=== PATIENT | female | born 1950 | race Caucasian/White ===

== ENCOUNTER → 2017-08-22 | Outpatient (CLI) | payer MEDICARE, OTHER, SELFPAY | PROVIDERS: Family Provider Nurse Practitioner Family; Visit Provider Nurse Practitioner Family | DX: R05 Cough (principal) | CPT/HCPCS: 71020 ==

== ENCOUNTER 2017-09-21 18:00 | Inpatient (IN) | payer MEDICARE, OTHER, SELFPAY ==
[2017-09-21 18:01] VITALS: BP 209/125; PULSE 90; RESP 18; TEMP 36.8; O2SAT 99; BMI 35.4
--- NOTE | 2017-09-21 18:06 | HMH.EDGENADL ---
ED Disposition Clinical Impression: Chest pain, Hypertensive urgency, Vomiting, Dizziness Disposition: Still a Patient Condition on Discharge: Good Instructions: DI for Diarrhea and Traveler's Diarrhea -- Adult, DI for Diarrhea and Traveler's Diarrhea -- Child, DI for Nausea -- Adult, DI for Nausea -- Child - Critical Care Critical Care Time: No Attestation: On , the high probability of a clinically significant, sudden or life threatening deterioration of the following system(s) required my full and direct attention, intervention and personal management. The time I documented below is in addition to time spent performing reported procedures but includes the following listed in this critical care notation. Medical Decision Making - Medical Records Medical records reviewed: Yes: I reviewed the patient's medical records. Vital Signs: 09/21/17 18:01 Temperature 98.2 F Temperature Source Oral Pulse Rate [Right Brachial] 90 Respiratory Rate 18 Blood Pressure [Right Arm] 209/125 Blood Pressure Mean [Right Arm] 153 Blood Pressure Source [Right Arm] Automatic Cuff Blood Pressure Position [Right Arm] Sitting 02 Sat by Pulse Oximetry 99 Oxygen Delivery Method Room Air - Lab Data Lab Results 09/21/17 18:05: WBC 10.7, RBC 4.54, Hgb 13.5, Hct 39.9, MCV 87.9, MCH 29.8, MCHC 33.9, RDW 13.4, Plt Count 424, MPV 7.1 L, Neut % (Auto) 72.9, Lymph % (Auto) 21.1, [place] % (Auto) 4.8, Eos % (Auto) 0.7, Baso % (Auto) 0.6, Neut # (Auto) 7.8, Lymph # (Auto) 2.3, [place] # (Auto) 0.5, Eos # (Auto) 0.1, Baso # (Auto) 0.1 09/21/17 18:05: Sodium 139, Potassium 3.3 L, Chloride 101, Carbon Dioxide 24, Anion Gap 17.3 H, BUN 8, Creatinine 0.77, Estimated Creat Clear 78, Estimated GFR 75, Est GFR ( Amer) 90, Glucose 111 H, Calcium 8.9, Total Bilirubin 0.8, AST 31, ALT 31, Alkaline Phosphatase 170 H, Total Creatine Kinase 85, CK-MB (CK-2) 0.5, CK-MB (CK-2) Rel Index 0.6, Troponin I < 0.02, Total Protein 8.0, Albumin 4.2, Globulin 3.8 H, Albumin/Globulin Ratio 1.1, TSH 6.58 H, Free T4 0.91 09/21/17 18:05: D-Dimer 410 H* 09/21/17 18:05: B-Natriuretic Peptide 57 09/21/17 18:05: Magnesium 1.3 L, Lipase 66 L Result diagrams: 09/21/17 18:05 09/21/17 18:05 Orders (Tests/Meds): ED MEDICATIONS Generic Name Dose Route Start Last Admin Trade Name Freq PRN Reason Stop Dose Admin Carvedilol 6.25 mg 09/21/17 21:00 Coreg 6.25mg Tablet PO 10/21/17 20:59 BID ERIC Magnesium Sulfate 1 gm/ Sodium 102 mls @ 200 mls/hr 09/21/17 19:42 Chloride IV 09/21/17 20:12 ONCE ONE Discontinued Medications Generic Name Dose Route Start Last Admin Trade Name Freq PRN Reason Stop Dose Admin Lactated Ringer's 1,000 mls @ 999 mls/hr 09/21/17 18:15 09/21/17 18:22 Lactated Ringer's 1000 Ml Bag IV 09/21/17 19:15 999 mls/hr .Q1H1M ERIC Administration Nitroglycerin 0.5 gm 09/21/17 19:41 Nitroglycerin 1 Inch Oint Udp TD 09/21/17 19:42 ONCE ONE Ondansetron HCl 4 mg 09/21/17 18:14 09/21/17 18:21 Zofran 4mg/2ml Vial IV 09/21/17 18:15 4 mg ONCE ONE Administration Promethazine HCl 12.5 mg 09/21/17 19:07 09/21/17 19:22 Phenergan 25mg/Ml 1ml Vial IV 09/21/17 19:08 12.5 mg ONCE ONE Administration Sodium Chloride 25 ml 09/21/17 19:07 09/21/17 19:33 Sod Chloride 0.9% 25ml Bag IV 09/21/17 19:08 25 ml ONCE ONE Administration ORDERS Category Date Time Status XR acute abdomen series Stat Exams 09/21/17 18:11 Taken Troponin I Stat Lab 09/21/17 19:08 Ordered - Radiology Data #1 Image(s): Chest, Abdomen Image Reviewed: Yes I reviewed the patient's radiology image Preliminary Findings: Normal/NAD - CT Data CT Scan: Head Time Received: 19:[address] Reviewed: Yes: I have viewed the radiologist's interpretation Findings Narrative: MPRESSION: 1. No acute intracranial findings. 2. Atrophy with chronic microangiopathic gliotic changes. - ECG Data Tracing #1
--- NOTE | 2017-09-21 18:09 | ED_ITS ---
ED Disposition Clinical Impression: Chest pain, Hypertensive urgency, Vomiting, Dizziness Disposition: Still a Patient Condition on Discharge: Good Instructions: DI for Diarrhea and Traveler's Diarrhea -- Adult, DI for Diarrhea and Traveler's Diarrhea -- Child, DI for Nausea -- Adult, DI for Nausea -- Child - Critical Care Critical Care Time: No Attestation: On , the high probability of a clinically significant, sudden or life threatening deterioration of the following system(s) required my full and direct attention, intervention and personal management. The time I documented below is in addition to time spent performing reported procedures but includes the following listed in this critical care notation. Medical Decision Making - Medical Records Medical records reviewed: Yes: I reviewed the patient's medical records. Vital Signs: 09/21/17 18:01 Temperature 98.2 F Temperature Source Oral Pulse Rate [Right Brachial] 90 Respiratory Rate 18 Blood Pressure [Right Arm] 209/125 Blood Pressure Mean [Right Arm] 153 Blood Pressure Source [Right Arm] Automatic Cuff Blood Pressure Position [Right Arm] Sitting 02 Sat by Pulse Oximetry 99 Oxygen Delivery Method Room Air - Lab Data Lab Results 09/21/17 18:05: WBC 10.7, RBC 4.54, Hgb 13.5, Hct 39.9, MCV 87.9, MCH 29.8, MCHC 33.9, RDW 13.4, Plt Count 424, MPV 7.1 L, Neut % (Auto) 72.9, Lymph % (Auto ) 21.1, [place] % (Auto) 4.8, Eos % (Auto) 0.7, Baso % (Auto) 0.6, Neut # (Auto) 7.8, Lymph # (Auto) 2.3, [place] # (Auto) 0.5, Eos # (Auto) 0.1, Baso # (Auto) 0.1 09/21/17 18:05: Sodium 139, Potassium 3.3 L, Chloride 101, Carbon Dioxide 24, Anion Gap 17.3 H, BUN 8, Creatinine 0.77, Estimated Creat Clear 78, Estimated GFR 75, Est GFR ( Amer) 90, Glucose 111 H, Calcium 8.9, Total Bilirubin 0.8, AST 31, ALT 31, Alkaline Phosphatase 170 H, Total Creatine Kinase 85, CK- MB (CK-2) 0.5, CK-MB (CK-2) Rel Index 0.6, Troponin I < 0.02, Total Protein 8.0 , Albumin 4.2, Globulin 3.8 H, Albumin/Globulin Ratio 1.1, TSH 6.58 H, Free T4 0.91 09/21/17 18:05: D-Dimer 410 H* 09/21/17 18:05: B-Natriuretic Peptide 57 09/21/17 18:05: Magnesium 1.3 L, Lipase 66 L Result diagrams: 09/21/17 18:05 09/21/17 18:05 Orders (Tests/Meds): ED MEDICATIONS Generic Name Dose Route Start Last Admin Trade Name Freq PRN Reason Stop Dose Admin Carvedilol 6.25 mg 09/21/17 21:00 Coreg 6.25mg Tablet PO 10/21/17 20:59 BID ERIC Magnesium Sulfate 1 gm/ Sodium 102 mls @ 200 mls/hr 09/21/17 19:42 Chloride IV 09/21/17 20:12 ONCE ONE Discontinued Medications Generic Name Dose Route Start Last Admin Trade Name Freq PRN Reason Stop Dose Admin Lactated Ringer's 1,000 mls @ 999 mls/hr 09/21/17 18:15 09/21/17 18:22 Lactated Ringer's 1000 Ml Bag IV 09/21/17 19:15 999 mls/hr .Q1H1M ERIC Administration Nitroglycerin 0.5 gm 09/21/17 19:41 Nitroglycerin 1 Inch Oint Udp TD 09/21/17 19:42 ONCE ONE Ondansetron HCl 4 mg 09/21/17 18:14 09/21/17 18:21 Zofran 4mg/2ml Vial IV 09/21/17 18:15 4 mg ONCE ONE Administration Promethazine HCl 12.5 mg 09/21/17 19:07 09/21/17 19:22 Phenergan 25mg/Ml 1ml Vial IV 09/21/17 19:08 12.5 mg ONCE ONE Administration Sodium Chloride 25 ml 09/21/17 19:07 09/21/17 19:33 Sod Chl
--- NOTE | 2017-09-21 18:11 | XR_ITS ---
XR acute abdomen series HISTORY: ITS.REASON: NVD ORDERING PHYSICIAN: Arsh Fraga MD PATIENT AGE: 67 years COMPARISON: None FINDINGS: Unremarkable bowel gas pattern. No intestinal obstruction or free air. There are multiple pelvic calcifications which is nonspecific and may be due to phleboliths. Suture line is present in the left pelvic region. Mild change change lumbosacral junction. Frontal view of the chest shows no acute finding IMPRESSION: No acute finding
--- NOTE | 2017-09-21 18:11 | CT_ITS ---
CT head/brain wo con HISTORY: Dizziness with nausea and vomiting and hypertension ITS.REASON: dizziness and vomiting ORDERING PHYSICIAN: Arsh Fraga MD PATIENT AGE: 67 years COMPARISON: 04/12/2009 TECHNIQUE: Axial images obtained without contrast. Brain and bone windows reviewed. FINDINGS: No midline shift, mass effect, intracranial hemorrhage, hydrocephalus, or extra-axial fluid collection is evident. There is atrophy with microangiopathic gliotic changes in the periventricular and subcortical region. Bilateral basal ganglia calcifications are also present. The calvarium has an unremarkable appearance. No mastoid effusion. No sinus air-fluid levels.. IMPRESSION: 1. No acute intracranial findings. 2. Atrophy with chronic microangiopathic gliotic changes.
[2017-09-21 18:18] LABS: Basophils # 0.1 K/mm3 (0-0.2); Basophils % 0.6 % (0.1-2.0); Eosinophils # 0.1 K/mm3 (0.0-0.4); Eosinophils % 0.7 % (0.1-12.0); Hematocrit 39.9 % (37.0-47.0); Hemoglobin 13.5 g/dL (12.2-16.2); Lymphocytes # 2.3 K/mm3 (0.7-4.5); Lymphocytes % 21.1 K/mm3 (10-50); Mean Corpuscular HGB Conc 33.9 g/dL (31.8-35.4); Mean Corpuscular Hemoglobin 29.8 pg (27.0-31.2); Mean Corpuscular Volume 87.9 fl (81-99); Mean Platelet Volume 7.1 fl (7.4-10.4); Monocytes # 0.5 K/mm3 (0.1-1.0); Monocytes % 4.8 % (1.7-9.3); Neutrophils # 7.8 K/mm3 (1.8-7.8); Neutrophils % 72.9 % (37.0-80.0); Platelet Count 424 K/mm3 (142-424); Red Blood Count 4.54 M/mm3 (4.20-5.40); Red Cell Distribution Width 13.4 % (11.5-17.5); White Blood Count 10.7 K/mm3 (4.8-10.8)
[2017-09-21 18:39] LABS: Lipase 66 u/L (73-393); Magnesium 1.3 mg/dL (1.4-2.2)
[2017-09-21 18:42] LABS: Alanine Aminotransferase 31 U/L (12-78); Albumin Level 4.2 gm/dL (3.4-5.0); Albumin/Globulin Ratio 1.1 (1.1-1.8); Alkaline Phosphatase 170 U/L (46-116); Anion Gap 17.3 mEq/L (5-15); Aspartate Amino Transferase 31 U/L (15-37); Bilirubin,Total 0.8 mg/dL (0.2-1.0); Blood Urea Nitrogen 8 mg/dL (7-18); CKMB Relative Index 0.6 U/L (0-4.0); Calcium 8.9 mg/dL (8.5-10.1); Carbon Dioxide 24 mmol/L (21.0-32.0); Chloride 101 mmol/L (98-107); Creatine Kinase 85 U/L (26-192); Creatine Kinase MB 0.5 mg/ml (0.0-3.6); Creatinine Clearance Estimated 78 mL/min (0-300); Creatinine,Serum 0.77 mg/dL (0.55-1.02); Estimated Glomerular Filt Rate 75 ml/min (>60); Free T4 (Free Thyroxine) 0.91 ng/dl (0.76-1.46); GFR (African American) 90 ML/MIN (>60); Globulin 3.8 gm/dl (1.3-3.2); Glucose 111 mg/dL (74-106); Potassium 3.3 mmoL/L (3.5-5.1); Sodium 139 mmol/L (136-145); Thyroid Stimulating Hormone 6.58 uIU/ml (0.358-3.740); Troponin I < 0.02 ng/ml (0.00-0.06)
[2017-09-21 19:06] LABS: D-Dimer 410 (0-400)
[2017-09-21 20:09] LABS: Troponin I < 0.02 ng/ml (0.00-0.06)
[2017-09-21 21:00] VITALS: BP 186/94; PULSE 75; RESP 18; TEMP 36.4; O2SAT 99
[2017-09-21 21:49] VITALS: PULSE 70
[2017-09-21 22:30] VITALS: BP 179/85
[2017-09-21 23:52] VITALS: BP 147/87; PULSE 74; RESP 18; TEMP 36.9; O2SAT 98
[2017-09-22] VITALS: PULSE 70
[2017-09-22 00:54] VITALS: BMI 31.7
[2017-09-22 04:00] VITALS: PULSE 68
--- NOTE | 2017-09-22 04:00 | PC.NURSE ---
PATIENT ADMITTED THIS SHIFT.SHE HAD ONE EPISODE OF STATED ANXIETY AND FELT HER LEGS WERE TRYING TO CRAMP UP . PATIENT GIVEN A ONE TIME DOSE OF ATIVAN AND POTASSIUM, WHICH SEEMED TO BE EFFECTIVE. PATIENT STATES THAT SHE HAS SLEPT WELL FOR THE MOST PART. DENIES ANY PAIN. NO OTHER PROBLEMS NOTED AT THIS TIME. VSS. WILL CONTINUE TO MONITOR. SAFETY MEASURES IN PLACE, CALL LIGHT IN REACH.
[2017-09-22 04:58] VITALS: BP 138/72; PULSE 74; RESP 16; TEMP 36.7; O2SAT 97
--- NOTE | 2017-09-22 07:10 | P.CONPHA_ITS ---
[facility] Pharm[facility] VTE Monitoring - Patient Demographics Admission date: 09/21/17 Report Date: 09/22/17 Time: 07:10 Allergies/Adverse Reactions: Patient Allergies No Known Allergies Allergy (Verified 09/21/17 22:45) Height: 1.6 m Weight: 81.224 kg Patient Problems: Current Active Problems Chest pain (Acute) Hypertensive urgency (Acute) Vomiting (Acute) Dizziness (Acute) - VTE Risk Labs: VTE Related Lab Results Hgb 13.5 g/dL (12.2-16.2) 09/21/17 18:05 Hct 39.9 % (37.0-47.0) 09/21/17 18:05 Plt Count 424 K/mm3 (142-424) 09/21/17 18:05 BUN 8 mg/dL (7-18) 09/21/17 18:05 Creatinine 0.77 mg/dL (0.55-1.02) 09/21/17 18:05 Estimated Creat Clear 78 mL/min (0-300) 09/21/17 18:05 Was VTE Risk Assessment Performed: Yes VTE Score: 4 VTE Risk Level: Low Risk - Prophylaxis VTE Prophylaxis Ordered?: Yes Types of VTE Prophylaxis: TEDS Knee High Location of Applied Device: Bilateral Lower Extremeties - VTE Diagnosis Confirmed Treatment or plan recommended: Continue Current Treatment
[2017-09-22 08:00] VITALS: BP 164/80; PULSE 80; RESP 18; TEMP 36.9; O2SAT 95
--- NOTE | 2017-09-22 09:51 | HMH.CARDCON2 ---
History of Present Illness Consult date: 09/22/17 Requesting physician: Fredi Helton Consult reason: chest pain Chief complaint: chest pain, N/V, diarhhea History of present illness: 67-year-old white female with history of coronary artery disease was admitted through the emergency department yesterday for recurrent episodes of chest discomfort receded by nausea vomiting and diarrhea. Symptoms have resolved overnight. Cardiac troponins have been normal ?2. Patient relates dermal daily activity (walking up steps) without chest or arm discomfort. She states this is nothing like her previous angina symptoms prior to her stents in the past. EKG is sinus rhythm with some motion artifact but unremarkable. Patient relates home blood pressure readings have been elevated, in the 170-180 systolic range recently. Review of Systems - *Cardiovascular Reports chest pain - *Respiratory Reports shortness of breath with activity - *Gastrointestinal Reports loose stools, Reports nausea, Reports vomiting - *Musculoskeletal Reports joint pain [facility] History Medical History: Reports:: Congestive Heart Failure, Hyperlipidemia, Hypertension, Myocardial Infarction Denies:: Cancer, Diabetes Mellitus Type 1, Diabetes Mellitus Type 2, Internal Pacemaker, MRSA Other Medical History: Reports: Arthritis, Hypothyroidism, Sinus Problems, Thyroid Disease Other Surgeries: Yes: Hysterectomy-Total, Other. No: Pacemaker Amputation: No Fractures: Yes (right ankle) - *Social History Educational Level: Completed High School Smoking Status: Former smoker Alcohol Intake: never Occupational Status: retired Housing: house Household Members: spouse - Psychiatric History Expresses thoughts of harming self/others: None Suicide Plan Description: No Plan *Family Hx:: Cancer, Coronary Artery Disease, Diabetes, Heart Attack, Hyperlipidemia, Hypertension, Thyroid Disorder Meds Home Medications Medication Instructions Recorded Confirmed Type Atorvastatin Calcium [Atorvastatin 40 mg PO DAILY 09/22/17 09/22/17 History 40mg Tab] Carvedilol [Carvedilol 6.25mg Tab] 6.25 mg PO BID 09/22/17 09/22/17 History Clopidogrel Bisulfate [Plavix 75mg 75 mg PO DAILY 09/22/17 09/22/17 History Tab] Isosorbide Mononitrate 10 mg PO DAILY 09/22/17 09/22/17 History Potassium Chloride [Klor-con 20 20 meq PO DAILY 09/22/17 09/22/17 History mEq tablet] Venlafaxine HCl [Venlafaxine HCl 150 mg PO DAILY 09/22/17 09/22/17 History ER] Allergies Allergy/AdvReac Type Severity Reaction Status Date / Time No Known Allergies Allergy Verified 09/21/17 22:45 Exam Vital signs and Labs for Last 24 Hours: Temp Pulse Resp BP Pulse Ox 98.5 F 80 18 164/80 95 09/22/17 08:00 09/22/17 08:00 09/22/17 08:00 09/22/17 08:00 09/22/17 08:00 I & O for Last 24 hours: Intake & Output 09/19/17 09/20/17 09/21/17 09/22/17 11:59 11:59 11:59 11:59 Intake Total 360 / 360 Balance 360 / 360 Weight 179 lb 1.094 oz - *Routine Neck Exam Absent: JVD, carotid bruit - *Routine Respiratory Exam Present: CTA bilaterally - *Routine Cardiovascular Exam Present: RRR. Absent: murmur, gallop, rubs - *Routine Extremities Exam Absent: edema - *Routine Neurological Exam Present: alert, oriented X3, moving all extremities Results 09/21/17 18:05 09/21/17 18:05 Intake and Output 09/21/17 09/22/17 09/22/17 19:59 03:59 11:59 Intake Total 360 / 360 Balance 360 / 360 Intake: Intake, Oral Amount 360 / 360 Other: Weight 179 lb 1.094 oz 179 lb 1.094 oz Patient Weight 09/22/17 11:59 Weight 179 lb 1.094 oz EKG interpretations - EKG EKG results cardiology: sinus rhythm Assessment and Plan (1) Chest pain Current visit: Yes Status: Acute Category: Medical Code(s): R07.9 - Chest pain, unspecified Chest pain felt to be noncardiac in nature with normal troponins and no acute change
--- NOTE | 2017-09-22 09:55 | P.CONS_ITS ---
History of Present Illness Consult date: 09/22/17 Requesting physician: Fredi Helton Consult reason: chest pain Chief complaint: chest pain, N/V, diarhhea History of present illness: 67-year-old white female with history of coronary artery disease was admitted through the emergency department yesterday for recurrent episodes of chest discomfort receded by nausea vomiting and diarrhea. Symptoms have resolved overnight. Cardiac troponins have been normal ?2. Patient relates dermal daily activity (walking up steps) without chest or arm discomfort. She states this is nothing like her previous angina symptoms prior to her stents in the past. EKG is sinus rhythm with some motion artifact but unremarkable. Patient relates home blood pressure readings have been elevated, in the 170-180 systolic range recently. Review of Systems - *Cardiovascular Reports chest pain - *Respiratory Reports shortness of breath with activity - *Gastrointestinal Reports loose stools, Reports nausea, Reports vomiting - *Musculoskeletal Reports joint pain [facility] History Medical History: Reports:: Congestive Heart Failure, Hyperlipidemia, Hypertension, Myocardial Infarction Denies:: Cancer, Diabetes Mellitus Type 1, Diabetes Mellitus Type 2, Internal Pacemaker, MRSA Other Medical History: Reports: Arthritis, Hypothyroidism, Sinus Problems, Thyroid Disease Other Surgeries: Yes: Hysterectomy-Total, Other. No: Pacemaker Amputation: No Fractures: Yes (right ankle) - *Social History Educational Level: Completed High School Smoking Status: Former smoker Alcohol Intake: never Occupational Status: retired Housing: house Household Members: spouse - Psychiatric History Expresses thoughts of harming self/others: None Suicide Plan Description: No Plan *Family Hx:: Cancer, Coronary Artery Disease, Diabetes, Heart Attack, Hyperlipidemia, Hypertension, Thyroid Disorder Meds Home Medications Medication Instructions Recorded Confirmed Type Atorvastatin Calcium [Atorvastatin 40 mg PO DAILY 09/22/17 09/22/17 History 40mg Tab] Carvedilol [Carvedilol 6.25mg Tab] 6.25 mg PO BID 09/22/17 09/22/17 History Clopidogrel Bisulfate [Plavix 75mg 75 mg PO DAILY 09/22/17 09/22/17 History Tab] Isosorbide Mononitrate 10 mg PO DAILY 09/22/17 09/22/17 History Potassium Chloride [Klor-con 20 20 meq PO DAILY 09/22/17 09/22/17 History mEq tablet] Venlafaxine HCl [Venlafaxine HCl 150 mg PO DAILY 09/22/17 09/22/17 History ER] Allergies Allergy/AdvReac Type Severity Reaction Status Date / Time No Known Allergies Allergy Verified 09/21/17 22:45 Exam Vital signs and Labs for Last 24 Hours: Temp Pulse Resp BP Pulse Ox 98.5 F 80 18 164/80 95 09/22/17 08:00 09/22/17 08:00 09/22/17 08:00 09/22/17 08:00 09/22/17 08:00 I & O for Last 24 hours: Intake & Output 09/19/17 09/20/17 09/21/17 09/22/17 11:59 11:59 11:59 11:59 Intake Total 360 / 360 Balance 360 / 360 Weight 179 lb 1.094 oz - *Routine Neck Exam Absent: JVD, carotid bruit - *Routine Respiratory Exam Present: CTA bilaterally - *Routine Cardiovascular Exam Present: RRR. Absent: murmur, gallop, rubs - *Routine Extremities Exam Absent: edema - *Routine Neurological Exam Present: alert, oriented X3, moving al
--- NOTE | 2017-09-22 10:00 | CA_ITS ---
PROCEDURE: 2-D M-mode and color Doppler study INDICATIONS FOR THE TEST: Chest pain+ COPD Heart Murmur+ Tobacco Smoking Palpitations Fatigue+ Syncope Edema Hypertension+Diabetes Mellitus Rheumatic Fever SOB DASILVA Obesity Hyperlipidemia+ Family History HD Additional History CAD, 3 stents PATIENT INFORMATION HEIGHT: 63 WEIGHT: 179 GENDER: Female B/P: 156/84 2-D/M-MODE INTERPRETATION: 2-D MEASUREMENTS OBSERVED VALUES IN CMS Right Ventricular Dimension (RVDd) 2.2 Interventricular Septum (Thickness)(IVsd) 1.0 Left Ventricular Internal Dimensions(LVIDd) 4.4 Left Ventricular Posterior Wall (Thickness)(LVPWd) 1.0 Aortic Root 2.4 Aortic Cusp Separation 1.8 Left Atrial Dimensions (LAD) 3.5 2D 1. Left atrium is mildly enlarged, left ventricle is normal size, there is preserved left ventricular systolic function, visually estimated ejection fraction 55% with no obvious regional wall motion abnormality. 2. The right atrium and right ventricle are normal size and contractility. 3. The aortic valve is minimally thickened and fibrosed. 4. The mitral and tricuspid valve leaflets are minimally thickened. 5. The pulmonic valve is poorly visualized. 6. No significant pericardial effusion noted. DOPPLER INTERROGATION: Doppler interrogation of the aortic, mitral and tricuspid valve is presence of mild mitral and tricuspid regurgitation, Doppler evidence of impaired relaxation is also seen. CONCLUSION: 1. Mildly enlarged left atrium, normal left ventricular size, visually estimated ejection fraction 55% with no obvious regional wall motion abnormality, Doppler evidence of impaired relaxation seen. 2. Mild mitral and tricuspid regurgitation 3. No significant pericardial effusion noted.
[2017-09-22 12:00] VITALS: PULSE 80
[2017-09-22 12:41] VITALS: BP 181/88; PULSE 76; RESP 16; TEMP 36.9; O2SAT 96
--- NOTE | 2017-09-22 13:57 | HMH.HPDC ---
General - General Admission date: 09/21/17 Discharge date: 09/22/17 *Admission Date: 09/21/17 *Chief complaint: chest pain *History of present illness: 67-year-old white female with history of coronary artery disease was admitted through the emergency department yesterday for recurrent episodes of chest discomfort receded by nausea vomiting and diarrhea. Symptoms have resolved overnight. Cardiac troponins have been normal ?2. Patient relates dermal daily activity (walking up steps) without chest or arm discomfort. She states this is nothing like her previous angina symptoms prior to her stents in the past. EKG is sinus rhythm with some motion artifact but unremarkable. Patient relates home blood pressure readings have been elevated, in the 170-180 systolic range recently. [facility] History I have reviewed the patient's past medical history: Yes Medical History: Reports:: Congestive Heart Failure, Hyperlipidemia, Hypertension, Myocardial Infarction Denies:: Cancer, Diabetes Mellitus Type 1, Diabetes Mellitus Type 2, Internal Pacemaker, MRSA Other Medical History: Reports: Arthritis, Hypothyroidism, Sinus Problems, Thyroid Disease Other Surgeries: Yes: Hysterectomy-Total, Other. No: Pacemaker Amputation: No Fractures: Yes (right ankle) - *Social History Educational Level: Completed High School Smoking Status: Former smoker Alcohol Intake: never Occupational Status: retired Housing: house Household Members: spouse - Psychiatric History Expresses thoughts of harming self/others: None Suicide Plan Description: No Plan *Family Hx:: Cancer, Coronary Artery Disease, Diabetes, Heart Attack, Hyperlipidemia, Hypertension, Thyroid Disorder Review of Systems - Constitutional Denies anorexia, Denies body ache(s), Denies chills - Eyes Denies blind spots, Denies blurry vision - ENT Denies abnormal hearing, Denies nasal discharge - *Cardiovascular Reports chest pain, Reports chest pain at rest, Reports chest pain with activity, Denies shortness of breath - *Respiratory Denies change in phlegm color, Denies chest congestion, Denies cough, Denies shortness of breath - *Gastrointestinal Denies abdominal pain - *Genitourinary Denies abnormal periods - *Musculoskeletal Denies joint pain - Integumentary/Breasts Denies bleeding lesions - *Neurologic Denies dizziness - Psychiatric Denies anxiety - Endocrine Denies excessive sweating - Hematologic/Lymphatic Denies easy bleeding - Allergic/Immunologic Denies GI upset with certain foods Exam Vital signs and Labs for Last 24 Hours: Temp Pulse Resp BP Pulse Ox 98.5 F 76 16 181/88 96 09/22/17 12:41 09/22/17 12:41 09/22/17 12:41 09/22/17 12:41 09/22/17 12:41 I & O for Last 24 hours: Intake & Output 09/20/17 09/21/17 09/22/17 09/23/17 11:59 11:59 11:59 11:59 Intake Total 360 / 360 240 / 240 Balance 360 / 360 240 / 240 Weight 179 lb 1.094 oz - Constitutional no acute distress - *Routine HEENT Exam Head: Present: normocephalic Eye: Present: PERRL ENT: Present: mucous membranes moist - *Routine Neck Exam Present: supple, full ROM - *Routine Respiratory Exam Present: CTA bilaterally. Absent: accessory muscle use, respiratory distress - *Routine Cardiovascular Exam Present: RRR - *Routine Abdominal Exam Present: soft, normoactive bowel sounds - *Routine Extremities Exam Absent: cyanosis - Routine Back/Spine/Pelvis Exam Back/Spine: Present: full ROM - *Routine Neurological Exam Present: alert, oriented X3 Hospital Course Hospital Course: chest x ray FINDINGS: Unremarkable bowel gas pattern. No intestinal obstruction or free air. There are multiple pelvic calcifications which is nonspecific and may be due to phleboliths. Suture line is present in the left pelvic region. Mild change change lumbosacral junction. IMPRESSION: No acute finding Assessment and Plan for all problems:: 1. We will plan to o
== END 2017-09-22 14:52 | disposition home or self-care (01) | DRG 313 ==
LOC: ER 19:47 → 2ND 20:45
PROVIDERS: Admitting Provider Emergency Medicine; Emergency Provider Emergency Medicine; Family Provider Nurse Practitioner Family; Visit Provider Emergency Medicine
DX: R07.9 Chest pain, unspecified (principal); I25.10 Atherosclerotic heart disease of native coronary artery without angina pectoris; I11.0 Hypertensive heart disease with heart failure; I50.9 Heart failure, unspecified; Z87.891 Personal history of nicotine dependence
CPT/HCPCS: 70450; 74021; 80053; 82550; 82553; 83690; 83735; 83880; 84439; 84443; 84484; 85025; 85378; 93005; 93041; 93306; 96365; 96375; 99284; J2405

== ENCOUNTER → 2017-10-17 10:21 | Outpatient (CLI) | payer MEDICARE, OTHER, SELFPAY ==
[2017-10-17 13:17] LABS: Alanine Aminotransferase 29 U/L (12-78); Albumin Level 3.7 gm/dL (3.4-5.0); Alkaline Phosphatase 171 U/L (46-116); Anion Gap 11.3 mEq/L (5-15); Aspartate Amino Transferase 18 U/L (15-37); Bilirubin,Direct 0.1 mg/dL (0.0-0.2); Bilirubin,Total 0.6 mg/dL (0.2-1.0); Blood Urea Nitrogen 11 mg/dL (7-18); Carbon Dioxide 29 mmol/L (21.0-32.0); Chloride 104 mmol/L (98-107); Chol/HDL Ratio 2.7 (1-3.5); Cholesterol 146 mg/dL (140-200); Creatinine,Serum 0.75 mg/dL (0.55-1.02); Estimated Glomerular Filt Rate 77 ml/min (>60); GFR (African American) 93 ML/MIN (>60); Glucose 94 mg/dL (74-106); HDL Cholesterol 55 mg/dL (29-89); LDL Cholesterol 66 mg/dL (0-130); Potassium 4.3 mmoL/L (3.5-5.1); Sodium 140 mmol/L (136-145); Total Protein,Serum 6.9 gm/dL (6.4-8.2); Triglycerides 127 mg/dL (30-200); VLDL Cholesterol 25 mg/dL (0-40)
== END ==
PROVIDERS: Visit Provider Internal Medicine Cardiovascular Disease
DX: E78.4 Other hyperlipidemia (principal); I10 Essential (primary) hypertension; I25.10 Atherosclerotic heart disease of native coronary artery without angina pectoris; I51.9 Heart disease, unspecified; G47.9 Sleep disorder, unspecified; R06.83 Snoring; R53.83 Other fatigue
CPT/HCPCS: 36415; 80048; 80061; 80076

== ENCOUNTER → 2017-10-20 08:20 | Outpatient (CLI) | payer MEDICARE, OTHER, SELFPAY ==
--- NOTE | 2017-10-20 08:23 | US_ITS ---
US gallbladder Ordering Physician: Nathan Victoria MD Patient Age: 67 years: Female HISTORY: ITS.REASON: RUQ pain Right upper quadrant pain nausea. Back pain. TECHNIQUE: ] Ultrasound COMPARISON :Previous ultrasound right upper quadrant 02/20/2017. FINDINGS Pancreas unremarkable Liver. No focal lesions no biliary ductal dilatation. Portal vein generous but normal normal diameter with normal direction flow Gallbladder. No gallstones. Gallbladder wall normal to upper normal thickness. Common duct normal diameter measuring 3.5 mm at hilum of liver Right kidney measures 8.8 seem in length. There is suggestive some minor cortical thinning upper pole right kidney. Otherwise unremarkable. IMPRESSION: 1. No discrete gallstones. . . minimal debris and sludge or gallbladder noted. Upper normal gallbladder wall thickness. 2. Liver unremarkable 3. Mild cortical thinning upper pole right kidney.
== END ==
PROVIDERS: Family Provider Nurse Practitioner Family; PCP Emergency Medicine; Visit Provider Surgery
DX: R10.10 Upper abdominal pain, unspecified (principal)
CPT/HCPCS: 76705

== ENCOUNTER → 2018-04-29 11:19 | Outpatient (CLI) | payer MEDICARE, OTHER, SELFPAY ==
--- NOTE | 2018-04-29 11:23 | XR_ITS ---
XR foot LT min 3V HISTORY: Posttraumatic pain ITS.REASON: foot pain ORDERING PHYSICIAN: Fredi Helton MD PATIENT AGE: 68 years COMPARISON: None FINDINGS: No acute fracture or dislocation. Minimal hallux valgus with minimal hypertrophic change of the distal aspect of the first metatarsal is mild soft tissue swelling medially at this region. Otherwise negative. IMPRESSION: 1. No acute fracture. 2. Minimal hallux valgus with bunion formation
== END ==
PROVIDERS: PCP Emergency Medicine; Visit Provider Emergency Medicine
DX: M79.672 Pain in left foot (principal)
CPT/HCPCS: 73630

== ENCOUNTER → 2018-06-11 13:07 | Outpatient (CLI) | payer MEDICARE, OTHER, SELFPAY | PROVIDERS: PCP Emergency Medicine; Visit Provider Internal Medicine Cardiovascular Disease | DX: G47.9 Sleep disorder, unspecified; R06.83 Snoring; G47.33 Obstructive sleep apnea (adult) (pediatric); R40.0 Somnolence | CPT/HCPCS: G0399 ==

== ENCOUNTER → 2018-07-09 09:44 | Outpatient (CLI) | payer MEDICARE, OTHER, SELFPAY ==
--- NOTE | 2018-07-09 09:45 | MM_ITS ---
MM Dig screening mamm BI w/CAD ORDERING PHYSICIAN : Fredi Helton MD PATIENT AGE: 68 years GENDER: Female COMPARISON:. Bilateral digital mammogram March 20172015, October 2014. INDICATION: ITS.REASON: screening no hormones. No new complaints. Noncontributory family history. Benign excisional biopsy left breast. TECHNIQUE: Standard CC and MLO images were obtained. R2 CAD reviewed. March 20172015, October 2014 FINDINGS: Mild/moderate residual abdomen elements with mild fatty replacement bilaterally. . No prominent findings. No suspicious mass No suspicious calcifications. RIGHT BREAST:. On further review of these images there is a small area of density labeled A, at the deep breast on cc view with likely corresponding area on MLO view the breast. This measures up to 9 mm length x 6 mm on cc view. Suspect it may merely be a summation shadow but does stand out more so than multiple previous studies with slight irregular margins. Thus] recommend spot views right breast to further evaluate. . small nodular density labeled B ( 8 mm size ) at the lateral breast on cc view also noted. This was likely present before. This likely resides upper outer quadrant and would also benefit from spot views with patient returns. LEFT BREAST:. Follow up one year Stable left breast as well IMPRESSION: . Right breast. Small areas of density warrant additional spot views.. These are unimpressive small areas of focal density merely be summation shadows Left breast. Stable. Follow-up in one year on left BI-RADS Category: 0 Need Additional Imaging Evaluation RECOMMENDED FOLLOW-UP: IMM - IMMEDIATE FOLLOW-UP RECOMMENDED Spot views right breast, CC and 90 degree MLO (A letter has been sent to the patient regarding results of the study.)
== END ==
PROVIDERS: PCP Emergency Medicine; Visit Provider Emergency Medicine
DX: Z12.31 Encounter for screening mammogram for malignant neoplasm of breast (principal)
CPT/HCPCS: 77067

== ENCOUNTER → 2018-07-23 15:23 | Outpatient (CLI) | payer MEDICARE, OTHER, SELFPAY ==
--- NOTE | 2018-07-23 15:25 | MM_ITS ---
MM Dig mamm DX unilat RT CAD, US breast RT complete INDICATION: Follow-up abnormal mammogram ORDERING PHYSICIAN: ALFONSO Santiago PATIENT AGE: 68 years COMPARISON: 07/09/2018, 04/03/2017 TECHNIQUE: Problem-solving views performed of the right breast. Along with right breast ultrasound. FINDINGS: There remains some minimal asymmetric density in the central aspect of the right breast as seen on the CC spot compression view possibly superiorly on the MLO view. Not readily reproduced on the rolled views. No other significant abnormalities apparent. Right breast ultrasound: Small hypoechoic area is present 9:00 near the nipple parallel to the chest wall. There is enhanced through transmission of sound. This could represent a small complicated cyst or even a small intramammary lymph node. No suspicious nodules evident. IMPRESSION: No convincing evidence of malignancy. Probably benign findings. Suggest month mammographic and sonographic follow-up BI-RADS Category: 3 Probably Benign Finding Short Term Follow-up RECOMMENDED FOLLOW-UP: 6M - 6 MONTH FOLLOW-UP (A letter has been sent to the patient regarding results of the study.)
== END ==
PROVIDERS: PCP Emergency Medicine; Visit Provider Physician Assistant
DX: R92.8 Other abnormal and inconclusive findings on diagnostic imaging of breast (principal)
CPT/HCPCS: 77065

== ENCOUNTER → 2018-07-24 14:54 | Outpatient (CLI) | payer MEDICARE, OTHER, SELFPAY ==
--- NOTE | 2018-07-24 14:56 | US_ITS ---
MM Dig mamm DX unilat RT CAD, US breast RT complete INDICATION: Follow-up abnormal mammogram ORDERING PHYSICIAN: ALFONSO Santiago PATIENT AGE: 68 years COMPARISON: 07/09/2018, 04/03/2017 None TECHNIQUE: Problem-solving views performed of the right breast. Along with right breast ultrasound. FINDINGS: There remains some minimal asymmetric density in the central aspect of the right breast as seen on the CC spot compression view possibly superiorly on the MLO view. Not readily reproduced on the rolled views. No other significant abnormalities apparent. Right breast ultrasound: Small hypoechoic area is present 9:00 near the nipple parallel to the chest wall. There is enhanced through transmission of sound. This could represent a small complicated cyst or even a small intramammary lymph node. No suspicious nodules evident. IMPRESSION: No convincing evidence of malignancy. Probably benign findings. Suggest month mammographic and sonographic follow-up BI-RADS Category: 3 Probably Benign Finding Short Term Follow-up RECOMMENDED FOLLOW-UP: 6M - 6 MONTH FOLLOW-UP (A letter has been sent to the patient regarding results of the study.)
== END ==
PROVIDERS: PCP Emergency Medicine; Visit Provider Physician Assistant
DX: R92.8 Other abnormal and inconclusive findings on diagnostic imaging of breast (principal)
CPT/HCPCS: 76641

== ENCOUNTER → 2019-03-02 12:44 | Outpatient (CLI) | payer MEDICARE, OTHER, SELFPAY ==
--- NOTE | 2019-03-02 12:46 | US_ITS ---
US breast RT complete INDICATION: Follow-up abnormal mammogram ORDERING PHYSICIAN: Fredi Helton MD PATIENT AGE: 68 years COMPARISON: 03/02/2019, 07/24/2018 TECHNIQUE: Right breast ultrasound complete with axilla FINDINGS: There is a slightly hyperechoic area in the right breast at 10:00 measuring 2.3 x 1.2 cm and is reported to be in an area of bruising. The small saphenous area of decreased echogenicity is noted within this nodule. Small nodes are present in the axilla. No other significant anomalies are.. IMPRESSION: Probably benign findings right breast representing a hematoma. Recommend 6 month sonographic follow-up BI-RADS Category: 3 Probably Benign Finding Short Term Follow-up RECOMMENDED FOLLOW-UP: 6M - 6 MONTH FOLLOW-UP (A letter has been sent to the patient regarding results of the study.)
--- NOTE | 2019-03-02 12:46 | MM_ITS ---
MM Dig mamm DX unilat RT CAD INDICATION: Follow-up abnormal mammogram, 6 month follow-up ORDERING PHYSICIAN: Fredi Helton MD PATIENT AGE: 68 years COMPARISON: 07/09/2018, 04/03/2017 TECHNIQUE: Problem-solving views performed of the right breast along standard images FINDINGS: Average fibroglandular tissue. There is some asymmetry in the superior aspect of the right breast. No malignant appearing mass or malignant microcalcification is evident. The area of asymmetry does appear to compress out. Right breast ultrasound: There is an area of bruising at 10:00 which show some increase echogenicity measuring 2 cm. Small nodes are present in the axilla. Previously there was an area noted at 9:00 which is not identified on today's exam. IMPRESSION: Benign findings, no convincing evidence of malignancy. Recommend bilateral screening mammogram in June 2019 to resume BI-RADS Category: 2 Benign Finding(s) Bilateral screening mammogram June 2019 (A letter has been sent to the patient regarding results of the study.)
== END ==
PROVIDERS: PCP Emergency Medicine; Visit Provider Emergency Medicine
DX: R92.8 Other abnormal and inconclusive findings on diagnostic imaging of breast (principal)
CPT/HCPCS: 76641; 77065

== ENCOUNTER → 2019-07-08 06:16 | Outpatient (CLI) | payer MEDICARE, OTHER, SELFPAY ==
--- NOTE | 2019-07-08 06:23 | NM_ITS ---
APPROVED REPORT Exam: Nuclear Stress Test Indication: chest pain, fatigue, short of breath Patient Location: Outpatient Stress Tech: Jovanna Venita MA Tech:RAFI Garcia RT(R)(N) Ht: 5 ft 4 in Wt: 177 lbs Bra Size: 40dd HR: 56 bpm BP: 149/77 mmHg BSA: 1.86 m2 BMI: 30.3 History: chest pain, fatigue, short of breath Procedure: Patient received a 0.4 mg of intravenous Lexiscan, resting heart rate 56 bpm, resting blood pressure 149/77 mmHg, with Lexiscan maximum heart rate achived was 93 bpm which is Less than 85 % of the maximum predicted heart rate and blood pressure was 129/71 mmHg. With Lexiscan, patient denied any complaint of chest pain. Electrocardiogram Resting electro cardiogram showed sinus rhythm, with Lexiscan less than 1.[address] segment depression noted from the baseline EKG. The EKG portion of the Lexiscan Myoview is nondiagnostic. Cardiac Stress and Resting SPECT Images: Cardiac Stress and Resting SPECT images were obtained using technetium 99m Myoview 32.7 mCi stress and 10.05 mCi at rest. Gated SPECT for analysis of segmental wall motion and calculation of the ejection fraction also done. Cardiac stress and resting SPECT images show uniform myocardial activity without segmental perfusion abnormality, computer derived ejection fraction is over 65% with no regional wall motion abnormality, right ventricle is normal size and contractility. Conclusion: 1. The EKG portion of the Lexiscan Myoview is nondiagnostic. 2. No scintigraphic evidence of reversible ischemia seen, computer derived ejection fraction is over 65% with no regional wall motion abnormality, right ventricle is normal size and contractility. 3. Normal Lexiscan Myoview study. Electronically signed by : Sanchez Sosa, 07/08/2019 15:15:45
--- NOTE | 2019-07-08 09:42 | HMH.ITSHM ---
Current Home Medications as stated by this patient Mily Sotelo or disability representative. [] spironolactone ranitidine pioglitazone melatonin amlodipine furosmide citalopram cetirizine carvedilol atorvastatin
--- NOTE | 2019-07-08 09:54 | CA_ITS ---
APPROVED REPORT Exam: Pharmacologic Technologist: hayde cole, Ht: 5 ft 4 in Wt: 177 lbs BSA: 1.86 m2 HR: 56 bpm BP: 149/77 mmHg Indications: CP Medical History Medications: Levothyroxine,,,,, Isosorbide,,,,, Asa,,,,, Losartan,,,,, Carvedilol,,,,, ProMETHAZINE,,,,, CloPIdogrel,,,,, LipTOR,,,,, Potassium,,,,, Sertaline,,,,, Allergies: No known drug allergies Cardiac Risk Factors: HTN, Hyperlipidemia, FHX of CAD Stress Test Details Test: LEXISCAN HR Resting HR: 62 bpm Max Heart Rate (APMHR): 151 bpm Max HR Achieved: 93 bpm Target HR (85% APMHR): 128 bpm % of APMHR: 61 Recovery HR: 82 bpm BP Resting BP: 149/77 mmHg Max BP: 165/80 mmHg Recovery BP: 145.0/79.0 mmHg ECG Resting ECG: NSR Clinical Reason for Termination: Completed Protocol Exercise duration: 04:01 min Highest Stage Achieved: Exercise capacity: 1.0 METs Stress ECG Conclusion Patient had no symptoms or arrhythmias. There was < 1.5mm of ST Segment Changes. Non-Diagnostic. Test Summary REST 06:25 . . 62 . 149/ 77 . . Stage 1 01:00 . . 79 . . . . Stage 2 01:00 . . 89 . 129/ 71 . . Stage 3 01:00 . . 89 . 154/ 76 . . Stage 4 01:00 . . 84 . 156/ 79 . . Stage 4 01:01 . . 84 . 156/ 79 . Stop exercise at 04:01 RECOVERY 01:00 . . 82 . . . . RECOVERY 02:00 . . 81 . 143/ 81 . . RECOVERY 03:00 . . 80 . 165/ 80 . . RECOVERY 04:00 . . 79 . 165/ 80 . . RECOVERY 04:32 . . 80 . 144/ 79 . . Electronically signed by : Sanchez Sosa, 07/08/2019 11:55:14
== END ==
PROVIDERS: PCP Emergency Medicine; Visit Provider Internal Medicine Cardiovascular Disease
DX: I10 Essential (primary) hypertension; I25.10 Atherosclerotic heart disease of native coronary artery without angina pectoris; R07.9 Chest pain, unspecified; R11.10 Vomiting, unspecified; R42 Dizziness and giddiness; R53.83 Other fatigue; E78.49 Other hyperlipidemia
CPT/HCPCS: 78452; 93017; A9502; J2785

== ENCOUNTER → 2019-09-13 10:30 | Outpatient (CLI) | payer MEDICARE, OTHER, SELFPAY ==
--- NOTE | 2019-09-13 10:31 | US_ITS ---
PROCEDURE: US BREAST RT COMPLETE CLINICAL INDICATION: 6 mth f/u COMPARISON: DIG MAMM-DX UNI-RT from 03/02/2019 BREASTRT US breast RT complete from 03/02/2019 FINDINGS: There is an unchanged right axillary nodule with peripheral hypoechogenicity measuring up to 1.8 centimeters likely a nonspecific lymph node. This was noted previously measuring 1.5 centimeters. It is probably not significantly changed given for non comparable imaging planes and technical inaccuracy in measurements.. Previously reported heterogeneous echoes in the area of bruising on previous exam are not seen on today's exam. There is no other discrete mass or fluid collection. IMPRESSION: BI-RADS category 3 probably benign consider additional 6 month follow-up exam to confirm stability of probable nonspecific lymph node. Dictated by: Radhames Montes 09/17/2019 09:35 Electronically signed by Radhames Montes in [place] 09/17/2019 09:35
== END ==
PROVIDERS: PCP Emergency Medicine; Visit Provider Physician Assistant
DX: R92.8 Other abnormal and inconclusive findings on diagnostic imaging of breast (principal)
CPT/HCPCS: 76641

== ENCOUNTER 2019-12-14 14:25 | Emergency (ER) | payer MEDICARE, OTHER, SELFPAY ==
[2019-12-14 14:31] VITALS: BP 126/74; PULSE 79; RESP 18; TEMP 36.6; O2SAT 97; BMI 29.5
[2019-12-14 14:44] LABS: Basophils % 0.5 % (0.1-2.0); Eosinophils % 0.5 % (0.1-12.0); Hematocrit 34.2 % (37.0-47.0); Hemoglobin 11.2 g/dL (12.2-16.2); Lymphocytes % 17.6 % (10-50); Mean Corpuscular HGB Conc 32.7 g/dL (31.8-35.4); Mean Corpuscular Hemoglobin 30.1 pg (27.0-31.2); Mean Platelet Volume 8.6 fl (7.4-10.4); Monocytes % 9.2 % (1.7-9.3); Neutrophils % 72.2 % (37.0-80.0); Platelet Count 272 K/mm3 (142-424); Red Blood Count 3.72 M/mm3 (4.20-5.40); Red Cell Distribution Width 13.4 % (11.5-17.5); White Blood Count 10.2 K/mm3 (4.8-10.8)
[2019-12-14 14:45] LABS: Basophils # 0.1 K/mm3 (0-0.2); Eosinophils # 0.1 K/mm3 (0.0-0.4); Lymphocytes # 1.8 K/mm3 (0.7-4.5); Monocytes # 0.9 K/mm3 (0.1-1.0); Neutrophils # 7.4 K/mm3 (1.8-7.8)
--- NOTE | 2019-12-14 14:49 | HMH.COUGH ---
Cough Clinic HPI - History of Present Illness Complaint:: myalgias, cough, vomiting HPI:: 69 year old female with 3 days of illness that began with temp of 99.1 with nausea and vomiting followed by onset of myalgias and cough clear sputum. She has had some chills. Mild sore throat Home Medications: Home Medications Medication Instructions Recorded Confirmed Type aspirin 81 mg tablet,delayed 81 mg PO ONCE tab 10/09/17 12/14/19 History release atorvastatin 40 mg tablet 40 mg PO DAILY tab 07/15/19 12/14/19 History clopidogrel 75 mg tablet 75 mg PO DAILY tab 07/15/19 12/14/19 History biotin 10,000 mcg capsule 10,000 mcg PO DAILY 10/14/19 12/14/19 History pamabrom 50 mg tablet 50 mg PO DAILY 10/14/19 12/14/19 History potassium chloride 20 mEq 20 meq PO BID #180 tab 10/25/19 12/14/19 Rx tablet,extended release(part/cryst) Amoxicillin [Amoxicillin 500mg 500 mg PO TID #21 cap 12/14/19 Rx Cap] Isosorbide Mononitrate [Imdur 60mg 60 mg PO DAILY 12/14/19 12/14/19 History ER tablet] Levothyroxine Sodium [Synthroid See Rx Instructions .ROUTE .COMPLEX 12/14/19 12/14/19 History 100mcg (0.1mg) tablet] Losartan Potassium [Cozaar 100mg 100 mg PO DAILY 12/14/19 12/14/19 History Tablets] Sertraline HCl [Zoloft] See Rx Instructions .ROUTE .COMPLEX 12/14/19 12/14/19 History Spironolactone [Spironolactone 25 mg PO QAM 12/14/19 12/14/19 History 25mg Tablet] carvediloL [Carvedilol 12.5mg Tab] 12.5 mg PO BID 12/14/19 12/14/19 History Allergies/Adverse Reactions: Allergies Allergy/AdvReac Type Severity Reaction Status Date / Time No Known Allergies Allergy Verified 10/14/19 13:34 Cough Clinic Triage - Symptoms Fever History: Yes (99.1) Chills: Yes Myalgia: Yes Nasal Drainage: Yes (clear) Sore Throat: Yes Productive Cough: No Non-productive Cough: Yes Ear or Sinus Pain: Yes Joint Pain: Yes Chest Pain: No Rash: No Shortness of Breath: Yes Nausea or Vomitting: Yes Headache: Yes Abdominal Pain: Yes Diarrhea: No - Exposure History Foreign Travel: No Direct Contact with COVID-19 Patient: No - Risk Factors Greater than 60 Years Old: Yes COPD: No Diabetes: No Heart Disease: Yes Home Oxygen Use: No Chronic Renal Disease: No Chronic Liver Disease: No Neurologic/Neurodevelopmental/intellectual disability: No Other Chronic Diseases: No If Female, currently : No Current Smoker: No Former Smoker: No Cough Clinic History I have reviewed the patient's past medical history: Yes Medical History: Reports:: Anxiety, Congestive Heart Failure, Coronary Artery Disease, Depression, Hyperlipidemia, Hypertension, Myocardial Infarction, Palpitations Denies:: Cancer, Diabetes Mellitus Type 1, Diabetes Mellitus Type 2, Internal Pacemaker, MRSA Other Medical History: Reports: Arthritis, Hypothyroidism, Sinus Problems, Thyroid Disease Other Surgeries: Yes: Angioplasty, Cardiac Catheterization, Coronary Stent, Hysterectomy-Total, Other (Right ankle). No: Pacemaker Amputation: No Fractures: No - Social History Smoking Status: Never smoker Alcohol Intake: former Alcohol Intake Frequency:: 3 or more drinks per day Substance Use Type: denies use Occupational Status: retired Housing: house Household Members: spouse - Psychiatric History Pschychiatric History:: Reports:: Anxiety, Depression Family Hx:: Coronary Artery Disease, Heart Attack ROS Obtained: Yes All systems reviewed & no additional complaints Cough Clinic Exam - General General appearance: alert, in no apparent distress - Head Head exam: atraumatic, normocephalic, normal inspection - Eye Eye exam: Present: normal appearance, PERRL, EOMI - ENT ENT exam: Present: normal exam, mucous membranes moist, TM's normal bilaterally, normal external ear exam, other (oropharynx mildly erythematous) - Neck Neck exam: Present: normal inspection, full ROM, trachea midline. Absent: meningismus, lymphadenopathy - Chest Chest inspection: Pre
--- NOTE | 2019-12-14 14:57 | XR_ITS ---
PROCEDURE: XR CHEST PORTABLE CLINICAL HISTORY: cough, myalgias COMPARISON: [facility] CT CHEST W/ CONTRAST from 04/02/2016 CXR1 CHEST-PORTABLE from 07/20/2016 CXR1 CHEST-PORTABLE from 03/22/2017 CXR CHEST(2 VIEWS-NOT PORTABLE) from 08/22/2017 FINDINGS: Borderline cardiomegaly without failure. The lungs are clear without infiltrates, suspicious nodules, or pleural effusions. No acute bony abnormalities. IMPRESSION: No acute findings. Dictated by: Hemal Deal MD 12/14/2019 15:59 Electronically signed by Hemal Deal MD in [place] 12/14/2019 15:59
[2019-12-14 16:15] VITALS: BP 127/67; PULSE 76; RESP 18; TEMP 36.6; O2SAT 98
== END 2019-12-14 16:15 | disposition home or self-care (01) ==
PROVIDERS: Emergency Provider Family Medicine; PCP Emergency Medicine
DX: J02.9 Acute pharyngitis, unspecified (principal); J20.9 Acute bronchitis, unspecified; M79.18 Myalgia, other site; F41.8 Other specified anxiety disorders; Z79.899 Other long term (current) drug therapy; E03.9 Hypothyroidism, unspecified; E78.5 Hyperlipidemia, unspecified; I10 Essential (primary) hypertension; I25.2 Old myocardial infarction
CPT/HCPCS: G0463; 36415; 71045; 85025; 87275; 87276; 99201; 99213

== ENCOUNTER 2020-03-16 04:45 | Observation (INO) | payer MEDICARE, OTHER, SELFPAY ==
[2020-03-16] VITALS (10 sets, daily range): BP systolic 101–172; BP diastolic 57–82; PULSE 61–77; RESP 14–20; TEMP 36.4–36.7; O2SAT 90–100; BMI 29.9
--- NOTE | 2020-03-16 04:37 | CT_ITS ---
PROCEDURE: CT LUMBAR SPINE WO CON CLINICAL HISTORY: fall posttraumatic pain, fall with injury and pain, blunt trauma, Blunt trauma with injury and pain, contusion/abrasion or hematoma following injury, low back pain COMPARISON: No exams were available for comparison TECHNIQUE: Axial images obtained with sagittal and coronal reformats. All CT scans at the facility use one or more dose reduction, viz: automated exposure control, ma/kV adjustment per patient size (including targeted exams where dose is matched to indication, i.e. head), or iterative reconstruction technique. FINDINGS: There is normal alignment. There is mild acute wedge compression fracture involving the L1 vertebral body with loss of height centrally and anteriorly of approximately 30 percent. There is minimal buckling of the posterior superior cortex without canal stenosis. No posterior element involvement. L2-L3: Minimal bulging disc. L3-L4: Unremarkable. L4-5: Minimal bulging disc L5-S1: Bulging disc slightly eccentric toward the left with facet and ligamentum hypertrophy. There is minimal anterolisthesis of L5 of approximately 2-3 mm. IMPRESSION: 1. Mild acute wedge compression fracture of L1 with loss of height of approximately 30 percent and minimal buckling of the posterior superior cortex without canal stenosis. 2. Bulging discs at L2-L3, L4-5, and L5-S1 Dictated by: Hemal Deal MD 03/16/2020 08:27 Electronically signed by Hemal Deal MD in [place] 03/16/2020 08:27
--- NOTE | 2020-03-16 04:37 | CT_ITS ---
PROCEDURE: CT CERVICAL SPINE WO CON CLINICAL INDICATION: fall Neck injury with pain, contusion/abrasion or hematoma, cervical sprain/strain the COMPARISON: No exams were available for comparison TECHNIQUE: Axial images obtained with sagittal and coronal reformats. All CT scans at the facility use one or more dose reduction, viz: automated exposure control, ma/kV adjustment per patient size (including targeted exams where dose is matched to indication, i.e. head), or iterative reconstruction technique. Axial spiral CT scanning performed of the cervical spine beginning at the base of the skull and continuing to the upper T-spine. 3-D multiplanar reconstruction with 3-D manipulation of volumetric data set in image rendering was completed by the radiologist and/or technologist with the supervision of the radiologist on independent workstation. FINDINGS: There is normal alignment. No fracture or dislocation is evident. C2-C3: Mild left-sided uncovertebral hypertrophy C3-C4: Mild degenerative disc disease. C4-C5: Degenerative disc disease. C5-C6: Degenerate disc disease with mild uncovertebral hypertrophy and mild left-sided foraminal narrowing. C6-C7: Mild degenerative disc disease. Lung apices are clear. There is few scattered small nodes in the neck. IMPRESSION: 1. No acute fracture. 2. Mild cervical spondylosis Dictated by: Hemal Deal MD 03/16/2020 08:44 Electronically signed by Hemal Deal MD in [place] 03/16/2020 08:44
--- NOTE | 2020-03-16 04:37 | XR_ITS ---
PROCEDURE: XR CHEST AP CLINICAL INDICATION: fall Trauma protocol, posttraumatic pain COMPARISON: [facility] CT CHEST W/ CONTRAST from 04/02/2016 CXR1 CHEST-PORTABLE from 03/22/2017 CXR CHEST(2 VIEWS-NOT PORTABLE) from 08/22/2017 XR CHEST PORTABLE from 12/14/2019 FINDINGS: No fracture or dislocation. No lytic or blastic change. There is normal mineralization. The joint spaces are well-preserved. No significant degenerative/arthritic changes. No erosive changes evident. Other findings:None. IMPRESSION: No acute findings. Dictated by: Hemal Deal MD 03/16/2020 08:03 Electronically signed by Hemal Deal MD in [place] 03/16/2020 08:03
--- NOTE | 2020-03-16 04:37 | CT_ITS ---
PROCEDURE: CT THORACIC SPINE WO CON CLINICAL HISTORY: fall Back injury with pain, contusion/abrasion or hematoma, back sprain/strain, back pain COMPARISON: [facility] CT CHEST W/ CONTRAST from 04/02/2016 TECHNIQUE: Axial images obtained with sagittal and coronal reformats. All CT scans at the facility use one or more dose reduction, viz: automated exposure control, ma/kV adjustment per patient size (including targeted exams where dose is matched to indication, i.e. head), or iterative reconstruction technique. FINDINGS: Normal alignment. No acute fracture or dislocation. Generalized osteopenia noted. There is mild loss of height anteriorly of T4 which is chronic similar on 04/02/[address] There is mild multilevel degenerative disc disease with small anterior osteophytes at T4-T5-T6-T7 T8 and T9 and T10 most prominent at T7-T8 and T9 Incidental note is made of coronary artery calcification. There is also wedging of L1 which appears acute as described in the lumbar spine report IMPRESSION: 1. Thoracic spondylosis with mild chronic wedging T4. 2. Acute wedge compression fracture of L1 as described in the lumbar spine CT report Dictated by: Hemal Deal MD 03/16/2020 08:48 Electronically signed by Hemal Deal MD in [place] 03/16/2020 08:48
--- NOTE | 2020-03-16 04:37 | CT_ITS ---
PROCEDURE: CT HEAD/BRAIN WO CON CLINICAL INDICATION: fall Head injury with headache/pain, contusion, abrasion or hematoma COMPARISON: HEADWO CT head/brain wo con from 09/21/2017 TECHNIQUE: Axial images obtained. All CT scans at the facility use one or more dose reduction, viz: automated exposure control, ma/kV adjustment per patient size (including targeted exams where dose is matched to indication, i.e. head), or iterative reconstruction technique. FINDINGS: No midline shift, mass effect, intracranial hemorrhage, hydrocephalus, or extra-axial fluid collection is evident. There is generalized atrophy with hypoattenuation of the periventricular white matter consistent with microangiopathic changes.. There are bilateral basal ganglia calcifications incidentally noted. The calvarium has an unremarkable appearance. No mastoid effusion. Mild mucosal thickening ethmoid and sphenoid sinuses. IMPRESSION: No acute intracranial finding Dictated by: Hemal Deal MD 03/16/2020 08:30 Electronically signed by Hemal Deal MD in [place] 03/16/2020 08:30
--- NOTE | 2020-03-16 04:37 | XR_ITS ---
PROCEDURE: XR PELVIS 1-2V CLINICAL INDICATION: fall Posttraumatic pain COMPARISON: No exams were available for comparison FINDINGS: No fracture or dislocation. No lytic or blastic change. There is normal mineralization. The joint spaces are well-preserved. No significant degenerative/arthritic changes. No erosive changes evident. Other findings:None. IMPRESSION: No acute findings. Dictated by: Hemal Deal MD 03/16/2020 08:02 Electronically signed by Hemal Deal MD in [place] 03/16/2020 08:02
[2020-03-16 04:59] LABS: Basophils # 0.1 K/mm3 (0-0.2); Eosinophils # 0.2 K/mm3 (0.0-0.4); Eosinophils % 1.9 % (0.1-12.0); Hematocrit 35.9 % (37.0-47.0); Hemoglobin 12.3 g/dL (12.2-16.2); Lymphocytes # 3.7 K/mm3 (0.7-4.5); Lymphocytes % 44.3 % (10-50); Mean Corpuscular HGB Conc 34.4 g/dL (31.8-35.4); Mean Corpuscular Hemoglobin 32.4 pg (27.0-31.2); Mean Corpuscular Volume 94.3 fl (81-99); Mean Platelet Volume 7.3 fl (7.4-10.4); Monocytes # 0.3 K/mm3 (0.1-1.0); Monocytes % 3.6 % (1.7-9.3); Neutrophils # 4.1 K/mm3 (1.8-7.8); Neutrophils % 49.3 % (37.0-80.0); Platelet Count 384 K/mm3 (142-424); Red Blood Count 3.81 M/mm3 (4.20-5.40); White Blood Count 8.3 K/mm3 (4.8-10.8)
[2020-03-16 05:01] LABS: Chloride 108 mmol/L (98-107); Potassium 3.9 mmoL/L (3.5-5.1); Sodium 141 mmol/L (136-145)
[2020-03-16 05:03] LABS: Alanine Aminotransferase 24 U/L (12-78); Alkaline Phosphatase 114 U/L (38-126); Anion Gap 15.9 mEq/L (5-15); Aspartate Amino Transferase 40 U/L (14-36); Bilirubin,Total 0.4 mg/dl (0.2-1.3); Blood Urea Nitrogen 16 mg/dl (7-17); Carbon Dioxide 21 mmol/L (22.0-30.0); Creatinine Clearance Estimated 67 mL/min (50-200); Estimated Glomerular Filt Rate 55 ml/min (>60); Ethyl Alcohol 175 mg/dl (0-10); GFR (African American) 67 ML/MIN (>60)
[2020-03-16 05:04] LABS: Albumin Level 3.9 g/dl (3.5-5.0); Albumin/Globulin Ratio 1.4 (1.1-1.8); Calcium 8.9 mg/dl (8.4-10.2); Globulin 2.8 g/dL (1.3-3.2); Glucose 93 mg/dl (74-100); Total Protein,Serum 6.7 g/dl (6.3-8.2)
--- NOTE | 2020-03-16 06:36 | PC.NURSE ---
per MD request pt evaluated on her ability to tolerate being sat in an up right position. as soon as this nurse began to raise the head of the bed the slightest bit the pt stated it was too painful. pt lowered back to comfortable supine position at this time.
--- NOTE | 2020-03-16 06:46 | HMH.EDFALL ---
ED Disposition Clinical Impression: Compression fx, lumbar spine Qualifiers: Encounter type: initial encounter Lumbar vertebra fracture level: L1 Qualified Code(s): S32.010A - Wedge compression fracture of first lumbar vertebra, initial encounter for closed fracture Alcohol intoxication Qualifiers: Complication of substance-induced condition: uncomplicated Qualified Code(s): F10.920 - Alcohol use, unspecified with intoxication, uncomplicated Disposition: Admitted as Observation Condition on Discharge: Good Referrals: Fredi Helton MD [Primary Care Provider] - - Critical Care Critical Care Time: No Attestation: On 03/16/20, the high probability of a clinically significant, sudden or life threatening deterioration of the following system(s) required my full and direct attention, intervention and personal management. The time I documented below is in addition to time spent performing reported procedures but includes the following listed in this critical care notation. Medical Decision Making - Medical Records Medical records reviewed: Yes: I reviewed the patient's medical records. - Esdras Inquiry Pt receiving controlled substance: No Vital Signs: 03/16/20 04:37 03/16/20 05:46 03/16/20 06:30 Temperature 97.6 F Temperature Source Oral Pulse Rate [Right] 68 61 64 Respiratory Rate 18 14 15 Blood Pressure [Right Arm] 101/60 L 111/63 117/62 Blood Pressure Mean [Right Arm] 73 79 80 Blood Pressure Source [Right Arm] Automatic Cuff Automatic Cuff Automatic Cuff Blood Pressure Position [Right Arm] Supine Sitting Sitting 02 Sat by Pulse Oximetry 100 97 96 Oxygen Delivery Method Room Air Room Air 03/16/20 07:00 03/16/20 07:58 Temperature Temperature Source Pulse Rate [Right] 64 64 Respiratory Rate 16 16 Blood Pressure [Right Arm] 107/59 L 110/64 Blood Pressure Mean [Right Arm] 75 79 Blood Pressure Source [Right Arm] Automatic Cuff Blood Pressure Position [Right Arm] Sitting Sitting 02 Sat by Pulse Oximetry 96 96 Oxygen Delivery Method Room Air - Lab Data Lab results reviewed: Yes: I reviewed the patient's lab results. Lab Results 03/16/20 04:45: WBC 8.3, RBC 3.81 L, Hgb 12.3, Hct 35.9 L, MCV 94.3, MCH 32.4 H, MCHC 34.4, RDW 14.0, Plt Count 384, MPV 7.3 L, Neut % (Auto) 49.3, Lymph % (Auto) 44.3, [place] % (Auto) 3.6, Eos % (Auto) 1.9, Baso % (Auto) 1.0, Neut # (Auto) 4.1, Lymph # (Auto) 3.7, [place] # (Auto) 0.3, Eos # (Auto) 0.2, Baso # (Auto) 0.1 03/16/20 04:45: Sodium 141, Potassium 3.9, Chloride 108 H, Carbon Dioxide 21 L, Anion Gap 15.9 H, BUN 16, Creatinine 1.00, Estimated Creat Clear 67, Estimated GFR 55 L, Est GFR ( Amer) 67, Glucose 93, Calcium 8.9, Total Bilirubin 0.4, AST 40 H, ALT 24, Alkaline Phosphatase 114, Total Protein 6.7, Albumin 3.9, Globulin 2.8, Albumin/Globulin Ratio 1.4 03/16/20 04:45: Plasma/Serum Alcohol 175 H Result diagrams: 03/16/20 04:45 03/16/20 04:45 Orders (Tests/Meds): ED MEDICATIONS Discontinued Medications Generic Name Dose Route Start Last Admin Trade Name Freq PRN Reason Stop Dose Admin Hydromorphone HCl 1 mg 03/16/20 07:52 03/16/20 07:53 Dilaudid 2mg/Ml Syringe IV 03/16/20 07:53 1 mg ONCE ONE Administration Sodium Chloride 1,000 mls @ 999 mls/hr 03/16/20 06:15 03/16/20 06:07 Sod Chlor 0.9% 1000ml Bag IV 03/16/20 07:15 999 mls/hr .Q1H1M ERIC Administration Ketorolac Tromethamine 30 mg 03/16/20 06:03 03/16/20 06:06 Toradol 30mg/Ml Vial IV 03/16/20 06:04 30 mg ONCE ONE Administration Morphine Sulfate 4 mg 03/16/20 06:41 03/16/20 06:43 Morphine 4mg/Ml Syringe IV 03/16/20 06:42 4 mg ONCE ONE Administration Ondansetron HCl 4 mg 03/16/20 06:41 03/16/20 06:43 Zofran 4mg/2ml Vial IV 03/16/20 06:42 4 mg ONCE ONE Administration Ondansetron HCl 4 mg 03/16/20 07:52 03/16/20 07:53 Zofran 4mg/2ml Vial IV 03/16/20 07:53 4 mg ONCE ONE Administration ORDERS Category Date Time Statu
--- NOTE | 2020-03-16 07:20 | PC.NURSE ---
attempted to sit pt up in bed, pt was unable to tolerate due to pain
--- NOTE | 2020-03-16 07:50 | PC.NURSE ---
family at bedside updated on plan of care
--- NOTE | 2020-03-16 08:53 | PC.NURSE ---
report called to jordyn bautista
--- NOTE | 2020-03-16 09:08 | HMH.PHAVTE ---
[facility] Pharmacy VTE Monitoring - Patient Demographics Admission date: 03/16/20 Report Date: 03/16/20 Time: 09:09 Allergies/Adverse Reactions: Patient Allergies No Known Allergies Allergy (Verified 10/14/19 13:34) Height: 1.63 m Weight: 79.379 kg Patient Problems: Current Active Problems Compression fx, lumbar spine (Acute) Alcohol intoxication (Acute) - VTE Risk Labs: VTE Related Lab Results Hgb 12.3 g/dL (12.2-16.2) 03/16/20 04:45 Hct 35.9 % (37.0-47.0) L 03/16/20 04:45 Plt Count 384 K/mm3 (142-424) 03/16/20 04:45 BUN 16 mg/dl (7-17) 03/16/20 04:45 Creatinine 1.00 mg/dl (0.52-1.04) 03/16/20 04:45 Estimated Creat Clear 67 mL/min (50-200) 03/16/20 04:45 Clinical Trial Participant: No - Prophylaxis VTE Prophylaxis Ordered?: Yes Types of VTE Prophylaxis: TEDS Knee High
--- NOTE | 2020-03-16 09:23 | HMH.HP ---
*Admission Date: 03/16/20 *Chief complaint: fall *History of present illness: this pt fell at home last pm and had back pain - she was seen in the ed and noted to have fracture lumbar 1 -pt was in sig pain and unable to sit up - no cauda equina sx - pt also had alcohol use -pt was admitted for treatment and eval [facility] History I have reviewed the patient's past medical history: Yes Medical History: Reports:: Anxiety, Congestive Heart Failure, Coronary Artery Disease, Depression, Hyperlipidemia, Hypertension, Myocardial Infarction, Palpitations Denies:: Cancer, Diabetes Mellitus Type 1, Diabetes Mellitus Type 2, Internal Pacemaker, MRSA *Have you ever received a pneumonia vaccine?: Yes *Have you received a flu vaccine this season?: Yes Other Medical History: Reports: Arthritis, Hypothyroidism, Sinus Problems, Thyroid Disease Other Surgeries: Yes: Angioplasty, Cardiac Catheterization, Coronary Stent, Hysterectomy-Total, Other (Right ankle). No: Pacemaker Amputation: No Fractures: No - *Social History Smoking Status: Former smoker Alcohol Intake: current Alcohol Intake Frequency:: 3 or more drinks per day Substance Use Type: denies use *Occupational Status:: retired Housing: house Household Members: spouse *Travel in the last 8 weeks: None - Psychiatric History Pschychiatric History:: Reports:: Anxiety, Depression Family Hx:: Coronary Artery Disease, Heart Attack Review of Systems - Review of Systems Review of systems:: pertinent systems reviewed and negative unless documented below - Constitutional Denies fever(s) - Eyes Denies change in vision - ENT Denies sore throat - *Cardiovascular Denies chest pain at rest - *Respiratory Denies cough - *Gastrointestinal Denies abdominal pain - *Genitourinary Denies blood in urine - *Musculoskeletal Reports back pain, Reports limited joint movement, Denies neck pain - Integumentary/Breasts Denies rash - *Neurologic Denies localized weakness, Denies headache(s), Denies seizure-like activity - Psychiatric Denies thoughts of hurting/killing others Meds Home Medications Medication Instructions Recorded Confirmed Type aspirin 81 mg tablet,delayed 81 mg PO DAILY tab 10/09/17 03/16/20 History release clopidogrel 75 mg tablet 75 mg PO DAILY tab 07/15/19 03/16/20 History potassium chloride 20 mEq 20 meq PO BID #180 tab 10/25/19 03/16/20 Rx tablet,extended release(part/cryst) Isosorbide Mononitrate [Imdur 60mg 60 mg PO DAILY 12/14/19 03/16/20 History ER tablet] carvediloL [Carvedilol 12.5mg Tab] 12.5 mg PO BID 12/14/19 03/16/20 History atorvastatin 40 mg tablet 40 mg PO DAILY #90 tab 02/28/20 03/16/20 Rx losartan 100 mg tablet 100 mg PO DAILY #90 tab 03/13/20 03/16/20 Rx Levothyroxine Sodium 100 mcg PO DAILY 03/16/20 03/16/20 History [Levothyroxine 100mcg (0.1MG) Tab] Sertraline HCl [Zoloft] 25 mg PO DAILY 03/16/20 03/16/20 History Spironolactone [Spironolactone 25 mg PO DAILY 03/16/20 03/16/20 History 25mg Tablet] Allergies Allergy/AdvReac Type Severity Reaction Status Date / Time No Known Allergies Allergy Verified 10/14/19 13:34 Exam Vital signs and Labs for Last 24 Hours: Temp Pulse Resp BP Pulse Ox 97.6 F 67 16 113/61 94 L 03/16/20 04:37 03/16/20 08:35 03/16/20 07:58 03/16/20 08:35 03/16/20 08:35 Laboratory Results - last 24 hr 03/16/20 04:45: WBC 8.3, RBC 3.81 L, Hgb 12.3, Hct 35.9 L, MCV 94.3, MCH 32.4 H, MCHC 34.4, RDW 14.0, Plt Count 384, MPV 7.3 L, Neut % (Auto) 49.3, Lymph % (Auto) 44.3, [place] % (Auto) 3.6, Eos % (Auto) 1.9, Baso % (Auto) 1.0, Neut # (Auto) 4.1, Lymph # (Auto) 3.7, [place] # (Auto) 0.3, Eos # (Auto) 0.2, Baso # (Auto) 0.1 03/16/20 04:45: Sodium 141, Potassium 3.9, Chloride 108 H, Carbon Dioxide 21 L, Anion Gap 15.9 H, BUN 16, Creatinine 1.00, Estimated Creat Clear 67, Estimated GFR 55 L, Est GFR ( Amer) 67, Glucose 93, Calcium 8.9, Total Bilirubin 0.4, AST 40 H, ALT 24, Alkalin
--- NOTE | 2020-03-16 09:28 | PC.NURSE ---
Pt arrived to the floor via stretcher at this time.
--- NOTE | 2020-03-16 09:56 | PC.NURSE ---
Spoke with Hollie in Dr. Martin about consult about pt.
--- NOTE | 2020-03-16 10:56 | HMH.PHAINT ---
MEDICATION RECONCILIATION COMPLETED ON PATIENT USING EXTERNAL FILL HISTORY FORM PHARMACY AND LIST FROM MD OFFICE. -JAYDA FRANCISD
[2020-03-16 12:24] LABS: Microscopic, Urine URINE MICROSCOPIC (MICROSCOPIC)
[2020-03-16 12:32] LABS: Appearance,Urine TURBID (Clear); Bilirubin,Urine Negative (Negative); Blood, Urine 1+ (Negative); Color,Urine DK YELLOW (Yellow); Glucose,Urine (UA) Negative (Negative); Ketones,Urine Negative (Negative); Leukocyte Esterase,Urine 3+ (Negative); Nitrate,Urine Negative (Negative); Protein,Urine 1+ (Negative); Specific Gravity, Urine 1.025 (1.005-1.030); Urobilinogen,Urine 0.2 EU/dl (0.2)
--- NOTE | 2020-03-16 12:37 | PC.NURSE ---
URINE COLLECTED AND SENT TO LAB
[2020-03-16 12:39] LABS: Bacteria,Urine 3+ /lpf; Squamous Epithelial Cell,Urine 20-50 #/hpf (0-5); WBC,Urine TNTC #/hpf (0-3)
--- NOTE | 2020-03-16 12:43 | PC.NURSE ---
spoke with Gustavo Dueñas RN regarding pt with possible uti, she states to just let md know to receive abx, no need for blood cultures and lactic at this time.
--- NOTE | 2020-03-16 13:01 | PC.NURSE ---
MESSAGE LEFT WITH TREMAINE JEWELL AT DR. MAS OFFICE REGARDING PT URINE SAMPLE.
--- NOTE | 2020-03-16 14:12 | HMH.PMCON ---
Assessment and Plan (1) Low back pain Current visit: Yes Status: Acute Category: Medical Code(s): M54.5 - Low back pain (2) Compression fracture of lumbar vertebra Current visit: Yes Status: Acute Category: Medical Code(s): S32.000A - Wedge compression fracture of unspecified lumbar vertebra, initial encounter for closed fracture - Assessment and plan all Dx Assessment and Plan for all problems:: After further discussion with Dr. marroquin, we will recommend an MRI of her lumbar spine. We will see the patient on discharge from the hospital in the clinic to discuss her MRI results. We will see if the patient is appropriate for kyphoplasty for her vertebral fracture. Did have a DEXA scan in 2011 that did show positive for osteoporosis. We will also order the patient a brace for stabilization when out of bed. We will see her in the clinic upon discharge to discuss a further plan of care. She has been instructed to contact clinic if she has any concerns before her next appointment. The patient and I specifically discussed risk factors for COVID19. These risks include, but are not limited to age greater than 60, heart or lung disease, diabetes, immunosuppression, and travel. We also discussed NSAIDs may worsen COVID19 infection or symptoms. Patient should not use NSAIDs to treat COVID19 signs or symptoms. Patient was also informed that any type of corticosteroid of any form (oral or injection) will decrease the patient's immune system response and may increase the likelihood of COVID19 infection [address] symptoms[address] Martin has reviewed this note and agrees with this plan of care. This note was dictated using voice recognition software and make contain errors or omissions. HPI - Data of Consult Patient: new to practice Consult date: 03/16/20 Requesting Physician: Fredi Helton MD Primary Care Provider: Fredi Helton MD - Consult Narrative Reason for consult: Back pain History of present illness: Ms. Sotelo is a 69 year old female who is currently inpatient in the hospital after a fall. Patient says that she got up at 4 AM this morning to go to the bathroom and fell. She says she developed severe pain in her low back area. She rates her pain a 5 out of 10 today. Patient is nauseous with emesis during the conversation. Says that her pain is primarily in her low back nonradiating. Patient does say that she had a CT scan, however, has not had any type of MRI to her lumbar spine. CT scan is positive for an L1 vertebral fracture. She and I did discuss this. Patient and I also discussed kyphoplasty at bedside. We will recommend the patient undergo an MRI of her lumbar spine for possible kyphoplasty procedure. CC: Fredi Helton MD [facility] History I have reviewed the patient's past medical history: Yes Medical History: Reports:: Anxiety, Congestive Heart Failure, Coronary Artery Disease, Depression, Hyperlipidemia, Hypertension, Myocardial Infarction, Palpitations Denies:: Cancer, Diabetes Mellitus Type 1, Diabetes Mellitus Type 2, Internal Pacemaker, MRSA *Have you ever received a pneumonia vaccine?: Yes *Have you received a flu vaccine this season?: Yes Other Medical History: Reports: Arthritis, Cataracts, Hypothyroidism, Sinus Problems, Thyroid Disease Other Surgeries: Yes: Angioplasty, Cardiac Catheterization, Coronary Stent, Hysterectomy-Total, Other (Right ankle). No: Pacemaker Amputation: No Fractures: No - *Social History Last grade of school completed: High school graduate Smoking Status: Former smoker Alcohol Intake: current Alcohol Intake Frequency:: other Substance Use Type: denies use *Occupational Status:: retired Housing: house Household Members: spouse *Travel in the last 8 weeks: None - Psychiatric History Pschychiatric History:: Reports:: Anxiety, Depression Family Hx:: Cancer, Diabetes, Heart Attack, Hypertension, Thyroid Disorder, Mental illness Review of Systems - Review of System
--- NOTE | 2020-03-16 16:58 | PC.NURSE ---
PATIENT C/O PAIN 12/02 TO LOWER BACK BUT SAID SHE DOES NOT WANT TO TAKE ANY PAIN MEDICATION AT THIS TIME UNTIL SHE IS ABLE TO HAVE ZOFRAN AGAIN BECAUSE SHE IS WORRIED THE PAIN MEDICATION WILL MAKE HER MORE NAUSEOUS. PATIENT REQUESTING RADHA MIKEL AND SALTINE CRACKERS, GIVEN TO PATIENT.
--- NOTE | 2020-03-16 18:13 | PC.NURSE ---
PATIENT LYING IN BED A&O C/O PAIN 12/02 STILL NOT WANTING TO TAKE PAIN MEDICATION D/T NAUSEA. UNABLE TO GIVE ZOFRAN- NOT TIME YET. PATIENT NOT VOMITING JUST NAUSEOUS. SAFETY MEASURES IN PLACE.
--- NOTE | 2020-03-16 23:06 | ECG_ITS ---
APPROVED REPORT Exam: Resting ECG HR:67 bpm ECG Measurements Heart Rate 67 AXES MO 154 P 54 QRSd 78 QRS 29 QT 414 T 49 QTc 437 <Conclusion> Normal sinus rhythm Normal ECG Electronically signed by : Anatoliy Gunn, 03/31/2020 16:12:25
[2020-03-16 23:58] LABS: Troponin I < 0.01 ng/ml (0.00-0.034)
[2020-03-17] VITALS (10 sets, daily range): BP systolic 136–157; BP diastolic 68–88; PULSE 60–80; RESP 16–18; TEMP 36.6–36.9; O2SAT 94–99; BMI 30.2
--- NOTE | 2020-03-17 05:33 | PC.NURSE ---
A&OX4. PT TOLERATING RA WELL. PT HAS C/O BACK PAIN AT TIMES T/O SHIFT, BUT HAS NOT REQUESTED ANY PRN PAIN MEDICINE. PT HAS RESTED IN BED WITH EYES CLOSED MAJORITY OF SHIFT. PT AMBULATED WITH X1 ASSIST TO AND FROM BATHROOM TO BED, TOLERATED FAIR. PT GAVE HERSELF A SPONGE BATH THIS SHIFT WITH ASSISTANCE FROM THIS RN. PT BEING MONITORED ON TELE, NSR NOTED. PT HAD CHEST PAIN X1 THIS SHIFT, STATING IT FELT LIKE THE CP SHE HAS HAD BEFORE, DURING A PREVIOUS IN. EKG RETRIEVED, MD MAS READ. TROPININ DRAWN. NSR FOUND ON EKG AND TROP NEGATIVE. (DOCUMENTED IN RAPID RED) NO OTHER C/O CP THUS FAR. VSS WILL CONTINUE TO MONITOR.
--- NOTE | 2020-03-17 06:06 | PC.NURSE ---
[facility] [employer] NOTIFIED OF CONSULT.
[2020-03-17 06:26] LABS: Basophils % 0.2 % (0.1-2.0); Eosinophils % 0.3 % (0.1-12.0); Hematocrit 32.5 % (37.0-47.0); Hemoglobin 11.1 g/dL (12.2-16.2); Lymphocytes # 1.4 K/mm3 (0.7-4.5); Lymphocytes % 16.8 % (10-50); Mean Corpuscular HGB Conc 34.3 g/dL (31.8-35.4); Mean Corpuscular Hemoglobin 31.9 pg (27.0-31.2); Mean Platelet Volume 8.3 fl (7.4-10.4); Monocytes # 0.4 K/mm3 (0.1-1.0); Monocytes % 5.4 % (1.7-9.3); Neutrophils # 6.4 K/mm3 (1.8-7.8); Neutrophils % 77.4 % (37.0-80.0); Platelet Count 251 K/mm3 (142-424); Red Blood Count 3.49 M/mm3 (4.20-5.40); Red Cell Distribution Width 13.9 % (11.5-17.5); White Blood Count 8.2 K/mm3 (4.8-10.8)
[2020-03-17 06:37] LABS: Chloride 109 mmol/L (98-107); Sodium 140 mmol/L (136-145)
[2020-03-17 06:38] LABS: Potassium 4.2 mmoL/L (3.5-5.1)
[2020-03-17 06:40] LABS: Alanine Aminotransferase 22 U/L (12-78); Albumin Level 3.6 g/dl (3.5-5.0); Albumin/Globulin Ratio 1.4 (1.1-1.8); Alkaline Phosphatase 118 U/L (38-126); Anion Gap 11.2 mEq/L (5-15); Aspartate Amino Transferase 36 U/L (14-36); Bilirubin,Total 1.1 mg/dl (0.2-1.3); Blood Urea Nitrogen 28 mg/dl (7-17); Calcium 8.2 mg/dl (8.4-10.2); Carbon Dioxide 24 mmol/L (22.0-30.0); Creatinine Clearance Estimated 48 mL/min (50-200); Estimated Glomerular Filt Rate 37 ml/min (>60); GFR (African American) 45 ML/MIN (>60); Globulin 2.6 g/dL (1.3-3.2); Glucose 99 mg/dl (74-100); Total Protein,Serum 6.2 g/dl (6.3-8.2)
[2020-03-17 06:41] LABS: Magnesium 1.5 mg/dl (1.6-2.3)
--- NOTE | 2020-03-17 07:27 | SW/DCPLANNER ---
PATIENT PRESENTED INTO [facility] AFTER SUSTAINING A FALL AT HOME WITH A BACK INJURY.... PATIENT RESIDES IN HER HOME AND ANY TYPE OF HOME CARE THAT IS NECESSARY WILL BE SET UP AT TIME OF DISCHARGE...D/C UNCERTAIN AT THIS TIME... CM WILL FOLLOW.
--- NOTE | 2020-03-17 08:00 | CA_ITS ---
APPROVED REPORT EXAM: Comprehensive 2D, Doppler, and color-flow Echocardiogram [employer] Dean: Karma Houston CRT Ht: 5 ft 4 in Wt: 174lbs BSA: 1.84 BP: 113/61 mmHg Indications: Chest Pain, Congestive Heart Failure, Palpitations, CAD, Hyperlipidemia, Hypertension/HDD, stents, L1 fx, ex smoker 2D Dimensions LVOT 1.79 cm (M/F) 1.5-2.5 M-Mode Dimensions RVDd 2.57 cm (0.9-2.6) LVDd 4.82 cm (3.5-5.7) LVDs 2.79 cm (3.5-5.7) IVSd 1.18 cm (0.6-1.1) PWd 0.61 cm (0.6-1.1) EF (Teich) 73.00% FS 42.10% EDV (Teich) 108.60 mL ESV (Teich) 29.30 mL LV Diastology E/A Ratio 0.80 Mitral Valve MV A Velocity 111.00 (40-130 cm/s) Left Ventricle Left atrium is mildly enlarged, left ventricle is normal size, mild concentric left ventricular hypertrophy, visually estimated ejection fraction 55% with no regional wall motion abnormality. Diastolic parameters are within normal range. Right Ventricle Right atrium and right ventricle are normal size and contractility. Aortic Valve Aortic valve is thickened and calcified leaflet chordae display good mobility, there is no aortic stenosis or aortic insufficiency. Mitral Valve Mitral valve has mitral annular calcification, leaflets are minimally thickened, there is no mitral stenosis, there is mild mitral regurgitation. Tricuspid Valve Tricuspid valve is grossly normal, there is mild tricuspid regurgitation calculated right ventricular systolic pressure is 40 mmHg. Pulmonic Valve Pulmonic valve is poorly visualized. Great Vessels Aortic root is normal size. Pericardium No significant pericardial effusion noted. Conclusion 1. Mildly enlarged left atrium, normal left ventricular size, mild concentric left ventricular hypertrophy, visually estimated ejection fraction of 55% with no regional wall motion abnormality, diastolic parameters are within normal range. 2. Mild mitral and tricuspid regurgitation. 3. No significant pericardial effusion noted. Electronically signed by : Sanchez Sosa, 03/17/2020 14:25:56
--- NOTE | 2020-03-17 09:14 | HMH.CNCARD ---
History of Present Illness Consult date: 03/17/20 Requesting physician: Fredi Helton Consult reason: chest pain Chief complaint: Lumbar fracture after fall, chest pain Additional Medical History:: 1. Hypertension A. History of diastolic CHF B. History of LV dysfunction, 2014, LVEF of 30% with transient use of LifeVest C. Echo, 09/2015 and 2018, EF>55% 2. History of alcohol use 3. Hyperlipidemia 4. Coronary artery disease A. History of coronary stenting in 2003, 2004 and 08/03/2015. Last one at [facility] in [place], [place]. B. [facility], 09/2015, widely patent LAD stent with no pre-or post stenosis noted. Normal LVEF. ANGIOGRAPHIC RESULTS: 1. The left main artery normal 2. The left anterior descending artery has a stent in the proximal segment which is widely patent. There is excellent transitioning both proximally and distally with normal SHAE-3 flow down the vessel 3. The circumflex artery normal 4. The right coronary artery normal 5. The GALAN ventriculogram reveals normal 65% 6. The left ventricular end-diastolic pressure 10 mmHg IMPRESSION: 1. Widely patent proximal LAD stent with excellent angiographic appearance and transitioning both proximally and distally to the stent 2. Normal ejection fraction 3. Normal left ventricular end-diastolic pressure 4. Possible localized stent arteritis versus noncardiac chest pain C. Rakan myoview, 06/2019, EF 65% with no ischemia. 5. Hypothyroidism 6. History of melena with GI workup pertinent for internal hemorrhoids and polyps on colonoscopy 7. History of lung nodule, referred to pulmonary for further evaluation 8. History of liver nodule 9. Mild THEO by sleep study, 2019 A. Pt unwilling to try CPAP History of present illness: 69-year-old white female was at home last evening when she got up to go the bathroom. She apparently fell and sustained significant back pain. She was brought to the emergency department and during evaluation was found to have fracture of her L1 vertebrae. Due to significant pain patient was kept for evaluation and treatment. She denies any cause for the fall (passing out, near syncope, chest pain, palpitations or tripping over anything) but patient has noted occasional chest discomfort that lasts less than a few minutes on the left side of her chest. Not particularly associated with exertion or deep breathing. Patient was last seen in our office in May 2019 at which time a Lexiscan Myoview was ordered and performed in 06/2019 with no ischemia and LVEF 65%. She has had some episodes of chest discomfort since then that have required up to 2 nitroglycerin for relief. EKG this admission is sinus rhythm with no acute ST segment changes and initial troponin is normal. Cardiology consulted for evaluation and recommendations. [facility] History Medical History: Reports:: Anxiety, Congestive Heart Failure, Coronary Artery Disease, Depression, Hyperlipidemia, Hypertension, Myocardial Infarction, Palpitations Denies:: Cancer, Diabetes Mellitus Type 1, Diabetes Mellitus Type 2, Internal Pacemaker, MRSA *Have you ever received a pneumonia vaccine?: Yes *Have you received a flu vaccine this season?: Yes Other Medical History: Reports: Arthritis, Cataracts, Hypothyroidism, Sinus Problems, Thyroid Disease Other Surgeries: Yes: Angioplasty, Cardiac Catheterization, Coronary Stent, Hysterectomy-Total, Other (Right ankle). No: Pacemaker Amputation: No Fractures: No - *Social History Last grade of school completed: High school graduate Smoking Status: Former smoker Alcohol Intake: current Alcohol Intake Frequency:: other Substance Use Type: denies use *Occupational Status:: retired Housing: house Household Members: spouse *Travel in the last 8 weeks: None - Psychiatric History Pschychiatric History:: Reports:: Anxiety, Depression Family Hx:: Cancer, Diabetes, Heart Attack, Hypertension, Thyroid Disorder, Mental illness Meds Home
--- NOTE | 2020-03-17 14:36 | HMH.ACPN2 ---
Internal Medicine - PN: Subj *Date: 03/18/20 *Time: 08:17 Interval history: doing some better Exam Vital signs and Labs for Last 24 Hours: Temp Pulse Resp BP Pulse Ox 98.0 F 70 16 145/78 H 94 L 03/17/20 11:29 03/17/20 12:00 03/17/20 11:29 03/17/20 11:29 03/17/20 11:29 Laboratory Results - last 24 hr 03/16/20 23:25: Troponin I < 0.01 03/17/20 06:00: WBC 8.2, RBC 3.49 L, Hgb 11.1 L, Hct 32.5 L, MCV 93.0, MCH 31.9 H, MCHC 34.3, RDW 13.9, Plt Count 251 D, MPV 8.3, Neut % (Auto) 77.4, Lymph % (Auto) 16.8, [place] % (Auto) 5.4, Eos % (Auto) 0.3, Baso % (Auto) 0.2, Neut # (Auto) 6.4, Lymph # (Auto) 1.4, [place] # (Auto) 0.4, Eos # (Auto) 0.0, Baso # (Auto) 0.0 03/17/20 06:00: Sodium 140, Potassium 4.2, Chloride 109 H, Carbon Dioxide 24, Anion Gap 11.2, BUN 28 H D, Creatinine 1.40 H D, Estimated Creat Clear 48, Estimated GFR 37 L, Est GFR ( Amer) 45 L D, Glucose 99, Calcium 8.2 L, Magnesium 1.5 L, Total Bilirubin 1.1, AST 36, ALT 22, Alkaline Phosphatase 118, Total Protein 6.2 L, Albumin 3.6, Globulin 2.6, Albumin/Globulin Ratio 1.4 I & O for Last 24 hours: Intake & Output 03/15/20 03/16/20 03/17/20 03/18/20 11:59 11:59 11:59 11:59 Intake Total 1980 360 / 360 Output Total 650 / 650 Balance 1331 / 1331 360 / 360 Weight 174 lb 8 oz 177 lb 2 oz Microbiology Reports for the Last 24 Hours: Microbiology 03/16/20 12:20 Urine,Clean Catch Urine Culture - Final Multiple organisms, suggests contamination. - Constitutional no acute distress - *Routine HEENT Exam Head: Present: normocephalic Eye: Present: EOMI, PERRL ENT: Present: mucous membranes dry - *Routine Neck Exam Present: supple - *Routine Respiratory Exam Present: CTA bilaterally - *Routine Cardiovascular Exam Present: RRR, murmur - *Routine Abdominal Exam Present: soft - *Routine Extremities Exam Absent: calf tenderness - Routine Back/Spine/Pelvis Exam Back/Spine: Present: paraspinal tenderness, vertebral tenderness - *Routine Skin Exam Present: intact - *Routine Neurological Exam Present: alert, CN II-XII intact - Routine Psychiatric Exam Present: normal affect Assessment and Plan (1) Obesity (BMI 30.0-34.9) Current visit: Yes Status: Acute Category: Medical Code(s): E66.9 - Obesity, unspecified (2) Compression fx, lumbar spine Current visit: Yes Status: Acute Qualifiers: Encounter type: initial encounter Lumbar vertebra fracture level: L1 Qualified Code(s): S32.010A - Wedge compression fracture of first lumbar vertebra, initial encounter for closed fracture Category: Medical Code(s): S32.000A - Wedge compression fracture of unspecified lumbar vertebra, initial encounter for closed fracture (3) Alcohol intoxication Current visit: Yes Status: Acute Qualifiers: Complication of substance-induced condition: uncomplicated Qualified Code(s): F10.920 - Alcohol use, unspecified with intoxication, uncomplicated Category: Medical Code(s): F10.929 - Alcohol use, unspecified with intoxication, unspecified (4) CAD (coronary artery disease) Current visit: No Status: Chronic Qualifiers: Coronary Disease-Associated Artery/Lesion type: [place] artery [place] vs. transplanted heart: [place] heart Associated angina: without angina Qualified Code(s): I25.10 - Atherosclerotic heart disease of [place] coronary artery without angina pectoris Category: Medical Code(s): I25.10 - Atherosclerotic heart disease of [place] coronary artery without angina pectoris (5) Renal insufficiency Current visit: Yes Status: Acute Category: Medical Code(s): N28.9 - Disorder of kidney and ureter, unspecified (6) Hypothyroidism (acquired) Current visit: Yes Status: Acute Category: Medical Code(s): E03.9 - Hypothyroidism, unspecified (7) UTI (urinary tract infection) Current visit: Yes Status: Acute Qualifiers: Urin
--- NOTE | 2020-03-17 15:39 | PC.NURSE ---
Pt has been pleasant and cooperative this shift. A&O X4. No complaints of CP/SOA. Pt is on room air with sats. >93%. Pt has complained of pain X2 thus far this shift and has been medicated with Tylenol. CIWA scores have been 1 and 2. Lungs CTA. No edema noted. Pt ambulates with 1 assist and voids without issue. No BM this shift. 20 G peripheral IV in the LT AC is patent and infusing NS @ 50 ML/HR. VSS. Call light within reach. Will continue to monitor.
--- NOTE | 2020-03-17 16:22 | DIET.NUTRFU ---
Nutritional assessment, IP completed by student Natasha Walton under my direct supervision.
--- NOTE | 2020-03-17 18:22 | HMH.ACPN2 ---
Internal Medicine - PN: Subj *Date: 03/17/20 *Time: 18:28 Interval history: She was seen and evaluated per cardiology. Outpatient work-up is planned when she is able to better tolerate. She continues to have significant pain with movement, acute compression fracture. 30% loss of height L1, acute. Vertebroplasty is a feasible option. Pain management has been consulted. We are planning to brace the patient. She is calm this morning. Exam Vital signs and Labs for Last 24 Hours: Temp Pulse Resp BP Pulse Ox 98.4 F 68 17 147/74 H 94 L 03/17/20 16:00 03/17/20 16:00 03/17/20 16:00 03/17/20 16:00 03/17/20 16:00 Laboratory Results - last 24 hr 03/16/20 23:25: Troponin I < 0.01 03/17/20 06:00: WBC 8.2, RBC 3.49 L, Hgb 11.1 L, Hct 32.5 L, MCV 93.0, MCH 31.9 H, MCHC 34.3, RDW 13.9, Plt Count 251 D, MPV 8.3, Neut % (Auto) 77.4, Lymph % (Auto) 16.8, [place] % (Auto) 5.4, Eos % (Auto) 0.3, Baso % (Auto) 0.2, Neut # (Auto) 6.4, Lymph # (Auto) 1.4, [place] # (Auto) 0.4, Eos # (Auto) 0.0, Baso # (Auto) 0.0 03/17/20 06:00: Sodium 140, Potassium 4.2, Chloride 109 H, Carbon Dioxide 24, Anion Gap 11.2, BUN 28 H D, Creatinine 1.40 H D, Estimated Creat Clear 48, Estimated GFR 37 L, Est GFR ( Amer) 45 L D, Glucose 99, Calcium 8.2 L, Magnesium 1.5 L, Total Bilirubin 1.1, AST 36, ALT 22, Alkaline Phosphatase 118, Total Protein 6.2 L, Albumin 3.6, Globulin 2.6, Albumin/Globulin Ratio 1.4 I & O for Last 24 hours: Intake & Output 03/14/20 03/15/20 03/16/20 03/17/20 23:59 23:59 23:59 23:59 Intake Total 1238 / 1238 2483 / 2483 Output Total 1050 / 1050 Balance 1238 / 588 1433 / 1433 Weight 174 lb 8 oz 177 lb 0.499 oz Microbiology Reports for the Last 24 Hours: Microbiology 03/16/20 12:20 Urine,Clean Catch Urine Culture - Final Multiple organisms, suggests contamination. - Constitutional no acute distress - *Routine HEENT Exam Head: Present: normocephalic, atraumatic Eye: Absent: conjunctival icterus ENT: Present: mucous membranes moist - *Routine Neck Exam Present: supple - *Routine Respiratory Exam Present: CTA bilaterally - *Routine Cardiovascular Exam Present: RRR - *Routine Abdominal Exam Present: soft. Absent: tenderness - *Routine Extremities Exam Present: tenderness. Absent: cyanosis, palpable cord - Routine Back/Spine/Pelvis Exam Back/Spine: Present: vertebral tenderness, pain with flexion, pain with rotation - *Routine Skin Exam Present: intact. Absent: cyanosis, jaundice - *Routine Neurological Exam Present: alert, oriented X3 - Routine Psychiatric Exam Present: normal affect, cooperative Assessment and Plan (1) Obesity (BMI 30.0-34.9) Current visit: Yes Status: Acute Category: Medical Code(s): E66.9 - Obesity, unspecified (2) Compression fx, lumbar spine Current visit: Yes Status: Acute Qualifiers: Encounter type: initial encounter Lumbar vertebra fracture level: L1 Qualified Code(s): S32.010A - Wedge compression fracture of first lumbar vertebra, initial encounter for closed fracture Category: Medical Code(s): S32.000A - Wedge compression fracture of unspecified lumbar vertebra, initial encounter for closed fracture (3) Alcohol intoxication Current visit: Yes Status: Acute Qualifiers: Complication of substance-induced condition: uncomplicated Qualified Code(s): F10.920 - Alcohol use, unspecified with intoxication, uncomplicated Category: Medical Code(s): F10.929 - Alcohol use, unspecified with intoxication, unspecified (4) CAD (coronary artery disease) Current visit: No Status: Chronic Qualifiers: Coronary Disease-Associated Artery/Lesion type: [place] artery [place] vs. transplanted heart: [place] heart Associated angina: without angina Qualified Code(s): I25.10 - Atherosclerotic heart disease of [place] coronary artery without angina pectoris Category: Medical Code(s):
--- NOTE | 2020-03-17 19:11 | PC.NURSE ---
report given to zaid
[2020-03-18] VITALS (9 sets, daily range): BP systolic 133–168; BP diastolic 66–96; PULSE 57–73; RESP 16–18; TEMP 36.4–37; O2SAT 93–96; BMI 30.9
--- NOTE | 2020-03-18 03:14 | PC.NURSE ---
A&OX4. PT HAS TOLERATED ROOM AIR WELL THROUGHOUT SHIFT. RESPIRATIONS REGULAR AND UNLABORED. LUNG SOUNDS BILATERALLY CLEAR. NO EDEMA NOTED. PT HAS REMAINED ON TELE THROUGHOUT SHIFT. NSR. REGULAR HEART RATE. HAND COMMERCIAL ROOFER EQUAL. ACTIVE BOWEL SOUNDS HEARD IN ALL 4 QUADRANTS. SOFT AND NONTENDER. NS INFUSING AT 50ML/HR. NO COMPLAINTS OF NAUSEA OR PAIN THUS FAR. PT HAS REMAINED AFEBRILE. +2 PULSES NOTED THROUGHOUT. PT IS CURRENTLY RESTING IN BED WITH CALL LIGHT WITHIN REACH. BED IN LOWEST POSITION. VSS. NO CONCERNS AT THIS TIME. WILL CONTINUE TO MONITOR.
--- NOTE | 2020-03-18 09:17 | HMH.ACPN2 ---
Internal Medicine - PN: Subj *Date: 03/19/20 *Time: 07:53 Interval history: doing better at this time Exam Vital signs and Labs for Last 24 Hours: Temp Pulse Resp BP Pulse Ox 98.6 F 63 16 162/96 H 96 03/18/20 07:43 03/18/20 08:00 03/18/20 07:43 03/18/20 07:43 03/18/20 07:43 I & O for Last 24 hours: Intake & Output 03/15/20 03/16/20 03/17/20 03/18/20 11:59 11:59 11:59 11:59 Intake Total 1980 / 1980 2633 / 2633 Output Total 650 / 650 400 / 400 Balance 1331 / 1331 2233 / 2233 Weight 174 lb 8 oz 177 lb 2 oz 181 lb 3 oz Microbiology Reports for the Last 24 Hours: Microbiology 03/16/20 12:20 Urine,Clean Catch Urine Culture - Final Multiple organisms, suggests contamination. - Constitutional no acute distress, obese - *Routine HEENT Exam Head: Present: normocephalic Eye: Present: EOMI, PERRL ENT: Present: mucous membranes dry - *Routine Neck Exam Present: supple - *Routine Respiratory Exam Present: CTA bilaterally - *Routine Cardiovascular Exam Present: RRR - *Routine Abdominal Exam Present: soft - *Routine Extremities Exam Absent: calf tenderness - *Routine Skin Exam Present: intact - *Routine Neurological Exam Present: alert, CN II-XII intact - Routine Psychiatric Exam Present: normal affect Assessment and Plan (1) Obesity (BMI 30.0-34.9) Current visit: Yes Status: Acute Category: Medical Code(s): E66.9 - Obesity, unspecified (2) Compression fx, lumbar spine Current visit: Yes Status: Acute Qualifiers: Encounter type: initial encounter Lumbar vertebra fracture level: L1 Qualified Code(s): S32.010A - Wedge compression fracture of first lumbar vertebra, initial encounter for closed fracture Category: Medical Code(s): S32.000A - Wedge compression fracture of unspecified lumbar vertebra, initial encounter for closed fracture (3) Alcohol intoxication Current visit: Yes Status: Acute Qualifiers: Complication of substance-induced condition: uncomplicated Qualified Code(s): F10.920 - Alcohol use, unspecified with intoxication, uncomplicated Category: Medical Code(s): F10.929 - Alcohol use, unspecified with intoxication, unspecified (4) CAD (coronary artery disease) Current visit: No Status: Chronic Qualifiers: Coronary Disease-Associated Artery/Lesion type: [place] artery [place] vs. transplanted heart: [place] heart Associated angina: without angina Qualified Code(s): I25.10 - Atherosclerotic heart disease of [place] coronary artery without angina pectoris Category: Medical Code(s): I25.10 - Atherosclerotic heart disease of [place] coronary artery without angina pectoris (5) Renal insufficiency Current visit: Yes Status: Acute Category: Medical Code(s): N28.9 - Disorder of kidney and ureter, unspecified (6) Hypothyroidism (acquired) Current visit: Yes Status: Acute Category: Medical Code(s): E03.9 - Hypothyroidism, unspecified (7) UTI (urinary tract infection) Current visit: Yes Status: Acute Qualifiers: Urinary tract infection type: site unspecified Hematuria presence: without hematuria Qualified Code(s): N39.0 - Urinary tract infection, site not specified Category: Medical Code(s): N39.0 - Urinary tract infection, site not specified (8) Chest pain Current visit: Yes Status: Acute Category: Medical Code(s): R07.9 - Chest pain, unspecified
--- NOTE | 2020-03-18 15:36 | PC.NURSE ---
Pt has been pleasant and cooperative this shift. A&O X4. Pt has slept intermittently today. No complaints of CP/SOA. Pt is on room air with sats. >95%. Pt has complained of pain X1 thus far this shift and has been medicated with Morphine. Lungs CTA. No edema noted. Pt ambulates with 1 assist to the bathroom and voids without issue. No BM this shift. 20 G peripheral IV in the LT AC is patent and infusing NS @ 50 ML/HR. VSS. Call light within reach. Will continue to monitor.
[2020-03-19] VITALS (8 sets, daily range): BP systolic 134–174; BP diastolic 73–95; PULSE 60–70; RESP 16–18; TEMP 36.5–36.9; O2SAT 93–96; BMI 31.2
--- NOTE | 2020-03-19 04:57 | PC.NURSE ---
Pt has rested well t/o this shift. Pt continues to take self to the bathroom and ambulates with a steady gate. Pt continues to show NSR on tele. Seizure pads remain in place, with no seizure activity noted. Call light within reach, no complaints at this time. Will continue to monitor.
[2020-03-19 08:52] LABS: Basophils % 0.4 % (0.1-2.0); Eosinophils # 0.3 K/mm3 (0.0-0.4); Eosinophils % 3.3 % (0.1-12.0); Hematocrit 31.1 % (37.0-47.0); Hemoglobin 11.1 g/dL (12.2-16.2); Lymphocytes # 1.5 K/mm3 (0.7-4.5); Lymphocytes % 19.3 % (10-50); Mean Corpuscular HGB Conc 35.9 g/dL (31.8-35.4); Mean Corpuscular Hemoglobin 32.7 pg (27.0-31.2); Mean Corpuscular Volume 91.3 fl (81-99); Mean Platelet Volume 9.2 fl (7.4-10.4); Monocytes # 0.3 K/mm3 (0.1-1.0); Monocytes % 3.4 % (1.7-9.3); Neutrophils # 5.5 K/mm3 (1.8-7.8); Neutrophils % 73.5 % (37.0-80.0); Platelet Count 232 K/mm3 (142-424); Red Blood Count 3.41 M/mm3 (4.20-5.40); Red Cell Distribution Width 13.7 % (11.5-17.5); White Blood Count 7.5 K/mm3 (4.8-10.8)
[2020-03-19 08:55] LABS: Chloride 103 mmol/L (98-107); Potassium 3.5 mmoL/L (3.5-5.1); Sodium 134 mmol/L (136-145)
[2020-03-19 08:58] LABS: Anion Gap 10.5 mEq/L (5-15); Blood Urea Nitrogen 16 mg/dl (7-17); Calcium 8.4 mg/dl (8.4-10.2); Carbon Dioxide 24 mmol/L (22.0-30.0); Creatinine Clearance Estimated 70 mL/min (50-200); Estimated Glomerular Filt Rate 62 ml/min (>60); GFR (African American) 75 ML/MIN (>60); Glucose 139 mg/dl (74-100)
--- NOTE | 2020-03-19 09:40 | HMH.ACPN2 ---
Internal Medicine - PN: Subj *Date: 03/20/20 *Time: 07:16 Interval history: doing better - more mobile but still not able to sit Exam Vital signs and Labs for Last 24 Hours: Temp Pulse Resp BP Pulse Ox 97.7 F 64 16 174/94 H 95 03/19/20 08:00 03/19/20 08:00 03/19/20 08:00 03/19/20 08:00 03/19/20 08:00 Laboratory Results - last 24 hr 03/19/20 08:40: WBC 7.5, RBC 3.41 L, Hgb 11.1 L, Hct 31.1 L, MCV 91.3, MCH 32.7 H, MCHC 35.9 H, RDW 13.7, Plt Count 232, MPV 9.2, Neut % (Auto) 73.5, Lymph % (Auto) 19.3, [place] % (Auto) 3.4, Eos % (Auto) 3.3, Baso % (Auto) 0.4, Neut # (Auto) 5.5, Lymph # (Auto) 1.5, [place] # (Auto) 0.3, Eos # (Auto) 0.3, Baso # (Auto) 0.0 03/19/20 08:40: Sodium 134 L, Potassium 3.5, Chloride 103, Carbon Dioxide 24, Anion Gap 10.5, BUN 16 D, Creatinine 0.90 D, Estimated Creat Clear 70, Estimated GFR 62, Est GFR ( Amer) 75 D, Glucose 139 H, Calcium 8.4 I & O for Last 24 hours: Intake & Output 03/16/20 03/17/20 03/18/20 03/19/20 11:59 11:59 11:59 11:59 Intake Total 1980 / 1980 2633 / 2633 1774 / 1774 Output Total 650 / 650 400 / 400 1400 / 1400 Balance 1331 / 1331 2233 / 2233 374 / 374 Weight 174 lb 8 oz 177 lb 2 oz 181 lb 3 oz 183 lb 1 oz - Constitutional no acute distress - *Routine HEENT Exam Head: Present: normocephalic Eye: Present: EOMI, PERRL ENT: Present: mucous membranes dry - *Routine Neck Exam Present: supple - *Routine Respiratory Exam Present: CTA bilaterally - *Routine Cardiovascular Exam Present: RRR - *Routine Abdominal Exam Present: soft - *Routine Extremities Exam Absent: calf tenderness - *Routine Skin Exam Present: intact - *Routine Neurological Exam Present: alert, CN II-XII intact - Routine Psychiatric Exam Present: normal affect Assessment and Plan (1) Obesity (BMI 30.0-34.9) Current visit: Yes Status: Acute Category: Medical Code(s): E66.9 - Obesity, unspecified (2) Compression fx, lumbar spine Current visit: Yes Status: Acute Qualifiers: Encounter type: initial encounter Lumbar vertebra fracture level: L1 Qualified Code(s): S32.010A - Wedge compression fracture of first lumbar vertebra, initial encounter for closed fracture Category: Medical Code(s): S32.000A - Wedge compression fracture of unspecified lumbar vertebra, initial encounter for closed fracture (3) Alcohol intoxication Current visit: Yes Status: Acute Qualifiers: Complication of substance-induced condition: uncomplicated Qualified Code(s): F10.920 - Alcohol use, unspecified with intoxication, uncomplicated Category: Medical Code(s): F10.929 - Alcohol use, unspecified with intoxication, unspecified (4) CAD (coronary artery disease) Current visit: No Status: Chronic Qualifiers: Coronary Disease-Associated Artery/Lesion type: [place] artery [place] vs. transplanted heart: [place] heart Associated angina: without angina Qualified Code(s): I25.10 - Atherosclerotic heart disease of [place] coronary artery without angina pectoris Category: Medical Code(s): I25.10 - Atherosclerotic heart disease of [place] coronary artery without angina pectoris (5) Renal insufficiency Current visit: Yes Status: Acute Category: Medical Code(s): N28.9 - Disorder of kidney and ureter, unspecified (6) Hypothyroidism (acquired) Current visit: Yes Status: Acute Category: Medical Code(s): E03.9 - Hypothyroidism, unspecified (7) UTI (urinary tract infection) Current visit: Yes Status: Acute Qualifiers: Urinary tract infection type: site unspecified Hematuria presence: without hematuria Qualified Code(s): N39.0 - Urinary tract infection, site not specified Category: Medical Code(s): N39.0 - Urinary tract infection, site not specified (8) Chest pain Current visit: Yes Status: Acute Category: Medical Code(s): R07.9 - Chest pain, unspecified
--- NOTE | 2020-03-19 17:30 | PC.NURSE ---
PT IS SITTING ON THE SOB EATING DINNER AT THIS TIME. PT DID NOT WANT TO SIT UP IN THE CHAIR THIS SHIFT. ALERT AND ORIENTED X4. PT HAS BEEN AMBULATING TO THE BATHROOM WITH 1 ASSIST. EATING AND DRINKING WELL. WILL CONTINUE TO MONITOR.
--- NOTE | 2020-03-19 23:20 | ECG_ITS ---
APPROVED REPORT Exam: Resting ECG HR:63 bpm ECG Measurements Heart Rate 63 AXES NJ 154 P 65 QRSd 84 QRS 22 QT 426 T 52 QTc 435 <Conclusion> Normal sinus rhythm Normal ECG Electronically signed by : Anatoliy Gunn, 03/20/2020 09:02:02
[2020-03-19 23:34] LABS: Troponin I < 0.01 ng/ml (0.00-0.034)
--- NOTE | 2020-03-19 23:49 | PC.NURSE ---
224 pt c/o chest pain. described as a sharp pain under her left breast radiating to her back 2244 VS obtained: BP- 188/92 HR- 62 o2- 97% RA 2246 (4) 81 mg chewable ASA given to pt per protocol 224 Lab called, STAT troponin ordered per protocol 225 EKG performed, read as NSR 2254 EKG read by MD Helton, no acute findings. No CXR to be ordered and order cardiac enzymes per MD Helton 225 Pt states her pain has subsided some, but would like to have some PRN morphine for the pain 2310 Pt is resting in bed
[2020-03-19 23:52] LABS: Creatine Kinase 68 U/L (30-135)
[2020-03-20] VITALS: BP 176/77; PULSE 60; PULSE 63; RESP 17; TEMP 36.7; O2SAT 96
[2020-03-20 00:08] LABS: CKMB Relative Index 0.9 U/L (0-4.0); Creatine Kinase MB 0.6 ng/ml (0.0-2.03)
[2020-03-20 00:09] LABS: Troponin I < 0.01 ng/ml (0.00-0.034)
[2020-03-20 04:00] VITALS: BP 139/67; PULSE 60; RESP 17; TEMP 36.7; O2SAT 93
[2020-03-20 05:00] VITALS: BMI 31.4
[2020-03-20 08:00] VITALS: BP 160/89; PULSE 55; PULSE 62; RESP 18; TEMP 36.4; O2SAT 97
--- NOTE | 2020-03-20 09:04 | MR_ITS ---
PROCEDURE: MR LUMBAR SPINE WO CON CLINICAL INDICATION: COMPRESSION FX Patient had a fall on April 16 and has compression fracture of L1. Low back pain worse on right side. COMPARISON: CT LUMBAR SPINE WO CON from 03/16/2020 TECHNIQUE: Standard multiplanar multiecho sequences are performed without contrast. 3-D MIP and myelographic images are also rendered and reviewed FINDINGS: There is a mildly exaggerated lumbar lordosis. No substantial scoliosis. Lumbar alignment is normal. The conus medullaris terminates normally at the lower 3rd of L1. The visualized paraspinal soft tissues and abdominal aorta appear grossly normal. A chronic appearing L1 vertebral wedge compression fracture is again seen with loss of about 70 percent central/anterior vertebral body height. There is minimal buckling of the posterior superior cortex without significant canal stenosis or posterior element involvement. Vertebral body heights are maintained at all other levels. L1-L2: Unremarkable. L2-L3: Mild degenerative disc bulge. Adequately patent neural foramen. L3-L4: Minimal posterior disc bulging without disc protrusion or neural compression. There is mild facet arthropathy. L4-L5: Mild posterior broad-based disc bulging without disc protrusion or identified 2 compression. There is mild facet arthropathy. L5-S1: There is mild posterior broad-based disc bulging without disc protrusion. Bulging is slightly eccentric towards laterally. There is moderate facet arthropathy. The neural foramina are patent at all levels. IMPRESSION: A chronic appearing L1 vertebral anterior wedge compression fracture is again seen with loss of about 70 percent anterior central vertebral body height and with minimal buckling of the posterior superior cortex without canal stenosis. Multilevel mild degenerative disc changes and lower lumbosacral facet arthropathy, as described. Dictated by: Rod Fabian 03/20/2020 11:28 Electronically signed by Rod Fabian in [place] 03/20/2020 11:28
--- NOTE | 2020-03-20 11:19 | HMH.DCSUM ---
General - General Admission date:: 03/16/20 Discharge date: 03/20/20 HPI HPI: this pt fell at home last pm and had back pain - she was seen in the ed and noted to have fracture lumbar 1 -pt was in sig pain and unable to sit up - no cauda equina sx - pt also had alcohol use -pt was admitted for treatment and eval Hospital Course Hospital Course: pt has did well while in hospital and improved and has did well with meds -no growth on urine and has had chest pain with stable ekg and card enz - she was seen by card - Hypertension A. History of diastolic CHF B. History of LV dysfunction, 2014, LVEF of 30% with transient use of LifeVest C. Echo, 09/2015 and 2018, EF>55% 2. History of alcohol use 3. Hyperlipidemia 4. Coronary artery disease A. History of coronary stenting in 2003, 2004 and 08/03/2015. Last one at [facility] in [place], [place]. B. [facility], 09/2015, widely patent LAD stent with no pre-or post stenosis noted. Normal LVEF. ANGIOGRAPHIC RESULTS: 1. The left main artery normal 2. The left anterior descending artery has a stent in the proximal segment which is widely patent. There is excellent transitioning both proximally and distally with normal SHAE-3 flow down the vessel 3. The circumflex artery normal 4. The right coronary artery normal 5. The GALAN ventriculogram reveals normal 65% 6. The left ventricular end-diastolic pressure 10 mmHg IMPRESSION: 1. Widely patent proximal LAD stent with excellent angiographic appearance and transitioning both proximally and distally to the stent 2. Normal ejection fraction 3. Normal left ventricular end-diastolic pressure 4. Possible localized stent arteritis versus noncardiac chest pain C. Rakan myoview, 06/2019, EF 65% with no ischemia. Hypothyroidism 6. History of melena with GI workup pertinent for internal hemorrhoids and polyps on colonoscopy 7. History of lung nodule, referred to pulmonary for further evaluation 8. History of liver nodule 9. Mild THEO by sleep study, 2019 A. Pt unwilling to try CPAP History of present illness: 69-year-old white female was at home last evening when she got up to go the bathroom. She apparently fell and sustained significant back pain. She was brought to the emergency department and during evaluation was found to have fracture of her L1 vertebrae. Due to significant pain patient was kept for evaluation and treatment. She denies any cause for the fall (passing out, near syncope, chest pain, palpitations or tripping over anything) but patient has noted occasional chest discomfort that lasts less than a few minutes on the left side of her chest. Not particularly associated with exertion or deep breathing. Patient was last seen in our office in May 2019 at which time a Lexiscan Myoview was ordered and performed in 06/2019 with no ischemia and LVEF 65%. She has had some episodes of chest discomfort since then -all with Lumbar fracture, per PCP and Pain management. Waiting for back brace fitting. Plans for kyphoplasty in future. 2. CAD with chest pain. Normal troponin, no acute EKG changes and pt on 2 anti-anginals as well as DAPT with ASA and plavix. Check lexiscan myoview when patient able to tolerate the procedure (she is not able to do so at this time). Plan for outpatient evaluation. Ok for discharge home from cardiology standpoint. 3. HTN, well controlled. 4. HLD, on statin shw was seen by dr bolton further discussion with Dr. marroquin, we will recommend an MRI of her lumbar spine. We will see the patient on discharge from the hospital in the clinic to discuss her MRI results. We will see if the patient is appropriate for kyphoplasty for her vertebral fracture. Did have a DEXA scan in 2011 that did show positive for osteoporosis. We will also order the patient a brace for stabilization when out of bed. We will see her in the clinic upon discharge to discuss a further plan of care. She has
--- NOTE | 2020-03-20 12:23 | HMH.PHAINT ---
PATIENT WAS COUNSELED ON NEW MEDICATION: DOCUSATE SODIUM. THE PATIENT WILL CONTINUE TO TAKE ALL HOME MEDICATIONS. THE PATIENT DID NOT HAVE ANY QUESTIONS.
--- NOTE | 2020-03-20 13:19 | PC.NURSE ---
PCP OFFICE WAS NOTIFIED ABOUT PT'S PAIN MEDICATION BEING SENT TO PHARMACY. PT HAS ALSO REQUESTED [facility] FOR AT HOME. OFFICE STATED THEY WOULD TALK TO PCP AND PRESCRIPTIONS WOULD BE SENT TO [facility] BEFORE THE END OF THE DAY.
== END 2020-03-20 12:55 | disposition home or self-care (01) ==
LOC: ER 08:34 → 2ND 08:44
PROVIDERS: Family Medicine; Admitting Provider Emergency Medicine; Emergency Provider Emergency Medicine; PCP Emergency Medicine; Visit Provider Emergency Medicine
DX: S32.010A Wedge compression fracture of first lumbar vertebra, initial encounter for closed fracture (principal); F10.920 Alcohol use, unspecified with intoxication, uncomplicated; N39.0 Urinary tract infection, site not specified; I25.2 Old myocardial infarction; I25.10 Atherosclerotic heart disease of native coronary artery without angina pectoris; E03.9 Hypothyroidism, unspecified; E78.5 Hyperlipidemia, unspecified; I11.0 Hypertensive heart disease with heart failure; I50.9 Heart failure, unspecified; Z87.891 Personal history of nicotine dependence; Z95.5 Presence of coronary angioplasty implant and graft; Y90.6 Blood alcohol level of 120-199 mg/100 ml; W01.0XXA Fall on same level from slipping, tripping and stumbling without subsequent striking against object, initial encounter; Y92.018 Other place in single-family (private) house as the place of occurrence of the external cause
CPT/HCPCS: 36415; 70450; 71045; 72125; 72128; 72131; 72148; 72170; 76376; 80048; 80053; 81001; 82550; 82553; 83735; 84484; 85025; 87086; 93005; 93306; 96365; 96375; 96376; 97161; 99284; G0378; J2405

== ENCOUNTER → 2020-03-24 12:41 | Outpatient (CLI) | payer MEDICARE, OTHER, SELFPAY ==
[2020-03-25 09:06] LABS: Covid-19 Nasal PCR Sendout Lex NOT DETECTED
== END ==
PROVIDERS: PCP Emergency Medicine; Referring Provider Nurse Practitioner Family; Visit Provider Emergency Medicine
DX: Z03.818 Encounter for observation for suspected exposure to other biological agents ruled out (principal)
CPT/HCPCS: U0004

== ENCOUNTER → 2020-04-11 17:26 | Outpatient (CLI) | payer MEDICARE, OTHER, SELFPAY ==
[2020-04-11 17:28] LABS: Microscopic, Urine URINE MICROSCOPIC (MICROSCOPIC)
[2020-04-11 22:53] LABS: Appearance,Urine CLEAR (Clear); Bilirubin,Urine Negative (Negative); Blood, Urine Negative (Negative); Color,Urine YELLOW (Yellow); Glucose,Urine (UA) Negative (Negative); Ketones,Urine Negative (Negative); Leukocyte Esterase,Urine TRACE (Negative); Nitrate,Urine Negative (Negative); PH,Urine 5.5 (5.0-8.5); Protein,Urine Negative (Negative); Urobilinogen,Urine 0.2 EU/dl (0.2)
[2020-04-11 23:09] LABS: Bacteria,Urine Trace /lpf; Squamous Epithelial Cell,Urine Occasional #/hpf (0-5); WBC,Urine Occasional #/hpf (0-3)
== END ==
PROVIDERS: Visit Provider Family Medicine
DX: N28.9 Disorder of kidney and ureter, unspecified (principal); N39.0 Urinary tract infection, site not specified
CPT/HCPCS: 81001; 87086

== ENCOUNTER → 2021-01-16 14:54 | Outpatient (CLI) | payer MEDICARE, OTHER, SELFPAY ==
--- NOTE | 2021-01-16 14:54 | CT_ITS ---
PROCEDURE: CT HEAD/BRAIN WO CON CLINICAL INDICATION: pain behind left ear COMPARISON: CT CT HEAD/BRAIN WO CON from 03/16/2020 TECHNIQUE: Axial images obtained. All CT scans at the facility use one or more dose reduction, viz: automated exposure control, ma/kV adjustment per patient size (including targeted exams where dose is matched to indication, i.e. head), or iterative reconstruction technique. FINDINGS: No midline shift, mass effect, intracranial hemorrhage, hydrocephalus, or extra-axial fluid collection is evident. There is generalized atrophy with hypoattenuation of the periventricular white matter consistent with microangiopathic changes. Bilateral basal ganglia calcifications are noted. The calvarium has an unremarkable appearance. No mastoid effusion. There is mild mucosal thickening of the sphenoid sinus posteriorly on the right. IMPRESSION: No acute intracranial finding Dictated by: Hemal Deal MD 01/16/2021 16:46 Hemal Deal MD in [place] 01/16/2021 16:46
--- NOTE | 2021-01-16 14:54 | MM_ITS ---
PROCEDURE: MM DIG SCREENING MAMM BI W/CAD Digital Breast Tomosynthesis Included CLINICAL INDICATION: screening There is no personal or family history of breast cancer. There has been a previous biopsy left breast for benign disease. COMPARISON: MG SCBI MM Dig screening mamm BI w/CAD from 07/09/2018 MG DXRT MM Dig mamm DX unilat RT CAD from 07/23/2018 MG DIG MAMM-DX UNI-RT from 03/02/2019 TECHNIQUE: Standard CC and MLO images and 3D Tomosynthesis was obtained. R2 CAD reviewed. FINDINGS: Mild to moderate scattered fibroglandular densities are seen throughout breasts. There are benign-appearing microcalcifications in each breast. No new or suspicious lesion in breast and no suspicious microcalcifications. IMPRESSION: Fibrofatty parenchyma with no suspicious lesions seen BI-RAD Category: 2 Benign Finding(s) FOLLOW-UP: 1YR 1 Year Follow-up (A letter has been sent to the patient regarding results of the study.) Dictated by: Dr. Juan Villanueva MD 01/19/2021 07:42 Dr. Juan Villanueva MD in [place] 01/19/2021 07:42
== END ==
PROVIDERS: PCP Emergency Medicine; Visit Provider Physician Assistant
DX: H92.02 Otalgia, left ear (principal); Z12.31 Encounter for screening mammogram for malignant neoplasm of breast
CPT/HCPCS: 70450; 77063; 77067

== ENCOUNTER 2021-01-19 11:55 | Outpatient (CLI) | payer MEDICARE, OTHER, SELFPAY ==
[2021-01-19 12:08] VITALS: BMI 29.8
[2021-01-19 12:26] LABS: Adenovirus,PCR Not Detected (NotDetected); Bordetella Pertussis Not Detected (NotDetected); Chlamydophila Pneumoniae, PCR Not Detected (NotDetected); Coronavirus 19, PCR Not Detected (NotDetected); Coronavirus 229E Not Detected (NotDetected); Coronavirus NL63 Not Detected (NotDetected); Coronavirus OC43 Not Detected (NotDetected); Coronovirus HKU1,PCR Not Detected (NotDetected); Human Metapneumovirus Not Detected (NotDetected); Influenza A, PCR Not Detected (NotDetected); Influenza AH1, 2009 Not Detected (NotDetected); Influenza AH1, PCR Not Detected (NotDetected); Influenza AH3,PCR Not Detected (NotDetected); Influenza B, PCR Not Detected (NotDetected); Mycoplasma Pneumoniae, PCR Not Detected (NotDetected); Parainfluenza 1, PCR Not Detected (NotDetected); Parainfluenza 2, PCR Not Detected (NotDetected); Parainfluenza 3, PCR Not Detected (NotDetected); Parainfluenza 4, PCR Not Detected (NotDetected); Respiratory Syncytial Virus Not Detected (NotDetected); Rhinovirus/Enterovirus Not Detected (NotDetected)
[2021-01-19 12:35] VITALS: BP 121/74; PULSE 68; RESP 20; TEMP 36.9; O2SAT 95
[2021-01-19 13:04] LABS: Alanine Aminotransferase 16 U/L (12-78); Albumin/Globulin Ratio 1.5 (1.1-1.8); Alkaline Phosphatase 128 U/L (38-126); Anion Gap 9.9 mEq/L (5-15); Aspartate Amino Transferase 29 U/L (14-36); Basophils % 0.2 % (0.1-2.0); Bilirubin,Total 1.7 mg/dl (0.2-1.3); Blood Urea Nitrogen 17 mg/dl (7-17); Calcium 8.9 mg/dl (8.4-10.2); Carbon Dioxide 22 mmol/L (22.0-30.0); Chloride 106 mmol/L (98-107); Creatinine Clearance Estimated 59 mL/min (50-200); Eosinophils % 0.4 % (0.1-12.0); Estimated Glomerular Filt Rate 49 ml/min (>60); GFR (African American) 59 ML/MIN (>60); Globulin 2.6 g/dL (1.3-3.2); Glucose 101 mg/dl (74-100); Hematocrit 32.9 % (37.0-47.0); Hemoglobin 10.7 g/dL (12.2-16.2); Lymphocytes # 1.2 K/mm3 (0.7-4.5); Mean Corpuscular HGB Conc 32.5 g/dL (31.8-35.4); Mean Corpuscular Hemoglobin 29.8 pg (27.0-31.2); Mean Corpuscular Volume 91.7 fl (81-99); Mean Platelet Volume 7.2 fl (7.4-10.4); Monocytes # 0.8 K/mm3 (0.1-1.0); Monocytes % 7.5 % (1.7-9.3); Neutrophils # 8.9 K/mm3 (1.8-7.8); Neutrophils % 80.7 % (37.0-80.0); Platelet Count 212 K/mm3 (142-424); Potassium 3.9 mmoL/L (3.5-5.1); Red Blood Count 3.59 M/mm3 (4.20-5.40); Red Cell Distribution Width 12.3 % (11.5-17.5); Sodium 134 mmol/L (136-145); Total Protein,Serum 6.6 g/dl (6.3-8.2)
[2021-01-19 13:30] VITALS: BP 132/74; PULSE 78; RESP 20; TEMP 36.9; O2SAT 95
--- NOTE | 2021-01-19 14:09 | XR_ITS ---
PROCEDURE: XR CHEST 2V CLINICAL HISTORY: R/O PNEUMONIA COMPARISON: CT CHW CT CHEST W/ CONTRAST from 04/02/2016 DX CXR CHEST(2 VIEWS-NOT PORTABLE) from 08/22/2017 CR XR CHEST PORTABLE from 12/14/2019 CR XR CHEST AP from 03/16/2020 FINDINGS: The lung alvarado are well expanded and appear clear of infiltrate. There is borderline cardiomegaly however the vascularity is normal and there is no pleural fluid. There is apparent old compression fracture of L1 with probable subsequent kyphoplasty. IMPRESSION: No acute findings. Dictated by: Dr. Juan Villanueva MD 01/19/2021 14:41 Dr. Juan Villanueva MD in [place] 01/19/2021 14:41
[2021-01-19 14:10] VITALS: BP 125/74; PULSE 68; RESP 20; TEMP 36.9; O2SAT 95
== END 2021-01-19 14:20 | disposition home or self-care (01) ==
LOC: INF 12:09
PROVIDERS: Visit Provider Nurse Practitioner Family
DX: J20.9 Acute bronchitis, unspecified (principal)
CPT/HCPCS: 71046; 80053; 85025; 87581; 87633; 87798; 96360; 96367; 96374; 96375

== ENCOUNTER → 2021-02-08 17:33 | Outpatient (CLI) | payer MEDICARE, OTHER, SELFPAY ==
[2021-02-08 18:28] LABS: Basophils % 0.5 % (0.1-2.0); Eosinophils # 0.2 K/mm3 (0.0-0.4); Eosinophils % 2.7 % (0.1-12.0); Hemoglobin 11.4 g/dL (12.2-16.2); Lymphocytes # 2.3 K/mm3 (0.7-4.5); Lymphocytes % 34.7 % (10-50); Mean Corpuscular HGB Conc 34.4 g/dL (31.8-35.4); Mean Corpuscular Hemoglobin 31.5 pg (27.0-31.2); Mean Corpuscular Volume 91.5 fl (81-99); Monocytes # 0.4 K/mm3 (0.1-1.0); Monocytes % 5.2 % (1.7-9.3); Neutrophils # 3.8 K/mm3 (1.8-7.8); Neutrophils % 56.8 % (37.0-80.0); Platelet Count 256 K/mm3 (142-424); Red Blood Count 3.61 M/mm3 (4.20-5.40); Red Cell Distribution Width 12.8 % (11.5-17.5); White Blood Count 6.7 K/mm3 (4.8-10.8)
[2021-02-08 19:26] LABS: Thyroid Stimulating Hormone 0.33 uIU/mL (0.465-4.68)
== END ==
PROVIDERS: Visit Provider Physician Assistant
DX: R35.0 Frequency of micturition (principal); E03.9 Hypothyroidism, unspecified; M54.5 Low back pain; R53.83 Other fatigue
CPT/HCPCS: 84443; 85025; 87086

== ENCOUNTER → 2021-02-13 06:17 | Outpatient (CLI) | payer MEDICARE, OTHER, SELFPAY ==
--- NOTE | 2021-02-13 | CA_ITS ---
APPROVED REPORT Exam: Pharmacologic Technologist: Radha De La Cruz, Ht: 5 ft 4 in Wt: 170 lbs BSA: 1.83 m2 HR: 58 bpm BP: 139/76 mmHg Medical History Medications: Levothyroxine,,,,, Aspirin,,,,, Losartan,,,,, Carvedilol,,,,, CloPIdogrel,,,,, AtorvaASTATIN,,,,, Potassium,,,,, SetrALINE,,,,, Isosorbide Mononirtate ER,,,,, Nitrogylcerin,,,,, Pronethazine,,,,, Stress Test Details Test: LEXISCAN HR Resting HR: 61 bpm Max Heart Rate (APMHR): 150.451108 bpm Max HR Achieved: 104 bpm Target HR (85% APMHR): 127.455685 bpm % of APMHR: 69.33 Recovery HR: 71 bpm BP Resting BP: 139/76 mmHg Max BP: 149/69 mmHg Recovery BP: 135.0/76.0 mmHg ECG Resting ECG: Sinus victor hugo, low voltage QRS Clinical Exercise duration: 04:00 min Highest Stage Achieved: Exercise capacity: 1.0 METs Stress ECG Conclusion Symptoms: SOA, nausea, MORE. No CP. Arrythmias/Ectopy: None ST-T Changes: No significant changes. Conclusion: Unremarkable Lexiscan stress. Myoview images reported separately. Test Summary REST . . . . . . . Resting REST 02:55 . . 61 . 139/ 76 . . Stage 1 . . . . . . . Cardiolite injected Stage 1 01:00 . . 92 . . . . Stage 2 01:00 . . 96 . . . . Stage 3 01:00 . . 91 . 149/ 69 . . Stage 4 01:00 . . 85 . 129/ 71 . Stop exercise at 04:00 RECOVERY 01:00 . . 76 . . . . RECOVERY 02:00 . . 78 . . . . RECOVERY 03:00 . . 80 . 144/ 72 . . RECOVERY 04:00 . . 71 . 144/ 72 . . RECOVERY 04:37 . . 70 . 135/ 76 . . Electronically signed by : Sanchez Sosa, 02/13/2021 20:45:00
--- NOTE | 2021-02-13 06:20 | NM_ITS ---
APPROVED REPORT Exam: Nuclear Stress Test Indication: CAD, Hx of NV, Chest pain, SOB, HTN, High cholesterol, Family history Patient Location: Outpatient Stress Tech: Radha De La Cruz CT Tech:Nalini Houston, ARRT, RT (R)(N) Ht: 5 ft 4 in Wt: 170 lbs Bra Size: 42DD HR: 58 bpm BP: 139/76 mmHg BSA: 1.83 m2 BMI: 29.1 History: CAD, Hx of NV, Chest pain, SOB, HTN, High cholesterol, Family history Procedure: Patient received a 0.4 mg of intravenous Lexiscan, resting heart rate 58 bpm, resting blood pressure 139/76 mmHg, with Lexiscan maximum heart rate achived was 91 bpm which is Less than 85 % of the maximum predicted heart rate and blood pressure was 149/69 mmHg. With Lexiscan, patient denied any complaint of chest pain. Electrocardiogram Resting electrocardiogram shows sinus rhythm, with Lexiscan there is less than 1.[address] segment depression noted from the baseline EKG. The EKG portion of the Lexiscan is nondiagnostic. Cardiac Stress and Resting SPECT Images: Cardiac Stress and Resting SPECT images were obtained using technetium 99m Myoview 32.5 mCi stress and 10.50 mCi at rest. Gated SPECT for analysis of segmental wall motion and calculation of the ejection fraction also done. Prone images were also obtained. Cardiac stress and resting SPECT images showed decreased tracer activity at the apex which improves on the resting images suggestive of reversible ischemia, there is transient ischemic dilatation of the left ventricle is also seen. Computer derived ejection fraction is 59% with no regional wall motion abnormality, right ventricle is mildly enlarged with normal contractility. Conclusion: 1. The EKG portion of the Lexiscan is nondiagnostic. 2. Scintigraphic evidence of reversible ischemia involving the apex, there is transient ischemic dilatation of the left ventricle seen, computer derived ejection fraction is 59% with no regional wall motion abnormality, right ventricle is mildly enlarged with normal contractility. 3. Abnormal Lexiscan Myoview study. Electronically signed by : Sanchez Sosa, 02/13/2021 21:03:38
--- NOTE | 2021-02-13 08:12 | HMH.ITSHM ---
Current Home Medications as stated by this patient Mily Sotelo or account representative. []PROTONIX ASA CARVEDILOL LEVOTHYROXINE CLOPIDOGREL MULTIVITAMIN ISOSORBIDE ATORVASTATIN NITRO POTASSIUM LOSARTAN SPIRONOLACTONE SERTRALINE OXYBUTYNIN
== END ==
PROVIDERS: PCP Emergency Medicine; Visit Provider Internal Medicine Cardiovascular Disease
DX: R06.00 Dyspnea, unspecified (principal)
CPT/HCPCS: 78452; 93017; A9502; J2785

== ENCOUNTER → 2021-02-22 08:41 | Outpatient (CLI) | payer MEDICARE, OTHER, SELFPAY ==
[2021-02-22 09:40] LABS: Chloride 106 mmol/L (98-107)
[2021-02-22 09:41] LABS: Potassium 4.9 mmoL/L (3.5-5.1); Sodium 137 mmol/L (136-145)
[2021-02-22 09:44] LABS: Anion Gap 9.9 mEq/L (5-15); Blood Urea Nitrogen 18 mg/dl (7-17); Calcium 8.8 mg/dl (8.4-10.2); Carbon Dioxide 26 mmol/L (22.0-30.0); Estimated Glomerular Filt Rate 62 ml/min (>60); GFR (African American) 75 ML/MIN (>60); Glucose 97 mg/dl (74-100)
--- NOTE | 2021-02-22 10:20 | CT_ITS ---
PROCEDURE: CT ABDOMEN PELVIS WO/W CON CLINICAL INDICATION: right flank pain, chills, fever COMPARISON: CT ABDPELW/O CT ABD PELVIS W/O CONTRAST from 02/10/2017 TECHNIQUE: IV Contrast: 75ML Isovue 370 Oral Contrast None Axial images obtained with sagittal and coronal reformats. All CT scans at the facility use one or more dose reduction, viz: automated exposure control, ma/kV adjustment per patient size (including targeted exams where dose is matched to indication, i.e. head), or iterative reconstruction technique. FINDINGS: LOWER THORAX: Coronary artery calcifications are present ABDOMEN & PELVIS: Liver, spleen, adrenal glands, pancreas, and gallbladder have an unremarkable appearance. No renal or ureteral calculi are evident. There is minimal ectasia of the right renal collecting system. No intestinal obstruction or free air. The appendix is not clearly delineated. No evidence of appendicitis. Colonic diverticula are noted throughout the colon. No evidence of diverticulitis. There has been a prior hysterectomy. There is a small umbilical hernia containing fat. There has been interval kyphoplasty at L1 with wedge compression changes of L1 with loss of height of approximately 50 percent centrally and minimal retropulsion of the posterior superior aspect of L1. IMPRESSION: 1. No renal or ureteral calculi. 2. Minimal ectasia of the right renal collecting system the which could be due to recently passed stone or urinary tract infection. 3. Colonic diverticulosis. No evidence of diverticulitis. Dictated by: Hemal Deal MD 02/22/2021 13:39 Hemal Deal MD in [place] 02/22/2021 13:39
== END ==
PROVIDERS: PCP Emergency Medicine; Visit Provider Physician Assistant
DX: R10.9 Unspecified abdominal pain
CPT/HCPCS: 36415; 74178; 80048; Q9967

== ENCOUNTER → 2021-02-27 10:09 | Outpatient (CLI) | payer MEDICARE, OTHER, SELFPAY | PROVIDERS: Visit Provider Internal Medicine | DX: Z01.812 Encounter for preprocedural laboratory examination (principal); Z11.52 Encounter for screening for COVID-19; R07.9 Chest pain, unspecified | CPT/HCPCS: U0003 ==

== ENCOUNTER 2021-02-28 09:04 | Day surgery (SDC) | payer MEDICARE, OTHER, SELFPAY ==
[2021-02-28] VITALS (12 sets, daily range): BP systolic 92–176; BP diastolic 53–91; PULSE 53–70; RESP 13–18; TEMP 36.6–36.8; O2SAT 93–100; BMI 29.8
--- NOTE | 2021-02-28 | IR_ITS ---
APPROVED REPORT Patient Location: Outpatient PROCEDURES Left heart catheterization Left ventriculogram Selective coronary angiogram INDICATION Known coronary disease, High risk abnormal Myoview, Typical angina pectoris, Informed consent was obtained prior to the procedure. COMPLICATIONS NONE Estimated Blood Loss: LESS THAN 10 ML TECHNIQUE One percent lidocaine used to anesthetize the right anterior aspect of the wrist. The right radial artery was accessed via the Seldinger technique. A 6 Czech sheath was placed in the right radial artery. 2.5 mg of verapamil, 800 mcg of nitroglycerin, 1mg Lidocaine and 5000 U Heparin were given through the arterial sheath. The trap catheter was also used to perform left heart catheterization, left ventriculogram and selective coronary angiogram. At the end of the procedure the sheath was removed good hemostasis was achieved using Traclet band, patient was transferred to the postop holding area in stable condition. ANGIOGRAPHIC RESULTS The left main artery Normal The left anterior descending artery Has a stent the proximal segment which is widely patent free of in-stent restenosis with excellent proximal distal transitioning the remaining vessel has mild 10% luminal irregularities The circumflex artery Nondominant with mild 10% luminal irregularities The right coronary artery Large dominant with mild 10% luminal irregularities The GALAN ventriculogram reveals Normal 65% The left ventricular end-diastolic pressure Severely elevated at 30 mmHg IMPRESSION Widely patent proximal LAD stent as described above Normal ejection fraction Severely elevated LVEDP PLAN 1. Treatment of severe diastolic dysfunction which is the etiology for patient's angina pectoris 2. Continue risk factor modification Electronically signed by : Huseyin Aponte, 02/28/2021 11:19:44
== END 2021-02-28 14:08 | disposition home or self-care (01) ==
LOC: CATHLAB 09:06
PROVIDERS: PCP Emergency Medicine; Visit Provider Internal Medicine
DX: I25.10 Atherosclerotic heart disease of native coronary artery without angina pectoris (principal); I11.0 Hypertensive heart disease with heart failure; I50.9 Heart failure, unspecified; I25.2 Old myocardial infarction; E03.9 Hypothyroidism, unspecified; Z79.899 Other long term (current) drug therapy; Z95.5 Presence of coronary angioplasty implant and graft
CPT/HCPCS: 93458; 99152; C1725; C1769; J1644; Q9967

== ENCOUNTER → 2021-03-01 14:10 | Outpatient (CLI) | payer MEDICARE, OTHER, SELFPAY | PROVIDERS: Visit Provider Physician Assistant | DX: N28.9 Disorder of kidney and ureter, unspecified (principal) | CPT/HCPCS: 87086 ==

== ENCOUNTER → 2021-03-12 15:48 | Outpatient (CLI) | payer MEDICARE, OTHER, SELFPAY ==
--- NOTE | 2021-03-12 15:49 | MR_ITS ---
PROCEDURE: MR LUMBAR SPINE WO CON CLINICAL INDICATION: Back pain COMPARISON: MR MR LUMBAR SPINE WO CON from 03/20/2020 TECHNIQUE: Multiplanar, multisequence MRI lumbar spine performed without contrast. FINDINGS: Compression deformity of the L1 vertebral body with sequela of prior kyphoplasty is noted. The rest of the vertebral body heights and alignment are maintained.There is no evidence of bone marrow edema or infiltrative process.The conus medullaris terminates at the T12-L1 vertebral body level. Further details by level follow below T12-L1: There is minor narrowing of the spinal canal with the posterior vertebral body of the L1 causes mild mass effect on the thecal sac. No significant foraminal narrowing is noted. L1-2: No canal stenosis or neural foraminal narrowing. L2-3: Small central disc bulge causes mild thecal sac indentation. No significant canal or foraminal narrowing. L3-4: Small broad-based disc bulge and bilateral facet joint hypertrophy causes mild canal and mild to moderate bilateral foraminal narrowing. L4-5: Broad-based disc bulge, bilateral facet joint and ligamentum flavum hypertrophy causes moderate bilateral foraminal narrowing. No significant canal narrowing. L5-S1: No significant canal or foraminal narrowing. IMPRESSION: Sequela of prior kyphoplasty of L1 vertebral body. Mild to moderate bilateral foraminal narrowing at L3-4 and L4-5 levels as described above. Dictated by: Marisela French 03/12/2021 17:04 Marisela French in [place] 03/12/2021 17:04
== END ==
PROVIDERS: PCP Emergency Medicine; Visit Provider Physician Assistant
DX: M54.5 Low back pain (principal)
CPT/HCPCS: 72148; 76376

== ENCOUNTER → 2022-01-17 10:18 | Outpatient (CLI) | payer MEDICARE, OTHER, SELFPAY ==
--- NOTE | 2022-01-17 10:27 | MM_ITS ---
PROCEDURE INFORMATION: Exam: MG Bilateral Screening 3D Mammography Exam date and time: 01/17/2022 10:21 AM Age: 71 years old Clinical indication: Screening examination TECHNIQUE: Imaging protocol: Bilateral Screening tomosynthesis and 2D mammography including computer-aided detection (CAD) when performed. COMPARISON: 1. MG MM DIG SCREENING MAMM BI W/CAD 01/16/2021 2:56 PM 2. MG DIG MAMM-DX UNI-RT 03/02/2019 1:12 PM 3. MG DXRT MM Dig mamm DX unilat RT CAD 07/23/2018 3:31 PM FINDINGS: MAMMOGRAPHY: Breast composition: There are scattered areas of fibroglandular density. Mass: No suspicious masses. Architectural distortion: No suspicious distortion. Calcifications: No suspicious calcifications. Asymmetric density: None. Skin thickening: None. Axillary adenopathy: None. IMPRESSION: No mammographic evidence of malignancy. Annual screening is recommended unless otherwise clinically indicated. ASSESSMENT: BI-RADS Category 1: Negative
== END ==
PROVIDERS: PCP Emergency Medicine; Visit Provider Emergency Medicine
DX: Z12.31 Encounter for screening mammogram for malignant neoplasm of breast (principal)
CPT/HCPCS: 77063; 77067

== ENCOUNTER → 2022-04-22 08:37 | Outpatient (CLI) | payer MEDICARE, OTHER, SELFPAY ==
[2022-04-22 09:38] LABS: Alanine Aminotransferase 24 U/L (12-78); Albumin Level 4.2 g/dl (3.5-5.0); Alkaline Phosphatase 157 U/L (38-126); Aspartate Amino Transferase 34 U/L (14-36); Bilirubin,Direct 0.1 mg/dl (0.0-0.4); Bilirubin,Indirect 0.5 mg/dL (0.0-0.9); Bilirubin,Total 0.6 mg/dl (0.2-1.3); Bilirubin,Unconjugated 0.5 mg/dL (0.0-1.1); Chol/HDL Ratio 3.4 (1-3.5); Cholesterol 182 mg/dl (140-200); HDL Cholesterol 53 mg/dl (40-60); Total Protein,Serum 6.7 g/dl (6.3-8.2); Triglycerides 141 mg/dl (30-150); VLDL Cholesterol 28 mg/dL (0-40)
[2022-04-24 03:19] LABS: Direct LDL Cholesterol 105 mg/dL (100-129)
== END ==
PROVIDERS: PCP Emergency Medicine; Visit Provider Nurse Practitioner
DX: I10 Essential (primary) hypertension; I25.10 Atherosclerotic heart disease of native coronary artery without angina pectoris; E78.49 Other hyperlipidemia
CPT/HCPCS: 36415; 80061; 80076

== ENCOUNTER → 2022-04-30 08:13 | Outpatient (CLI) | payer MEDICARE, OTHER, SELFPAY ==
[2022-04-30 20:51] LABS: Basophils # 0.1 K/mm3 (0-0.2); Basophils % 0.9 % (0.1-2.0); Eosinophils # 0.2 K/mm3 (0.0-0.4); Eosinophils % 1.8 % (0.1-12.0); Hematocrit 37.6 % (37.0-47.0); Hemoglobin 12.2 g/dL (12.2-16.2); Lymphocytes # 2.7 K/mm3 (0.7-4.5); Lymphocytes % 31.5 % (10-50); Mean Corpuscular HGB Conc 32.4 g/dL (31.8-35.4); Mean Corpuscular Hemoglobin 31.1 pg (27.0-31.2); Mean Platelet Volume 9.1 fl (7.4-10.4); Monocytes # 0.5 K/mm3 (0.1-1.0); Monocytes % 6.3 % (1.7-9.3); Neutrophils % 59.4 % (37.0-80.0); Platelet Count 402 K/mm3 (142-424); Red Blood Count 3.91 M/mm3 (4.20-5.40); Red Cell Distribution Width 13.6 % (11.5-17.5); White Blood Count 8.5 K/mm3 (4.8-10.8)
[2022-04-30 21:39] LABS: Anion Gap 14.1 mEq/L (5-15); Blood Urea Nitrogen 28 mg/dl (7-17); Calcium 9.2 mg/dl (8.4-10.2); Carbon Dioxide 23 mmol/L (22.0-30.0); Chloride 102 mmol/L (98-107); Estimated Glomerular Filt Rate 37 ml/min (>60); GFR (African American) 45 ML/MIN (>60); Gamma Glutamyl Transpeptidase 26 U/L (12-43); Glucose 76 mg/dl (74-100); Magnesium 1.6 mg/dl (1.6-2.3); Phosphorous 4.2 mg/dl (2.5-4.5); Potassium 4.1 mmoL/L (3.5-5.1); Sodium 135 mmol/L (136-145)
[2022-04-30 22:09] LABS: Thyroid Stimulating Hormone 1.19 uIU/mL (0.465-4.68)
[2022-05-02 18:08] LABS: Calcium, Ionized 5.3 mg/dL (4.5-5.6)
[2022-05-10 21:08] LABS: 1,25 Dihydroxy Vitamin D 35 pg/mL (.); 1,25-Dihydroxy, Vitamin D-2 <10 pg/mL (.); 1,25-Dihydroxy, Vitamin D-3 35 pg/mL (.)
== END ==
PROVIDERS: PCP Physician Assistant; Visit Provider Physician Assistant
DX: R94.30 Abnormal result of cardiovascular function study, unspecified (principal); E55.9 Vitamin D deficiency, unspecified; I10 Essential (primary) hypertension; N28.9 Disorder of kidney and ureter, unspecified; G47.9 Sleep disorder, unspecified; F10.20 Alcohol dependence, uncomplicated; R74.8 Abnormal levels of other serum enzymes
CPT/HCPCS: 80048; 82330; 82652; 82977; 83735; 84100; 84443; 85025

== ENCOUNTER → 2022-05-08 08:46 | Outpatient (CLI) | payer MEDICARE, OTHER, SELFPAY ==
--- NOTE | 2022-05-08 08:57 | XR_ITS ---
FINAL REPORT TECHNIQUE: Bone mineral density was calculated of the right forearm and right hip. CLINICAL HISTORY: postmenopausal FINDINGS: DEXA BONE DENSITY AXIAL SKELETON Using right forearm, the bone mineral density of the distal 1/3 is 0.625 g/cm2, corresponding to T-score of -1.1. Using the right hip, the bone mineral density of the femoral neck is 0.599 g/cm2, corresponding to a T-score of -2.0. NOTE: T-score: Standard deviation compared with peak bone mass of young adult mean. *Following the recommendations of the International Society of Bone densitometry, classification of hip BMD is based on the lower of two T-scores; total hip or femoral neck. IMPRESSION: Diminished bone mineral density of the right forearm spine and right hip consistent with osteopenia. FRAX 10 year fracture risk is a 4.7% for a hip fracture and 21% for a major osteoporotic fracture. Reviewed, Interpreted and Dictated by Jimbo Thompson III, MD Transcribed by Francie Vieira Authenticated and [facility]
== END ==
PROVIDERS: PCP Emergency Medicine; Visit Provider Physician Assistant
DX: S32.010A Wedge compression fracture of first lumbar vertebra, initial encounter for closed fracture (principal); Z78.0 Asymptomatic menopausal state
CPT/HCPCS: 77080

== ENCOUNTER → 2022-11-20 11:12 | Outpatient (CLI) | payer MEDICARE, OTHER, SELFPAY | PROVIDERS: PCP Physician Assistant; Visit Provider Physician Assistant | DX: M54.50 Low back pain, unspecified (principal); N39.0 Urinary tract infection, site not specified; B96.1 Klebsiella pneumoniae [K. pneumoniae] as the cause of diseases classified elsewhere | CPT/HCPCS: 87086; 87088; 87186 ==

== ENCOUNTER → 2022-11-28 08:44 | Outpatient (CLI) | payer MEDICARE, OTHER, SELFPAY ==
--- NOTE | 2022-11-28 08:45 | MR_ITS ---
FINAL REPORT CLINICAL HISTORY: low back pain WORSE ON RIGHT SIDE. BILATERAL HIP PAIN. SYMPTOMS [id number]. NO INJURY OR TRAUMA COMPARISON: 03/20/2020 FINDINGS: Multiplanar MR imaging of the lumbar spine was performed without contrast. There is 60% compression deformity of the L1 vertebra. There is abnormal decreased signal within the L1 vertebra consistent with prior kyphoplasty. There is significant retropulsion of the superior endplate of L1 vertebra. Remaining lumbar vertebral are of normal height. The vertebral alignment is normal. T12-L1: Retropulsion superior endplate L1 midline. Mild spinal canal compromise. Neural foramina are adequately patent. L1-2: There is no significant canal stenosis or neural foraminal narrowing. L2-3: Small midline disc protrusion. Mild bilateral neural foraminal narrowing. L3-4: Mild diffuse disc bulge. Mild bilateral neural foraminal narrowing. L4-5: Mild diffuse disc bulge. Mild bilateral neural foraminal narrowing. L5-S1: There is no significant canal stenosis or neural foraminal narrowing. IMPRESSION: 60% compression deformity of L1 with postoperative changes from kyphoplasty. Mild spinal canal compromise at T12-L1:. Diffuse disc bulges most evident at L3-4 and L4-5 with bilateral neural foraminal narrowing. Reviewed, Interpreted and Dictated by Du Dean MD Transcribed by Marah Cartwright Authenticated and [facility]
== END ==
PROVIDERS: PCP Physician Assistant; Visit Provider Physician Assistant
DX: M54.50 Low back pain, unspecified (principal)
CPT/HCPCS: 72148; 76376

== ENCOUNTER → 2022-12-04 11:07 | Outpatient (CLI) | payer MEDICARE, OTHER, SELFPAY | PROVIDERS: PCP Physician Assistant; Visit Provider Physician Assistant | DX: R10.9 Unspecified abdominal pain (principal) | CPT/HCPCS: 87086 ==

== ENCOUNTER 2022-12-05 10:50 | Emergency (ER) | payer MEDICARE, OTHER, SELFPAY ==
--- NOTE | 2022-12-05 10:54 | CT_ITS ---
FINAL REPORT CLINICAL HISTORY: stroke alert left sided weakness and facial drooping COMPARISON: January 16, 2021 CT FINDINGS: Axial images of the head were obtained without contrast. Coronal reformatted images were also obtained. This study was performed with techniques to keep radiation doses as low as reasonably achievable (ALARA). Individualized dose reduction techniques using automated exposure control or adjustment of mA and/or kV according to the patient''s size were employed. There is generalized age-appropriate atrophy. Periventricular low-attenuation areas are seen consistent with mild chronic ischemic changes. Note is made of bilateral basal ganglia calcifications, stable. There is no evidence of intracranial hemorrhage or mass. There is no evidence of acute infarct. There is no evidence of shift of the midline structures. No skull abnormality is seen on the bone window images. IMPRESSION: Atrophy and mild periventricular chronic ischemic changes. No acute intracranial abnormality identified. Authenticated and [facility]
--- NOTE | 2022-12-05 10:55 | PC.NURSE ---
Stroke alert called overhead at [id number]
--- NOTE | 2022-12-05 10:55 | PC.NURSE ---
AXEL MONTAÑO at for pt amanal
--- NOTE | 2022-12-05 10:55 | PC.NURSE ---
FGBS: 95, reported to AXEL MONTAÑO and Dunia David RN
--- NOTE | 2022-12-05 10:56 | PC.NURSE ---
PT to CT via stretcher
[2022-12-05 10:57] VITALS: BP 137/66; PULSE 72; RESP 16; TEMP 36.6; O2SAT 98; BMI 27.8
--- NOTE | 2022-12-05 10:59 | PC.NURSE ---
10:50a, at bedside. SA called d/t left-sided deficits. FS 93.
--- NOTE | 2022-12-05 11:00 | PC.NURSE ---
10:[address] with RN/NCT.
--- NOTE | 2022-12-05 11:02 | CT_ITS ---
FINAL REPORT TECHNIQUE: Thin section axial CT with IV contrast supplemented with multiplanar reconstruction under CT angiogram protocol. This study was performed with techniques to keep radiation doses as low as reasonably achievable (ALARA). Individualized dose reduction techniques using automated exposure control or adjustment of mA and/or kV according to the patient''s size were employed. NASCET criteria was utilized during interpretation. CLINICAL HISTORY: stroke alert FINDINGS: Aortic arch: Arch shows no significant narrowing. Great vessel origins are widely patent. Right carotid: No significant stenosis is seen of the cervical common or internal carotid artery. Left carotid: No significant stenosis is seen of the cervical common or internal carotid artery. Vertebral: Left vertebral artery is dominant. No significant stenosis is present. IMPRESSION: No significant stenosis is identified. Reviewed, Interpreted and Dictated by Jimbo Thompson III, MD Transcribed by Connie Perez Authenticated and [facility]
--- NOTE | 2022-12-05 11:02 | CT_ITS ---
FINAL REPORT TECHNIQUE: Thin section axial CT with IV contrast supplemented with multiplanar reconstruction under CT angiogram protocol. 3-D reconstructions were performed. This study was performed with techniques to keep radiation doses as low as reasonably achievable (ALARA). Individualized dose reduction techniques using automated exposure control or adjustment of mA and/or kV according to the patient''s size were employed. CLINICAL HISTORY: stroke alert FINDINGS: The distal vertebral, basilar and distal internal carotid arteries have an unremarkable appearance. No aneurysm is seen. Major intracranial vessels are patent without significant stenosis. IMPRESSION: No evidence of significant stenosis. Reviewed, Interpreted and Dictated by Jimbo Thompson III, MD Transcribed by Connie Perez Authenticated and [facility]
--- NOTE | 2022-12-05 11:02 | XR_ITS ---
FINAL REPORT CLINICAL HISTORY: stroke alert, CP COMPARISON: 01/19/2021 FINDINGS: SINGLE-VIEW CHEST The heart size is normal. The mediastinum is normal. The lungs are clear. There is no pneumothorax. IMPRESSION: No acute cardiopulmonary process. Reviewed, Interpreted and Dictated by Jimbo Thompson III, MD Transcribed by Connie Perez Authenticated and [facility]
--- NOTE | 2022-12-05 11:09 | HMH.EDGENADL ---
Discharge Plan Disposition Patient Disposition: [facility]mediate Care Fac Condition: Fair Chief Complaint: Neuro Symptoms/Deficit Prescriptions Prescriptions: No Action aspirin [Adult Low Dose Aspirin] 81 mg tablet,delayed release (DR/EC) 81 mg PO DAILY carvedilol 12.5 mg tablet 12.5 mg PO BID Qty: 180 3RF clopidogrel 75 mg tablet See Rx Instructions .ROUTE .COMPLEX Qty: 90 3RF Dose Instruction: TAKE 1 TABLET BY MOUTH ONCE DAILY FOR PLATELET INHIBITOR Rx Instructions: TAKE 1 TABLET BY MOUTH ONCE DAILY FOR PLATELET INHIBITOR furosemide 40 mg tablet 40 mg PO DAILY Qty: 90 3RF isosorbide mononitrate 60 mg tablet extended release 24 hr See Rx Instructions .ROUTE .COMPLEX Qty: 90 3RF Dose Instruction: Take 1 tablet by mouth once daily Rx Instructions: Take 1 tablet by mouth once daily losartan 100 mg tablet See Rx Instructions .ROUTE .COMPLEX Qty: 90 3RF Dose Instruction: TAKE 1 TABLET BY MOUTH ONCE DAILY FOR HIGH BLOOD PRESSURE Rx Instructions: TAKE 1 TABLET BY MOUTH ONCE DAILY FOR HIGH BLOOD PRESSURE spironolactone 25 mg tablet See Rx Instructions .ROUTE .COMPLEX Qty: 90 3RF Dose Instruction: TAKE 1 TABLET BY MOUTH IN THE MORNING FOR HIGH BLOOD PRESSURE Rx Instructions: TAKE 1 TABLET BY MOUTH IN THE MORNING FOR HIGH BLOOD PRESSURE oxybutynin chloride 15 mg tablet extended release 24hr 15 mg PO Label Comments: TAKE 1 TABLET BY MOUTH ONCE DAILY nitroglycerin 0.4 mg tablet, sublingual See Rx Instructions .ROUTE .COMPLEX Qty: 25 0RF Dose Instruction: DISSOLVE ONE TABLET UNDER THE TONGUE EVERY 5 MINUTES NEEDED FOR CHEST PAIN. DO NOT EXCEED A TOTAL OF 3 DOSES IN 15 MINUTES Rx Instructions: DISSOLVE ONE TABLET UNDER THE TONGUE EVERY 5 MINUTES NEEDED FOR CHEST PAIN. DO NOT EXCEED A TOTAL OF 3 DOSES IN 15 MINUTES pantoprazole 40 mg tablet,delayed release (DR/EC) See Rx Instructions .ROUTE .COMPLEX Qty: 90 5RF Dose Instruction: Take 1 tablet by mouth once daily Rx Instructions: Take 1 tablet by mouth once daily ondansetron 8 mg tablet,disintegrating 8 mg PO Q12H PRN (Reason: nausea and vomiting) Qty: 30 2RF atorvastatin 80 mg tablet 80 mg PO DAILY Qty: 90 3RF alendronate [Fosamax] 70 mg tablet 70 mg PO WEEKLY Qty: 14 3RF sertraline 25 mg tablet See Rx Instructions .ROUTE .COMPLEX Qty: 90 0RF Dose Instruction: Take 1 tablet by mouth once daily Rx Instructions: Take 1 tablet by mouth once daily levothyroxine 100 mcg tablet See Rx Instructions .ROUTE .COMPLEX Qty: 90 0RF Dose Instruction: TAKE 1 TABLET BY MOUTH ONCE DAILY FOR THYROID Rx Instructions: TAKE 1 TABLET BY MOUTH ONCE DAILY FOR THYROID hydrocodone-acetaminophen 5-325 mg tablet 1 tab PO BID PRN (Reason: pain) Qty: 40 0RF levofloxacin 500 mg tablet 500 mg PO DAILY 7 Days Qty: 7 0RF famotidine 20 MG tablet 20 mg PO DAILY Referrals Follow up/Referrals: Provider,Referral, MD [Referring] - See instructions Clinical Impressions Clinical Impression: Ischemic cerebrovascular accident (CVA) Discharge ED Provider: Raymon Hopper General Adult HPI General Chief complaint: Neuro Symptoms/Deficit Stated complaint: stroke symptoms Time Seen by Provider: 12/05/22 10:55 Mode of Arrival: Ambulatory Source of Information: Patient and Spouse Limitations: No Limitations Description of Symptoms (Recalled from ER Triage Doc. by RN): Presents via POV with slight left facial droop, with left-sided decreased sensation and drift to LLE. NELLA 10:30a. FS 95. History of Present Illness HPI narrative: This is a 72-year-old female with history of CAD, CT status post stenting x3, currently on clopidogrel, CHF, hypertension, hyperlipidemia, hypothyroidism presenting with weakness. Patient states about 1/2-hour prior to arrival, she began feeling chest pain in the left
[2022-12-05 11:13] LABS: Chloride 104 mmol/L (98-107); Sodium 138 mmol/L (136-145)
[2022-12-05 11:14] LABS: Basophils % 0.6 % (0.1-2.0); Eosinophils # 0.2 K/mm3 (0.0-0.4); Eosinophils % 3.2 % (0.1-12.0); Hematocrit 34.9 % (37.0-47.0); Hemoglobin 11.7 g/dL (12.2-16.2); Lymphocytes # 2.3 K/mm3 (0.7-4.5); Lymphocytes % 34.3 % (10-50); Mean Corpuscular HGB Conc 33.5 g/dL (31.8-35.4); Mean Corpuscular Hemoglobin 30.7 pg (27.0-31.2); Mean Corpuscular Volume 91.7 fl (81-99); Monocytes # 0.5 K/mm3 (0.1-1.0); Monocytes % 6.6 % (1.7-9.3); Neutrophils # 3.8 K/mm3 (1.8-7.8); Neutrophils % 55.3 % (37.0-80.0); Platelet Count 310 K/mm3 (142-424); Red Blood Count 3.81 M/mm3 (4.20-5.40); Red Cell Distribution Width 12.9 % (11.5-17.5); White Blood Count 6.8 K/mm3 (4.8-10.8)
[2022-12-05 11:16] LABS: Alanine Aminotransferase 31 U/L (12-78); Albumin Level 4.1 g/dl (3.5-5.0); Albumin/Globulin Ratio 1.6 (1.1-1.8); Alkaline Phosphatase 110 U/L (38-126); Aspartate Amino Transferase 38 U/L (14-36); Bilirubin,Total 0.6 mg/dl (0.2-1.3); Blood Urea Nitrogen 23 mg/dl (7-17); Carbon Dioxide 26 mmol/L (22.0-30.0); Creatinine Clearance Estimated 59 mL/min (50-200); Estimated Glomerular Filt Rate 55 ml/min (>60); GFR (African American) 66 ML/MIN (>60); Globulin 2.5 g/dL (1.3-3.2); Glucose 69 mg/dl (74-100); Lipase 59 U/L (23-300); Total Protein,Serum 6.6 g/dl (6.3-8.2)
--- NOTE | 2022-12-05 11:17 | ECG_ITS ---
APPROVED REPORT Exam: Resting ECG HR:66 bpm ECG Measurements Heart Rate 66 AXES MS 173 P 44 QRSd 90 QRS 1 QT 389 T 30 QTc 402 Conclusion SINUS RHYTHM NORMAL ECG UNCONFIRMED REPORT Electronically signed by : Kendrick Mas MD 12/06/2022 09:33:24
[2022-12-05 11:20] VITALS: BP 128/69; PULSE 68; O2SAT 95
[2022-12-05 11:30] VITALS: BP 119/65; PULSE 65; O2SAT 97
[2022-12-05 11:32] LABS: Troponin I < 0.01 ng/ml (0.00-0.034)
--- NOTE | 2022-12-05 11:36 | PC.NURSE ---
pt ambulatory to restroom with assistance from myself; no complications
--- NOTE | 2022-12-05 11:43 | PC.NURSE ---
calling [facility] to speak to on [facility] md to get an neuro/stroke md to speak with our er md , mary called radiology to power share images to [facility]
--- NOTE | 2022-12-05 11:43 | PC.NURSE ---
Radiology notified to [facility] with Neuro.
--- NOTE | 2022-12-05 11:44 | MR_ITS ---
FINAL REPORT CLINICAL HISTORY: stroke symptoms, Left sided FINDINGS: Multiplanar MR imaging of the brain was performed without contrast. There is mild age-appropriate atrophy. There are scattered foci of increased T2 signal in the cerebral white matter that have a nonspecific appearance but likely represent moderate chronic ischemic/gliotic changes. There is no evidence of intracranial hemorrhage or mass. No abnormal ventricular dilatation is identified. No abnormal extra-axial fluid collection is seen. No abnormality is seen on the diffusion weighted images. The posterior fossa and brainstem are unremarkable. Normal major vessel vascular flow voids are seen. IMPRESSION: Age-appropriate atrophy and moderate chronic ischemic/gliotic changes. No acute intracranial abnormality. Reviewed, Interpreted and Dictated by Jimbo Thompson III, MD Transcribed by Francie Vieira Authenticated and [facility]
--- NOTE | 2022-12-05 11:50 | PC.NURSE ---
[place] speaking with dr hsieh from [facility] stroke
--- NOTE | 2022-12-05 11:51 | PC.NURSE ---
spoke with gordon in MRI who stated they can get her in now and will be down to get her soon
--- NOTE | 2022-12-05 11:52 | PC.NURSE ---
updated pt on plan of care at this time
--- NOTE | 2022-12-05 11:53 | PC.NURSE ---
Pt updated on plan of care.
--- NOTE | 2022-12-05 11:57 | PC.NURSE ---
pt to mri
--- NOTE | 2022-12-05 12:00 | PC.WOUNDNOTE ---
pt accepted to ED by Dr. Sousa
--- NOTE | 2022-12-05 12:16 | PC.NURSE ---
Report given to KASSY Upton
--- NOTE | 2022-12-05 12:27 | PC.NURSE ---
Spoke with MRI, 8 min remaining. notified. Okay to finish MRI to then administer TPA.
[2022-12-05 12:39] VITALS: BP 125/69; PULSE 63; RESP 16; TEMP 36.6; O2SAT 98
--- NOTE | 2022-12-05 12:40 | PC.NURSE ---
pt arrived back to room
--- NOTE | 2022-12-05 13:10 | PC.NURSE ---
Additional information provided to KASSY Upton at re: TPA times. EMS leaving ED with patient.
[2022-12-05 13:14] VITALS: BP 119/65; PULSE 65; RESP 16; TEMP 36.6; O2SAT 97
== END 2022-12-05 13:19 ==
PROVIDERS: Emergency Provider Emergency Medicine; PCP Emergency Medicine
DX: R07.9 Chest pain, unspecified (principal); R29.810 Facial weakness
CPT/HCPCS: 70450; 70496; 70498; 70551; 71045; 80053; 83605; 83690; 84484; 85025; 93005; 96374; 99291; J2997; Q9967

== ENCOUNTER → 2023-01-30 15:15 | Outpatient (CLI) | payer MEDICARE, OTHER, SELFPAY ==
--- NOTE | 2023-01-30 15:18 | XR_ITS ---
FINAL REPORT CLINICAL HISTORY: pain in left ribs Pain under left breast after reaching to grasp a hand rail. COMPARISON: 12/05/2022 FINDINGS: There is no evidence of effusion or other pleural disease. The mediastinum has a normal appearance. The cardiac silhouette is unremarkable. IMPRESSION: Unremarkable chest exam. Reviewed, Interpreted and Dictated by Agusto Mueller MD Transcribed by Marah Cartwright Authenticated and [facility]
== END ==
PROVIDERS: PCP Emergency Medicine; Visit Provider Emergency Medicine
DX: R07.81 Pleurodynia (principal)
CPT/HCPCS: 71046

== ENCOUNTER → 2023-02-20 08:54 | Outpatient (CLI) | payer MEDICARE, OTHER, SELFPAY ==
--- NOTE | 2023-02-20 09:00 | XR_ITS ---
FINAL REPORT CLINICAL HISTORY: Left wrist pain COMPARISON: None FINDINGS: LEFT WRIST Three views demonstrate no acute fracture or dislocation. The visualized joint spaces are normally aligned. Moderate and severe degenerative change, greatest at the first carpometacarpal joint. The soft tissues are unremarkable. IMPRESSION: No acute bony abnormality. Reviewed, Interpreted and Dictated by Jimbo Thompson III, MD Transcribed by Marah Cartwright Authenticated and [facility]
--- NOTE | 2023-02-20 09:00 | XR_ITS ---
FINAL REPORT CLINICAL HISTORY: Right wrist pain COMPARISON: none FINDINGS: RIGHT WRIST Three views demonstrate no acute fracture or dislocation. The visualized joint spaces are normally aligned. Moderate degenerative change, greatest at the first carpometacarpal joint. The soft tissues are unremarkable. IMPRESSION: No acute bony abnormality. Reviewed, Interpreted and Dictated by Jimbo Thompson III, MD Transcribed by Marah Cartwright Authenticated and [facility][1]
== END ==
PROVIDERS: PCP Emergency Medicine; Visit Provider Orthopaedic Surgery
DX: M25.531 Pain in right wrist (principal); M25.532 Pain in left wrist
CPT/HCPCS: 73110

== ENCOUNTER → 2023-03-24 10:57 | Outpatient (CLI) | payer MEDICARE, OTHER, SELFPAY ==
--- NOTE | 2023-03-24 10:58 | MM_ITS ---
PROCEDURE INFORMATION: Exam: MG Bilateral Screening 3D Mammography Exam date and time: 03/24/2023 10:54 AM Age: 73 years old Clinical indication: Screening examination TECHNIQUE: Imaging protocol: Bilateral Screening tomosynthesis and 2D mammography including computer-aided detection (CAD) when performed. COMPARISON: 1. MG MM DIG SCREENING MAMM BI W/CAD 01/17/2022 10:21 AM 2. MG MM DIG SCREENING MAMM BI W/CAD 01/16/2021 2:56 PM FINDINGS: MAMMOGRAPHY: Breast composition: There are scattered areas of fibroglandular density. Mass: None. Architectural distortion: None. Calcifications: No suspicious calcifications. Asymmetric density: None. Skin thickening: None. Axillary adenopathy: None. IMPRESSION: No mammographic evidence of malignancy. Annual screening is recommended unless otherwise clinically indicated. ASSESSMENT: BI-RADS Category 1: Negative
== END ==
PROVIDERS: PCP Emergency Medicine; Visit Provider Emergency Medicine
DX: Z12.31 Encounter for screening mammogram for malignant neoplasm of breast (principal)
CPT/HCPCS: 77063; 77067

== ENCOUNTER → 2023-03-25 13:50 | Outpatient (CLI) | payer MEDICARE, OTHER, SELFPAY ==
--- NOTE | 2023-03-25 13:54 | US_ITS ---
FINAL REPORT CLINICAL HISTORY: bilateral leg pain, HTN, HLD, cardiac stents FINDINGS: COMPLETE ANKLE/BRACHIAL INDICES BILATERAL Complete ankle brachial indices were obtained. The right VENKATA is 1.1. The left VENKATA is 1.1. IMPRESSION: ABIs are within normal limits bilaterally. Reviewed, Interpreted and Dictated by Jimbo Thompson III, MD Transcribed by Connie Perez Authenticated and [facility]
--- NOTE | 2023-03-25 13:54 | CA_ITS ---
APPROVED REPORT EXAM: Comprehensive 2D, Doppler, and color-flow Echocardiogram Sql Developer: SACHIN Jones, RVS Ht: 5 ft 4 in Wt: 159lbs BSA: 1.77 HR: 72 bpm BP: 97/64 mmHg Indications: CAD-stents, CHF, Hypotension, Ex-smoker, Fatigue, murmur 2D Dimensions Aortic Root 2.66 cm LA Volume 80.00 mL Left Atrium 2.78 cm LA Volume Index 44.00 mL/m2 (M/F) 16-34 LVOT 1.69 cm (M/F) 1.5-2.5 M-Mode Dimensions RVDd 2.57 cm (0.9-2.6) LA Diam 3.55 cm (1.9-4.0) LVDd 4.57 cm (3.5-5.7) Ao Diam 2.62 cm (2.0-3.7) LVDs 3.39 cm (3.5-5.7) IVSd 0.82 cm (0.6-1.1) PWd 0.75 cm (0.6-1.1) EF (Teich) 50.90% EPSs 0.36 cm FS 25.80% EDV (Teich) 95.90 mL TAPSE 1.70 (<1.7) ESV (Teich) 47.10 mL LV Diastology E Decel Time 217.00 (160-240 msec) E/A Ratio 0.69 MED E' 10.20 (< 7 cm/sec) MED A' 14.10 cm/s E'/MED E' Ratio 6.89 (>14) LAT E' 9.40 (<10 cm/sec) LAT A' 8.20 cm/s E/LAT E' Ratio 7.48 (>14) Aortic Valve LVOT Max 114.00 (70-110 cm/s) LVOT VTI 25.80 cm AoV Peak Dax. 170.00 (50-130 cm/s) AI PHT 491.00 ms AO Peak GR. 11.60 mmHg AO Mean GR. 5.70 (<5 mmHg) AO VTI 34.02 (18-25 cm) KAMRYN (VTI) 1.70 (2.5-4.5 cm2) Mitral Valve MV A Velocity 102.00 (40-130 cm/s) E/A Ratio 0.69 MV Decel. Time 217.00 (160-240 ms) Pulmonary Valve PV Peak Velocity 80.00 (50-150 cm/s) Tricuspid Valve TR P. Velocity 221.00 cm/s RAP Estimate 10.00 mmHg RVSP 29.50 mmHg Left Ventricle The left ventricle is normal size. The left ventricular systolic function is normal. The left ventricular ejection fraction is within the normal range. There is normal left ventricular wall thickness. There is normal LV segmental wall motion. Diastolic function is indeterminate. LVEF is 55%. Right Ventricle The right ventricle is normal size. The right ventricular systolic function is normal. Atria The left atrium is moderately dilated The right atrium is mildly dilated There is no Doppler evidence of interatrial shunt. Aortic Valve The aortic valve is mildly thickened. There is no aortic valvular stenosis. Mild aortic regurgitation. Mitral Valve The mitral valve is mildly thickened No evidence of mitral valve stenosis. Mild mitral regurgitation. Tricuspid Valve The tricuspid valve leaflets are thin and pliable. Mild tricuspid regurgitation. RVSP = 20 mmHg + RA pressure. Pulmonic Valve The pulmonary valve is normal in structure. Trace pulmonic regurgitation. Great Vessels The aortic root is normal in size. The IVC is not well visualized. Pericardium There is no pericardial effusion. Other Information Study Quality: Adequate Conclusion Normal biventricular systolic function. Biatrial enlargement. No significant valvular disease. Electronically signed by : Deanna Lundy, 03/25/2023 21:12:08
== END ==
PROVIDERS: PCP Emergency Medicine; Visit Provider Nurse Practitioner Family
DX: E78.5 Hyperlipidemia, unspecified (principal); I10 Essential (primary) hypertension; I25.10 Atherosclerotic heart disease of native coronary artery without angina pectoris; I63.9 Cerebral infarction, unspecified; M79.604 Pain in right leg; M79.605 Pain in left leg; R06.00 Dyspnea, unspecified; I73.9 Peripheral vascular disease, unspecified
CPT/HCPCS: 93306; 93923

== ENCOUNTER → 2023-04-03 15:31 | Outpatient (CLI) | payer MEDICARE, OTHER, SELFPAY ==
[2023-04-03 17:41] LABS: Chloride 103 mmol/L (98-107); Sodium 140 mmol/L (136-145)
[2023-04-03 17:42] LABS: Potassium 3.3 mmoL/L (3.5-5.1)
[2023-04-03 17:45] LABS: Anion Gap 13.3 mEq/L (5-15); Blood Urea Nitrogen 15 mg/dl (7-17); Calcium 8.8 mg/dl (8.4-10.2); Carbon Dioxide 27 mmol/L (22.0-30.0); Estimated Glomerular Filt Rate 61 ml/min (>60); GFR (African American) 74 ML/MIN (>60); Glucose 112 mg/dl (74-100)
== END ==
PROVIDERS: PCP Emergency Medicine; Visit Provider Internal Medicine
DX: I10 Essential (primary) hypertension (principal); I25.10 Atherosclerotic heart disease of native coronary artery without angina pectoris
CPT/HCPCS: 36415; 80048

== ENCOUNTER 2023-05-18 14:43 | Emergency (ER) | payer MEDICARE, OTHER, SELFPAY ==
[2023-05-18 15:00] VITALS: BP 134/69; PULSE 80; RESP 18; TEMP 36.4; O2SAT 97; BMI 27.0
--- NOTE | 2023-05-18 15:09 | EXP.UTC ---
Discharge Plan Disposition Patient Disposition: Home, Self-Care Condition: Good Prescriptions Prescriptions: No Action oxybutynin chloride 15 mg tablet extended release 24hr 15 mg PO DAILY Patient Comments: TAKE 1 TABLET BY MOUTH ONCE DAILY pantoprazole 40 mg tablet,delayed release (DR/EC) See Rx Instructions .ROUTE .COMPLEX Qty: 90 5RF Dose Instruction: Take 1 tablet by mouth once daily Rx Instructions: Take 1 tablet by mouth once daily furosemide 40 mg tablet 40 mg PO DAILY atorvastatin 80 mg tablet 80 mg PO DAILY clopidogrel 75 mg tablet See Rx Instructions .ROUTE .COMPLEX Rx Instructions: TAKE 1 TABLET BY MOUTH ONCE DAILY FOR PLATELET INHIBITOR levothyroxine 100 mcg tablet See Rx Instructions .ROUTE .COMPLEX Rx Instructions: TAKE 1 TABLET BY MOUTH ONCE DAILY FOR THYROID nitroglycerin 0.4 mg tablet, sublingual See Rx Instructions .ROUTE .COMPLEX Rx Instructions: DISSOLVE ONE TABLET UNDER THE TONGUE EVERY 5 MINUTES NEEDED FOR CHEST PAIN. DO NOT EXCEED A TOTAL OF 3 DOSES IN 15 MINUTES sertraline 25 mg tablet See Rx Instructions .ROUTE .COMPLEX Rx Instructions: Take 1 tablet by mouth once daily Referrals Follow up/Referrals: Fredi Helton MD [Primary Care Provider] - See instructions Clinical Impressions Clinical Impression: Low back pain Qualifiers: Chronicity: acute Back pain laterality: midline Sciatica presence: without sciatica Qualified Code(s): M54.50 - Low back pain, unspecified Instructions Patient Instructions: DI for Chronic Pain -- Adult, DI for Low Back Pain, Exercise May Reduce Risk of Low Back Pain, Low Back Pain (Alternative Therapy) Discharge ED Provider: Abena Lombardi [facility] General Stated complaint: back pain Time Seen by Provider: 05/18/23 15:08 History of Present Illness Provider Complaint: Pt states that for the last 10 days she has had increased urgency and frequency. She states that now she is having some burning with urination and bilateral flank pain. She reports that she has had lower abdominal pain as well. Related Data Home Medications Medication Instructions Recorded Confirmed oxybutynin chloride 15 mg 15 mg PO DAILY . 11/20/22 05/18/23 tablet,extended release 24 hr atorvastatin 80 mg tablet 80 mg PO DAILY cholestrol 05/18/23 05/18/23 clopidogrel 75 mg tablet See Rx Instructions .Route 05/18/23 05/18/23 .COMPLEX blood thinner furosemide 40 mg tablet 40 mg PO DAILY fluid pills 05/18/23 05/18/23 levothyroxine 100 mcg tablet See Rx Instructions .Route 05/18/23 05/18/23 .COMPLEX thyroid nitroglycerin 0.4 mg sublingual See Rx Instructions .Route 05/18/23 05/18/23 tablet .COMPLEX . sertraline 25 mg tablet See Rx Instructions .Route 05/18/23 05/18/23 .COMPLEX mood Previous Rx's Medication Instructions Recorded pantoprazole 40 mg tablet,delayed See Rx Instructions .Route 02/26/22 release .COMPLEX #90 tabs Allergies Allergy/AdvReac Type Severity Reaction Status Date / Time No Known Allergies Allergy Verified 05/18/23 15:13 [facility] Disclaimer: The information contained in this section may have been updated after the patient was seen, as this information can be updated by other users. Medical History Abnormal EKG Abnormal result of cardiovascular function study Alcohol intoxication Alcoholism Dyspnea Gastroesophageal reflux disease Restless sleeper Social History Smoking Status: Never smoker second hand exposure: No alcohol intake: never substance use type: denies use current occupational status: retired Travel in the last 8 weeks: Inside the [place] household members: spouse housing: house caffeine: Yes ROS Obtained: Yes All systems reviewed & no additional complaints except as documented Constit
[2023-05-18 15:30] LABS: Microscopic, Urine URINE MICROSCOPIC (MICROSCOPIC)
[2023-05-18 15:41] LABS: Appearance,Urine CLEAR (Clear); Bilirubin,Urine Negative (Negative); Blood, Urine Negative (Negative); Color,Urine YELLOW (Yellow); Glucose,Urine (UA) Negative (Negative); Ketones,Urine Negative (Negative); Leukocyte Esterase,Urine Negative (Negative); Nitrate,Urine Negative (Negative); Protein,Urine Negative (Negative); Specific Gravity, Urine 1.025 (1.005-1.030); Urobilinogen,Urine 0.2 EU/dl (0.2)
[2023-05-18 16:05] LABS: Squamous Epithelial Cell,Urine Occasional #/hpf (0-5)
--- NOTE | 2023-05-18 16:47 | EXP.UTC ---
Discharge Plan Disposition Patient Disposition: Home, Self-Care Condition: Good Prescriptions Prescriptions: No Action oxybutynin chloride 15 mg tablet extended release 24hr 15 mg PO DAILY Patient Comments: TAKE 1 TABLET BY MOUTH ONCE DAILY pantoprazole 40 mg tablet,delayed release (DR/EC) See Rx Instructions .ROUTE .COMPLEX Qty: 90 5RF Dose Instruction: Take 1 tablet by mouth once daily Rx Instructions: Take 1 tablet by mouth once daily furosemide 40 mg tablet 40 mg PO DAILY atorvastatin 80 mg tablet 80 mg PO DAILY clopidogrel 75 mg tablet See Rx Instructions .ROUTE .COMPLEX Rx Instructions: TAKE 1 TABLET BY MOUTH ONCE DAILY FOR PLATELET INHIBITOR levothyroxine 100 mcg tablet See Rx Instructions .ROUTE .COMPLEX Rx Instructions: TAKE 1 TABLET BY MOUTH ONCE DAILY FOR THYROID nitroglycerin 0.4 mg tablet, sublingual See Rx Instructions .ROUTE .COMPLEX Rx Instructions: DISSOLVE ONE TABLET UNDER THE TONGUE EVERY 5 MINUTES NEEDED FOR CHEST PAIN. DO NOT EXCEED A TOTAL OF 3 DOSES IN 15 MINUTES sertraline 25 mg tablet See Rx Instructions .ROUTE .COMPLEX Rx Instructions: Take 1 tablet by mouth once daily Referrals Follow up/Referrals: Fredi Helton MD [Primary Care Provider] - See instructions Clinical Impressions Clinical Impression: Low back pain Qualifiers: Chronicity: acute Back pain laterality: midline Sciatica presence: without sciatica Qualified Code(s): M54.50 - Low back pain, unspecified Instructions Patient Instructions: Low Back Pain (Alternative Therapy), DI for Low Back Pain, DI for Chronic Pain -- Adult, Exercise May Reduce Risk of Low Back Pain Discharge ED Provider: Abena Lombardi [facility] General Stated complaint: back pain Mode of Arrival: Ambulatory Source of Information: Patient Limitations: No Limitations Time Seen by Provider: 05/18/23 15:08 Description of Symptoms (Recalled from Triage Doc. by RN): low grade fever, bilateral lower back pain, burning when urinates, and urgency when urinates HEENT Symptoms (Recalled from RN notes): No Resp Symptoms (Recalled from RN notes): No Skin Symptoms (Recalled from RN notes): No MS Symptoms (Recalled from RN notes): No Functional Status (Recalled from RN notes): n/a History of Present Illness Provider Complaint: Pt relates that she has had low back pain and flank pain for the past 10 days. She states that she has had urinary frequency and urgency. She reports that she has had some burning at times with urination. Related Data Home Medications Medication Instructions Recorded Confirmed oxybutynin chloride 15 mg 15 mg PO DAILY . 11/20/22 05/18/23 tablet,extended release 24 hr atorvastatin 80 mg tablet 80 mg PO DAILY cholestrol 05/18/23 05/18/23 clopidogrel 75 mg tablet See Rx Instructions .Route 05/18/23 05/18/23 .COMPLEX blood thinner furosemide 40 mg tablet 40 mg PO DAILY fluid pills 05/18/23 05/18/23 levothyroxine 100 mcg tablet See Rx Instructions .Route 05/18/23 05/18/23 .COMPLEX thyroid nitroglycerin 0.4 mg sublingual See Rx Instructions .Route 05/18/23 05/18/23 tablet .COMPLEX . sertraline 25 mg tablet See Rx Instructions .Route 05/18/23 05/18/23 .COMPLEX mood Previous Rx's Medication Instructions Recorded pantoprazole 40 mg tablet,delayed See Rx Instructions .Route 02/26/22 release .COMPLEX #90 tabs Allergies Allergy/AdvReac Type Severity Reaction Status Date / Time No Known Allergies Allergy Verified 05/18/23 15:13 Worker's Comp Is this a Worker's Comp case?: No [facility] Disclaimer: The information contained in this section may have been updated after the patient was seen, as this information can be updated by other users. Medical History Abnormal EKG Abnormal result of cardiovascular function study Alcohol intoxication Alcoholism Dyspnea Jessica
[2023-05-18 16:52] VITALS: BP 134/69; PULSE 80; RESP 18; TEMP 36.4; O2SAT 97
== END 2023-05-18 16:51 | disposition home or self-care (01) ==
PROVIDERS: Emergency Provider Nurse Practitioner Family; PCP Emergency Medicine
DX: M54.50 Low back pain, unspecified (principal); R39.15 Urgency of urination; K21.9 Gastro-esophageal reflux disease without esophagitis
CPT/HCPCS: 81001; 87086; 99203; 99212; G0463

== ENCOUNTER → 2023-08-12 23:15 | Outpatient (CLI) | payer MEDICARE, OTHER, SELFPAY | PROVIDERS: PCP Nurse Practitioner; Visit Provider Internal Medicine | DX: N39.0 Urinary tract infection, site not specified (principal) | CPT/HCPCS: 87086 ==

== ENCOUNTER 2023-10-02 14:55 | Emergency (ER) | payer MEDICARE, OTHER, SELFPAY ==
--- OUTSIDE RECORDS SUMMARY | 2023-10-02 15:02 | XMS_ITS | Clinical Summary ---
Author Name Unknown Address [address] [place] [address] Phone Organization [facility] Address [address] [place] [address] Phone Care Team Providers Care Make Ready Worker Name Role Phone Unavailable Unavailable Conditions or Problems No information available. Medications No information available. Medications Administered No information available. Allergies, Adverse Reactions, Alerts No information available. Results No information available. Plan of Care No information available. Procedures No information available. Vital Signs No information available. Immunizations No information available. Advance Directives No information available.
[2023-10-02 15:30] VITALS: BP 133/72; PULSE 73; RESP 18; TEMP 36.7; O2SAT 98; BMI 25.9
--- NOTE | 2023-10-02 15:42 | ED_ITS ---
Discharge Plan Disposition Patient Disposition: Home, Self-Care Condition: Good Prescriptions Prescriptions: New nitrofurantoin monohyd/m-cryst [Macrobid] 100 mg capsule 100 mg PO Q12H 5 Days Qty: 10 0RF Rx Instructions: must administer with a meal/food No Action oxybutynin chloride 15 mg tablet extended release 24hr 15 mg PO DAILY Patient Comments: TAKE 1 TABLET BY MOUTH ONCE DAILY atorvastatin 80 mg tablet 80 mg PO DAILY Qty: 90 3RF levothyroxine 100 mcg tablet See Rx Instructions .ROUTE .COMPLEX Qty: 90 0RF Dose Instruction: TAKE 1 TABLET BY MOUTH ONCE DAILY FOR THYROID Rx Instructions: TAKE 1 TABLET BY MOUTH ONCE DAILY FOR THYROID furosemide 40 mg tablet 40 mg PO DAILY Qty: 90 1RF pantoprazole 40 mg tablet,delayed release (DR/EC) See Rx Instructions .ROUTE .COMPLEX Qty: 90 5RF Dose Instruction: Take 1 tablet by mouth once daily Rx Instructions: Take 1 tablet by mouth once daily sertraline 25 mg tablet See Rx Instructions .ROUTE .COMPLEX Qty: 90 0RF Dose Instruction: Take 1 tablet by mouth once daily Rx Instructions: Take 1 tablet by mouth once daily clopidogrel 75 mg tablet See Rx Instructions .ROUTE .COMPLEX Rx Instructions: TAKE 1 TABLET BY MOUTH ONCE DAILY FOR PLATELET INHIBITOR Referrals Follow up/Referrals: Huseyin Victoria, [Primary Care Provider] - See instructions Activity Restrictions/Add. Instructions Additional Instructions/Restrictions: *Increase fluids. Water not Soda or Tea *Start antibiotic immediately and be sure to take as ordered for the FULL length of time although you should start to see improvement over the next 48 hours *Be SURE to follow up anytime for new or worsening symptoms with your family doctor. AND in 48 hours for urine culture results with your family doctor, if you do not have a doctor then you may call back to the [facility] [[email or web address]] for urine culture results and further treatment. We do recommend that you choose and establish care with a Primary Care Physician. ?AND follow up with them ?in 10-14 days to repeat UA to ensure infection is resolved and blood no longer present *Be sure to let your PCP know that we sent urine cultures from the [facility] [[email or web address]] so they can follow up to ensure that you area the on the correct antibiotic Call your doctor office and make appointment for 48 hours (2 days from today) ?to follow up and get the results of your urine culture and further treatment Clinical Impressions Clinical Impression: UTI (urinary tract infection) Qualifiers: Urinary tract infection type: site unspecified Hematuria presence: without hematuria Qualified Code(s): N39.0 - Urinary tract infection, site not specified Instructions Patient Instructions: DI for Urinary Tract Infection (UTI), Urinary Tract Infection Discharge ED Provider: Mili Nova [facility] HPI General Stated complaint: Burning while urinating, back pain Mode of Arrival: Ambulatory Source of Information: Patient Limitations: No Limitations Time Seen by Provider: 10/02/23 15:42 Description of Symptoms (Recalled from Triage Doc. by RN): Pt's symptoms are low right flank pain, and frequent urination. HEENT Symptoms (Recalled from RN notes): No Resp Symptoms (Recalled from RN notes): No Skin Symptoms (Recalled from RN notes): No MS Symptoms (Recalled from RN notes): No Functional Status (Recalled from RN notes): n/a History of Present Illness Provider Complaint: Patient states that she has frequent UTI's States that she has been having achy like pain in her right lower back area and feeling of urgency and freqency like she hs with her UTI s and feels like she has one now Related Data Home Medications Medication Instructions Recorded Confirmed oxybutynin chloride 15 mg 15 mg PO DAILY . 11/20/22 10/02/23 tablet,extended release 24 hr clopidogrel 75 mg tablet See Rx Instructions .Route 05/18/23 10/02/23 .COMPLEX blood thinner Previous Rx's Medication Instructions Recorded atorvastatin 80 mg tablet 80 mg PO DAILY cholestrol #90 tabs 05/19/23 levothyroxine 100 mcg tablet See Rx Instructions .Route 07/01/23 .COMPLEX #90 tabs furosemide 40 mg tablet 40 mg PO DAILY fluid pills #90 tabs 08/07/23 pantoprazole 40 mg tablet,delayed See Rx Instructions .Route 08/11/23 release .COMPLEX #90 tabs sertraline 25 mg tablet See Rx Instructions .Route 09/24/23 .COMPLEX #90 tabs nitrofurantoin 100 mg PO Q12H 5 days #10 caps 10/02/23 monohydrate/macrocrystals 100 mg capsule (Macrobid) Allergies Allergy/AdvReac Type Severity Reaction Status Date / Time No Known Allergies Allergy Verified 10/02/23 15:41 Worker's Comp Is this a Worker's Comp case?: No [facility] Disclaimer: The information contained in this section may have been updated after the patient was seen, as this information can be updated by other users. Medical History Abnormal EKG Abnormal result of cardiovascular function study Alcohol intoxication Alcoholism Dyspnea Gastroesophageal reflux disease Restless sleeper Social History Smoking Status: Never smoker second hand exposure: No alcohol intake: never substance use type: denies use current occupational status: retired Travel in the last 8 weeks: Inside the [place] household members: spouse housing: house caffeine: Yes ROS Obtained: Yes All systems reviewed & no additional complaints except as documented and Yes Systems reviewed as appropriate & no additional complaints except as documented Constitutional Constitutional: Reports system reviewed and no additional complaints, except as documented, Reports as per HPI, Denies body ache, Denies chills and Denies fever(s) ENT Ears, Nose, Mouth, and Throat: Reports system reviewed and no additional complaints, except as documented and Reports as per HPI Cardiovascular Cardiovascular: Reports system reviewed and no additional complaints, except as documented and Reports as per HPI Respiratory Respiratory: Reports system reviewed and no additional complaints, except as documented, Reports as per HPI and Denies shortness of breath Gastrointestinal Gastrointestingal: Reports system reviewed and no additional complaints, except as documented and as per HPI; Denies abdominal pain, nausea or vomiting Genitourinary Female Genitourinary: Reports system reviewed and no additional complaints, except as documented, Reports as per HPI, Reports flank pain (right low back ache), Reports urinary frequency and Reports urinary urgency Physical Exam General General appearance: alert and in no apparent distress Respiratory Respiratory exam: Present normal lung sounds bilaterally; Absent respiratory distress or wheezes Cardiovascular Cardiovascular exam: Present regular rate, normal rhythm and normal heart sounds Abdominal Exam Abdominal exam: Present soft and normal bowel sounds; Absent distention or tenderness Back Exam Back 1 view image: 1. reports achy like feeling like she gets when she has a UTI denies radiation of pain and denies injury denies loss of control of bowel or bladder Neurological Exam Neurological exam: Present alert, oriented X3 and normal gait Medical Decision Making Esdras Inquiry Pt receiving controlled substance: No Esdras was queried for this patient: No Vital Signs: 10/02/23 15:30 Temperature 98.0 F Temperature Source Oral Pulse Rate [Right Radial] 73 Respiratory Rate 18 Blood Pressure [Right Arm] 133/72 Blood Pressure Mean [Right Arm] 92 Blood Pressure Source [Right Arm] Automatic Cuff Blood Pressure Position [Right Arm] Sitting 02 Sat by Pulse Oximetry 98 Oxygen Delivery Method Nasal Cannula Lab Data Lab results reviewed: Yes I reviewed the patient's lab results. Orders (Tests/Meds): ORDERS Category Date Time Status Urine Culture Stat Micro 10/02/23 15:26 Ordered Medical Decision Narrative: Patient states that she has taken macrobid without complications or reactions
[2023-10-02 15:54] LABS: Apearance,Urine Clear (Clear); Color,Urine Dark Yellow (Yellow); Glucose,Urine (UA) Negative (Negative); Ketones,Urine TRACE (Negative); Protein,Urine Negative (Negative); Specific Gravity, Urine 1.025 (1.005-1.030)
[2023-10-02 15:55] LABS: Bilirubin,Urine Negative (Negative); Blood, Urine Negative (Negative); UTC Leukocyte Esterase,Urine Trace (Negative); UTC Nitrate,Urine Negative (Negative); Urobilinogen,Urine 0.2 EU/dl (0.2)
[2023-10-02 16:00] VITALS: BP 133/72; PULSE 73; RESP 18; TEMP 36.7; O2SAT 98
== END 2023-10-02 16:00 | disposition home or self-care (01) ==
PROVIDERS: Emergency Provider Nurse Practitioner; PCP Internal Medicine
DX: N39.0 Urinary tract infection, site not specified (principal); M54.59 Other low back pain; K21.9 Gastro-esophageal reflux disease without esophagitis
CPT/HCPCS: 81003; 87086; 99212; 99214; G0463

== ENCOUNTER 2023-10-06 16:34 | Outpatient (CLI) | payer MEDICARE, OTHER, SELFPAY ==
[2023-10-06 17:55] LABS: Barbiturates Screen,Urine Negative ng/ml (<200)
[2023-10-06 17:56] LABS: Cannabinoid Screen,Urine Negative ng/ml (<50)
[2023-10-06 17:58] LABS: Methadone Screen,Urine Negative ng/ml (<300); Opiate Screen,Urine Negative ng/ml (<300)
[2023-10-06 18:04] LABS: Phencyclidine Screen,Urine Negative ng/ml (<25)
[2023-10-06 18:07] LABS: Benzodiazepines Screen,Urine Negative ng/ml (<200)
[2023-10-06 18:09] LABS: Cocaine Screen,Urine Negative ng/ml (<300)
[2023-10-06 18:36] LABS: Amphetamine/Metha Screen,Urine Negative ng/ml (<1000)
== END 2023-10-06 23:59 ==
LOC: LAB.DROPOF 16:35
PROVIDERS: PCP Nurse Practitioner Family; Visit Provider Nurse Practitioner Family
DX: Z79.899 Other long term (current) drug therapy (principal)
CPT/HCPCS: 80307

== ENCOUNTER 2023-11-19 18:15 | Outpatient (CLI) | payer MEDICARE, OTHER, SELFPAY ==
[2023-11-19 16:51] LABS: Basophils # 0.1 K/mm3 (0-0.2); Basophils % 0.8 % (0.1-2.0); Eosinophils # 0.5 K/mm3 (0.0-0.4); Eosinophils % 5.4 % (0.1-12.0); Hematocrit 37.4 % (37.0-47.0); Hemoglobin 12.3 g/dL (12.2-16.2); Lymphocytes % 32.8 % (10-50); Mean Corpuscular HGB Conc 32.9 g/dL (31.8-35.4); Mean Corpuscular Hemoglobin 31.7 pg (27.0-31.2); Mean Corpuscular Volume 96.3 fl (81-99); Mean Platelet Volume 8.4 fl (7.4-10.4); Monocytes # 0.4 K/mm3 (0.1-1.0); Monocytes % 4.4 % (1.7-9.3); Neutrophils # 5.2 K/mm3 (1.8-7.8); Neutrophils % 56.5 % (37.0-80.0); Platelet Count 299 K/mm3 (142-424); Red Blood Count 3.88 M/mm3 (4.20-5.40); White Blood Count 9.2 K/mm3 (4.8-10.8)
[2023-11-19 17:25] LABS: Chloride 104 mmol/L (98-107); Sodium 138 mmol/L (136-145)
[2023-11-19 17:26] LABS: Potassium 3.3 mmoL/L (3.5-5.1)
[2023-11-19 17:28] LABS: Alanine Aminotransferase 27 U/L (12-78); Albumin/Globulin Ratio 1.7 (1.1-1.8); Alkaline Phosphatase 141 U/L (38-126); Anion Gap 9.3 mEq/L (5-15); Aspartate Amino Transferase 40 U/L (14-36); Bilirubin,Total 0.7 mg/dl (0.2-1.3); Blood Urea Nitrogen 15 mg/dl (7-17); Carbon Dioxide 28 mmol/L (22.0-30.0); Cholesterol 126 mg/dl (140-200); Estimated Glomerular Filt Rate 82 ml/min (>60); GFR (African American) 99 ML/MIN (>60); Globulin 2.3 g/dL (1.3-3.2); Total Protein,Serum 6.3 g/dl (6.3-8.2); Triglycerides 74 mg/dl (30-150); VLDL Cholesterol 15 mg/dL (0-40)
[2023-11-19 17:29] LABS: Calcium 9.3 mg/dl (8.4-10.2); Chol/HDL Ratio 2.9 (1-3.5); Glucose 88 mg/dl (74-100); HDL Cholesterol 43 mg/dl (40-60)
[2023-11-19 17:59] LABS: Thyroid Stimulating Hormone < 0.02 uIU/mL (0.465-4.68)
[2023-11-19 18:03] LABS: Ferritin 46.7 ng/ml (11.1-264)
[2023-11-19 18:48] LABS: Hemoglobin A1C 5.5 % (4.0-6.0)
[2023-11-19 20:51] LABS: Vitamin B12 350 pg/mL (239-931)
== END 2023-11-19 23:59 ==
LOC: LAB.DROPOF 18:15
PROVIDERS: PCP Nurse Practitioner Family; Visit Provider Nurse Practitioner Family
DX: R73.09 Other abnormal glucose (principal); E78.5 Hyperlipidemia, unspecified; D50.9 Iron deficiency anemia, unspecified; D64.9 Anemia, unspecified; E78.49 Other hyperlipidemia
CPT/HCPCS: 80053; 80061; 82607; 82728; 83036; 84443; 85025

== ENCOUNTER 2023-12-31 13:06 | Outpatient (CLI) | payer MEDICARE, OTHER, SELFPAY ==
[2023-12-31 13:49] LABS: Alanine Aminotransferase 29 U/L (12-78); Albumin Level 4.3 g/dl (3.5-5.0); Albumin/Globulin Ratio 1.8 (1.1-1.8); Alkaline Phosphatase 123 U/L (38-126); Anion Gap 15.5 mEq/L (5-15); Aspartate Amino Transferase 40 U/L (14-36); Bilirubin,Total 0.8 mg/dl (0.2-1.3); Blood Urea Nitrogen 13 mg/dl (7-17); Calcium 9.6 mg/dl (8.4-10.2); Carbon Dioxide 25 mmol/L (22.0-30.0); Chloride 104 mmol/L (98-107); Estimated Glomerular Filt Rate 82 ml/min (>60); GFR (African American) 99 ML/MIN (>60); Globulin 2.4 g/dL (1.3-3.2); Glucose 79 mg/dl (74-100); Magnesium 1.7 mg/dl (1.6-2.3); Potassium 4.5 mmoL/L (3.5-5.1); Sodium 140 mmol/L (136-145); Total Protein,Serum 6.7 g/dl (6.3-8.2)
[2023-12-31 14:08] LABS: T4 (Thyroxine) 9.8 ug/dl (5.53-11.0)
[2023-12-31 14:09] LABS: Free T4 (Free Thyroxine) 1.22 ng/dl (0.78-2.19)
[2023-12-31 14:22] LABS: Thyroid Stimulating Hormone < 0.02 uIU/mL (0.465-4.68)
[2023-12-31 14:41] LABS: Vitamin B12 393 pg/mL (239-931)
[2024-01-01 08:19] LABS: Triiodothyronine (T3) Free 2.9 pg/mL (2.0-4.4)
== END 2023-12-31 23:59 | disposition home or self-care (01) ==
LOC: LAB.DROPOF 13:07
PROVIDERS: PCP Nurse Practitioner Family; Visit Provider Nurse Practitioner Family
DX: I10 Essential (primary) hypertension (principal); E03.9 Hypothyroidism, unspecified; D64.9 Anemia, unspecified; R41.3 Other amnesia; Z68.25 Body mass index [BMI] 25.0-25.9, adult; E78.49 Other hyperlipidemia; E66.3 Overweight
CPT/HCPCS: 80053; 82607; 83735; 84436; 84439; 84443; 84481

== ENCOUNTER 2024-02-02 11:08 | Outpatient (CLI) | payer MEDICARE, OTHER, SELFPAY ==
[2024-02-02 12:40] LABS: Free Thyroxine Index 1.7 ug/dL (5.93-13.13); T4 (Thyroxine) 5.7 ug/dl (5.53-11.0); Triiodothryronine (T3) Uptake 30 % (23.5-40.5)
[2024-02-02 12:54] LABS: Thyroid Stimulating Hormone 0.44 uIU/mL (0.465-4.68)
== END 2024-02-02 23:59 | disposition home or self-care (01) ==
PROVIDERS: PCP Nurse Practitioner Family; Visit Provider Nurse Practitioner
DX: R06.00 Dyspnea, unspecified (principal); E03.9 Hypothyroidism, unspecified
CPT/HCPCS: 36415; 84436; 84443; 84479

== ENCOUNTER 2024-02-25 14:50 | Outpatient (CLI) | payer MEDICARE, OTHER, SELFPAY ==
[2024-02-25 13:21] LABS: Basophils # 0.1 K/mm3 (0-0.2); Basophils % 1.2 % (0.1-2.0); Eosinophils # 0.4 K/mm3 (0.0-0.4); Eosinophils % 5.1 % (0.1-12.0); Hematocrit 39.6 % (37.0-47.0); Hemoglobin 13.5 g/dL (12.2-16.2); Lymphocytes # 2.8 K/mm3 (0.7-4.5); Lymphocytes % 37.9 % (10-50); Mean Corpuscular HGB Conc 34.2 g/dL (31.8-35.4); Mean Corpuscular Volume 93.5 fl (81-99); Mean Platelet Volume 7.9 fl (7.4-10.4); Monocytes # 0.4 K/mm3 (0.1-1.0); Monocytes % 4.8 % (1.7-9.3); Neutrophils # 3.8 K/mm3 (1.8-7.8); Neutrophils % 50.9 % (37.0-80.0); Platelet Count 366 K/mm3 (142-424); Red Blood Count 4.23 M/mm3 (4.20-5.40); White Blood Count 7.4 K/mm3 (4.8-10.8)
[2024-02-25 13:54] LABS: Alanine Aminotransferase 27 U/L (12-78); Albumin Level 4.2 g/dl (3.5-5.0); Albumin/Globulin Ratio 1.7 (1.1-1.8); Alkaline Phosphatase 115 U/L (38-126); Aspartate Amino Transferase 46 U/L (14-36); Bilirubin,Total 0.5 mg/dl (0.2-1.3); Blood Urea Nitrogen 16 mg/dl (7-17); Calcium 8.9 mg/dl (8.4-10.2); Carbon Dioxide 31 mmol/L (22.0-30.0); Chloride 100 mmol/L (98-107); Estimated Glomerular Filt Rate 44 ml/min (>60); GFR (African American) 53 ML/MIN (>60); Globulin 2.5 g/dL (1.3-3.2); Glucose 74 mg/dl (74-100); Sodium 140 mmol/L (136-145); Total Protein,Serum 6.7 g/dl (6.3-8.2)
[2024-02-25 14:10] LABS: T4 (Thyroxine) 2.3 ug/dl (5.53-11.0)
[2024-02-25 14:44] LABS: Vitamin B12 402 pg/mL (239-931)
[2024-02-25 15:09] LABS: Ferritin 43.1 ng/ml (11.1-264)
[2024-02-26 11:11] LABS: Triiodothyronine (T3) Free 1.1 pg/mL (2.0-4.4)
[2024-02-26 12:12] LABS: Thyroid Peroxidase Antibodies 146 IU/mL (0-34)
[2024-02-26 17:18] LABS: Thyroglobulin Level 1.2 IU/mL (0.0-0.9)
== END 2024-02-25 23:59 | disposition home or self-care (01) ==
LOC: LAB.DROPOF 14:51
PROVIDERS: PCP Nurse Practitioner Family; Visit Provider Nurse Practitioner Family
DX: E03.9 Hypothyroidism, unspecified (principal); D64.9 Anemia, unspecified; R41.3 Other amnesia
CPT/HCPCS: 80053; 82533; 82607; 82728; 84436; 84443; 84481; 85025; 86376; 86800

== ENCOUNTER 2024-03-10 07:11 | Outpatient (CLI) | payer MEDICARE, OTHER, SELFPAY ==
--- NOTE | 2024-03-10 07:12 | MR_ITS ---
FINAL REPORT TECHNIQUE: Multiplanar and multisequence imaging of the brain was obtained without contrast. CLINICAL HISTORY: new onset headache since 02/02/2024 COMPARISON: 12/05/2022 FINDINGS: The gyri and sulci are within normal limits for age. There is no mass effect or midline shift. The ventricles are symmetric in size and configuration without hydrocephalus. Moderate periventricular and subcortical white matter changes are stable. There are no new areas of abnormal signal intensity. The cerebellum and brainstem have a normal appearance. There are no areas of restricted diffusion on diffusion weighted images to suggest acute infarct. Soft tissues are without acute abnormality. IMPRESSION: No acute intracranial abnormality. Stable periventricular and subcortical white matter changes which are favored to be related to chronic small vessel ischemia. Authenticated and ERN
== END 2024-03-10 23:59 | disposition home or self-care (01) ==
LOC: RAD 07:12
PROVIDERS: PCP Nurse Practitioner Family; Visit Provider Nurse Practitioner Family
DX: R51.9 Headache, unspecified (principal)
CPT/HCPCS: 70551

== ENCOUNTER 2024-04-06 08:33 | Outpatient (CLI) | payer MEDICARE, OTHER, SELFPAY ==
[2024-04-06 10:12] LABS: Thyroid Stimulating Hormone 3.23 uIU/mL (0.465-4.68)
== END 2024-04-06 23:59 | disposition home or self-care (01) ==
LOC: LAB 08:34
PROVIDERS: PCP Internal Medicine; Visit Provider Nurse Practitioner Family
DX: E03.9 Hypothyroidism, unspecified (principal)
CPT/HCPCS: 36415; 84443

== ENCOUNTER 2024-04-21 10:53 | Outpatient (CLI) | payer MEDICARE, OTHER, SELFPAY ==
--- NOTE | 2024-04-21 10:54 | MM_ITS ---
PROCEDURE INFORMATION: Exam: MG Bilateral Screening 3D Mammography Exam date and time: 04/21/2024 10:38 AM Age: 74 years old Clinical indication: Screening exam. TECHNIQUE: Imaging protocol: Bilateral Screening tomosynthesis and 2D mammography including computer-aided detection (CAD) when performed. COMPARISON: 1. MG MM DIG SCREENING MAMM BI W/CAD 03/24/2023 10:54 AM 2. MG MM DIG SCREENING MAMM BI W/CAD 01/17/2022 10:21 AM FINDINGS: MAMMOGRAPHY: Breast composition: There are scattered areas of fibroglandular density. Mass: No suspicious masses. Architectural distortion: None. Calcifications: No suspicious calcifications. Asymmetric density: None. Skin thickening: None. Axillary adenopathy: None. IMPRESSION: No mammographic evidence of malignancy. Annual screening is recommended unless otherwise clinically indicated. ASSESSMENT: BI-RADS Category 1: Negative
== END 2024-04-21 23:59 | disposition home or self-care (01) ==
LOC: RAD 10:54
PROVIDERS: PCP Nurse Practitioner Family; Visit Provider Nurse Practitioner Family
DX: Z12.31 Encounter for screening mammogram for malignant neoplasm of breast (principal)
CPT/HCPCS: 77063; 77067

== ENCOUNTER 2024-10-25 16:15 | Outpatient (CLI) | payer MEDICARE, OTHER, SELFPAY ==
[2024-10-25 18:29] LABS: MANUAL DIFFERENTIAL MANUAL DIFFERENTIAL (MANUAL DIFF)
[2024-10-25 19:25] LABS: Basophils # 0.1 K/mm3 (0-0.2); Basophils % 0.7 % (0.1-2.0); Eosinophils # 0.3 K/mm3 (0.0-0.4); Eosinophils % 3.2 % (0.1-12.0); Hematocrit 38.4 % (37.0-47.0); Lymphocytes # 3.2 K/mm3 (0.7-4.5); Lymphocytes % 37.5 % (10-50); Mean Corpuscular HGB Conc 33.9 g/dL (31.8-35.4); Mean Corpuscular Volume 91.4 fl (81-99); Mean Platelet Volume 10.2 fl (7.4-10.4); Monocytes # 0.6 K/mm3 (0.1-1.0); Monocytes % 6.9 % (1.7-9.3); Neutrophils # 4.4 K/mm3 (1.8-7.8); Neutrophils % 51.5 % (37.0-80.0); Platelet Count 317 K/mm3 (142-424); Red Cell Distribution Width 12.8 % (11.5-17.5); White Blood Count 8.5 K/mm3 (4.8-10.8)
[2024-10-25 21:38] LABS: Alanine Aminotransferase 25 U/L (12-78); Albumin/Globulin Ratio 2.2 (1.1-1.8); Alkaline Phosphatase 123 U/L (38-126); Anion Gap 12.6 mEq/L (5-15); Aspartate Amino Transferase 38 U/L (14-36); Bilirubin,Total 0.5 mg/dl (0.2-1.3); Blood Urea Nitrogen 14 mg/dl (7-17); Carbon Dioxide 27 mmol/L (22.0-30.0); Chloride 100 mmol/L (98-107); Chol/HDL Ratio 2.9 (1-3.5); Cholesterol 201 mg/dl (140-200); Estimated Glomerular Filt Rate 54 ml/min (>60); GFR (African American) 66 ML/MIN (>60); Globulin 2.3 g/dL (1.3-3.2); Glucose 70 mg/dl (74-100); HDL Cholesterol 70 mg/dl (40-60); Magnesium 1.8 mg/dl (1.6-2.3); Potassium 3.6 mmoL/L (3.5-5.1); Sodium 136 mmol/L (136-145); Total Protein,Serum 7.3 g/dl (6.3-8.2); Triglycerides 96 mg/dl (30-150); VLDL Cholesterol 19 mg/dL (0-40)
[2024-10-25 21:49] LABS: Direct LDL Cholesterol 101.47 mg/dL (100-129)
[2024-10-25 21:54] LABS: Free T4 (Free Thyroxine) 0.19 ng/dl (0.78-2.19)
[2024-10-25 22:00] LABS: T4 (Thyroxine) 1.8 ug/dl (5.53-11.0)
[2024-10-25 22:02] LABS: Hemoglobin A1C 5.4 % (4.0-6.0)
[2024-10-26 01:44] LABS: Eosinophils % 2 % (0-3); Lymphocytes % 38 % (10-50); Neutrophils % 60 % (42-76); Total Cells Counted 100
[2024-10-26 01:45] LABS: Platelet Estimate Normal; RBC Morphology Normal
[2024-10-27 08:15] LABS: Triiodothyronine (T3) Free 1.4 pg/mL (2.0-4.4)
== END 2024-10-25 23:59 | disposition home or self-care (01) ==
LOC: LAB.DROPOF 10-27 12:40
PROVIDERS: PCP Nurse Practitioner Family; Visit Provider Nurse Practitioner Family
DX: I10 Essential (primary) hypertension (principal); E78.49 Other hyperlipidemia; R73.9 Hyperglycemia, unspecified; R42 Dizziness and giddiness; R30.0 Dysuria
CPT/HCPCS: 80053; 80061; 83036; 83735; 84436; 84439; 84443; 84481; 85007; 85014; 85018; 85048; 85049; 87086

== ENCOUNTER 2024-11-30 16:13 | Outpatient (CLI) | payer MEDICARE, OTHER, SELFPAY ==
[2024-11-30 13:24] LABS: Basophils # 0.1 K/mm3 (0-0.2); Basophils % 0.7 % (0.1-2.0); Eosinophils # 0.3 K/mm3 (0.0-0.4); Eosinophils % 2.8 % (0.1-12.0); Hematocrit 39.3 % (37.0-47.0); Hemoglobin 13.5 g/dL (12.2-16.2); Lymphocytes % 31.9 % (10-50); Mean Corpuscular HGB Conc 34.4 g/dL (31.8-35.4); Mean Corpuscular Hemoglobin 31.2 pg (27.0-31.2); Mean Corpuscular Volume 90.8 fl (81-99); Monocytes # 0.7 K/mm3 (0.1-1.0); Monocytes % 7.2 % (1.7-9.3); Neutrophils # 5.4 K/mm3 (1.8-7.8); Neutrophils % 57.2 % (37.0-80.0); Platelet Count 366 K/mm3 (142-424); Red Blood Count 4.33 M/mm3 (4.20-5.40); Red Cell Distribution Width 12.2 % (11.5-17.5); White Blood Count 9.4 K/mm3 (4.8-10.8)
[2024-11-30 14:30] LABS: Thyroid Stimulating Hormone 2.64 uIU/mL (0.465-4.68)
[2024-11-30 14:34] LABS: Ferritin 57.9 ng/ml (11.1-264)
[2024-12-01 11:42] LABS: Triiodothyronine (T3) Free 3.4 pg/mL (2.0-4.4)
== END 2024-11-30 23:59 | disposition home or self-care (01) ==
LOC: LAB.DROPOF 16:13
PROVIDERS: PCP Nurse Practitioner Family; Visit Provider Nurse Practitioner Family
DX: E03.9 Hypothyroidism, unspecified (principal); D64.9 Anemia, unspecified
CPT/HCPCS: 82728; 84439; 84443; 84481; 85025

== ENCOUNTER 2024-12-09 09:36 | Outpatient (CLI) | payer MEDICARE, OTHER, SELFPAY ==
--- OUTSIDE RECORDS SUMMARY | 2024-12-09 09:38 | XMS_ITS | Data Portability ---
Author Organization EAN HILDA Adair TUPELO CLOSED Address [address] [facility] [address] [place] [address] Care Team Providers Care Ceramics Engineer Name Role Phone CHEMA MAS Primary Care Provider [phone] SEBASTIAN RASMUSSEN Ink Jet Operator SEBASTIAN RASMUSSEN Referring Provider DAGOBERTO MEDINA Hand Surgeon SILVIO RIZZO Primary Care Provider [phone] Assessment Encounter Date Assessment Date Assessment LastModified by Organization Details LastModified Time 09/05/2023 09/05/2023 Pt reports overdoing it with gripping objets and pain in A1 aye/MCP volar palm of MF. Triggering present Pt reports mild pain, good healing and no signs of infection. Will initiate HEP. [email or web address] Not available 09/05/2023 10:49:43 09/05/2023 09/05/2023 Patient can continue activity with the left hand as tolerated at this time. Continue scar massage. In regards to the new onset left long trigger finger, discussion was had with patient in clinic today regarding treatment options including both conservative and surgical management. My recommendation was to begin with conservative management to include a corticosteroid injection of the involved trigger finger, to which patient consented for in clinic today. If this fails to improve symptoms or should symptoms return, I explained that we could either attempt one additional corticosteroid injection versus proceed with surgical trigger finger release at that time. Patient will follow up in clinic on an as-needed basis should additional questions or concerns arise. [email or web address] Not available 09/05/2023 10:30:08 Plan of Treatment Reminders Order Date Submit Date Provider Last Modified By Organization Details Last Modified Time Details Appointments RHEUM RECHECK 2024 10:00A M SEBASTIAN RASMUSSEN MD Not available Not available Not available RECLAST 2024 10:00A M RHEUM_INF USION Not available Not available Not available Lab None recorded. Referral None recorded. Procedures None recorded. Surgeries None recorded. Imaging DEXA - DEXA FU OSTEOPORO SIS 2023 024 [email or web address] [facility] Bone Density [facility], [address] [place], [address], 01/08/2024 14:35:11 Medication Orders Reclast 5 mg/100 mL intraveno us piggyback 2023 024 [email or web address] [facility], [address], [address], 02/03/2024 13:13:11 Patient TargetsNo targets recorded. Patient Instructions Encounter Date Encounter Id Patient Instructions Last Modified By Organization Details Last Modified Time 09/05/2023 [id number] Trigger Finger-LC [email or web address] Not availab le 09/05/2023 10:30:25 Reason for Referral None Reported. Results Created Date Observation Date Name Description Value Unit Range Abnormal Flag Note LastModifiedBy Organization Detail LastModifiedTime 02/03/2002/03/2024 CREAT ININE creatinine 0.93 mg/dL 0.50-0 .95 normal Not Available [facility] Laboratory [address] [place], [address], 02/03/2024 12:02:14 02/03/2002/03/2024 GFR ESTIM ATE GFR 65 >= 60 normal NOT E New calcu latio n for GFR (CKD- EPI 2020) is formu lated witho ut race adjus tment facto rs at the recom menda tion of the [employer] and Ameri can Socie ty of Nephr ology . This calcu latio n has not been valid ated in pregn ant women . For pedia tric patie nts refer to https ://eloy callahan.o rg/pr felisha bowlingal s/KDO QI/gf r_cal culat orPed Not Available [facility] [address] [place], [address], 02/03/2024 12:02:16 02/03/20 24 02/03/2024 DEXA No observ ation record ed. [email or web address] Chiquita Kessler MD [address] [place] [address], [address], 02/19/2024 08:07:55 Result Notes Documentation Provider Name and Address Organization Details Recorded Time Dexa : [facility] ? ? [address] [facility] [address]PM[address]GT, Brenda J (id #[id number], : 1950) [facility] [address] [place] [address] Date: 4RE: Mily Linder, : 1950, PT ID #[id number] Santos Rasmussen MD, I would like to thank you for referring Mily Linder to our practice for consultation and evaluation. I have enclosed a copy of the office evaluation for your records. Sincerely, Electronically Signed by: LULU TREVIZOrocedure DocumentationDXA Osteoporosis:Bone Densitometry Report Dual Energy X-Ray Absorptiometry (DXA)Baseline bone mineral density measurement was performed on a HoloWander (f. [employer]) QDR-4500C scanner with good technique. Ordering Provider Dr. Rasmussen Indications for the study:1. Post-menopausal state/prior fracture The L2, L3, L4 lumbar spine bone density scan demonstrates lumbar spine T-score of -2.5, Z-score of -0.1, BMD 0.806 g/cm??. L1 excluded from the study due to hardware placement. The left hip bone density scan demonstrates a femoral neck T-score of -1.5, Z-score of 0.5, BMD 0.685 g/cm??. The total left hip T-score of -1.4, Z-score of 0.3, BMD 0.767 g/cm??.IMPRESSION: Osteoporosis as demonstrated by bone density measurement.As perNational Osteoporosis Foundation 2014,postmenopausal women and men age 50 and older presenting with any the following should be considered for treatment:? A hip or vertebral (clinical or morphometric) fracture or T-score = -2.5 at the femoral neck or spine after appropriate evaluation to exclude secondary causes or Low bone mass (T-score between -1.0 and -2.5 at the femoral neck or spine) and a 10-year probability of a hip fracture = 3% or a 10-year probability of a major osteoporosis-related fracture = 20% based on the [place]-adapted WHO algorithm? Clinician's judgment and/or patient preferences may indicate treatment for people with 10-year fracture probabilities above or below these levels.Patient is a candidate for pharmacologic therapy of osteoporosis based on the above-mentioned criteriaRECOMMENDATIONS:1. Recommend pharmacologic therapy/antiresorptive in the form of bisphosphonate therapy, if not contraindicated, as appropriate as per referring provider. 2. Evaluation for secondary causes of osteoporosis (i.e. uncontrolled hyperthyroidism, etc) as appropriate per referring provider. 3. Ensure adequate calcium and vitamin D intake (1200 mg elemental calcium daily and 2000 IU Vit D daily) if this is clinically appropriate. 4. Keep 25 OHD >30 ng/mL. 5. Encourage practices to help increase bone density ( i.e. resistance/weight bearing exercise 3x weekly) if it could be done safely. 6. Discourage practices that would compromise bone density quality ( i.e. smoking, excessive alcohol consumption, and caffeine consumption) when applicable. 7. Follow bone density scan measurements in 1-2 years from now, while on therapy, utilizing the same scanning equipment to ensure stability or reliability. 8. Fall prevention. Palak harris (Nicole)[facility] 02/19/2024 08:07:55 Problems No Known Problems Procedures Surgical History Date Name Laterality Status Provider Name and Address Organization Details Recorded Time 02/03/20 24 DXA Osteoporosis completed CHIQUITA KESSLER MD [address] [place] [address], [place], [address], [facility] 02/03/2024 16:28:15 02/03/20 24 Reclast Infusion completed Radhames Dozier [facility] 02/03/2024 12:20:06 09/05/19 24 OT Therapeutic Exercise completed XIANG Sparks ALYSSA, OTR/L, CHT [address] [place], [address], [facility] 09/05/2023 10:49:42 09/05/19 24 OT Manual Therapy completed XIANG Bridger ALYSSA, OTR/L, CHT [address] [place], [address], [facility] 09/05/2023 10:49:42 09/05/19 24 PT Hot/Cold Pack completed SAMANTHAANITRA Bridger ALYSSA, OTR/L, CHT [address] [place], [address], [facility] 09/05/2023 10:49:42 09/05/19 24 Injection Trigger Finger Ortho completed DAGOBERTO MEDINA MD [address] [place], [address], [facility] 09/05/2023 10:30:01 08/29/19 24 OT Therapeutic Exercise completed XIANG SHAH, OTR/L, CHT [address] [place], [address], [facility] 08/29/2023 11:22:07 08/29/19 24 OT Manual Therapy completed XIANG SHAH, OTR/L, CHT [address] [place], [address], [facility] 08/29/2023 11:22:07 08/29/19 24 PT Hot/Cold Pack completed XIANG SHAH, OTR/L, CHT [address] [place], [address], [facility] 08/29/2023 11:22:07 08/22/20 23 OT Therapeutic Exercise completed XIANG SHAH, OTR/L, CHT [address] [place], [address], [facility] 08/22/2023 10:59:19 08/22/20 23 OT Manual Therapy completed XIANG SHAH, OTR/L, CHT [address] [place], [address], [facility] 08/22/2023 11:00:19 08/22/20 23 PT Hot/Cold Pack completed XIANG Sparks ALYSSA, OTR/L, CHT [address] [place], [address], [facility] 08/22/2023 10:59:41 08/15/20 23 OT Therapeutic Exercise completed XIANG Sparks ALYSSA, OTR/L, CHT [address] [place], [address], [facility] 08/15/2023 10:59:16 08/15/20 23 OT Manual Therapy completed XIANG Bridger ALYSSA, OTR/L, CHT [address] [place], [address], [facility] 08/15/2023 11:21:24 08/15/20 23 PT Hot/Cold Pack completed SAMANTHAANITRA Bridger ALYSSA, OTR/L, CHT [address] [place], [address], [facility] 08/15/2023 11:21:27 08/15/20 23 PT Ultrasound completed SAMANTHAANITRA Bridger ALYSSA, OTR/L, CHT [address] [place], [address], [facility] 08/15/2023 11:22:28 08/05/20 23 OT Evaluation - Moderate complexity completed XIANG Bridger ALYSSA, OTR/L, CHT [address] [place], [address], [facility] 08/14/2023 17:53:44 08/05/20 23 OT Therapeutic Exercise completed XIANG SHAH, OTR/L, CHT [address] [place], [address], [facility] 08/14/2023 17:53:39 07/30/20 23 Op Note completed DAGOBERTO MEDINA MD [address] [place], [address], [facility] 07/30/2023 12:19:15 07/30/20 23 Carpal tunnel surgery completed Shira Carrera [facility] 08/15/2023 10:15:30 10/04/20 23 Op Note completed DAGOBERTO MEDINA MD [address] [place], [address], [facility] 05/28/2023 12:46:46 05/28/20 23 Carpal tunnel surgery completed Shira Carrera [facility] 06/13/2023 10:18:18 03/18/20 23 Electromyography (EMG) with Nerve Conduction Study (NCV) completed Chichi Nunes (Nicky) [facility] 03/18/2023 14:23:48 02/07/20 23 Lumbar MBB unilateral 2 level - Chas completed DAGOBERTO DOHERTY MD [address] [place], [address], [facility] 02/06/2023 10:18:49 01/30/20 23 Reclast Infusion completed Radhames Dozier [facility] 01/29/2023 12:29:33 01/25/20 23 Lumbar MBB unilateral 2 level - Chas completed DAGOBERTO DOHERTY MD [address] [place], [address], [facility] 01/24/2023 14:24:34 04/27/20 20 Post Void Residual; Catheter completed Elizabeth Majormitra [facility] 04/27/2020 16:21:38 hysterectomy completed Joya Lopez [facility] 12/12/2022 11:17:25 Ankle arthroscopy/surgery completed Joya Lopez [facility] 12/12/2022 11:17:34 Cardiac Surgery completed Shira Carrera [facility] 05/16/2023 11:18:53 Imaging Results Imaging Date Name Status LastModified by Organizatio n Details LastModified Time 02/03/2024 DEXA completed [email or web address] Chiquita Kessler MD [address] [place], [address], 02/19/2024 08:07:55 Procedure Notes None recorded. Medical Equipment None Reported. Allergies No known drug allergies Medications Name Sig Start Date Stop Date Status Note LastModified by Organization Details LastModified Time atorvasta tin 40 mg tablet Take 1 tablet every day by oral route. active Not Available Not Available No t Available oxybutyni n chloride ER 15 mg tablet,ex tended release 24 hr Take 1 tablet by mouth once daily 2023 active Not Available Not Available Not Avai lable carvedilo l 12.5 mg tablet Take 1 tablet twice a day by oral route. 01/07 completed Not Available Not Available Not Available Lipitor 80 mg tablet Every night at bedtime 04/27 completed Frequenc y: qhs;Medi cation Descript ion: atorvast atin; Dosage:1 ; Route:or al; refills: 0; Quantity :30 tablet Not Available Not Available Not Available Medrol (Myron) 4 mg tablets in a dose pack Take 1 dose pk by oral route. 05/16 completed Not Available Not Available Not Available isosorbid e mononitra te ER 30 mg tablet,ex tended release 24 hr Take 1 tablet every day by oral route. 05/16 completed Not Available Not Available Not Available venlafaxi ne ER 150 mg capsule,e xtended release 24 hr Daily 04/27 completed Frequenc y: daily;Al t Frequenc y: hs;Medic ation Descript ion: venlafax ine; Dosage:1 ; Route:or al; refills: 0 Not Available Not Available Not Available clopidogr el 75 mg tablet Take 1 tablet every day by oral route. active Not Available Not Available No t Available tramadol 50 mg tablet TAKE 1 TABL PO Q 4-6 HRS PRN FOR SEVERE POST SURGICAL PAIN 2022 active Not Available Not Available Not Agueda labmaricruz spironola ctone 25 mg tablet Take 1 tablet every day by oral route. 05/16 completed Not Available Not Available Not Available levothyro xine 100 mcg tablet 50 mcg Daily active Frequenc y: daily;Me dication Descript ion: levothyr oxine; Dosage:1 ; Route:or al; refills: 0 Not Available Not Available Not Available Nitrostat 0.4 mg sublingua l tablet As Directed 2013 active Instruct ions: 1 sublingu al for chest pain repeat every 5 minutes x 3 if needed.; Frequenc y: as direct.; Medicati on Descript ion: nitrogly cerin; Dosage:a s directed ; Route:marcelino blingual ; refills: 11; Quantity :25 tablet Not Available Not Available Not Available prednison e 1 mg tablet Take 2 tablets every day by oral route for 90 days. 05/16 completed Not Available Not Available Not Available meclizine 25 mg tablet Daily 04/27 completed Duration : 30 days;Usama quency: daily;Al t Frequenc y: prn;Medi cation Descript ion: meclizin e; Dosage:1 ; Route:or al; refills: 3; Quantity :90 tablet Not Available Not Available Not Available baclofen 10 mg tablet Take 1 tablet every day by oral route at bedtime for 7 days. 05/16 completed Not Available Not Available Not Available Neurontin 100 mg capsule TAKE 1 CAPSULE PO QHS FOR 1 WEEK 2022 active Not Available Not Available Not Avai lable sertralin e 25 mg tablet Take 1 tablet every day by oral route. active Not Available Not Available No t Available aspirin 81 mg tablet Daily 01/07 completed Duration : 30 days;Usama quency: daily;Me dication Descript ion: aspirin; Dosage:1 ; refills: 0; Quantity :30 Not Available Not Available Not Available Ditropan XL 10 mg tablet,ex tended release Take 1 tablet every day by oral route for 90 days. 05/16 completed Not Available Not Available Not Available Elizabeth 5 mg-325 mg tablet TAKE 1 TAB PO Q 4-6 HRS PRN FOR SEVERE POST SURGICAL PAIN 2022 active Not Available Not Available Not Avai lable losartan 100 mg tablet Take 1 tablet every day by oral route. 05/16 completed Not Available Not Available Not Available loratadin e 10 mg tablet Daily 04/27 completed Frequenc y: daily;Al t Frequenc y: as direct.; Medicati on Descript ion: loratadi ne; Dosage:1 ; Route:or al; refills: 5; Quantity :30 tablet Not Available Not Available Not Available potassium chloride Daily 01/07 completed Frequenc y: daily;Me dication Descript ion: potassiu m chloride ; Dosage:1 ; Route:or al; refills: 5; Quantity :30 powder for reconsti tution Not Available Not Available Not Available cranberry 01/07 completed Not Available Not Available Not Available biotin 01/07 completed Not Available Not Available Not Available Miralax active Not Available Not Avail able Not Available Reclast 5 mg/100 mL intraveno us piggyback Inject 5 mg by intraven ous route. 2023 active Reclast - 0.05 mg/ml - 5 mg/100 ml - yearly (#2) - next infusion (#3) 02/08/25 @ 1000 - ICD 10 - M81.0 Not Available Not Available Not Available Myrbetriq 50 mg tablet,ex tended release Take 1 tablet every day by oral route. 2019 active Not Available Not Available Not Avai lable Multi Vitamin active Not Available Not Available Not Available turmeric 01/07 completed Not Available Not Available Not Available Vitals Date Recorded Body height Body mass index (BMI) Body weight Provider Name and Address Organization Details Last Updated DateTime 09/05/2023 162.56 cm 26.1 kg/m2 48539.04 g [facility] 09/05/2023 10:00:37 Date Recorded Body height Body mass index (BMI) Body weight Respiratory rate Heart rate Oxygen saturation Oxygen saturation in Arterial blood by Pulse oximetry Systolic blood pressure Diastolic blood pressure Provider Name and Address Organization Details Last Updated DateTime 4 162.56 cm 26.1 kg/m2 31628.7 4 g 16 /min 71 /min 98 % 98 % 120 mm[Hg] 70 mm[Hg] [place] [facility] 4 14:09:54 Social History Question Answer Notes LastModified by Organizat ion Details LastModified Time Tobacco Smoking Status Former Smoker Elizabeth harris [facility] 04/27/2020 16:14:21 What Is Your Level Of Alcohol Consumption? None Information not available 04/27/2020 How Much Tobacco Do You Chew? None Information not available 04/27/2020 What Is Your Occupation? Retired Information not available 04/27/2020 Marital Status Informatio n not available 04/27/2020 What Was The Date Of Your Most Recent Tobacco Screening? 01/08/2024 [email or web address] Information not available 01/08/2024 Do You Use Any Illicit Or Recreational Drugs? No [email or web address] Information not available 05/16/2023 Has Tobacco Cessation Counseling Been Provided? No [email or web address] Information not available 05/16/2023 Do You Or Have You Ever Used Any Other Forms Of Tobacco Or Nicotine? No Information not available 05/16/2023 Sex: Female Functional Status None recorded. Mental Status None recorded. Family History Relationship Description Onset Age of this Age Resolved Age Notes LastModified by Organization Details LastModified Time Father Malignant tumor of prostate Not available 2019 16:14:10 Unspecified Relation Kidney stone Not available 10/2019 16:14:15 Unspecified Relation Hypertensive disorder [email or web address] Not available 12/12 11:16:53 Unspecified Relation Myocardial infarction [email or web address] Not available 11/24 11:16:59 Unspecified Relation Aneurysm [email or web address] Not available 12/12 11:17:07 Medical History Condition Response Allergies/Hayfever N Gout N Anxiety/Depression Y Other N Thyroid Disease Y Heart Conditions Y Kidney Stones Y Hernia N Migraines N Depression Y Glaucoma N COPD N Pneumonia N Skin Problems N Immune System Disorder N Anesthesia Complications N Heart Attack ([place]) Y Mental Illness N Neurological Problems N Diabetes N Rheumatic Fever N Bleeding Disorder N Arthritis Y Seizures/Epilepsy N Blood Clot N Tuberculosis N Genetic Disorder N AIDS/HIV N Cancer N Stroke N Asthma N Blood Thinners Y Alcohol Overuse/Alcohol Abuse N Sleep Apnea N High Cholesterol Y Liver Disease N Included as Review of Systems N Heart Disease Y Hypertension Y Osteoporosis N Kidney Disease N Gynecological HistoryNo gynecological history recorded. Obstetrics History GPAL:G 0 P 0 0 0 0 Immunizations Vaccine Type Date Status Note Provider Nam e and Address Organization Details Recorded Time COVID-19, mRNA, LNP-S, PF, 100 mcg/0.5mL dose or 50 mcg/0.25mL dose 1 completed Shira harris [facility] 05/16/2023 11:12:10 COVID-19, mRNA, LNP-S, PF, 100 mcg/0.5mL dose or 50 mcg/0.25mL dose 1 completed Shira Carrera [facility] 05/16/2023 11:12:10 COVID-19, mRNA, LNP-S, PF, 100 mcg/0.5mL dose or 50 mcg/0.25mL dose 2 completed Shira Carrera [facility] 05/16/2023 11:12:10 COVID-19, mRNA, LNP-S, PF, 100 mcg/0.5mL dose or 50 mcg/0.25mL dose 1 completed Shira Carrera [facility] 05/16/2023 11:12:10 COVID-19, mRNA, LNP-S, bivalent, PF, 50 mcg/0.5 mL or 25mcg/0.25 mL dose 2 completed Shira Carrera [facility] 05/16/2023 11:12:10 pneumococcal polysaccharide PPV23 2 completed Shira Carrera [facility] 05/16/2023 11:12:10 Influenza, high-dose, trivalent, PF 9 completed Shira Carrera [facility] 05/16/2023 11:12:10 Hep A, adult 8 completed Shira Deandre [facility] 05/16/2023 11:12:10 Past Encounters Encounter ID Performer Location Encounter Start Date Encounter Closed Date Diagnosis/Indication Diagnosis SNOMED-CT Code Diagnosis ICD10 Code Diagnosis Note [id number] MD [facility] [address] [address] 04/27/2020 15:20:41 04/27/2020 16:26:46 Recurrent urinary tract infection 623143218 N39.0 Increased frequency of urination 664657444 R35.0 [id number] MD [facility] [address] [address] 05/18/2020 13:52:03 05/18/2020 15:02:51 Flank pain 112569530 R10.9 Urinary tr act infectious disease 85991779 N39.0 Increased frequency of urination 331216918 R35.0 [id number] VIANEY DELONG MD [facility] [address] [facility] [address] [place] [address] 04/25/2022 15:35:04 04/25/2022 16:49:23 Increased frequency of urination 498688067 R35.0 [id number] SILVIO LLOYD MD [facility] [address] [facility] [address] [place] [address] 12/12/2022 10:32:35 12/13/2022 10:57:20 Low back pain 298154405 M54.50 [id number] DAGOBERTO DOHERTY MD [facility] [address] [place] [address] 1 01/07/2023 09:44:48 01/07/2023 10:55:15 Degeneration of lumbar intervertebral disc 56038086 M51.36 Lumbar spondylosis 91412 0009 M47.816 [id number] SEBA[place] [address] [place] [address] 01/07/2023 12:30:51 01/08/2023 04:20:45 Senile osteoporosis 08192986 M81.0 H/O L1 compressio n fracture. Degenerati ve joint disease involving multiple joints 319306664 M15.9 Generalize d osteoarthr itis with mechanical pains involving her upper and lower extremity joints as well as chronic pain involving her back. She is now followed by pain management clinic Dr. Doherty and I suggested her to follow his recommenda tion. On account of her spasm discomfort in the lower back I gave her a brief 7-day trial of baclofen at bedtime. Bilateral carpal tunnel syndrome 4875659549 3156280 G56.03 Symptomati c carpal tunnel syndrome. Suggested to obtain bilateral upper extremity nerve conduction studies. A brief therapeuti c trial of steroid Dosepak. Depending on the nerve conduction studies we will decide if she needs to have a surgical interventi on versus nonsurgica l treatment such as brace and steroid injection. Long-term drug therapy 648353699 Z79.899 On account of potential use of intravenou s Reclast, briefly basic metabolic profile is obtained along with ESR. Chronic low back pain 27 5637616 M54.50 Chronic low back pain space involving the lower lumbosacra l region. Nonsurgica l candidate. Currently no followed by Dr. Doherty. He has discussed medial branch block. She suggested to continue to follow with the treatments as per Dr. Doherty. [id number] SEBA[place] [address] [place] [address] 01/16/2023 11:18:29 01/20/2023 04:02:23 Senile osteoporosis 37765767 M81.0 History of senile osteoporos is. H/O L1 compressio n fracture. Encouraged weightbear ing exercises. Schedule for Reclast infusion. Continue with the DEXA study every 2 years. Degenerati ve joint disease involving multiple joints 714339755 M15.9 Generalize d osteoarthr itis with mechanical pains involving her upper and lower extremity joints as well as chronic pain involving her back. She is now followed by pain management clinic Dr. Doherty and I suggested her to follow his recommenda tion. On account of her spasm discomfort in the lower back I gave her a brief 7-day trial of baclofen at bedtime. Bilateral carpal tunnel syndrome [id number] G56.03 Symptomati c carpal tunnel syndrome. She is scheduled for bilateral nerve conduction study 03/12/2023. For now maintain use of cock-up braces. Polymyalgi a rheumatica [id number] M35.3 72-year-ol d female with some features of PMR. Responded very well to a steroid Dosepak with complete resolution of symptoms. I would suggest a low maintenanc e prednisone 2 mg daily. Avoid NSAIDs. Follow clinically . Stigmata for GCA reviewed, currently negative. [id number] DAGOBERTO DOHERTY MD [facility] LUL NAL CHARGES [address] [facility], [address] [place] [address] 01/24/2023 13:42:26 01/24/2023 15:24:02 Lumbar spondylosis [id number] M47.816 [id number] SEBASTIAN RASMUSSEN MD [facility] [address] [place] [address] 01/29/2023 11:19:54 01/29/2023 12:30:12 Postmenopausal osteoporosis [id number] M81.0 [id number] DAGOBERTO DOHERTY MD [facility] AKASHIO NAL CHARGES [address] [facility], [address] [place] [address] 02/06/2023 09:35:55 02/10/2023 15:48:00 Lumbar spondylosis 589848025 M47.816 [id number] VIANEY DELONG MD [facility] [address] [place] [address],[address] [place] [address] 02/11/2023 10:37:40 02/11/2023 11:42:59 Flank pain 704077662 R10.9 Urinary tr act infectious disease 86402051 N39.0 Increased frequency of urination 065303597 R35.0 [id number] VIANEY DELONG MD [facility] [address] [place] [address],[place] [address] 03/06/2023 12:31:31 03/06/2023 13:37:05 Low back pain 441249091 M54.50 Flank pain 845280047 R10 .9 [id number] [facility] [address] [place] [address] 03/18/2023 13:11:34 03/19/2023 04:21:04 Bilateral carpal tunnel syndrome [id number] 0491449 G56.03 Paresthesia 49867944 R20 .2 Pain in right hand 19609 12499 42186 M79.641 Pain of left hand 520562 0665 62662 M79.642 [id number] DAGOBERTO MEDINA MD [facility] [address] [place] [address] 05/16/2023 10:58:45 05/16/2023 11:42:08 Carpal tunnel syndrome 80440532 G56.01 G56.02 EMG/NCV (03/18/2023 ) demonstrat ed moderate right carpal tunnel syndrome and mild left carpal tunnel syndrome Acquired t promotion specialist finger 9702948 M65.331 Right long trigger finger [id number] DAGOBERTO MEDINA MD SURGERY SCHEDULE [address] [place] [address] 05/28/2023 10:16:30 05/28/2023 10:18:35 [id number] NANO ARECHIGA PA-C ORTHOPEDI [address] [address] 06/13/2023 10:14:07 06/13/2023 10:36:48 Carpal tunnel syndrome 48565038 G56.02 EMG/NCV (03/18/2023 ) demonstrat ed moderate right carpal tunnel syndrome and mild left carpal tunnel syndrome s/p Right endoscopic carpal tunnel release; Right long trigger finger release (DOS: 05/28/23) Postoperative care 52810 9007 Z48.89 s/p Right endoscopic carpal tunnel release; Right long trigger finger release (DOS: 05/28/23) [id number] DAGOBERTO MEDINA MD ORTH[facility] [address] [place] [address] 07/11/2023 09:58:36 07/11/2023 11:09:35 Postoperative care 645158463 Z48.89 6 weeks s/p Right endoscopic carpal tunnel release; Right long trigger finger release (DOS: 05/28/23) Carpal song lisy syndrome 73357767 G56.02 EMG/NCV (03/18/2023 ) demonstrat ed moderate right carpal tunnel syndrome and mild left carpal tunnel syndrome Previously s/p Right endoscopic carpal tunnel release; Right long trigger finger release (DOS: 05/28/23) Mass of marcelino bcutaneous tissue of finger of left hand [id number] 9507661 R22.32 [id number] DAGOBERTO MEDINA MD SURGERY SCHEDULE [address] [place] [address] 07/30/2023 09:03:54 07/30/2023 09:05:06 [id number] AMANDA FRANCOIS/Timothy, [facility] / HAND THERAPY [address] [place] [address] 08/05/2023 10:53:02 08/15/2023 04:49:01 Injury of finger 56863749 S69.92XA Left SF [id number] NANO ARECHIGA PA-C ORTHOPEDI [address] [place] [address] 08/15/2023 10:08:48 08/15/2023 10:31:54 Postoperative care 809426776 Z48.89 s/p Left endoscopic carpal tunnel release; Left small finger Dupuytren' s fasciectom y (DOS: 07/30/23) Previously s/p Right endoscopic carpal tunnel release; Right long trigger finger release (DOS: 05/28/23) [id number] XIANG SHAH OTR/L, [facility]ER[facility] / HAND THERAPY [address] [place] [address] 08/15/2023 10:30:39 08/28/2023 11:17:26 Injury of finger 45887372 S69.92XA Left SF [id number] AMANDA FRANCOIS/L, [facility] / HAND THERAPY [address] [place] [address] 08/22/2023 09:47:09 08/23/2023 04:54:51 Injury of finger 16155117 S69.92XA Left SF [id number] XIANG SHAH OTR/L, [facility] / HAND THERAPY [address] [place] [address] 08/29/2023 10:54:38 09/03/2023 04:55:44 Injury of finger 33864195 S69.92XA Left SF [id number] DAGOBERTO MEDINA MD ORTHOPEDI [address] [place] [address] 09/05/2023 09:47:37 09/05/2023 10:29:38 Postoperative care 447703581 Z48.89 5 weeks s/p Left endoscopic carpal tunnel release; Left small finger Dupuytren' s fasciectom y (DOS: 07/30/23) Previously s/p Right endoscopic carpal tunnel release; Right long trigger finger release (DOS: 05/28/23) Acquired t promotion specialist finger 9510658 M65.332 Left long trigger finger (CSI: 09/05/2023) Status post right long trigger finger release (05/28/2023 ) [id number] XIANG SHAH OTR/L, [facility] / HAND THERAPY [address] [place] [address] 09/05/2023 10:49:00 09/06/2023 04:26:18 Injury of finger 24280289 S69.92XA Left SF [id number] SEBASTIAN RASMUSSEN MD RHEUMATOL OGY [address] [place] [address] 01/08/2024 13:46:18 01/11/2024 04:02:41 Senile osteoporosis 25569748 M81.0 History of senile osteoporos is. H/O L1 compressio n fracture. Encouraged weightbear ing exercises. Schedule for Reclast infusion. Continue with the DEXA study every 2 years.fu with repeat Reclast January 2024. Order sent for repeat DEXA. Degenerati ve joint disease involving multiple joints 847536240 M15.9 Generalize d osteoarthr itis with mechanical pains, though overall stable.Chr onic neck/back pains, are followed by pain management clinic Dr. Doherty and I suggested her to follow his recommenda tion. Bilateral carpal tunnel syndrome [id number] 8197508 G56.03 Nerve conduction study from February 2023 reviewed.R ight carpal tunnel moderateLe ft carpal tunnel mild.She is s/p bilateral carpal tunnel release, stable.Goo d robot programmer Polymyalgi a rheumatica 11336985 M35.3 73-year-ol d female with some features of PMR. Responded very well to a steroids.D oing well.I would suggest a low maintenanc e prednisone 2 mg daily. Avoid NSAIDs. Follow clinically . Stigmata for GCA reviewed, currently negative. Labs 12/31/23 reviewedCB C normalpota ssium slightly low at 3.3, fu with repeat labskidney function normalGFR 99 mL per minA1C 5.5%normal calciumnor mal liver enzymes [id number] SEBASTIAN RASMUSSEN MD RHEUMATOL OGY [address] [place] [address] 02/03/2024 11:08:19 02/03/2024 12:40:17 Postmenopausal osteoporosis 267004804 M81.0 [id number] CHIQUITA KESSLER MD BONE DENS[facility] SB [address] [place] [address] 02/03/2024 12:35:21 02/03/2024 12:51:26 [facility] 78101362 M81.0 Health Concerns Section Related Observation LastModified by Organization Detai ls LastModified Time None Recorded Concern Status LastModified by Organization Details LastModified Time None Recorded Advance Directives Directive None Recorded Payers Encounter Date Sequence Insurance Name Policy Number Policy Hernandez Covered Member ID Hernandez Member ID Guarantor Name 09/05/2023 2 [employer] [place] (MEDICARE SUPPLEMENT) Mily J Ashleigh [id number] Mily J Ashleigh 09/05/2023 1 [place] Mily J Ashleigh [id number] Mily J Ashleigh 09/05/2023 2 [employer] [employer] [place] (MEDICARE SUPPLEMENT) Mily J Ashleigh [id number] Mily J Ashleigh 09/05/2023 1 [place] Mily J Ashleigh [id number] Mily J Ashleigh 01/08/2024 2 [employer] [employer] [place] (MEDICARE SUPPLEMENT) Mily J Ashleigh [id number] Mily J Ashleigh 01/08/2024 1 [place] Mily J Ashleigh [id number] Mily J Ashleigh 02/03/2024 2 [employer] [place] [place] (MEDICARE SUPPLEMENT) Mily J Ashleigh [id number] Mily J Ashleigh 02/03/2024 1 [place] Mily J Ashleigh [id number] Mily J Ashleigh 02/03/2024 2 [employer] [place] (MEDICARE SUPPLEMENT) Mily J Ashleigh [id number] Mily J Ashleigh 02/03/2024 1 [place] Mily J Ashleigh [id number] Mily J Ashleigh Notes Date Note Type Note Provider Name and Address Organization Details Recorded Time 09/05/2023 text/html Patient returns to the clinic today for postoperative evaluation. Reports resolution of numbness and tingling, but new onset of left long finger catching and locking a few days after her surgery. Symptoms have mildly improved since then. POST OP GLOBAL VISIT DATE OF SURGERY: 07/30/23TIME POST SURGERY:{{10-14 DAYS 2 WKS 6 WKS 12WKS OTHER: 5 WKS#}}SURGERY: -Left endoscopic carpal tunnel release-Left small finger Dupuytren's fasciectomy INTERVAL HISTORY: PREOP SYMPTOMS{{RESOLVED BE TTER* WORSE SAME}} PAIN LEVEL (VAS){{1* 2 3 4 5 6 7 8 9 10}}/10 OVERALL ASSESSMENT{{IMPROVING * WORSENING SAME}} Doing well post op. Uneventful. New onset trigger finger of the left LF. DAGOBERTO MEDINA MD [address] [place], [address], [facility] 09/05/2023 10:30:49 09/05/2023 text/html Surgery: 07/30/23 RHD, CTR, SF Mass exision completedQuick Dash 45%43.75%6/10 pain, tylenol PRN and heatPoor sleep3.61 [place]5.0 cm SF18.5 cm MCPLifting A [place] OF [place] is still an inability. Triggering continues in MF. Surgery: 07/30/23RHD, CTR, SF Mass exision completedQuick Dash 45%43.75%6/10 pain, tylenol PRN and heatPoor sleep3.61 [place]5.0 cm SF18.5 cm MCPLifting A [place] XIANG SHAH, OTR/L, CHT [address] [place] [address], [address], [facility] 09/05/2023 13:07:24 01/08/2024 text/html A very pleasant 73-year-old female seen today for a follow up of chronic joint pains. PMR and osteoporosis. Mily was last seen here in our rheumatology department 01/16/2023 On reclast infusion therapy, most recent infusion was January 29, 2023. she is also followed at the pain clinic. She also has a history of osteoporosis with L1 compression fracture. She has tried oral bisphosphonates but failed to tolerate. Tolerated Reclast well.No new fractures reported.Does not have any headaches. No jaw pain. No fevers or chills. She is s/p bilateral carpal tunnel release SEBASTIAN RASMUSSEN MD [address] [place], [address], [place] [facility] 01/10/2024 09:42:25 OBGyn Episode No OBEpisode recorded.
--- OUTSIDE RECORDS SUMMARY | 2024-12-09 09:38 | XMS_ITS ---
Laboratory report Created on: December 03, 2024 ARACELIS LINDER : 1950 Sex: Female Author Organization Unknown PROBLEMS Problems List Code Description RESULTS Laboratory Orders Date Order Code Test 2024-11-30 177232 TRIIODOTHYRONINE (T3), FREE Laboratory Results Date LOINC Test Value Unit Reference Range Interpre tation 2024-11-30 3051-0 TRIIODOTHYRONINE (T3), FREE 3.4 PG/ML 2.0-4.4
--- NOTE | 2024-12-09 09:45 | MR_ITS ---
FINAL REPORT CLINICAL HISTORY: dizziness. HEADACHE. COMPARISON: 03/10/2024 FINDINGS: Multi planar MR imaging was obtained through the brain without contrast. The midline structures appear intact. There is no evidence of Chiari malformation. On T2 and flair axial images the brain parenchyma demonstrates extensive changes of microvascular ischemia, also seen on the prior exam of 2023. Mild to moderate atrophy remains present. On diffusion-weighted images there is no evidence of restricted diffusion. The visualized paranasal sinuses demonstrate normal signal voids. The seventh and eighth nerve root complexes are intact. IMPRESSION: Extensive changes of microvascular ischemia, also seen on the prior exam of 2023. Mild to moderate atrophy remains present. No acute intracranial abnormality is identified. Reviewed, Interpreted and Dictated by Du Dean MD Transcribed by Tawnya Hartman Authenticated and [facility]
--- NOTE | 2024-12-09 10:30 | CA_ITS ---
FINAL REPORT TECHNIQUE: Larsen scale, color and spectral doppler images of the bilateral carotid arteries were obtained. CLINICAL HISTORY: Dizziness COMPARISON: None FINDINGS: Peak systolic velocity in the right internal carotid artery is 124 cm/sec. The internal carotid to common carotid artery ratio is 1.6. There is no significant carotid artery stenosis and no significant plaque formation. The right vertebral artery is normal in direction. Peak systolic velocity in the left internal carotid artery is 110 cm/sec. The internal carotid to common carotid artery ratio is 1.9. There is no significant carotid artery stenosis and no significant plaque formation. The left vertebral artery is normal in direction. IMPRESSION: No ultrasound evidence of hemodynamically significant carotid artery stenosis. Normal peak systolic velocities and normal internal to common carotid artery ratios bilaterally. Antegrade flow bilateral vertebral arteries. Reviewed, Interpreted and Dictated by Du Dean MD Transcribed by Tawnya Hartman Authenticated and [facility]
== END 2024-12-09 23:59 | disposition home or self-care (01) ==
LOC: RAD 09:36
PROVIDERS: PCP Nurse Practitioner Family; Visit Provider Nurse Practitioner Family
DX: I67.82 Cerebral ischemia (principal); G31.9 Degenerative disease of nervous system, unspecified
CPT/HCPCS: 70551; 93880

== ENCOUNTER 2025-02-01 11:48 | Outpatient (CLI) | payer MEDICARE, OTHER, SELFPAY ==
--- OUTSIDE RECORDS SUMMARY | 2025-02-01 11:52 | XMS_ITS | Clinical Summary ---
Author Organization [facility] Address [address] [facility] [address] [place] [address] Phone Care Team Providers Care Manager Apple Name Role Phone Unavailable Unavailable Conditions or Problems No information available. Medications No information available. Medications Administered No information available. Allergies, Adverse Reactions, Alerts No information available. Results No information available. Plan of Care No information available. Procedures No information available. Vital Signs No information available. Immunizations No information available. Advance Directives No information available.
--- OUTSIDE RECORDS SUMMARY | 2025-02-01 11:53 | XMS_ITS | Encounter Summary ---
Author Organization [facility] Address [address] [place] [id number] Care Team Providers Care Aging Box Hand Name Role Phone Unavailable Primary Care Provider Unavailabl e Encounter Details Date Type Department Care Team (Late st Contact Info) Description 03/28/2020 Transcribed Document [facility] [place] Family Medicine [address] [place] [address] ProviderCj MD [address] [place] [address] Social History Tobacco Use Types Packs/Day Years Used Date Smoking Tobacco: Never Assessed Comments Unknown Sex and Gender Information Value Date Recorded Sex Assigned at Unknown 02/19/2022 1:33 PM CDT Legal Sex Female 1:33 PM CDT Gender Identity Other 02/19/2022 1:33 PM CDT Sexual Orientation Not on file documented as of this encounter Miscellaneous Notes * Cerner Conversion Note - Historical ProviderMD - 03/28/2020 4:58 [place] [address] MILY SOTELO AUNDREA :1950 Visit Time:03/28/2020 What to do next Your Diagnosis Low back pain, Low back pain Instructions From Your Care Team norco one tablet three times a day as need for spinal pain Bactrim one tablet a day for 7 days Discharge Follow Up Instructions: Follow-up in my office, as per intake sheet. 10-14 days. Instructions should be on the intake sheet from my office, if the patient does not have follow-up, contact office make appointment. [phone] Activity: May sit stand walk, drive vehicle when stable, no pain, and functioning properly., Discharge Activity: No heavy lifting over 10 lbs Diet: Discharge Diet: Resume usual diet as tolerated Follow-Up Appointments Follow Up with ARTHUR ESCOTO MD-ORT When Within 1 week Comments Call in the AM Where: [address] [facility] [address] [place] [address]- Medications Take your medications faithfully. Do NOT skip medication. Do NOT stop taking medications without the direction of a physician. Carry a list of your medications with you at all times, and take this medication list with you to your first follow up visit. Report any side effects. Avoid herbal remedies unless discussed with your physician. As part of your treatment plan, your physician may have prescribed a limited course of a controlled substance. This medication may be given to help people with moderate or severe pain or for other medical conditions, but there are risks involved with treatment. Common side effects may include nausea, constipation, drowsiness, sweating, itching, dry mouth, and rash. More serious side effects may include cognitive and motor impairment, like problems with thinking, concentrating, alertness, and movement (e.g. slowed reflexes), and driving and operating heavy machinery can be dangerous. It is important for you to talk to your physician if you have these side effects or questions. These controlled substances can produce physical dependence and be habit-forming if taken for an extended period of time, which means that the body has gotten used to them and may experience withdrawal symptoms if they are abruptly stopped. Withdrawal symptoms can include runny nose, sweating, goose bumps, diarrhea, abdominal cramping, rapid heartbeat, difficulty sleeping, and nervousness. Please dispose of unused and medications per pharmacy guidance. Education Materials General Anesthesia, Adult General anesthesia is the use of medicines to make a person go to sleep (unconscious) for a medical procedure. General anesthesia must be used for certain procedures, and is often recommended for procedures that: ??? Last a long time. ??? Require you to be still or in an unusual position. ??? Are major and can cause blood loss. The medicines used for general anesthesia are called general anesthetics. As well as making you unconscious for a certain amount of time, these medicines: ??? Prevent pain. ??? Control your blood pressure. ??? Relax your muscles. Tell a health care provider about: ??? Any allergies you have. ??? All medicines you are taking, including vitamins, herbs, eye drops, creams, and afhv-vsm-uhakxgr medicines. ??? Any problems you or family members have had with anesthetic medicines. ??? Types of anesthetics you have had in the past. ??? Any blood disorders you have. ??? Any surgeries you have had. ??? Any medical conditions you have. ??? Any recent upper respiratory, chest, or ear infections. ??? Any history of: ? Heart or lung conditions, such as heart failure, sleep apnea, asthma, or chronic obstructive pulmonary disease (COPD). ? service. ? Depression or anxiety. ??? Any tobacco or drug use, including marijuana or alcohol use. ??? Whether you are or may be . What are the risks? Generally, this is a safe procedure. However, problems may occur, including: ??? Allergic reaction. ??? Lung and heart problems. ??? Inhaling food or liquid from the stomach into the lungs (aspiration). ??? Nerve injury. ??? Dental injury. ??? Air in the bloodstream, which can lead to stroke. ??? Extreme agitation or confusion (delirium) when you wake up from the anesthetic. ??? Waking up during your procedure and being unable to move. This is rare. These problems are more likely to develop if you are having a major surgery or if you have an advanced or serious medical condition. You can prevent some of these complications by answering all of your health care provider's questions thoroughly and by following all instructions before your procedure. General anesthesia can cause side effects, including: ??? Nausea or vomiting. ??? A sore throat from the breathing tube. ??? Hoarseness. ??? Wheezing or coughing. ??? Shaking chills. ??? Tiredness. ??? Body aches. ??? Anxiety. ??? Sleepiness or drowsiness. ??? Confusion or agitation. What happens before the procedure? Staying hydrated Follow instructions from your health care provider about hydration, which may include: ??? Up to 2 hours before the procedure ??? you may continue to drink clear liquids, such as water, clear fruit juice, black coffee, and plain tea. Eating and drinking restrictions Follow instructions from your health care provider about eating and drinking, which may include: ??? 8 hours before the procedure ??? stop eating heavy meals or foods such as meat, fried foods, or fatty foods. ??? 6 hours before the procedure ??? stop eating light meals or foods, such as toast or cereal. ??? 6 hours before the procedure ??? stop drinking milk or drinks that contain milk. ??? 2 hours before the procedure ??? stop drinking clear liquids. Medicines Ask your health care provider about: ??? Changing or stopping your regular medicines. This is especially important if you are taking diabetes medicines or blood thinners. ??? Taking medicines such as aspirin and ibuprofen. These medicines can thin your blood. Do not take these medicines unless your health care provider tells you to take them. ??? Taking ghhm-pzc-kfrhzuc medicines, vitamins, herbs, and supplements. Do not take these during the week before your procedure unless your health care provider approves them. General instructions ??? Starting 3???6 weeks before the procedure, do not use any products that contain nicotine or tobacco, such as cigarettes and e-cigarettes. If you need help quitting, ask your health care provider. ??? If you brush your teeth on the morning of the procedure, make sure to spit out all of the toothpaste. ??? Tell your health care provider if you become ill or develop a cold, cough, or fever. ??? If instructed by your health care provider, bring your sleep apnea device with you on the day of your surgery (if applicable). ??? Ask your health care provider if you will be going home the same day, the following day, or after a longer hospital stay. ? Plan to have someone take you home from the hospital or clinic. ? Plan to have a responsible adult care for you for at least 24 hours after you leave the hospital or clinic. This is important. What happens during the procedure? You will be given anesthetics through both of the following: ? A mask placed over your nose and mouth. ? An IV in one of your veins. ??? You may receive a medicine to help you relax (sedative). ??? After you are unconscious, a breathing tube may be inserted down your throat to help you breathe. This will be removed before you wake up. ??? An anesthesia specialist will stay with you throughout your procedure. He or she will: ? Keep you comfortable and safe by continuing to give you medicines and adjusting the amount of medicine that you get. ? Monitor your blood pressure, pulse, and oxygen levels to make sure that the anesthetics do not cause any problems. The procedure may vary among health care providers and hospitals. What happens after the procedure? Your blood pressure, temperature, heart rate, breathing rate, and blood oxygen level will be monitored until the medicines you were given have worn off. ??? You will wake up in a recovery area. You may wake up slowly. ??? If you feel anxious or agitated, you may be given medicine to help you calm down. ??? If you will be going home the same day, your health care provider may check to make sure you can walk, drink, and urinate. ??? Your health care provider will treat any pain or side effects you have before you go home. ??? Do not drive for 24 hours if you were given a sedative. Summary ??? General anesthesia is used to keep you still and prevent pain during a procedure. ??? It is important to tell your health care provider about your medical history and any surgeries you have had, and previous experience with anesthesia. ??? Follow your health care provider's instructions about when to stop eating, drinking, or taking certain medicines before your procedure. ??? Plan to have someone take you home from the hospital or clinic. This information is not intended to replace advice given to you by your health care provider. Make sure you discuss any questions you have with your health care provider. Document Released: 11/17/2008 Document Revised: 12/29/2018 Document Reviewed: 03/27/2018 [employer] Patient Education ?? 2020 [employer] Balloon Kyphoplasty, Care After This sheet gives you information about how to care for yourself after your procedure. Your health care provider may also give you more specific instructions. If you have problems or questions, contact your health care provider. What can I expect after the procedure? After your procedure, it is common to have back pain. Follow these instructions at home: Medicines ??? Take gixw-ktq-khsyktd and prescription medicines only as told by your health care provider. ??? Ask your health care provider if the medicine prescribed to you: ? Requires you to avoid driving or using heavy machinery. ? Can cause constipation. You may need to take steps to prevent or treat constipation, such as: ? Drink enough fluid to keep your urine pale yellow. ? Take uvyr-lee-hhzrohu or prescription medicines. ? Eat foods that are high in fiber, such as beans, whole grains, and fresh fruits and vegetables. ? Limit foods that are high in fat and processed sugars, such as fried or sweet foods. Puncture site care ??? Follow instructions from your health care provider about how to take care of your puncture site. Make sure you: ? Wash your hands with soap and water before and after you change your bandage (dressing). If soap and water are not available, use hand legislative advocate. ? Change your dressing as told by your health care provider. ? Leave skin glue or adhesive strips in place. These skin closures may need to be in place for 2 weeks or longer. If adhesive strip edges start to loosen and curl up, you may trim the loose edges. Do not remove adhesive strips completely unless your health care provider tells you to do that. ??? Check your puncture site every day for signs of infection. Watch for: ? Redness, swelling, or pain. ? Fluid or blood. ? Warmth. ? Pus or a bad smell. ??? Keep your dressing dry until your health care provider says that it can be removed. Managing pain, stiffness, and swelling ??? If directed, put ice on the painful area. ? Put ice in a plastic bag. ? Place a towel between your skin and the bag. ? Leave the ice on for 20 minutes, 2???3 times a day. Activity ??? Rest your back and avoid intense physical activity for as long as told by your health care provider. ??? Avoid bending, lifting, or twisting your back for as long as told by your health care provider. ??? Return to your normal activities as told by your health care provider. Ask your health care provider what activities are safe for you. ??? Do not lift anything that is heavier than 5 lb (2.2 kg). You may need to avoid heavy lifting for several weeks. General instructions ??? Do not use any products that contain nicotine or tobacco, such as cigarettes, e-cigarettes, and chewing tobacco. These can delay bone healing. If you need help quitting, ask your health care provider. ??? Do not drive for 24 hours if you were given a sedative during your procedure. ??? Keep all follow-up visits as told by your health care provider. This is important. Contact a health care provider if: ??? You have a fever or chills. ??? You have redness, swelling, or pain at the site of your puncture. ??? You have fluid, blood, or pus coming from the puncture site. ??? You have pain that gets worse or does not get better with medicine. ??? You develop numbness or weakness in any part of your body. Get help right away if: ??? You have chest pain. ??? You have difficulty breathing. ??? You have weakness, numbness, or tingling in your legs. ??? You cannot control your bladder or bowel movements. ??? You suddenly become weak or numb on one side of your body. ??? You become very confused. ??? You have trouble speaking or understanding, or both. Summary ??? Follow instructions from your health care provider about how to take care of your puncture site. ??? Take piym-gqb-ksyybsw and prescription medicines only as told by your health care provider. ??? Rest your back and avoid intense physical activity for as long as told by your health care provider. ??? Contact a health care provider if you have pain that gets worse or does not get better with medicine. ??? Keep all follow-up visits as told by your health care provider. This is important. This information is not intended to replace advice given to you by your health care provider. Make sure you discuss any questions you have with your health care provider. Document Released: 05/01/2016 Document Revised: 07/19/2019 Document Reviewed: 07/19/2019 [employer] Patient Education ?? 2020 [employer]. acetaminophen and hydrocodone (a SEET a MIN oh fen and darrion droe KOE done) Hycet, Lorcet, Monon, Verdrocet, Vicodin, Xodol, Zamicet What is the most important information I should know about acetaminophen and hydrocodone? MISUSE OF OPIOID MEDICINE CAN CAUSE ADDICTION, OVERDOSE, OR . Keep the medication in a place where others cannot get to it. Taking opioid medicine during may cause life-threatening withdrawal symptoms in the . Fatal side effects can occur if you use opioid medicine with alcohol, or with other drugs that cause drowsiness or slow your breathing. Stop taking this medicine and call your doctor right away if you have skin redness or a rash that spreads and causes blistering and peeling. What is acetaminophen and hydrocodone? Acetaminophen and hydrocodone is a combination medicine used to relieve moderate to severe pain. Acetaminophen and hydrocodone may also be used for purposes not listed in this medication guide. What should I discuss with my healthcare provider before taking acetaminophen and hydrocodone? You should not use this medicine if you are allergic to acetaminophen or hydrocodone, or if you have: ?? severe asthma or breathing problems; or ?? a blockage in your stomach or intestines. Tell your doctor if you have ever had: ?? breathing problems, sleep apnea; ?? liver disease; ?? a drug or alcohol addiction; ?? kidney disease; ?? a head injury or seizures; ?? urination problems; or ?? problems with your thyroid, pancreas, or gallbladder. If you use opioid medicine while you are , your baby could become dependent on the drug. This can cause life-threatening withdrawal symptoms in the baby after it is born. Babies born dependent on opioids may need medical treatment for several weeks. Do not breastfeed. This medicine can pass into breast milk and cause drowsiness, breathing problems, or in a nursing baby. How should I take acetaminophen and hydrocodone? Follow all directions on your prescription label. Never take this medicine in larger amounts, or for longer than prescribed. An overdose can damage your liver or cause . Tell your doctor if you feel an increased urge to use more of this medicine. Never share this medicine with another person, especially someone with a history of drug abuse or addiction. MISUSE CAN CAUSE ADDICTION, OVERDOSE, OR . Keep the medicine in a place where others cannot get to it. Selling or giving away acetaminophen and hydrocodone is against the law. Measure liquid medicine carefully. Use the dosing syringe provided, or use a medicine dose-measuring device (not a kitchen spoon). If you need surgery or medical tests, tell the doctor ahead of time that you are using this medicine. You should not stop using this medicine suddenly. Follow your doctor's instructions about tapering your dose. Store at room temperature away from moisture and heat. Keep track of your medicine. You should be aware if anyone is using it improperly or without a prescription. Do not keep leftover opioid medication. Just one dose can cause in someone using this medicine accidentally or improperly. Ask your pharmacist where to locate a drug take-back disposal program. If there is no take-back program, flush the unused medicine down the toilet. What happens if I miss a dose? Since this medicine is used for pain, you are not likely to miss a dose. Skip any missed dose if it is almost time for your next dose. Do not use two doses at one time. What happens if I overdose? Seek emergency medical attention or call the Poison Help line at . An overdose of acetaminophen and hydrocodone can be fatal. The first signs of an acetaminophen overdose include loss of appetite, nausea, vomiting, stomach pain, sweating, and confusion or weakness. Later symptoms may include pain in your upper stomach, dark urine, and yellowing of your skin or the whites of your eyes. Overdose can also cause severe muscle weakness, pinpoint pupils, very slow breathing, extreme drowsiness, or coma. What should I avoid while taking acetaminophen and hydrocodone? Avoid driving or operating machinery until you know how this medicine will affect you. Dizziness or drowsiness can cause falls, accidents, or severe injuries. Do not drink alcohol. Dangerous side effects or could occur. Ask a doctor or pharmacist before using any other medicine that may contain acetaminophen (sometimes abbreviated as APAP). Taking certain medications together can lead to a fatal overdose. What are the possible side effects of acetaminophen and hydrocodone? Get emergency medical help if you have signs of an allergic reaction: hives; difficulty breathing; swelling of your face, lips, tongue, or throat. Opioid medicine can slow or stop your breathing, and may occur. A person caring for you should seek emergency medical attention if you have slow breathing with long pauses, blue colored lips, or if you are hard to wake up. In rare cases, acetaminophen may cause a severe skin reaction that can be fatal. This could occur even if you have taken acetaminophen in the past and had no reaction. Stop taking this medicine and call your doctor right away if you have skin redness or a rash that spreads and causes blistering and peeling. Call your doctor at once if you have: ?? noisy breathing, sighing, shallow breathing, breathing that stops during sleep; ?? a light-headed feeling, like you might pass out; ?? liver problems--nausea, upper stomach pain, tiredness, loss of appetite, dark urine, anaya-colored stools, jaundice (yellowing of the skin or eyes); or ?? low cortisol levels-- nausea, vomiting, loss of appetite, dizziness, worsening tiredness or weakness. Seek medical attention right away if you have symptoms of serotonin syndrome, such as: agitation, hallucinations, fever, sweating, shivering, fast heart rate, muscle stiffness, twitching, loss of coordination, nausea, vomiting, or diarrhea. Serious side effects may be more likely in older adults and those who are overweight, malnourished, or debilitated. Long-term use of opioid medication may affect fertility (ability to have children) in men or women. It is not known whether opioid effects on fertility are permanent. Common side effects include: ?? dizziness, drowsiness, feeling tired; ?? nausea, vomiting, stomach pain; ?? constipation; or ?? headache. This is not a complete list of side effects and others may occur. Call your doctor for medical advice about side effects. You may report side effects to FDA at 4-563-KBC-6060. What other drugs will affect acetaminophen and hydrocodone? You may have breathing problems or withdrawal symptoms if you start or stop taking certain other medicines. Tell your doctor if you also use an antibiotic, antifungal medication, heart or blood pressure medication, seizure medication, or medicine to treat HIV or hepatitis C. Opioid medication can interact with many other drugs and cause dangerous side effects or . Be sure your doctor knows if you also use: ?? cold or allergy medicines, bronchodilator asthma/COPD medication, or a diuretic ('water pill'); ?? medicines for motion sickness, irritable bowel syndrome, or overactive bladder; ?? other narcotic medications--opioid pain medicine or prescription cough medicine; ?? a sedative like Valium--diazepam, alprazolam, lorazepam, Xanax, Klonopin, Versed, and others; ?? drugs that make you sleepy or slow your breathing--a sleeping pill, muscle relaxer, medicine to treat mood disorders or mental illness; ?? drugs that affect serotonin levels in your body--a stimulant, or medicine for depression, Parkinson's disease, migraine headaches, serious infections, or nausea and vomiting. This list is not complete. Other drugs may affect acetaminophen and hydrocodone, including prescription and gltq-kkp-ogdgvay medicines, vitamins, and herbal products. Not all possible interactions are listed here. Where can I get more information? Your doctor or pharmacist can provide more information about acetaminophen and hydrocodone. Remember, keep this and all other medicines out of the reach of children, never share your medicines with others, and use this medication only for the indication prescribed. Every effort has been made to ensure that the information provided by [employer] is accurate, up-to-date, and complete, but no guarantee is made to that effect. Drug information contained herein may be time sensitive. [employer] information has been compiled for use by healthcare practitioners and consumers in the [place] and therefore [employer] does not warrant that uses outside of the [place] are appropriate, unless specifically indicated otherwise. [employer] drug information does not endorse drugs, diagnose patients or recommend therapy. [employer] drug information is an informational resource designed to assist licensed healthcare practitioners in caring for their patients and/or to serve consumers viewing this service as a supplement to, and not a substitute for, the expertise, skill, knowledge and judgment of healthcare practitioners. The absence of a warning for a given drug or drug combination in no way should be construed to indicate that the drug or drug combination is safe, effective or appropriate for any given patient. [employer] does not assume any responsibility for any aspect of healthcare administered with the aid of information [employer] provides. The information contained herein is not intended to cover all possible uses, directions, precautions, warnings, drug interactions, allergic reactions, or adverse effects. If you have questions about the drugs you are taking, check with your doctor, nurse or pharmacist. Copyright 3725-3900 [employer]. Version: 16.. Revision Date: 09/15/2019. sulfamethoxazole and trimethoprim (oral/injection) (SUL fa meth OX a zole and trye METH oh prim) Bactrim, Bactrim DS, Bactrim I.V., Septra I.V., SMZ-TMP DS, Sulfatrim Pediatric What is the most important information I should know about sulfamethoxazole and trimethoprim? You should not use this medicine if you have severe liver disease, kidney disease that is not being monitored, anemia caused by folic acid deficiency, if you take dofetilide, or if you have had low platelets caused by using trimethoprim or a sulfa drug. You should not take sulfamethoxazole and trimethoprim if you are or . What is sulfamethoxazole and trimethoprim? Sulfamethoxazole and trimethoprim is a combination antibiotic used to treat ear infections, urinary tract infections, bronchitis, traveler's diarrhea, shigellosis, and Pneumocystis jiroveci pneumonia. Sulfamethoxazole and trimethoprim may also be used for purposes not listed in this medication guide. What should I discuss with my healthcare provider before using sulfamethoxazole and trimethoprim? You should not use this medicine if you are allergic to sulfamethoxazole or trimethoprim, or if you have: ?? severe liver disease; ?? kidney disease that is not being treated or monitored; ?? anemia (low red blood cells) caused by folic acid deficiency; ?? a history of low blood platelets after taking trimethoprim or any sulfa drug; or ?? if you take dofetilide (Tikosyn). Do not use if you are . Use effective control, and tell your doctor if you become . Do not breastfeed while using this medicine. This medicine should not be given to a child younger than 2 months old. Tell your doctor if you have ever had: ?? kidney or liver disease; ?? a folate (folic acid) deficiency; ?? asthma or severe allergies; ?? a thyroid disorder; ?? HIV or AIDS; ?? malnourishment; ?? alcoholism; ?? high levels of potassium in your blood; ?? porphyria, or sunmmpn-8-xvtaqykak dehydrogenase (G6PD) deficiency; or ?? if you use a blood thinner (such as warfarin) and you have routine 'INR' or prothrombin time tests. How should I use sulfamethoxazole and trimethoprim? This medicine is taken by mouth (oral) or given as an infusion into a vein (injection). Follow all directions on your prescription label and read all medication guides or instruction sheets. Use the medicine exactly as directed. Shake the oral suspension (liquid) before you measure a dose. Use the dosing syringe provided, or use a medicine dose-measuring device (not a kitchen spoon). A healthcare provider will give the first injection and may teach you how to properly use the medication by yourself. When using injections by yourself, be sure you understand how to properly mix and store the medicine. Ask your doctor or pharmacist if you don't understand all instructions. Drink plenty of fluids to prevent kidney stones while you are using this medicine. Sulfamethoxazole and trimethoprim doses are based on weight in children. Use only the recommended dose when giving this medicine to a child. Use this medicine for the full prescribed length of time, even if your symptoms quickly improve. Skipping doses can increase your risk of infection that is resistant to medication. This medicine will not treat a viral infection such as the flu or a common cold. You may need frequent medical tests. This medicine can affect the results of certain medical tests. Tell any doctor who treats you that you are using sulfamethoxazole and trimethoprim. Store at room temperature away from moisture, heat, and light. What happens if I miss a dose? Use the medicine as soon as you can, but skip the missed dose if it is almost time for your next dose. Do not use two doses at one time. What happens if I overdose? Seek emergency medical attention or call the Poison Help line at . Overdose symptoms may include loss of appetite, vomiting, fever, blood in your urine, yellowing of your skin or eyes, confusion, or loss of consciousness. What should I avoid while using sulfamethoxazole and trimethoprim? Antibiotic medicines can cause diarrhea, which may be a sign of a new infection. If you have diarrhea that is watery or bloody, call your doctor before using anti-diarrhea medicine. If you use the injection form of this medicine, do not eat or drink anything that contains propylene glycol (an ingredient in many processed foods, soft drinks, and medicines). Dangerous effects could occur. Sulfamethoxazole and trimethoprim could make you sunburn more easily. Avoid sunlight or tanning beds. Wear protective clothing and use sunscreen (SPF 30 or higher) when you are outdoors. What are the possible side effects of sulfamethoxazole and trimethoprim? Get emergency medical help if you have signs of an allergic reaction (hives, cough, shortness of breath, swelling in your face or throat) or a severe skin reaction (fever, sore throat, burning eyes, skin pain, red or purple skin rash with blistering and peeling). Call your doctor at once if you have: ?? severe stomach pain, diarrhea that is watery or bloody (even if it occurs months after your last dose); ?? a skin rash, no matter how mild; ?? yellowing of your skin or eyes; ?? a seizure; ?? new or unusual joint pain; ?? increased or decreased urination; ?? swelling, bruising, or irritation around the IV needle; ?? increased thirst, dry mouth, fruity breath odor; ?? an electrolyte imbalance--headache, confusion, weakness, slurred speech, tingly feeling, chest pain, irregular heartbeats, loss of coordination or movement, feeling unsteady; or ?? low blood cell counts--fever, chills, mouth sores, skin sores, easy bruising, unusual bleeding, pale skin, cold hands and feet, feeling light-headed or short of breath. Common side effects may include: ?? nausea, vomiting, loss of appetite; or ?? mild itching or rash. This is not a complete list of side effects and others may occur. Call your doctor for medical advice about side effects. You may report side effects to FDA at 2-709-ANF-5502. What other drugs will affect sulfamethoxazole and trimethoprim? You may need more frequent check- ups or medical tests if you also use medicine to treat depression, diabetes, seizures, or HIV. Many drugs can interact, and some drugs should not be used together. Tell your doctor about all your current medicines, especially: ?? amantadine, cyclosporine, indomethacin, leucovorin, methotrexate, pyrimethamine; ?? an 'MALCOM inhibitor' heart or blood presure medication (benazepril, enalapril, lisinopril, quinapril, ramipril, and others); or ?? a diuretic or 'water pill' (chlorthalidone, hydrochlorothiazide, and others). This list is not complete and many other drugs may affect sulfamethoxazole and trimethoprim. This includes prescription and trqm-asr-nofzkfz medicines, vitamins, and herbal products. Not all possible drug interactions are listed here. Where can I get more information? Your pharmacist can provide more information about sulfamethoxazole and trimethoprim. Remember, keep this and all other medicines out of the reach of children, never share your medicines with others, and use this medication only for the indication prescribed. Every effort has been made to ensure that the information provided by [employer]. ('[employer]') is accurate, up-to-date, and complete, but no guarantee is made to that effect. Drug information contained herein may be time sensitive. [employer] information has been compiled for use by healthcare practitioners and consumers in the [place] and therefore [employer] does not warrant that uses outside of the [place] are appropriate, unless specifically indicated otherwise. [employer] drug information does not endorse drugs, diagnose patients or recommend therapy. [employer] drug information is an informational resource designed to assist licensed healthcare practitioners in caring for their patients and/or to serve consumers viewing this service as a supplement to, and not a substitute for, the expertise, skill, knowledge and judgment of healthcare practitioners. The absence of a warning for a given drug or drug combination in no way should be construed to indicate that the drug or drug combination is safe, effective or appropriate for any given patient. [employer] does not assume any responsibility for any aspect of healthcare administered with the aid of information [employer] provides. The information contained herein is not intended to cover all possible uses, directions, precautions, warnings, drug interactions, allergic reactions, or adverse effects. If you have questions about the drugs you are taking, check with your doctor, nurse or pharmacist. Copyright 3941-2582 [employer]. Version: 9.01. Revision Date: 10/30/2018. Emergency Awareness and Preventative Care STROKE is an EMERGENCY Every Minute Counts Act FAST and Check for these signs: FACE Does the face look uneven? ARM Does one arm drift down? SPEECH Does their speech sound strange? TIME Call at any sign of stroke Stroke Risk Factors Atrial Fibrillation (irregular heartbeat) Diabetes Family history of stroke Heart Disease Heavy alcohol use High Blood Pressure High Cholesterol Physical inactivity and obesity Smoking Cigarette Smoking The facts are clear, cigarette smoking will shorten your life. Smoking can cause many illnesses along the way. As a healthcare provider, we recommend that you stop smoking. Assistance with quitting is available by contacting 8-819-QTZV-NOW. This is a free resource providing counseling, support, and referral. Or you may contact your personal physician. National Suicide Prevention Lifeline: The National Suicide Prevention Lifeline is a national network of local crisis centers that provides free and confidential emotional support to people in suicidal crisis or emotional distress 24 hours a day, 7 days a week. Don't Wait! Stop a Heart Attack Before it Starts What is a heart attack? A heart attack is damage or to a part of the heart from severely decreased or lack of blood flow to the heart. Over time, arteries can become narrow from the buildup of fat and cholesterol, which is called plaque. The plaque can rupture causing a blood clot to form. When the blood clot forms, the artery can become severely narrowed or completely blocked, causing a heart attack. Heart attack is the leading cause of in the [place]. 85% of muscle damage occurs within the first 2 hours. Delay in the recognition of heart attack symptoms increases the chances of . Know the early symptoms of a heart attack: Nausea Feeling of fullness in chest Jaw Pain Pain that travels down one or both arms Fatigue/being tired Anxiety Back Pain Chest pressure, squeezing, or discomfort Shortness of breath Sweating, or a cold sweat Feeling of impending doom There are unusual signs of a heart attack, too! Women, the elderly, and diabetics may present with atypical symptoms: Fainting/dizziness Weakness Confusion Risk Factors for a Heart Attack Some heart disease risk factors, such as age and family history, cannot be changed. Others, like smoking and lack of exercise, can be changed. Smoking High Cholesterol High Blood Pressure Family History Obesity Age Gender (Males are at higher risk) Lack of Exercise Diabetes Diet Stress Excessive Alcohol Intake If you or someone you know is experiencing the signs and symptoms of a heart attack, DON???T DELAY. Call immediately and seek help. If someone collapses, perform CPR! Do not attempt to drive if you are having symptoms of heart attack. Hands-Only CPR Why Hands-Only CPR? Hands-Only CPR has been shown to be as effective as conventional CPR for cardiac arrests that occur outside of a hospital. Survival depends on immediately receiving CPR from someone nearby. How do you perform Hands-Only CPR? There are two easy steps: Call if you see a teen or adult collapse Push hard and fast in the center of the chest at a beat of 100 beats per minute. Save a life! 4 WAYS TO GET AHEAD OF SEPSIS SEPSIS is a MEDICAL EMERGENCY. Time matters! Infections put you and your family at risk for a life-threatening condition called sepsis. Sepsis is the body's extreme response to an infection. It is life-threatening, and without timely treatment, sepsis can rapidly lead to tissue damage, organ failure, and . Sepsis happens when an infection you already have-in your skin, lungs, urinary tract or somewhere else-triggers a chain reaction throughout your body. 1 PREVENT INFECTIONS Take good care of chronic conditions. Talk to your doctor about getting the recommended vaccines. 2 PRACTICE GOOD HYGIENE Wash your hands frequently. Keep cuts or open sores clean and covered until they are healed. 3 KNOW THE SYMPTOMS Confusion or disorientation Shortness of breath High heart rate Fever, shivering, or feeling very cold Extreme pain or discomfort Clammy or sweaty skin 4 ACT FAST Get medical care IMMEDIATELY if you suspect sepsis or if you have an infection that is not getting better or is getting worse. To learn more about sepsis and how to prevent infections, visit www.cdc.gov/sepsis. Test Results Laboratory or Other Results This Visit (last charted value for your 03/28/2020 visit) Urinalysis 03/28/2020 2:31 PM Ur RBC: None Seen Urine Nitrite: Positive Urine Leukocyte Esterase: Moderate Ur Epithelial Cells: 0-2 /HPF Urine Appearance: Cloudy Urine Glucose Dipstick: Negative Urine Blood Dipstick: Negative Urine Urobilinogen Dipstick: 1.0 EU/dL -- Normal range between ( 0.2 and 1.0 ) Urine Protein Dipstick: Negative Ur Bacteria: 4+ Ur WBC Clumps: Present Urine Color: Yellow Ur WBC: 10-20 /HPF Urine Ketones Dipstick: Negative Ur Mucous: Trace Urine pH Dipstick: 6.0 -- Normal range between ( 6.0 and 8.0 ) Urine Bilirubin Dipstick: Negative Urine Specific [place]: 1.016 -- Normal range between ( 1.005 and 1.030 ) Urine Type.: U CleanCatch Patient Name:MILY SOTELO AUNDREA I have received this information and was given the opportunity to ask questions. Patient/Topographical Field Assistant Name: Patient/Topographical Field Assistant Signature: Relationship to Patient: Clinician/Hospital Topographical Field Assistant Signature: Date: documented in this encounter Plan of Treatment Not on file documented as of this encounter Visit Diagnoses Not on filedocumented in this encounter
--- OUTSIDE RECORDS SUMMARY | 2025-02-01 11:53 | XMS_ITS | Encounter Summary ---
Author Organization [email or web address] Address [address] [place] [id number] Care Team Providers Care Nurse Discharge Name Role Phone Unavailable Primary Care Provider Unavailabl e Encounter Details Date Type Department Care Team (Late st Contact Info) Description 03/28/2020 Transcribed Document [facility] Medicine [address] [place] [address] ProviderCj MD [address] [place], [place] [id number] Social History Tobacco Use Types Packs/Day Years Used Date Smoking Tobacco: Never Assessed Comments Unknown Sex and Gender Information Value Date Recorded Sex Assigned at Unknown 02/19/2022 1:33 PM CDT Legal Sex Female 1:33 PM CDT Gender Identity Other 02/19/2022 1:33 PM CDT Sexual Orientation Not on file documented as of this encounter Miscellaneous Notes * Cerner Conversion Note - Cj ProviderMD - 03/28/2020 4:57 PM CDT Patient Education Materials Follows: General Anesthesia, Adult General anesthesia is the [...] including vitamins, herbs, eye drops, creams, and snsw-ajo-ihmaawa medicines. ??? Any problems you or family [...] Up to 2 hours before the procedure ? you may continue to drink clear liquids, such as water, clear fruit juice, black coffee, and plain tea. Eating and drinking restrictions Follow instructions from your health care provider about eating and drinking, which may include: ??? 8 hours before the procedure ? stop eating heavy meals or foods such as meat, fried foods, or fatty foods. ??? 6 hours before the procedure ? stop eating light meals or foods, such as toast or cereal. ??? 6 hours before the procedure ? stop drinking milk or drinks that contain milk. ??? 2 hours before the procedure ? stop drinking clear liquids. Medicines Ask your health care provider about: ??? Changing or stopping your regular medicines. This is especially important if you are taking diabetes medicines or blood thinners. ??? Taking medicines such as aspirin and ibuprofen. These medicines can thin your blood. Do not take these medicines unless your health care provider tells you to take them. ??? Taking barx-ksf-httodqx medicines, vitamins, herbs, and supplements. Do not take these during the week before your procedure unless your health care provider approves them. General instructions ??? Starting 3?6 weeks before the procedure, do not use [...] 11/17/2008 Document Revised: 12/29/2018 Document Reviewed: 03/27/2018 [employer] Patient Education ? 2020 [employer] Balloon Kyphoplasty, Care After This sheet [...] these instructions at home: Medicines ??? Take vjtn-dtj-fqpgyen and prescription medicines only as told by your health care provider. ??? Ask your health care provider if the medicine prescribed to you: ? Requires you to avoid driving or using heavy machinery. ? Can cause constipation. You may need to take steps to prevent or treat constipation, such as: ? Drink enough fluid to keep your urine pale yellow. ? Take mawx-hmp-nwlalde or prescription medicines. ? Eat foods that [...] and water are not available, use hand talend developer. ? Change your dressing as told by [...] Leave the ice on for 20 minutes, 2?3 times a day. Activity ??? Rest your [...] care of your puncture site. ??? Take ztet-mty-lsorxhw and prescription medicines only as told by [...] 05/01/2016 Document Revised: 07/19/2019 Document Reviewed: 07/19/2019 [employer] Patient Education ? 2020 [employer] documented in this encounter Plan of Treatment Not on file documented as of this encounter Visit Diagnoses Not on filedocumented in this encounter
--- OUTSIDE RECORDS SUMMARY | 2025-02-01 11:53 | XMS_ITS | Clinical Summary ---
Author Organization [facility] Address [address] [place] [address] Care Team Providers Care Web Content & Social Media Manager Name Role Phone Fredi Helton MD Primary Care Provider [phone] Allergies No known active allergies Medications spironolactone (Aldactone) 25 MG tablet Take 1 tablet by mouth 1 (one) time each day in the morning. 12/02/2022 Active sertraline (Zoloft) 25 MG tablet Take 25 mg by mouth every night. 09/30/2022 Active pantoprazole (Protonix) 40 MG EC tablet Take 40 mg by mouth 1 (one) time each day in the morning. 11/20/2022 Active oxybutynin XL (Ditropan-XL) 15 MG 24 hr tablet Take 15 mg by mouth 1 (one) time each day with lunch. At 1500. 10/28/2022 Active nitroglycerin (Nitrostat) 0.[address] 1 tablet under the tongue every 5 (five) minutes if needed. 11/20/2022 Active losartan (Cozaar) 100 MG tablet Take 100 mg by mouth every night. 09/30/2022 Active levothyroxine (Synthroid, Levoxyl) 100 MCG tablet Take 1 tablet by mouth 1 (one) time each day before breakfast. 09/30/2022 Active isosorbide mononitrate ER (Imdur) 60 MG 24 hr tablet Take 60 mg by mouth every night. 09/02/2022 Active furosemide (Lasix) 40 MG tablet Take 40 mg by mouth 1 (one) time each day in the morning. 12/02/2022 Active clopidogrel (Plavix) 75 MG tablet Take 1 tablet by mouth every night. 10/07/2022 Active atorvastatin (Lipitor) 80 MG tablet Take 80 mg by mouth every night. 10/07/2022 Active Multiple Vitamins-Mineral s (Multivitamin Adults 50+) tablet Take 1 tablet by mouth 1 (one) time each day. 12/20/2013 Active psyllium (Metamucil) 58.6 % packet Take 1 packet by mouth 1 (one) time each day. Active polyethylene glycol (Miralax) 17 g packet Take 17 g by mouth 1 (one) time each day. Active docusate sodium (Colace) 100 MG capsule Take 100 mg by mouth 1 (one) time each day. Active Active Problems Problem Noted Date Diagnosed Date Acute ischemic stroke 12/05/2022 Left-sided weakness Immunizations Immunization Administration Dates Next Due Hep A, Adult 08/14/2018 Influenza, high-dose, quadrivalent 07/08/2019 Pneumococcal Polysaccharide PPV23 04/30/2022 Family History Medical History Relation Name Comments Conversions - Other Father Prostate ca Heart attack Father Arthritis Mother Bradycardia Mother Relation Name Status Comments Father Mother Social History Tobacco Use Types Packs/Day Years Used Date Smoking Tobacco: Former Cigarettes Smokeless Tobacco: Never Tobacco Cessation:Counseling Given: Not Answered Alcohol Use Standard Drinks/Week Comments Not Currently 0 (1 standard drink = 0.6 oz pur e alcohol) Comments Unknown Sex and Gender Information Value Date Recorded Sex Assigned at Not on file Legal Sex Female 8:25 PM EDT Gender Identity Not on file Sexual Orientation Not on file Last Filed Vital Signs Vital Sign Reading Time Taken Comments Blood Pressure 98/55 12/06/2022 4:05 PM EDT Pulse 90 12/06/2022 4:05 PM EDT Temperature 36.7 C (98.1 F) 12/06/2022 4:00 PM EDT Respiratory Rate 18 12/06/2022 4:05 PM EDT Oxygen Saturation 100% 12/06/2022 4:06 PM EDT Inhaled Oxygen Concentration - - Weight 74.9 kg (165 lb 2 oz) 12/05/2022 3:34 PM EDT Height 162.6 cm (5' 4 ) 12/20/2013 12:56 PM EDT Body Mass Index 28.34 12/20/2013 12:56 PM EDT Plan of Treatment Health Maintenance Due Date Last Done Comments [facility]-Bone Density Scan 1950 [facility]-Depression Screening 1950 [facility]-Medicare Annual Wellness (AWV) 1950 [facility]-Infant/Child/Adol SDOH Screenings 1950 [facility]-Obesity Intervention 1956 [facility]- SDOH Screenings 1968 [facility]-Adult SDOH Screenings 1968 [facility]-DTaP,Tdap,and Td Vaccines (1 - Tdap) 1969 CT Colonography 1995 Colonoscopy 1995 FIT-DNA 1995 FIT 1995 FOBT 1995 Sigmoidoscopy 1995 [facility]-Colorectal Cancer Screening 1995 [facility]-Breast Cancer Screening 2000 [facility]-Zoster Vaccines (1 of 2) 2000 [facility]-RSV Vaccine: 60+ Years or (1 - Risk 60-74 years 1-dose series) 2010 [facility]-Pneumococcal Vaccine: 50+ Years (2 of 2 - PCV) 04/30/2023 04/30/2022 [id number] Vaccine ( season) 2024 05/08/2022, 12/18/2021, 06/19/2021, Additional history exists [facility]-Influenza Vaccine (Season Ended) 2025 07/08/2019 [facility]-Hepatitis A Vaccines Aged Out 08/14/2018 No longer eligible based on patient's age to complete this topic [facility]-Hepatitis C Screening Completed 12/05/2022 [facility]-Diabetes: Hemoglobin A1C Discontinued 12/06/2022 HPV Vaccines Aged Out No longer eligi ble based on patient's age to complete this topic [facility]-HIB Vaccines Aged Out No longer e ligible based on patient's age to complete this topic [facility]-IPV Vaccines Aged Out No longer e ligible based on patient's age to complete this topic [facility]-Rotavirus Vaccines Aged Out No lo nger eligible based on patient's age to complete this topic Procedures Procedure Name Priority Date/Time Associated Diagnosis Comments HEMOGLOBIN A1C Routine 12/06/2022 3:56 AM EDT HEPATITIS C ANTIBODY - ED W/REFLEX TO HCV QUANT PCR STAT 12/05/2022 2:45 PM EDT from Last 3 Months or Most Recently Relevant to Health Maintenance Results * (ABNORMAL) Hemoglobin A1c (12/06/2022 3:56 AM EDT) Hemoglobin A1c 5.9(H) <5.7 % 12/06/2022 5:19 AM EDT [facility] Blood Venous blood specimen / Unknown Venipuncture / Unknown 12/06/2022 3:56 AM EDT 12/06/2022 4:37 AM EDT Narrative [facility] - 12/06/2022 5:19 AM EDT HA1C Interpretive Data: Diagnosis of Diabetes: Diabetic > or = 6.5% Pre-diabetic 5.7 to 6.4% Non-diabetic < or = 5.6% Glycemic Targets for Type I and Type II Diabetics: Non- Adults <7.0% Adults <6.0% Children and Adolescents <7.5% Source: [place] [employer]. Standards of medical care in diabetes,2017. Diabetes Care.2017:40 (suppl 1):S1-S135. HbA1c assay performed by an ion-exchange chromatography method that is certified traceable to the DCCT. us Alexa Díaz DO LAB BLOOD ORDERABLES Final Res ult Performing Organization Address [facility] Co de Phone Number [facility] [address] [place] [address] * Hepatitis C Antibody - ED (12/05/2022 2:45 PM EDT) Hepatitis C Antibody Negative Negative 12/05/2022 3:46 PM EDT [facility] Blood Venous blood specimen / Unknown Venipuncture / Unknown 12/05/2022 2:45 PM EDT 12/05/2022 3:05 PM EDT us Dayan Patiño MD LAB BLOOD ORDERABLES Final R esult Performing Organization Address [facility] Co de Phone Number [facility] [address] [place] [address] from Last 3 Months or Most Recently Relevant to Health Maintenance Insurance [facility] [address] [id number] MEDICARE [facility] Advance Directives * Full Code (Latest Code Status on File) Date Activated Date Inactivated Comments 12/05/2022 3:17 PM 12/06/2022 8:47 PM Ok for CRP a nd temporary intubation. Does not wish to be on prolonged intubation or life support with low likelyhood of extubation. Question Answer Comments Patient has decision-making capacity? Yes Care Teams Web Content & Social Media Manager Relationship Specialty Start Date End Date Fredi Helton MD [address] [facility] [address] [id number] PCP - General 01/05/21
--- OUTSIDE RECORDS SUMMARY | 2025-02-01 11:53 | XMS_ITS | Clinical Summary ---
Author Organization [facility] Address [address] [place] [address] Care Team Providers Care Photographers' Model Name Role Phone Unavailable Primary Care Provider Unavailabl e Social History Tobacco Use Types Packs/Day Years Used Date Smoking Tobacco: Never Assessed Comments Unknown Sex and Gender Information Value Date Recorded Sex Assigned at Unknown 02/19/2022 1:33 PM CDT Legal Sex Female 1:33 PM CDT Gender Identity Other 02/19/2022 1:33 PM CDT Sexual Orientation Not on file Plan of Treatment Not on file
--- OUTSIDE RECORDS SUMMARY | 2025-02-01 11:53 | XMS_ITS | Encounter Summary ---
Author Organization [facility] Address [address] [place] [address] Care Team Providers Care Construction Rigger Name Role Phone Unavailable Primary Care Provider Unavailabl e Encounter Details Date Type Department Care Team (Late st Contact Info) Description 03/28/2020 Transcribed Document [facility] Family Medicine [facility] [place] [address] ProviderCj MD [address] [place] [address] Social History Tobacco Use Types [...] Conversion Note - Historical ProviderMD - 03/28/2020 4:17 PM CDT [facility] Main OR PreOp Summary Primary Physician: ARTHUR ESCOTO MD-ORT Finalized Date/Time: 03/28/20 16:35:06 Pt. Name: MILY LINDER /Sex: 1950 Female Med Rec #: [id number] Physician: ARTHUR ESCOTO MD-ORT Financial #: [id number] Pt. Type: O Room/Bed: Admit/Disch: 03/28/20 12:41:00 - [facility]: [facility] PreOp Case Times Entry 1 In Preop 03/28/20 12:50:00 Ready for Holding n/a Room Patient Ready for 03/28/20 15:10:00 Surgery Patient Out of Preop 03/28/20 16:00:00 Patient Out of n/a Holding Room Last Modified By: JEFFERSON LOZADA RN 03/28/20 16:35:02 SJAngela PreOp Case Times Audit 03/28/20 16:35:02 Middle School Tutor: ANGELLA Modifier: [id number] <+> 1 Patient Out of Preop Finalized By: JEFFERSON LOZADA, RN Document Signatures Signed By: JEFFERSON LOZADA RN 03/28/20 16:35 Electronically signed by Shoshana [facility] Conversion Armed Security Officer Cerner at 12/13/2022 11:29 AM CDT documented in this encounter Plan of Treatment Not on file documented as of this encounter Visit Diagnoses Not on filedocumented in this encounter
--- OUTSIDE RECORDS SUMMARY | 2025-02-01 11:53 | XMS_ITS | Referral Summary ---
Author Organization [employer] Address [address] [place] [address] Care Team Providers Care Postal Superintendent Name Role Phone Unavailable Primary Care Provider [...]
--- OUTSIDE RECORDS SUMMARY | 2025-02-01 11:53 | XMS_ITS | Encounter Summary ---
Author Organization [facility] Address [address] [place] [address] Care Team Providers Care Industrial Green Systems Designer Name Role Phone Unavailable Primary Care Provider Unavailabl e Encounter Details Date Type Department Care Team (Late st Contact Info) Description 03/28/2020 Transcribed Document [facility] Family Medicine [facility] [place] [address] ProviderCj MD [address] [place] [address] Social History Tobacco Use Types [...] Conversion Note - Historical ProviderMD - 03/28/2020 4:06 PM CDT Patient: MILY SOTELO Age: 70 years Sex: Female : 1950 Associated Diagnoses: None Author: ARTHUR ESCOTO MD-ORT Operative Report DATE OF PROCEDURE: March 28, 2020 PREOPERATIVE DIAGNOSIS(ES): Compression fracture, L1, pathological fracture s, fragility fracture Collapsed vertebra, not elsewhere classified, lumbar region, M48.56X POSTOPERATIVE DIAGNOSIS(ES): Osteoporosis. Compression fracture L1. Collapsed vertebra, not elsewhere classified, lumbar region, M48. 56 X PROCEDURE:Balloon kyphoplasty, L1, biopsy, percutaneous vertebral augmentation, including cavity creation, fracture reduction, biopsy, using mechanical device, one vertebral body, bilateral cannulation. Image guidance. Vertebral lumbar level I. CPT 83894 FINDINGS Fracture, soft bone consistent with fracture SURGEON: Arthur Escoto M.D. ANIMAL HUSBANDRY TEACHER: OR staff ANESTHESIA: LMAC. BLOOD LOSS: Less than 3 mL Negligible. IMAGING STUDIES X-rays- MRI study- CT scan- SURGICAL INDICATORS: Severe back pain. Thoracolumbar juncture. Symptom duration- Severe pain. Thoracolumbar juncture 4 weeks duration. Requires 2 people to assist patient to get around. Patient cannot walk because of pain. Fracture L1, seen on imaging studies is where she hurts. This is most likely source of her symptoms. Recommended treatment-balloon kyphoplasty is appropriate. Patient has not improved in the last 7 months, with nonsurgical management. Continues to be severely symptomatic. Procedure and risks reviewed. PHYSICIAN QUALITY REPORTING SYSTEM/PAYMENT FOR PERFORMANCE SERVICES Antibiotics administered with one 1 hour of incision Antibiotics [id number] Antibiotics continued within 24 hours of surgery Mechanical DVT prophylaxis. Catheter not used COMORBIDITIES Thyroid disorder Stable coronary disease Depression Hypertension Hypothyroid Renal stones Sarah previous IN Chronic UTI, FLUOROSCOPY TIME: 1.1 minutes COMPLICATIONS None DESCRIPTION OF PROCEDURE: The patient was brought into the operating room. Antibiotics were administered. The patient was placed prone on the OR table. Careful positioning. Padding. Two-plane fluoroscopy was brought in marking surgery site. L1 Washed and prepped, sterile draping. Time-out. Local infiltration to skin and subcutaneous tissue, lidocaine, 1%, down towards the transverse process, pedicular juncture,L1 Right sides. 75 mm off the midline Confirmation fluoroscopy. Guidewire placed in the same plane, then bringing the guidewires down the longitudinal axis of the pedicle, with two-plane fluoroscopy, marking on exactly where we were progressing, and then bringing it into the vertebral body. Having the superior endplate, to get in the interval between the 2 fracture levels. Taking this quite anteriorly. A small skin incision was made followed by the cannulated drill bit and the working channel. Drilling through the pedicle, right side, and then advancing this. Once this was advanced, though the advanced into vertebral body. The bone was soft, consistent with fracture Drilling with the drill bit, the biopsies were taken at both levels. Right side going across the vertebral body.. The balloon catheter inserted at L1 balloon catheter inserted at L1 direct visualization, placing of the catheter cavity creation, reduction of fracture. Confirmation, the with injection of radiographic dye, within the balloon catheters. The pressure was allowed to decay. The balloon catheter inserted and carefully removed, sequentially, and cement injection sequentially. Cement was injected with real-time fluoroscopy. A small amount of cement was seen extravasating. Injection was immediately stopped. The balloon was reinserted, inflated, and the cement was allowed to harden. And then repeat cementing. Then injecting 4.5 Engel of cement into the cavity under real-time fluoroscopy fluoroscopy. The wounds were then washed out. The working channels withdrawn. Dressings were applied. Hemostasis. Patient tolerated the procedure well. Discharge instructions-bandages changed, and dressing exchange of soiled. As soon as dressing stops bleeding, and incision has started to eschar over, may start showering. Continue osteoporosis treatment Continue vitamin D and calcium. Follow-up for further osteoporosis treatment when return to office. Prescription for pain medication Light activity only Discharged home stable. Sincerely-Arthur murguia-Hunter- Electronically signed by Alpa Anna Conversion Account Maintenance Representative Cerner at 12/13/2022 11:23 AM CDT documented in this encounter Plan of Treatment Not on file documented as of this encounter Visit Diagnoses Not on filedocumented in this encounter
--- OUTSIDE RECORDS SUMMARY | 2025-02-01 11:53 | XMS_ITS | Encounter Summary ---
Author Organization [employer] Address [address] [place] [address] Care Team Providers Care Landscape Specialist Name Role Phone Unavailable Primary Care Provider Unavailabl e Encounter Details Date Type Department Care Team (Late st Contact Info) Description 03/28/[address] [facility] [place] Medicine [facility] [place] [address] ProviderCj MD [address] [place] [address] Social History Tobacco Use Types [...] Conversion Note - Cj ProviderMD - 03/28/2020 4:17 PM CDT [facility] [place] IntraOp Summary Primary Physician: ARTHUR ESCOTO MD-ORT Finalized Date/Time: 03/28/20 16:33:14 Pt. Name: MILY SOTELO AUNDREA /Sex: 1950 Female Med Rec #: [id number] Physician: ARTHUR ESCOTO MD-ORT Financial #: [id number] Pt. Type: O Room/Bed: Admit/Disch: 03/28/20 12:41:00 - Institution: [facility] [place] IntraOp Case Attendance Entry 1 Entry 2 Entry 3 Case Attendee ARTHUR ESCOTO MD-ORMAR KLINE MOSS, CHRISTY, RN SCREEN VENT BINDER-ANS Role Performed Surgeon/Proceduralist, SCREEN VENT BINDER/Nurse Dry Wall Sprayer Roll Plugger, First First Time In 03/28/20 16:04:00 03/28/20 16:04:00 03/28/20 16:04:00 Time Out 03/28/20 16:28:00 03/28/20 16:33:00 03/28/20 16:33:00 Procedure Kyphoplasty Kyphoplasty Kyphoplasty Other Attendee Superficial Wound Closed By: Last Modified By: CONTRERAS SERRATO, CONTRERAS KIM, CONTRERAS KIM RN 03/28/20 16:33:08 03/28/20 16:33:08 03/28/20 16:33:08 Entry 4 Entry 5 Entry 6 Case Attendee SHIVAM MURO BRUNER, HAVEN OTHER, ATTENDEE #1 Vice Chancellor Role Performed Scrub, First Telegraphic Typewriter Operator Chief Vendor Time In 03/28/20 16:04:00 03/28/20 16:04:00 03/28/20 16:04:00 Time Out 03/28/20 16:33:00 03/28/20 16:33:00 03/28/20 16:28:00 Procedure Kyphoplasty Kyphoplasty Kyphoplasty Other Attendee CHER DOVER Superficial Wound Closed By: Last Modified By: CONTRERAS SERRATO RN MOSS, CHRISTY, RN MOSS, CHRISTY, RN 03/28/20 16:33:08 03/28/20 16:33:08 03/28/20 16:33:08 [facility] IntraOp Case Attendance Audit 03/28/20 16:33:08 Occupational Health Nurse Manager: CRMOSS Modifier: CRMOSS 1 <*> Procedure Kyphoplasty 2 <+> Time Out 2 <*> Procedure Kyphoplasty 3 <+> Time Out 3 <*> Procedure Kyphoplasty 4 <+> Time Out 4 <*> Procedure Kyphoplasty 5 <+> Time Out 5 <*> Procedure Kyphoplasty 6 <*> Procedure Kyphoplasty 03/28/20 16:28:54 Occupational Health Nurse Manager: CRMOSS Modifier: CRMOSS 1 <+> Time Out 1 <*> Procedure Kyphoplasty 6 <+> Time Out 6 <*> Procedure Kyphoplasty 03/28/20 16:28:30 Occupational Health Nurse Manager: CRMOSS Modifier: CRMOSS 1 <*> Procedure Kyphoplasty 2 <+> Time In 2 <*> Procedure Kyphoplasty 3 <+> Time In 3 <*> Procedure Kyphoplasty 4 <+> Time In 4 <*> Procedure Kyphoplasty 5 <+> Time In 5 <*> Procedure Kyphoplasty 6 <+> Time In 6 <*> Procedure Kyphoplasty 6 <+> Other Attendee [facility] IntraOp Case Times Entry 1 Patient In Room Time 03/28/20 16:04:00 Out Room Time 03/28/20 16:33:00 Anesthesia Start Time 03/28/20 16:04:00 Stop Time 03/28/20 16:33:00 Anesthesia Ready 03/28/20 16:04:00 Surgery / Procedure Times Start Time 03/28/20 16:17:00 Stop Time 03/28/20 16:28:00 Last Modified By: CONTRERAS SERRATO RN 03/28/20 16:33:05 [facility] IntraOp Case Times Audit 03/28/20 16:33:05 Occupational Health Nurse Manager: CRMOSS Modifier: CRMOSS <+> 1 Out Room Time <+> 1 Stop Time 03/28/20 16:28:35 Occupational Health Nurse Manager: CRMOSS Modifier: CRMOSS <+> 1 Stop Time 03/28/20 16:18:16 Occupational Health Nurse Manager: CRMOSS Modifier: CRMOSS <+> 1 Start Time [facility] IntraOp Communication Entry 1 Communication To Family/Significant other Comment START OF PROCEDURE Last Modified By: CONTRERAS SERRATO RN 03/28/20 16:13:32 [facility] IntraOp Counts Verification Entry 1 Procedure Kyphoplasty Count Info Count Type Sponge, Sharps Counts Verification Baseline/pre-procedure Sequence Count Results Correct, surgeon notified Counts Performed By Count Performed By SHIVAM MURO, (Scrub) Vice Chancellor Count Performed By CONTRERAS SERRATO RN (RN) Last Modified By: CONTRERAS SERRATO RN 03/28/20 16:15:54 [facility] IntraOp Counts Final Entry 1 Procedure Kyphoplasty Final Count Info Count Type Sponge, Sharps Counts Verification Skin Closure/end of Sequence procedure Count Results Correct, surgeon notified Counts Performed By Count Performed By SHIVAM MURO, (Scrub) Vice Chancellor Count Performed By CONTRERAS SERRATO RN (RN) Last Modified By: CONTRERAS SERRATO RN 03/28/20 16:26:32 [facility] IntraOp Cultures and Spec Summary Entry 1 Cultrures and Specimens Specimen Ordered: Yes Test(s) Routine/Path-Lab Requested/Final Disposition Last Modified By: CONTRERAS SERRATO RN 03/28/20 16:15:58 [facility] IntraOp Departure from OR Entry 1 Integumentary Assessment Integumentary WDL Assessment WDL Transfer/Handoff Transfer to Ambulatory unit, Phase II Handoff Method Bedside/Face to face Post-op Transport Stretcher/Gurney Via Patient Transport CONTRERAS SERRATO RN, Accompanied by MAR CROSS CRNA-ANS Last Modified By: CONTRERAS SERRATO RN 03/28/20 16:16:07 [facility] IntraOp Dressing and Packing Entry 1 Type Dressing Location LUMBAR SPINE Wound Dressing Item Occlusive dressing Applied By SHIAVM MURO, Vice Chancellor Other Comments AQUACEL DRESSING Last Modified By: CONTRERAS SERRATO RN 03/28/20 16:18:10 [facility] IntraOp Fire Risk Assessment Entry 1 Fire Info Surgical Site or 0- No Incision Above the Xyphoid Open O2 Source 1- Yes (Mask or Cannula) Available Ignition 0- No (ESU, Laser, Light Source) Fire Risk 1 Assessment Score Fire Score Fire Risk Yes Assessment Complete Fire Risk CONTRERAS SERRATO RN Assessment Verified By Fire Risk 03/28/20 16:04:00 Assessment Verified Date/Time Fire Risk Standard Fire Yes Safety Precautions Followed Last Modified By: CONTRERAS SERRATO RN 03/28/20 16:18:24 [facility] IntraOp Fire Risk Assessment Audit 03/28/20 16:18:24 Occupational Health Nurse Manager: SONU Modifier: CRMOSS <+> 1 Standard Fire Safety Precautions Followed [facility] IntraOp General Case Tier And Detonator 1 Case Information OR OR 01 SJE Case Level 1 Room Verified Yes Wound Class I - Clean Specialty SN Neurosurgery Anesthesia Type MAC ASA Class 3 Diagnosis Preop Diagnosis L1 FRACTURE Postop Same As Preop No Postop Diagnosis DICTATED BY MD Last Modified By: CONTRERAS SERRATO RN 03/28/20 16:18:53 [facility] IntraOp Implant Log Entry 1 Type Implant (Synthetic) Implant Log Implant Type Bone Cement Implant CEMENT BONE KYPHX Identification [id number] Description Implant Quantity 1 Implant Site L1 Implant [id number] Identification Lot Number Implant Medtronic:Spine:Sofamor Identification Shi Internet Sales Representative Name: Implant [id number] Identification Catalog Number Implant Has an Yes Expiration Date Implant Expiration 10/22/22 Date Tissue Implant Last Modified By: CONTRERAS SERRATO RN 03/28/20 16:19:42 [facility] IntraOp Intraoperative Assessment Entry 1 Valid History / Yes Physical in Chart Preoperative Yes Checklist Reviewed/Evaluated Allergies Reviewed Yes Patient is Latex No Sensitive Isolation Not applicable Precautions Noted Level of WDL Consciousness (WDL = Alert, Oriented to Person, Place, and Time) Skin Assessment Yes Verified Present Upon IVs Arrival to OR Last Modified By: CONTRERAS SERRATO RN 03/28/20 16:19:50 [facility] IntraOp Intraoperative Equipment Entry 1 Equipment Intraop Monitoring Electrocardiogram Three lead placement (ECG) Electrode Placement Blood Pressure Non-Invasive BP Device Source Blood Pressure Arm, left upper Location Pulse Oximeter Hand, right Probe Site Antiembolic Devices Scopes Photo/Video Documentation Last Modified By: CONTRERAS SERRATO RN 03/28/20 16:20:28 [facility] IntraOp Medication Admin Entry 1 Medication/Irrigant lidocaine 1% w/ epinephrine 1:100,000 20ml vial - [id number] Route of LOCAL Administration Dose Dose 20 Unit of Measure ml Administered By ARTHUR ESCOTO MD-ORT Procedure Irrigation Last Modified By: CONTRERAS SERRATO RN 03/28/20 16:20:37 [facility] IntraOp Patient Positioning Entry 1 Procedure Kyphoplasty Body Position Prone Left Arm Position Secured on padded arm board Right Arm Position Secured on padded arm board Left Leg Position Uncrossed, parallel Right Leg Position Uncrossed, parallel Feet Uncrossed Yes Pressure Points Yes Checked Positioning Devices Pillows, Safety Strap, Thighs, Micha Table, Arm Board Device Position PILLOWS PLACED TO PT'S COMFORT Positioned By CONTRERAS SERRATO RN, MAR CROSS, NIKOLAS-ANS Position Verified Positioning Yes Verified by Anesthesia Positioning Yes Verified by Surgeon Last Modified By: CONTRERAS SERRATO RN 03/28/20 16:20:57 [facility] IntraOp Sign In Entry 1 Patient, Site, Yes Procedure Identified Surgical Consent Yes Confirmed Relevant Surgical Yes Documents Available Surgical Site Yes Marked by person performing procedure Anesthesia Machine Yes Check Completed Medication Checks Yes Completed Allergies Yes Airway Difficult No Airway/Aspiration Risk Difficult Yes Airway/Aspiration Intervention Equipment Available Blood Loss Risk No Blood Loss No Intervention Equipment Prepared and Ready Blood Identifiers Not applicable Verified Per Policy Hypothermia Risk Yes Warming Measures Yes Taken Last Modified By: CONTRERAS SERRATO RN 03/28/20 16:21:08 [facility] Intra Op Sign Out Entry 1 RN Confirmation Surgical Yes Procedure(s) Identified Instrument, Sponge Yes and Sharps Counts Correct/Documented Equipment Problems N/A Documented Specimen Labeled Yes Correctly Urinary Catheter N/A Documented in IView Payne Patient Yes Recovery Concerns Reviewed with Anesthesia Provider, Surgeon and RN Payne Patient Yes Management Concerns Reviewed with Anesthesia Provider, Surgeon and RN Safety Checklist Yes Elements Complete? RN Sign Out CONTRERAS SERRATO RN Signature RN Sign Out 03/28/20 16:32:00 Signature Date/Time Plan of Care Outcome - Fire Risk OUTCOME STATEMENT: Goal met Patient is free from injury related to surgical fire Plan of Care Outcome - Pt Positioning OUTCOME STATEMENT: Goal met Absence of signs and symptoms of positioning injury. Plan of Care Outcome - Skin Prep OUTCOME STATEMENT: Goal met Intraoperative care is consistent with measures to prevent infection Plan of Care Outcome - Xray/Images OUTCOME STATEMENT: Goal met Absence of observable signs or symptoms of radiation injury Plan of Care Outcome - Counts OUTCOME STATEMENT: Goal met Absence of signs and symptoms of injury related to extraneous objects Last Modified By: CONTRERAS SERRATO RN 03/28/20 16:33:01 [facility] IntraOp Skin Prep Entry 1 Procedure Kyphoplasty Prescribed Yes Pre-Surgical Prep Completed Prep Area LUMBAR SPINE Intraop Prep Integumentary WDL Assessment WDL Prep Agents Chloraprep Prep by CONTRERAS SERRATO RN Hair Removal Last Modified By: CONTRERAS SERRATO RN 03/28/20 16:21:23 [facility] IntraOp Surgical Procedures Entry 1 Procedure Kyphoplasty Additional L-1 KYPHOPLASTY Procedure Description Primary Procedure Yes Primary Surgeon ARTHUR ESCOTO MD-ORT Start 03/28/20 16:17:00 Stop 03/28/20 16:28:00 Anesthesia Type MAC Specialty SN Neurosurgery Wound Class I - Clean Last Modified By: CONTRERAS SERRATO RN 03/28/20 16:28:40 [facility] IntraOp Surgical Procedures Audit 03/28/20 16:28:40 Occupational Health Nurse Manager: CRMOSS Modifier: CRMOSS 1 <*> Procedure Kyphoplasty 1 <+> Stop [facility] IntraOp Time Out Entry 1 Procedure to be Kyphoplasty Performed Time Out Time Out Pause Time 03/28/20 16:16:00 All activity Yes suspended (unless life threatening emergency) Team Verbally Correct patient Confirms Information identity, Correct side and site are marked, Consent form is present and accurate, Agreement on the procedure to be done, Correct patient position, Relevant images/results properly labeled/appropriately displayed, Confirm antibiotics have been administered, Confirm the skin prep has dried, Confirm prosthesis/implant/devic e is present, Performed in location of procedure after prepped/draped Antibiotic Yes Prophylaxis Administered Or In Progress Within the Last 60 Minutes Beta Jess Yes Administered Venous N/A Thromboembolism Prophylaxis Required Anticipated Critical Events Surgeon None expected Anesthesia Provider None expected Nursing Assures Sterility of instruments, Equipment concerns or issues, Implant Availability Essential Imaging Yes Labeled and Displayed Last Modified By: CONTRERAS SERRATO RN 03/28/20 16:22:14 [facility] IntraOp X-Ray and Images Entry 1 X-Ray/Imaging Type Fluoroscopy Fluoroscopy Type C-Arm Site OPSITE Race Steward Name NELLA LORETA Protective Devices Yes Used Last Modified By: CONTRERAS SERRATO RN 03/28/20 16:22:26 Case Comments <None> Finalized By: CONTRERAS SERRATO, RN Document Signatures Signed By: CONTRERAS SERRATO RN 03/28/20 16:33 Electronically signed by Shoshana [facility] Conversion Theater Set Production Designer Cerner at 12/13/2022 11:27 AM CDT documented in this encounter Plan of Treatment Not on file documented as of this encounter Visit Diagnoses Not on filedocumented in this encounter
--- OUTSIDE RECORDS SUMMARY | 2025-02-01 11:53 | XMS_ITS | Encounter Summary ---
Author Organization [employer] Address [address] [place] [id number] Care Team Providers Care Paradi Operator Name Role Phone Unavailable Primary Care Provider Unavailabl e Encounter Details Date Type Department Care Team (Late st Contact Info) Description 03/28/2020 Transcribed Document [facility] [place] [facility] [place] [address] ProviderCj MD [address] [place] [address] Social History Tobacco Use Types [...] Conversion Note - Historical ProviderMD - 03/28/2020 3:03 PM CDT Pre Procedure Adult Entered On: 03/28/2020 15:09 EDT Performed On: 03/28/2020 15:03 EDT by MILY GUEVARA RN Height and Weight, Clinical Dosing Height Source : Stated Height Entry Format : [place] Height, Feet : 5 ft(Converted to: 152 cm, 60 Inch) Height, Inches : 4 Inch(Converted to: 0 ft 4 Inch, 10.16 cm) Clinical Height : 162.56 cm Weight Source : Standing scale Weight Entry Format : [place] Clinical Dosing Weight : 80.45 kg Weight, Pounds : 177 lb Body Surface Area (BSA) : 1.86 m2 Body Mass Index : 30.4 kg/m2 (HI) [place] Body Weight : 54 kg MILY GUEVARA RN - 03/28/2020 15:03 EDT Health Histories Smoking Status : Former smoker, quit more than 30 days ago Smokeless Tobacco Status : Never MILY GUEVARA RN - 03/28/2020 15:03 EDT Social History (As Of: 03/28/2020 15:09:43 EDT) Tobacco: Smoker, current status unknown Smoking Status. Never Smokeless Tobacco Status. Years of Use: 20. Packs/Tins Daily: 0.5. Last Used: quit 3 yrs ago. (Last Updated: 03/28/2020 15:02:20 EDT by MILY GUEVARA, KASSY) Alcohol: Use in Last 12 Months: No. (Last Updated: 06/03/2014 18:36:25 EDT by NIYA ZAVALETA) Alcohol Use History Yes. Days/Week: 3. # Drinks/Day: 3. Total Drinks/Week: 9. Date/Time of Last Drink: -21. Alcohol Use Frequency Weekly. Desires Alcohol Cessation Medication Refuses FDA approved medications. (Last Updated: 03/28/2020 15:03:24 EDT by MILY GUEVARA, KASSY) Substance Abuse: Drug Use Hx: No. Use in Last 12 Months: No. (Last Updated: 03/28/2020 15:02:28 EDT by MILY GUEVARA, KASSY) Infectious Disease History Has the patient ever been tested for COVID-19? : Yes, Patient stated results Negative Where was the COVID-19 Testing completed? : [facility] Date of COVID-19 test known? : Yes Does patient have symptoms of COVID-19? : No COVID19 Screening : No Experiencing Infectious Disease Symptoms : No symptoms Physical contact outside [place] in the last 30 days : No Infectious Disease History : Influenza, Measles, Meningitis, MRSA, Rubella Tuberculosis Symptoms : None MILY GUEVARA RN - 03/28/2020 15:03 EDT COVID19 PreProcedure Screening Is this an Emergent or Add on Procedure? : Yes MILY GUEVARA RN - 03/28/2020 15:03 EDT Anesthesia/Transfusion History Family History of Anesthesia Reaction : No prior transfusion(s) Transfusion History : Prior anesthesia without reaction Family History of Anesthesia Reaction : None MILY GUEVARA RN - 03/28/2020 15:03 EDT Functional Assessment Living Situation : Home Patient Lives With : Spouse Persons Assisting Patient at Home : Spouse Current Daily Living Assistance : ADLs, Housekeeping, Meals, Transportation Sensory Deficits : None Mobility Assistance Prior to Admission : Partial assistance GRAY Hx Falls Immediate/Within 3 Months : Yes Current Home Treatments : None MILY GUEVARA RN - 03/28/2020 15:03 EDT [place] Suicide Severity Rating Scale (C-SSRS) CSSRS Past Month Wish to be : No CSSRS Past Month Suicidal Thoughts : No CSSRS Lifetime Suicide Behavior : No Suicide Severity Rating Score : 0 Suicide Severity Rating : No Additional Care Required at this time MILY GUEVARA RN - 03/28/2020 15:03 EDT Psychosocial History Do You Have a History of the Following? : Anxiety, Depression Currently in Unsafe Situation : No MILY GUEVARA RN - 03/28/2020 15:03 EDT Advance Directive Patient has Advance Directive *Q : No, patient refuses Advance Directive information MILY GUEVARA RN - 03/28/2020 15:03 EDT General Info Arrived From : Home Mode of Arrival on Unit : Wheelchair Support Person/Patient Volunteer Manager : Yes Want Family/Rep/Phys Notified of Admit : No Emergency Contact #1 : Marky Sotelo Emergency Contact #1 Emergency Contact #1 Relationship : Emergency Contact #2 : . Emergency Contact #2 Phone Number : . Emergency Contact #2 Relationship : . Information Obtained From : Patient Primary Language : [place] Island[place] Preferred Communication Mode : Verbal Communication Barrier : None Social Media Coordinator Needed : MILY Phan RN - 03/28/2020 15:03 EDT Vital Measurements Temperature Source : Oral Temperature Mode : Fahrenheit Temperature, Fahrenheit : 97.6 Deg F Clinical Temperature, C : 36.4 Deg C Pulse Method : Pulse Oximetry Peripheral Pulse Rate : 60 bpm Blood Pressure Source : Non-Invasive BP Device Blood Pressure Position : Sitting Systolic Blood Pressure : 157 mmHg (HI) Diastolic Blood Pressure : 75 mmHg Oxygen Saturation : 98 % Oxygen Therapy Mode : Room air MILY GUEVARA RN - 03/28/2020 15:03 EDT Sleep Apnea Risk Assmt BiPAP/CPAP Ordered for Home Use : No Hx of Obstructive Sleep Apnea Diagnosis : Yes Age over 50 Years Old : Yes Gender Male : MILY Phan RN - 03/28/2020 15:03 EDT [place] Scale [place] Sensory Perception : No impairment [place] Moisture : Occasionally moist [place] Activity : Walks occasionally [place] Mobility : Slightly limited [place] Nutrition : Adequate [place] Friction and Shear : Potential problem [place]on Score : 18 MILY GUEVARA RN - 03/28/2020 15:03 EDT Fall Risk Scales ABCs Fall Injury Risk Identification : Coagulation ABC Fall Injury Risk : Moderate to high injury risk Injury Moderate to High Risk Interventions : Supervise toileting as indicated, Toileting schedule, Transport methods appropriate to patient, Wrist band (fall risk) on per policy GRAY Hx Falls Immediate/Within 3 Months : Yes Gray Secondary Diagnosis : Yes GRAY Use of Ambulatory Aid : Crutches/Cane/Walker GRAY IV Therapy or IV Access : Yes Gray Gait/Transferring : Weak Gray Mental Status : Oriented to own ability Gray Fall Risk Score : 85 GRAY Fall Scale Risk Level : 46 or > High Risk [place] Fall Interventions : Adequate lighting, Bed in low position, Call device within reach, Non-slip footwear, Personal items within reach, Reinforced to call for assistance before getting out of bed, Room free of clutter/spills, Upper side-rails up, Wheels locked, Wires/Cords secured Fall Risk Scale Calc Temp : 0 MILY GUEVARA RN - 03/28/2020 15:03 EDT Education Topics, Day of Surgery DayofSurgery Education Grid Anesthesia/Sedation : Verbalizes understanding Fall Risks : Verbalizes understanding Family Instructions : Verbalizes understanding Infection Control : Verbalizes understanding IV's : Verbalizes understanding Medication Instructions : Verbalizes understanding Plan of Care : Verbalizes understanding Responsible Adult : Verbalizes understanding MILY GUEVARA RN - 03/28/2020 15:03 EDT Valuables and Belongings Valuables and Belongings : Clothing, Jewelry, Personal devices, Personal items Clothing : Common streetwear Clothing Disposition : Sent to locker Personal Device Disposition : Sent to locker Jewelry : Ring-plain band Jewelry Disposition : Sent to locker Personal Devices : Glasses Personal Items : Cell phone Personal Items Disposition : Sent to locker, Declines to send to security/safe MILY GUEVARA RN - 03/28/2020 15:03 EDT documented in this encounter Plan of Treatment Not on file documented as of this encounter Visit Diagnoses Not on filedocumented in this encounter
--- OUTSIDE RECORDS SUMMARY | 2025-02-01 11:53 | XMS_ITS | Encounter Summary ---
Author Organization [employer] Address [address] [place] [address] Care Team Providers Care In Home Baby Sitter Name Role Phone Unavailable Primary Care Provider Unavailabl e Encounter Details Date Type Department Care Team (Late st Contact Info) Description 03/28/2020 Transcribed Document [facility] [place] Family Medicine [address] [place] [address] ProviderCj MD [address] [place] [address] Social History Tobacco Use Types Packs/Day Years [...] Conversion Note - Historical ProviderMD - 03/28/2020 3:26 PM CDT Event Note Entered On: 03/28/2020 15:27 EDT Performed On: 03/28/2020 15:26 EDT by MILY GUEVARA RN Event Note Event Date/Time : 03/28/2020 15:30 EDT Event Location : [place] area Event Details : Nursing assessment additional narrative Description of Event : [place] notified of ua results, awaiting orders. MILY GUEVARA RN - 03/28/2020 15:26 EDT documented in this encounter Plan of Treatment Not on file documented as of this encounter Visit Diagnoses Not on filedocumented in this encounter
--- OUTSIDE RECORDS SUMMARY | 2025-02-01 11:53 | XMS_ITS | Encounter Summary ---
Author Organization [employer] Address [address] [place] [address] Care Team Providers Care Grid Maker Name Role Phone Unavailable Primary Care Provider Unavailabl e Encounter Details Date Type Department Care Team (Late st Contact Info) Description 03/28/2020 Transcribed Document [facility] [place] [facility] [address] ProviderCj MD [address] [place] [address] Social History Tobacco Use Types [...] Cj ProviderMD - 03/28/2020 4:17 PM CDT [facility] Main OR PostOp Summary Primary Physician: ARTHUR ESCOTO MD-ORT Finalized Date/Time: 03/28/20 17:28:36 Pt. Name: MILY SOTELO /Sex: 1950 Female Med Rec #: [id number] Physician: ARTHUR ESCOTO MD-ORT Financial #: [id number] Pt. Type: O Room/Bed: Admit/Disch: 03/28/20 12:41:00 - [place] [facility] [place] PostOp Case Times Entry 1 In PACU II 03/28/20 16:35:00 Ready for PACU II 03/28/20 17:20:00 Discharge Discharge from PACU 03/28/20 17:20:00 II Last Modified By: EVERETT MONGE, RN 03/28/20 17:28:31 Finalized By: EVERETT MONGE, RN Document Signatures Signed By: EVERETT MONGE RN 03/28/20 17:28 Electronically signed by Shoshana [facility] Conversion Regulatory Law Specialist Cerner at 12/13/2022 11:38 AM CDT documented in this encounter Plan of Treatment Not on file documented as of this encounter Visit Diagnoses Not on filedocumented in this encounter
[2025-02-01 12:27] LABS: Basophils # 0.1 K/mm3 (0-0.2); Basophils % 0.6 % (0.1-2.0); Eosinophils # 0.2 Kmm3 (0.0-0.4); Eosinophils % 2.5 % (0.1-12.0); Hemoglobin 12.1 g/dL (12.2-16.2); Immature Granulocytes # 0.03 10^3uL; Immature Granulocytes % 0.3 %; Lymphocytes # 2.2 K/mm3 (0.7-4.5); Lymphocytes % 25.4 % (10-50); Mean Corpuscular HGB Conc 33.6 g/dL (31.8-35.4); Mean Corpuscular Hemoglobin 30.9 pg (27.0-31.2); Mean Corpuscular Volume 91.8 fl (81-99); Mean Platelet Volume 9.6 fl (7.4-10.4); Monocytes # 0.7 K/mm3 (0.1-1.0); Monocytes % 7.4 % (1.7-9.3); Neutrophils # 5.6 K/mm3 (1.8-7.8); Neutrophils % 63.8 % (37.0-80.0); Nucleated Red Blood Cells # 0 10^3/uL; Nucleated Red Blood Cells % 0 %; Platelet Count 323 K/mm3 (142-424); Red Blood Count 3.92 M/mm3 (4.20-5.40); Red Cell Distribution Width 12.5 % (11.5-17.5); Red Cell Distribution Width-SD 41.9 fL; White Blood Count 8.8 K/mm3 (4.8-10.8)
[2025-02-01 12:41] LABS: Alanine Aminotransferase 14 U/L (12-78); Albumin Level 3.8 g/dl (3.5-5.0); Alkaline Phosphatase 114 U/L (38-126); Anion Gap 6.6 mEq/L (5-15); Aspartate Amino Transferase 23 U/L (14-36); Bilirubin,Direct 0.1 mg/dl (0.0-0.4); Bilirubin,Indirect 0.5 mg/dL (0.0-0.9); Bilirubin,Total 0.6 mg/dl (0.2-1.3); Bilirubin,Unconjugated 0.5 mg/dL (0.0-1.1); Blood Urea Nitrogen 11 mg/dl (7-17); Calcium 8.9 mg/dl (8.4-10.2); Carbon Dioxide 27 mmol/L (22.0-30.0); Chloride 109 mmol/L (98-107); Chol/HDL Ratio 2.6 (1-3.5); Cholesterol 132 mg/dl (140-200); Estimated Glomerular Filt Rate 82 ml/min (>60); GFR (African American) 99 ML/MIN (>60); Glucose 113 mg/dl (74-100); HDL Cholesterol 51 mg/dl (40-60); Potassium 3.6 mmoL/L (3.5-5.1); Sodium 139 mmol/L (136-145); Total Protein,Serum 6.4 g/dl (6.3-8.2); Triglycerides 114 mg/dl (30-150); VLDL Cholesterol 23 mg/dL (0-40)
[2025-02-01 12:51] LABS: Direct LDL Cholesterol 53.29 mg/dL (100-129)
== END 2025-02-01 23:59 | disposition home or self-care (01) ==
LOC: LAB 11:51
PROVIDERS: PCP Nurse Practitioner Family; Visit Provider Nurse Practitioner
DX: I25.10 Atherosclerotic heart disease of native coronary artery without angina pectoris (principal); I10 Essential (primary) hypertension
CPT/HCPCS: 36415; 80048; 80061; 80076; 85025

== ENCOUNTER 2025-03-03 11:44 | Outpatient (CLI) | payer MEDICARE, OTHER, SELFPAY ==
--- NOTE | 2025-03-03 | CA_ITS ---
APPROVED REPORT Exam: Pharmacologic Technologist: Radha White Ht: 5 ft 4 in Wt: 153 lbs BSA: 1.75 m2 Medical History Medications: atorvastatin, azelastine, clopidogrel, furosemide, levothyroxine, oxybutynin, pantoprazole, sertraline. Stress Test Details Test: Lexiscan Reason for pharmacologic stress test: physical limitation. HR Resting HR: 57 bpm Max Heart Rate (APMHR): 146 bpm Max HR Achieved: 78 bpm Target HR (85% APMHR): 124 bpm % of APMHR: 53 Recovery HR: 69 bpm BP Resting BP: 144.0/68.0 mmHg Max BP: 144.0/69.0 mmHg Recovery BP: 144.0/69.0 mmHg ECG Resting ECG: SR. No isch or ectopy. Stress ECG Conclusion Symptoms: Mild SOA. MORE. Arrhythmias/Ectopy: Heavy artifact- unclear reason. ST-T Changes: Lexiscan. Electronically signed by : Deanna Lundy MD 03/04/2025 18:00:15
--- OUTSIDE RECORDS SUMMARY | 2025-03-03 11:46 | XMS_ITS | Clinical Summary ---
Author Organization [facility] Address [address] [place] [address] Phone Care Team Providers Care Asset Protection Specialist Name Role Phone Unavailable Unavailable Conditions or Problems No information available. Medications No information available. Medications Administered No information available. Allergies, Adverse Reactions, Alerts No information available. Results No information available. Plan of Care No information available. Procedures No information available. Vital Signs No information available. Immunizations No information available. Advance Directives No information available.
--- OUTSIDE RECORDS SUMMARY | 2025-03-03 11:46 | XMS_ITS | Continuity of Care Document ---
Author Organization [facility] Address [address] [place] [address] Care Team Providers Care Paving Stone Installer Name Role Phone CHEMA MAS Primary Care Provider SEBASTIAN RASMUSSEN Magnet Valve Assembler SEBASTIAN RASMUSSEN Referring Provider DAGOBERTO MEDINA Hand Surgeon SILVIO RIZZO Primary Care Provider [phone] Assessment Encounter Date Assessment Date Assessment LastModified by Organization Details LastModified Time 02/02/2025 02/02/2025 74-year-old with osteoporosis and PMR. Follow-up. [email or web address] Not available 02/02/2025 13:22:37 Plan of Treatment Reminders Order Date Submit Date Provider Last Modified By Organization Details Last Modified Time Details Appointments RHEUM RECHECK 2025 01:15P M SEBASTIAN RASMUSSEN MD Not available Not available Not available RECLAST 2025 11:00A M RHEUM_INF USION Not available Not available Not available Lab calcium, serum or plasma 2024 025 [facility], [address] [place] [address], [phone], 02/02/2025 14:29:07 ESR (erythroc yte sedimenta tion rate), blood 2024 025 [facility], [address] [place] [address], [phone], 02/02/2025 14:33:14 creatinin e, serum or plasma 2024 025 [facility], [address] [place], [address], 02/02/2025 14:29:06 GFR, estimated (eGFR), serum 2024 025 [facility], [address] [place], [address], 02/02/2025 14:29:10 Referral None recorded. Procedures None recorded. Surgeries None recorded. Imaging None recorded. Medication Orders None recorded. Patient TargetsNo targets recorded. Patient InstructionsNo instructions recorded. Reason for Referral None Reported. Problems No Known Problems Procedures Surgical History Date Name Laterality Status Provider Name and Address Organization Details Recorded Time 02/11/20 25 Reclast Infusion completed [facility] 02/10/2025 12:42:42 02/03/20 24 DXA Osteoporosis completed CHIQUITA MARTINEZ MD [address] [place] [address], [phone], [facility] 02/03/2024 16:28:15 02/03/20 24 Reclast Infusion completed [facility] 02/08/2025 07:06:56 09/05/19 24 OT Therapeutic Exercise completed XIANG SHAH OTR/L, CHT [address] [place] [address], [phone], [facility] 09/05/2023 10:49:42 09/05/19 24 OT Manual Therapy completed XIANG SHAH OTR/L, CHT [address] [place] [address], [phone], [facility] 09/05/2023 10:49:42 09/05/19 24 PT Hot/Cold Pack completed XIANG SHAH OTR/L, CHT [address] [place] [address], [phone], [facility] 09/05/2023 10:49:42 09/05/19 24 Injection Trigger Finger Ortho completed DAGOBERTO MEDINA MD [address] [place] [address], [phone], [facility] 09/05/2023 10:30:01 08/29/19 24 OT Therapeutic Exercise completed XIANG SHAH, OTR/L, CHT [address] [place], [address], [facility] 08/29/2023 11:22:07 08/29/19 24 OT Manual Therapy completed XIANG SHAH, OTR/L, CHT [address] [place], [address], [facility] 08/29/2023 11:22:07 08/29/19 24 PT Hot/Cold Pack completed XIANG SHAH, OTR/L, CHT [address] [place], [address], [facility] 08/29/2023 11:22:07 08/22/20 23 OT Therapeutic Exercise completed XIANG SHAH, OTR/L, CHT [address] [place], [address], [facility] 08/22/2023 10:59:19 08/22/20 23 OT Manual Therapy completed XIANG SHAH, OTR/L, CHT [address] [place], [address], [facility] 08/22/2023 11:00:19 08/22/20 23 PT Hot/Cold Pack completed XIANG SHAH, OTR/L, CHT [address] [place], [address], [facility] 08/22/2023 10:59:41 08/15/20 23 OT Therapeutic Exercise completed XIANG SHAH, OTR/L, CHT [address] [place], [address], [facility] 08/15/2023 10:59:16 08/15/20 23 OT Manual Therapy completed XIANG SHAH, OTR/L, CHT [address] [place], [address], [facility] 08/15/2023 11:21:24 08/15/20 23 PT Hot/Cold Pack completed SAMANTHAANITRA Bridger ALYSSA, OTR/L, CHT [address] [place], [address], [facility] 08/15/2023 11:21:27 08/15/20 23 PT Ultrasound completed XIANG Sparks ALYSSA, OTR/L, CHT [address] [place], [address], [facility] 08/15/2023 11:22:28 08/05/20 23 OT Evaluation - Moderate complexity completed XIANG SHAH, OTR/L, CHT [address] [place], [address], [facility] 08/14/2023 17:53:44 08/05/20 OT Therapeutic Exercise completed XIANG SHAH, OTR/L, CHT [address] [place], [address], [facility] 08/14/2023 17:53:39 07/30/20 Op Note completed DAGOBERTO MEDINA MD [address] [place] [address], [phone], [facility] 07/30/2023 12:19:15 07/30/20 23 Carpal tunnel surgery completed Shira Carrera [facility] 08/15/2023 10:15:30 05/28/20 23 Op Note completed DAGOBERTO MEDINA MD [address] [place] [address], [phone], [facility] 05/28/2023 12:46:46 05/28/20 23 Carpal tunnel surgery completed Shira Carrera [facility] 06/13/2023 10:18:18 03/18/20 23 Electromyography (EMG) with Nerve Conduction Study (NCV) completed Chichi Nunes (Nicky) [facility] 03/18/2023 14:23:48 02/07/20 23 Lumbar MBB unilateral 2 level - Chas completed DAGOBERTO DOHERTY MD [address] [place], [address], [facility] 02/06/2023 10:18:49 01/30/20 23 Reclast Infusion completed Radhames Dozier [facility] 01/29/2023 12:29:33 01/25/20 23 Lumbar MBB unilateral 2 level - Chas completed DAGOBERTO DOHERTY MD [address] [place] [address], [phone], [facility] 01/24/2023 14:24:34 04/27/20 20 Post Void Residual; Catheter completed Elizabeth Stephenmitra [facility] 04/27/2020 16:21:38 hysterectomy completed Joya Higginsholz [facility] 12/12/2022 11:17:25 Ankle arthroscopy/surgery completed Joyaayde Lopez [facility] 12/12/2022 11:17:34 Cardiac Surgery completed Shira Carrera [facility] 05/16/2023 11:18:53 Imaging Results None recorded. Procedure Notes None recorded. Medical Equipment None Reported. Allergies No known drug allergies Medications Name Sig Start Date Stop Date Status Note LastModified by Organization Details LastModified Time atorvasta tin 40 mg tablet Take 1 tablet every day by oral route. active 20mg as of 02/02/25 Not Available Not Available Not Available oxybutyni n chloride ER 15 mg [...] HRS PRN FOR SEVERE POST SURGICAL PAIN 02/02 completed Not Available Not Available Not Available spironola ctone 25 mg tablet Take 1 tablet every day by oral route. 05/16 completed Not Available Not Available Not Available levothyro xine 100 mcg tablet 75mcg Daily active Frequenc y: daily;Me dication Descript [...] 1 CAPSULE PO QHS FOR 1 WEEK 02/02 completed Not Available Not Available Not Available sertralin e 25 mg tablet Take 1 [...] completed Not Available Not Available Not Available Hudson 5 mg-325 mg tablet TAKE 1 TAB PO Q 4-6 HRS PRN FOR SEVERE POST SURGICAL PAIN 02/02 completed Not Available Not Available Not Available losartan 100 mg tablet Take 1 tablet [...] completed Not Available Not Available Not Available furosemid e 10mg active Not Available Not Available Not Available Miralax active Not Available Not Avail able Not Available Reclast 5 mg/100 mL intraveno us piggyback Inject 5 mg by intraven ous route. 2024 active Zoledron ic Acid (Reclast ) - 5 mg - yearly - next infusion 02/15/26 @ 1100 - ICD 10 - M81.0 Not Available Not Available Not Available Myrbetriq 50 mg tablet,ex tended release Take 1 tablet every day by oral route. 02/02 completed Not Available Not Available Not Available Multi Vitamin active Not Available Not Available Not Available turmeric 01/07 completed Not Available Not Available Not Available Vitals Date Recorded Body height Respiratory rate Body mass index (BMI) Body weight Oxygen saturation Oxygen saturation in Arterial blood by Pulse oximetry Heart rate Systolic And Diastolic Provider Name and Address Organization Details Last Updated DateTime 5 162.56 cm 16 /min 26.1 kg/m2 36287.0 4 g 98 % 98 % 72 /min 122/74 mm[Hg] Eric Crowell [facility] 13:05:32 Social History Question Answer Notes LastModified by Organizat ion Details LastModified Time Tobacco Smoking Status [facility] 16:14:21 How Much Tobacco Do You Chew? None Information not available 04/27/2020 Marital Status Informatio n not available 04/27/2020 What Was The Date Of Your Most Recent Tobacco Screening? 02/10/2025 [email or web address] Information not available 02/10/2025 Has Tobacco Cessation Counseling Been Provided? No [email or web address] Information not available 05/16/2023 Sex: Female Functional Status Question Answer Note LastModified by Organizat ion Details LastModified Time Do you use any illicit or recreational drugs? No [email or web address] Information not available 05/16/2023 Do you or have you ever used any other forms of tobacco or nicotine? No [email or web address] Information not available 05/16/2023 What is your level of alcohol consumption? None Information not available 04/27/2020 What is your occupation? retired Information not available 04/27/2020 Mental Status None recorded. Family History Relationship Description Onset Age of this Age Resolved Age Notes LastModified by Organization Details LastModified Time Father Malignant neoplasm of prostate Not available 2019 16:14:10 Unspecified Relation Kidney stone Not available 10/2019 16:14:15 Unspecified Relation Hypertensive disorder [email or web address] Not available 12/12 11:16:53 Unspecified Relation Myocardial infarction [email or web address] Not available 11/24 11:16:59 Unspecified Relation Aneurysm [email or web address] Not available 12/12 11:17:07 Medical History Condition Response Allergies/Hayfever N Anxiety/Depression Y Gout N Other N Thyroid Disease Y Heart Conditions Y Kidney Stones Y Hernia N Migraines N COPD N Glaucoma N Depression Y Pneumonia N Skin Problems N Immune System Disorder N Anesthesia Complications N Heart Attack (CA) Y Mental Illness N Neurological Problems N [...] 50 mcg/0.25mL dose 1 completed Shira Carrera [facility] 05/16/2023 11:12:10 COVID-19, mRNA, LNP-S, PF, 100 mcg/0.5mL dose or 50 mcg/0.25mL dose 1 completed Shira Carrera [facility] 05/16/2023 11:12:10 COVID-19, mRNA, LNP-S, PF, 100 mcg/0.5mL dose or 50 mcg/0.25mL dose 2 completed Shira Carrera [facility] 05/16/2023 11:12:10 COVID-19, mRNA, LNP-S, PF, 100 mcg/0.5mL dose or 50 mcg/0.25mL dose 1 completed Shira Carrera [facility] 05/16/2023 11:12:10 COVID-19, mRNA, LNP-S, bivalent, PF, 50 mcg/0.5 mL or 25mcg/0.25 mL dose 2 completed Shira Carrera [facility] 05/16/2023 11:12:10 pneumococcal polysaccharide PPV23 2 completed Shira Carrera [facility] 05/16/2023 11:12:10 Influenza, high-dose, trivalent, PF 9 completed Shira Carrera [facility] 05/16/2023 11:12:10 Hep A, adult 8 completed Shira Carrera [facility] 05/16/2023 11:12:10 Past Encounters Encounter ID Performer Location Encounter Start Date Encounter Closed Date Diagnosis/Indication Diagnosis SNOMED-CT Code Diagnosis ICD10 Code Diagnosis Note [id number] SEBASTIAN RASMUSSEN MD [facility] [address] [place] [address] 02/02/2025 12:51:34 02/03/2025 04:49:57 Senile osteoporosis 25779868 M81.0 History of senile osteoporos is. H/O L1 compressio n fracture. 02/03/24 DEXA Spine -2.5Left femoral neck -1.5Total left -1.4 Encouraged weightbear ing exercises. Schedule for Reclast infusion. Continue with the DEXA study every 2 years. fu with repeat Reclast #3 February 08 2025. Generalize d osteoarthritis 131634411 M15.9 Generalize d osteoarthr itis with mechanical pains, though overall stable.Chr onic neck/back pains, are followed by pain management clinic Dr. Doherty and is doing well. I suggested her to follow his recommenda tion. Bilateral carpal tunnel syndrome 6968761052 0042564 G56.03 Nerve conduction study from February 2023 reviewed.R ight carpal tunnel moderateLe ft carpal tunnel mild. She is s/p bilateral carpal tunnel release, stable.Goo d gripOveral l stable. Polymyalgi a rheumatica 67271078 M35.3 74-year-ol d female with some features of PMR. Responded very well to a steroids.D oing well. She will continue with the low maintenanc e prednisone 2 mg daily. Avoid NSAIDs. Follow clinically . Stigmata for GCA reviewed, currently negative. Labs 12/31/23 reviewedCB C normalpota ssium slightly low at 3.3, fu with repeat labskidney function normalGFR 99 mL per minA1C 5.5%normal calciumnor mal liver enzymes Repeat ESR today Long-term current use of drug therapy 079188114 Z79.899 On account of intravenou s Reclast, obtain serum calcium levels along with renal function. Health Concerns Section Related Observation LastModified by Organization Detai ls LastModified Time None Recorded Concern Status LastModified by Organization Details LastModified Time None Recorded Payers Encounter Date Sequence Insurance Name Policy Number Policy Hernandez Covered Member ID Hernandez Member ID Guarantor Name 02/02/2025 1 [place]ARE[place] Mily Sotelo [id number] Mily Sotelo 02/02/2025 2 [facility] (MEDICARE SUPPLEMENT) Mily Sotelo [id number] Mily Sotelo Notes Date Note Type Note Provider Name and Address Organization Details Recorded Time 02/02/2025 text/html A very pleasant 74-year-old female seen today for a follow up of chronic joint pains. PMR and osteoporosis. Mily was last seen here in our rheumatology department 01/08/24. On reclast infusion therapy, most recent infusion was January 30, 2024. So far has done 2 infusions. She also has a history of osteoporosis with L1 compression fracture.No new fractures reported. Does not have any headaches. No jaw pain. No fevers or chills. SEBASTIAN RASMUSSEN MD [address] [place] [address], [phone], [facility] 02/02/2025 13:22:57 OBGyn Episode No OBEpisode recorded.
--- OUTSIDE RECORDS SUMMARY | 2025-03-03 11:46 | XMS_ITS | Referral Summary ---
Author Organization [employer] ([place], [place], [place], [place]) Address [address] [place] [address] Care Team Providers Care Vehicle Service Attendant Name Role Phone Unavailable Primary Care Provider [...]
--- OUTSIDE RECORDS SUMMARY | 2025-03-03 11:46 | XMS_ITS | Encounter Summary ---
Author Organization [employer] ([place], [place], [place], [place]) Address [address] [place] [address] Care Team Providers Care Sanding Line Operator Name Role Phone Unavailable Primary Care Provider Unavailabl e Encounter Details Date Type Department Care Team (Late st Contact Info) Description 03/28/2020 Transcribed Document [facility] [facility] [place] [address] ProviderCj MD [address] [place] [address] Social History Tobacco Use Types [...] Date/Time: 03/28/20 16:35:06 Pt. Name: MILY LINDER D.O.B./Sex: 1950 Female Med Rec #: [id number] Physician: ARTHUR ESCOTO MD-ORT Financial #: [id number] Pt. Type: O Room/Bed: Admit/Disch: 03/28/20 12:41:00 - Institution: [facility] PreOp Case Times Entry 1 In Preop 03/28/20 12:50:00 Ready for Holding n/a Room Patient Ready for 03/28/20 15:10:00 Surgery Patient Out of Preop 03/28/20 16:00:00 Patient Out of n/a Holding Room Last Modified By: JEFFERSON LOZADA RN 03/28/20 16:35:02 Angela PreOp Case Times Audit 03/28/20 16:35:02 Gas Processing Plant Operator: ANGELLA Modifier: [id number] <+> 1 Patient Out of Preop Finalized By: JEFFERSON LOZADA RN Document Signatures Signed By: JEFFERSON LOZADA RN 03/28/20 16:35 Electronically signed by Shoshana [facility] Conversion [employer] at 12/13/2022 11:29 AM CDT documented in this encounter Plan of Treatment Not on file documented as of this encounter Visit Diagnoses Not on filedocumented in this encounter
--- OUTSIDE RECORDS SUMMARY | 2025-03-03 11:46 | XMS_ITS | Encounter Summary ---
Author Organization [employer] ([place], [place], [place], [place]) Address [address] [place] [address] Care Team Providers Care Systems Test Engineer Name Role Phone Unavailable Primary Care Provider Unavailabl e Encounter Details Date Type Department Care Team (Late st Contact Info) Description 03/28/2020 Transcribed Document [facility] Family Medicine [facility] [place] [address] ProviderCj MD [address] [place], [place] [id number] Social History Tobacco Use Types Packs/Day Years [...]
--- OUTSIDE RECORDS SUMMARY | 2025-03-03 11:46 | XMS_ITS | Encounter Summary ---
Author Organization [employer] ([place], [place], [place], [place]) Address [address] [place] [address] Care Team Providers Care Qm Consultant Name Role Phone Unavailable Primary Care Provider Unavailabl e Encounter Details Date Type Department Care Team (Late st Contact Info) Description 03/28/2020 Transcribed Document [facility] [place] [facility] [place] [address] ProviderCj MD [address] [place] [address] Social History Tobacco Use Types [...] Date/Time: 03/28/20 17:28:36 Pt. Name: MILY SOTELO D.O.B./Sex: 1950 Female Med Rec #: [id number] Physician: ARTHUR ESCOTO MD-ORT Financial #: [id number] Pt. Type: O Room/Bed: Admit/Disch: 03/28/20 12:41:00 - Institution: [facility] Main [place] PostOp Case Times Entry 1 In PACU II 03/28/20 16:35:00 Ready for PACU II 03/28/20 17:20:00 Discharge Discharge from PACU 03/28/20 17:20:00 II Last Modified By: EVERETT MONGE, KASSY 03/28/20 17:28:31 Finalized By: EVERETT MONGE, RN Document Signatures Signed By: EVERETT MONGE, KASSY 03/28/20 17:28 Electronically signed by Shoshana [facility] Conversion Head Of Product Cerner at 12/13/2022 11:38 AM CDT documented in this encounter Plan of Treatment Not on file documented as of this encounter Visit Diagnoses Not on filedocumented in this encounter
--- OUTSIDE RECORDS SUMMARY | 2025-03-03 11:46 | XMS_ITS | Encounter Summary ---
Author Organization [employer] ([place], [place], [place], [place]) Address [address] [place] [address] Care Team Providers Care Highway Maintenance Supervisor Name Role Phone Unavailable Primary Care Provider Unavailabl e Encounter Details Date Type Department Care Team (Late st Contact Info) Description 03/28/2020 Transcribed Document [facility] [place] Medicine [facility] [place] [address] ProviderCj MD [address] [place] [address] Social History Tobacco Use Types [...] Conversion Note - Cj ProviderMD - 03/28/2020 4:58 PM CDT [address] [address] NIYAH MILYDAVID NEGRO :1950 Visit Time:03/28/2020 What to do next [...] not have follow-up, contact office make appointment. [phone] Activity: May sit stand walk, drive vehicle when stable, no pain, and functioning properly., Discharge Activity: No heavy lifting over 10 lbs Diet: Discharge Diet: Resume usual diet as tolerated Follow-Up Appointments Follow Up with ARTHUR ESCOTO MD-ORT When Within 1 week Comments Call in the AM Where: [address] [facility] [address] [place] [id number]- Medications Take your medications faithfully. Do NOT [...] including vitamins, herbs, eye drops, creams, and npep-qme-uhqsdki medicines. ??? Any problems you or family [...] tells you to take them. ??? Taking jxkd-iaw-qgjjerg medicines, vitamins, herbs, and supplements. Do not [...] 11/17/2008 Document Revised: 12/29/2018 Document Reviewed: 03/27/[address] Patient Education ?? [address] [employer] [address] [employer] Balloon Kyphoplasty, Care After This sheet [...] these instructions at home: Medicines ??? Take faif-sgw-ajqfcjn and prescription medicines only as told by your health care provider. ??? Ask your health care provider if the medicine prescribed to you: ? Requires you to avoid driving or using heavy machinery. ? Can cause constipation. You may need to take steps to prevent or treat constipation, such as: ? Drink enough fluid to keep your urine pale yellow. ? Take hcln-nou-frpxfki or prescription medicines. ? Eat foods that [...] and water are not available, use hand director global market research. ? Change your dressing as told by [...] care of your puncture site. ??? Take tpwi-bdz-vgfopxc and prescription medicines only as told by [...] 05/01/2016 Document Revised: 07/19/2019 Document Reviewed: 07/19/[address] Patient Education ?? [address] [employer] [address] [employer] acetaminophen and hydrocodone (a SEET a MIN oh fen and darrion droe KOE done) Hycet, Lorcet, [place], Verdrocet, Vicodin, Xodol, Zamicet What is the [...] may report side effects to FDA at 5-565-INX-7363. What other drugs will affect acetaminophen and [...] affect acetaminophen and hydrocodone, including prescription and jesc-qpc-wtwmviz medicines, vitamins, and herbal products. Not all [...] to ensure that the information provided by [employer]. ('[employer]') is accurate, up-to-date, and complete, but no guarantee is made to that effect. Drug information contained herein may be time sensitive. [employer] information has been compiled for use by healthcare practitioners and consumers in the [place] and therefore [employer] does not warrant that uses outside of the [place] are appropriate, unless specifically indicated otherwise. [employer] drug information does not endorse drugs, diagnose patients or recommend therapy. [employer] drug information is an informational resource designed [...] effective or appropriate for any given patient. [employer] does not assume any responsibility for any aspect of healthcare administered with the aid of information [employer] provides. The information contained herein is not intended to cover all possible uses, directions, precautions, warnings, drug interactions, allergic reactions, or adverse effects. If you have questions about the drugs you are taking, check with your doctor, nurse or pharmacist. Copyright 4767-2594 [employer]. Version: 16.. Revision Date: 09/15/2019. sulfamethoxazole and [...] potassium in your blood; ?? porphyria, or wjbzwxx-1-dbpscvfsr dehydrogenase (G6PD) deficiency; or ?? if you [...] may report side effects to FDA at 7-095-ZAE-9096. What other drugs will affect sulfamethoxazole and [...] sulfamethoxazole and trimethoprim. This includes prescription and ehhh-atn-ntmlfki medicines, vitamins, and herbal products. Not all [...] to ensure that the information provided by [employer]') is accurate, up-to-date, and complete, but no guarantee is made to that effect. Drug information contained herein may be time sensitive. [employer] information has been compiled for use by healthcare practitioners and consumers in the [place] and therefore [employer] does not warrant that uses outside of the [place] are appropriate, unless specifically indicated otherwise. [employer] drug information does not endorse drugs, diagnose patients or recommend therapy. [employer] drug information is an informational resource designed [...] effective or appropriate for any given patient. [employer] does not assume any responsibility for any aspect of healthcare administered with the aid of information [employer] provides. The information contained herein is not intended to cover all possible uses, directions, precautions, warnings, drug interactions, allergic reactions, or adverse effects. If you have questions about the drugs you are taking, check with your doctor, nurse or pharmacist. Copyright 0672-6988 [employer]. Version: 9.01. Revision Date: 10/30/2018. Emergency Awareness [...] Assistance with quitting is available by contacting 8-644-DHDB-NOW. This is a free resource providing counseling, [...] ) Urine Bilirubin Dipstick: Negative Urine Specific [place]: 1.016 -- Normal range between ( 1.005 and 1.030 ) Urine Type.: U CleanCatch Patient Name:MILY SOTELO SRUTHI I have received this information and was given the opportunity to ask questions. Patient/Front End Engineer Name: Patient/Front End Engineer Signature: Relationship to Patient: Clinician/Hospital Front End Engineer Signature: Date: documented in this encounter Plan of Treatment Not on file documented as of this encounter Visit Diagnoses Not on filedocumented in this encounter
--- OUTSIDE RECORDS SUMMARY | 2025-03-03 11:46 | XMS_ITS | Encounter Summary ---
Author Organization [employer] ([place], [place], [place], [place]) Address [address] [place] [address] Care Team Providers Care Saw Maker Name Role Phone Unavailable Primary Care Provider Unavailabl e Encounter Details Date Type Department Care Team (Late st Contact Info) Description 03/28/2020 Transcribed Document [facility] [place] [facility] [place] [address] ProviderCj MD [address] [place] [address] Social History Tobacco Use Types Packs/Day Years Used Date Smoking Tobacco: Never Assessed Comments Unknown Sex and Gender Information Value Date Recorded Sex Assigned at Unknown 02/19/2022 1:33 PM CDT Legal Sex Female 1:33 PM CDT Gender Identity Other 02/19/2022 1:33 PM CDT Sexual Orientation Not on file documented as of this encounter Miscellaneous Notes * Cerner Conversion Note - Cj Middleton MD - 03/28/2020 4:06 PM CDT Patient: MILY [...] Image guidance. Vertebral lumbar level I. CPT 74119 FINDINGS Fracture, soft bone consistent with fracture SURGEON: Arthur Escoto M.D. BALLASTER: OR staff ANESTHESIA: LMAC. BLOOD LOSS: Less [...] with one 1 hour of incision Antibiotics tdcbnv-Rqvrx-kctxjvhzgxthv Antibiotics continued within 24 hours of surgery Mechanical DVT prophylaxis. Catheter not used COMORBIDITIES Thyroid disorder Stable coronary disease Depression Hypertension Hypothyroid Renal stones Sarah previous NM Chronic UTI, FLUOROSCOPY TIME: 1.1 minutes COMPLICATIONS [...] Light activity only Discharged home stable. Sincerely-Arthur Babin status-M.D.- documented in this encounter Plan of Treatment Not on file documented as of this encounter Visit Diagnoses Not on filedocumented in this encounter
--- OUTSIDE RECORDS SUMMARY | 2025-03-03 11:46 | XMS_ITS | Encounter Summary ---
Author Organization [employer] ([place], [place], [place], [place]) Address [address] [place] [address] Care Team Providers Care Fur Polisher Name Role Phone Unavailable Primary Care Provider Unavailabl e Encounter Details Date Type Department Care Team (Late st Contact Info) Description 03/28/2020 Transcribed Document [facility] [place] Family Medicine [facility] [place] [address] ProviderCj MD [address] [place] [address] Social History Tobacco Use Types [...] Cj ProviderMD - 03/28/2020 4:17 PM CDT [facility] Main OR IntraOp Summary Primary Physician: ARTHUR ESCOTO MD-ORT Finalized Date/Time: 03/28/20 16:33:14 Pt. Name: NIYAHMILY GRACIA /Sex: 1950 Female Med Rec #: [id number] Physician: ARTHUR ESCOTO MD-ORT Financial #: [id number] Pt. Type: O Room/Bed: Admit/Disch: 03/28/20 12:41:00 - Institution: [facility] IntraOp Case Attendance Entry 1 Entry 2 Entry 3 Case Attendee ARTHUR ESCOTO MD-ORT MAR CROSS MOSS, CHRISTY, RN WATER RECLAMATION SYSTEMS OPERATOR-ANS Role Performed Surgeon/Proceduralist, WATER RECLAMATION SYSTEMS OPERATOR/Nurse Speeder Worker Peanut Butter Maker, First First Time In 03/28/20 16:04:00 03/28/20 16:04:00 03/28/20 16:04:00 Time Out 03/28/20 16:28:00 03/28/20 16:33:00 03/28/20 16:33:00 Procedure Kyphoplasty Kyphoplasty Kyphoplasty Other Attendee Superficial Wound Closed By: Last Modified By: CONTRERAS SERRATO, CONTRERAS KIM, CONTRERAS KIM RN 03/28/20 16:33:08 03/28/20 16:33:08 03/28/20 16:33:08 Entry 4 Entry 5 Entry 6 Case Attendee SHIVAM MURO, LORETA CARMEN OTHER, ATTENDEE #1 Assurance Services Manager Health Care Role Performed Scrub, First Utility Tender Carding Vendor Time In 03/28/20 16:04:00 03/28/20 16:04:00 03/28/20 16:04:00 Time Out 03/28/20 16:33:00 03/28/20 16:33:00 03/28/20 16:28:00 Procedure Kyphoplasty Kyphoplasty Kyphoplasty Other Attendee CHER DOVER Superficial Wound Closed By: Last Modified By: CONTRERAS SERRATO RN MOSS, CHRISTY, RN MOSS, CHRISTY, RN 03/28/20 16:33:08 03/28/20 16:33:08 03/28/20 16:33:08 [facility] IntraOp Case Attendance Audit 03/28/20 16:33:08 Blankbook Stitching Machine Operator: CRMOSS Modifier: CRMOSS 1 <*> Procedure Kyphoplasty 2 <+> Time Out 2 <*> Procedure Kyphoplasty 3 <+> Time Out 3 <*> Procedure Kyphoplasty 4 <+> Time Out 4 <*> Procedure Kyphoplasty 5 <+> Time Out 5 <*> Procedure Kyphoplasty 6 <*> Procedure Kyphoplasty 03/28/20 16:28:54 Blankbook Stitching Machine Operator: CRMOSS Modifier: CRMOSS 1 <+> Time Out 1 <*> Procedure Kyphoplasty 6 <+> Time Out 6 <*> Procedure Kyphoplasty 03/28/20 16:28:30 Blankbook Stitching Machine Operator: CRMOSS Modifier: CRMOSS 1 <*> Procedure Kyphoplasty [...] [facility] IntraOp Case Times Audit 03/28/20 16:33:05 Blankbook Stitching Machine Operator: CRMOSS Modifier: CRMOSS <+> 1 Out Room Time <+> 1 Stop Time 03/28/20 16:28:35 Blankbook Stitching Machine Operator: CRMOSS Modifier: CRMOSS <+> 1 Stop Time 03/28/20 16:18:16 Blankbook Stitching Machine Operator: CRMOSS Modifier: CRMOSS <+> 1 Start Time [facility] IntraOp Communication Entry 1 Communication To Family/Significant other Comment START OF PROCEDURE Last Modified By: CONTRERAS SERRATO RN 03/28/20 16:13:32 [facility] IntraOp Counts Verification Entry 1 Procedure Kyphoplasty Count Info Count Type Sponge, Sharps Counts Verification Baseline/pre-procedure Sequence Count Results Correct, surgeon notified Counts Performed By Count Performed By SHIVAM MURO, (Scrub) Assurance Services Manager Health Care Count Performed By CONTRERAS SERRATO RN (RN) Last Modified By: CONTRERAS SERRATO RN 03/28/20 16:15:54 [facility] IntraOp Counts Final Entry 1 Procedure Kyphoplasty Final Count Info Count Type Sponge, Sharps Counts Verification Skin Closure/end of Sequence procedure Count Results Correct, surgeon notified Counts Performed By Count Performed By SHIVAM MUOR, (Scrub) Assurance Services Manager Health Care Count Performed By CONTRERAS SERRATO, RN (RN) Last Modified By: CONTRERAS SERRATO [...] Wound Dressing Item Occlusive dressing Applied By SHIVAM MURO, Assurance Services Manager Health Care Other Comments AQUACEL DRESSING Last Modified By: [...] IntraOp Fire Risk Assessment Audit 03/28/20 16:18:24 Blankbook Stitching Machine Operator: CRMOSS Modifier: CRMOSS <+> 1 Standard Fire Safety Precautions Followed [facility] IntraOp General Case Respiratory Physician 1 Case Information OR OR 01 [facility] Case Level 1 Room Verified Yes Wound Class I - Clean Specialty SN Neurosurgery Anesthesia Type MAC ASA Class 3 Diagnosis Preop Diagnosis L1 FRACTURE Postop Same As Preop No Postop Diagnosis DICTATED BY MD Last Modified By: CONTRERAS SERRATO RN 03/28/20 16:18:53 [facility] IntraOp Implant Log Entry 1 Type Implant (Synthetic) Implant Log Implant Type Bone Cement Implant CEMENT BONE KYPHX Identification [id number] Description Implant Quantity 1 Implant Site L1 Implant [id number] Identification Lot Number Implant Medtronic:Spine:Sofamor Identification [facility] Product Specialist Name: Implant [id number] Identification Catalog Number Implant [...] 1% w/ epinephrine 1:100,000 20ml vial - [id number] Route of LOCAL Administration Dose Dose 20 [...] [facility] IntraOp Surgical Procedures Audit 03/28/20 16:28:40 Blankbook Stitching Machine Operator: CRMOSS Modifier: CRMOSS 1 <*> Procedure Kyphoplasty [...] Type Fluoroscopy Fluoroscopy Type C-Arm Site OPSITE Thread Dresser Name NELLA LORETA Protective Devices Yes Used Last Modified By: CONTRERAS SERRATO RN 03/28/20 16:22:26 Case Comments <None> Finalized By: CONTRERAS SERRATO, RN Document Signatures Signed By: CONTRERAS SERRATO RN 03/28/20 16:33 documented in this encounter Plan of Treatment Not on file documented as of this encounter Visit Diagnoses Not on filedocumented in this encounter
--- OUTSIDE RECORDS SUMMARY | 2025-03-03 11:46 | XMS_ITS | Clinical Summary ---
Author Organization [facility] Address [address] [place] [address] Care Team Providers Care Magento Developer Name Role Phone Fredi Helton MD Primary Care Provider [phone] Allergies No known active allergies Medications spironolactone [...] (2 of 2 - PCV) 04/30/2023 04/30/2022 [id number] Vaccine ( season) 2024 05/08/2022, 12/18/2021, 06/19/2021, Additional history exists [facility]-Influenza Vaccine (#1) 2025 07/08/2019 [facility]-Hepatitis A Vaccines Aged Out [...] Adults <6.0% Children and Adolescents <7.5% Source: [place] [employer]. Standards of medical care in diabetes,2017. Diabetes Care.2017:40 (suppl 1):S1-S135. HbA1c assay performed by an ion-exchange chromatography method that is certified traceable to the DCCT. us Alexa Díaz DO LAB BLOOD ORDERABLES Final Res ult Performing Organization Address City/[facility] Co de Phone Number [facility] [address] [place] [address] * Hepatitis C Antibody - ED (12/05/2022 2:45 PM EDT) Hepatitis C Antibody Negative Negative 12/05/2022 3:46 PM EDT [facility]ALTH[facility]ARE LAB Blood Venous blood specimen / Unknown Venipuncture / Unknown 12/05/2022 2:45 PM EDT 12/05/2022 3:05 PM EDT us Dayan Patiño MD LAB BLOOD ORDERABLES Final R esult Performing Organization Address [facility] Co de Phone Number [facility] [address] [place] [address] from Last 3 Months or Most Recently Relevant to Health Maintenance Insurance [facility] [address] [id number] MEDICARE [facility] Advance Directives * Full Code (Latest Code Status on File) Date Activated Date Inactivated Comments 12/05/2022 3:17 PM 12/06/2022 8:47 PM Ok for CRP a nd temporary intubation. Does not wish to be on prolonged intubation or life support with low likelyhood of extubation. Question Answer Comments Patient has decision-making capacity? Yes Care Teams Magento Developer Relationship Specialty Start Date End Date Fredi Helton MD [address] [facility] [address] [address] PCP - General 01/05/21
--- OUTSIDE RECORDS SUMMARY | 2025-03-03 11:46 | XMS_ITS | Clinical Summary ---
Author Organization [employer] ([place], [place], [place], [place]) Address [address] [place] [address] Care Team Providers Care Employee Health Rn Name Role Phone Unavailable Primary Care Provider [...]
--- OUTSIDE RECORDS SUMMARY | 2025-03-03 11:46 | XMS_ITS | Encounter Summary ---
Author Organization [employer] ([place], [place], [place], [place]) Address [address] [place] [address] Care Team Providers Care Monument Carver Name Role Phone Unavailable Primary Care Provider Unavailabl e Encounter Details Date Type Department Care Team (Late st Contact Info) Description 03/28/2020 Transcribed Document [facility] [place] [facility] [place] [address] ProviderCj MD [address] [place] [address] Social History Tobacco Use Types [...] Conversion Note - Cj ProviderMD - 03/28/2020 3:03 PM CDT Pre Procedure Adult Entered On: 03/28/2020 15:09 EDT Performed On: 03/28/2020 15:03 EDT by MILY GUEVARA RN Height and Weight, Clinical Dosing Height Source : Stated Height Entry Format : [place] Height, Feet : 5 ft(Converted to: 152 cm, 60 Inch) Height, Inches : 4 Inch(Converted to: 0 ft 4 Inch, 10.16 cm) Clinical Height : 162.56 cm Weight Source : Standing scale Weight Entry Format : [place] Clinical Dosing Weight : 80.45 kg Weight, Pounds : 177 lb Body Surface Area (BSA) : 1.86 m2 Body Mass Index : 30.4 kg/m2 (HI) [place] Body Weight : 54 kg MILY GUEVARA [...] (Last Updated: 03/28/2020 15:03:24 EDT by MILY GUEVARA RN) Substance Abuse: Drug Use Hx: No. Use in Last 12 Months: No. (Last Updated: 03/28/2020 15:02:28 EDT by MILY GUEVARA RN) Infectious Disease History Has the patient ever been tested for COVID-19? : Yes, Patient stated results Negative Where was the COVID-19 Testing completed? : [facility] Date of COVID-19 test known? : Yes [...] MILY GUEVARA RN - 03/28/2020 15:03 EDT [place] Suicide Severity Rating Scale (C-SSRS) CSSRS Past [...] Arrival on Unit : Wheelchair Support Person/Patient Continuous Mining Operator : Yes Want Family/Rep/Phys Notified of Admit : No Emergency Contact #1 : Marky Sotelo Emergency Contact #1 Emergency Contact #1 Relationship : Emergency Contact #2 : . Emergency Contact #2 Phone Number : . Emergency Contact #2 Relationship : . Information Obtained From : Patient Primary Language : Guyanese Preferred Communication Mode : Verbal Communication Barrier : None Biology Laboratory Assistant Needed : MILY Phan RN - 03/28/2020 [...] Level : 46 or > High Risk [place] Fall Interventions : Adequate lighting, Bed in [...]
--- OUTSIDE RECORDS SUMMARY | 2025-03-03 11:46 | XMS_ITS | Encounter Summary ---
Author Organization [employer] ([place], [place], [place], [place]) Address [address] [place] [address] Care Team Providers Care Key Entry Operator Name Role Phone Unavailable Primary Care Provider Unavailabl e Encounter Details Date Type Department Care Team (Late st Contact Info) Description 03/28/2020 Transcribed Document [facility] [place] [facility] [place] [address] ProviderCj MD [address] [place] [place], [place] [id number] Social History Tobacco Use Types Packs/Day Years [...] Note - Cj Middleton MD - 03/28/2020 4:57 PM CDT Patient Education [...] including vitamins, herbs, eye drops, creams, and wgia-ngh-ehossxc medicines. ??? Any problems you or family [...] tells you to take them. ??? Taking dhzk-inx-belxbcx medicines, vitamins, herbs, and supplements. Do not [...] 11/17/2008 Document Revised: 12/29/2018 Document Reviewed: 03/27/2018 [employer] Patient Education ? 2020 [employer] Balloon Kyphoplasty, Care After This sheet [...] these instructions at home: Medicines ??? Take lbol-zmo-uyigwel and prescription medicines only as told by your health care provider. ??? Ask your health care provider if the medicine prescribed to you: ? Requires you to avoid driving or using heavy machinery. ? Can cause constipation. You may need to take steps to prevent or treat constipation, such as: ? Drink enough fluid to keep your urine pale yellow. ? Take ubmm-oqn-zurgdbj or prescription medicines. ? Eat foods that [...] and water are not available, use hand supervisor cigar making machine. ? Change your dressing as told by [...] care of your puncture site. ??? Take vkwh-pzu-vmcoobj and prescription medicines only as told by [...] 05/01/2016 Document Revised: 07/19/2019 Document Reviewed: 07/19/2019 [employer] Patient Education ? 2020 [employer] documented in this encounter Plan of Treatment Not on file documented as of this encounter Visit Diagnoses Not on filedocumented in this encounter
--- OUTSIDE RECORDS SUMMARY | 2025-03-03 11:47 | XMS_ITS | Continuity of Care Document ---
Author Organization [facility], RHEUMATOLOGY SB Address [address] [place] [address] Care Team Providers Care Search Manager Name Role Phone CHEMA MAS Primary Care Provider SEBASTIAN RASMUSSEN Director Of Product Development SEBASTIAN RASMUSSEN Referring Provider DAGOBERTO MEDINA Hand Surgeon SILVIO RIZZO Primary Care Provider [phone] Assessment No assessment recorded. Plan of Treatment Reminders Order Date Submit Date Provider Last Modified By Organization Details Last Modified Time Details Appointments RHEUM RECHECK 2025 01:15P M SEBASTIAN RASMUSSEN MD Not available Not available Not available RECLAST 2025 11:00A M RHEUM_INF USION Not available Not available Not available Lab None recorded. Referral None recorded. Procedures None recorded. Surgeries None recorded. Imaging None recorded. Medication Orders Reclast 5 mg/100 mL intraveno us piggyback [address] [facility], [address] [place] [address], [id number], 02/10/2025 13:02:04 Patient TargetsNo targets recorded. Patient InstructionsNo instructions recorded. Reason for Referral None Reported. Problems No Known Problems Procedures Surgical History Date Name Laterality Status Provider Name and Address Organization Details Recorded Time 02/11/20 25 Reclast Infusion completed Radhames Dozier [facility] 02/10/2025 12:42:42 02/03/20 24 DXA Osteoporosis completed CHIQUITA MARTINEZ MD [address] [place], [place] [address], [address], [facility] 02/03/2024 16:28:15 02/03/20 24 Reclast Infusion completed Radhames Dozier [facility] 02/08/2025 07:06:56 09/05/19 24 OT Therapeutic Exercise completed XIANG SHAH, OTR/L, CHT [address] [place], [address], [facility] 09/05/2023 10:49:42 09/05/19 24 OT Manual Therapy completed XIANG SHAH, OTR/L, CHT [address] [place], [address], [facility] 09/05/2023 10:49:42 09/05/19 24 PT Hot/Cold Pack completed XIANG SHAH, OTR/L, CHT [address] [place], [address], [facility] 09/05/2023 10:49:42 09/05/19 24 Injection Trigger Finger Ortho completed DAGOBERTO MEDINA MD [address] [place], [address], [facility] 09/05/2023 10:30:01 08/29/19 24 OT Therapeutic Exercise completed XIANG SHAH, OTR/L, CHT [address] [place], [address], [facility] 08/29/2023 11:22:07 08/29/19 24 OT Manual Therapy completed XIANG SHAH, OTR/L, CHT [address] [place], [address], [facility] 08/29/2023 11:22:07 08/29/19 24 PT Hot/Cold Pack completed XIANG SHAH, OTR/L, CHT [address] [place], [address], [facility] 08/29/2023 11:22:07 08/22/20 23 OT Therapeutic Exercise completed XIANG SHAH, OTR/L, CHT [address] [place], [address], [facility] 08/22/2023 10:59:19 08/22/20 23 OT Manual Therapy completed XIANG SHAH, OTR/L, CHT [address] [place], [address], [facility] 08/22/2023 11:00:19 08/22/20 23 PT Hot/Cold Pack completed XIANG SHAH, OTR/L, CHT [address] [place], [address], [facility] 08/22/2023 10:59:41 08/15/20 23 OT Therapeutic Exercise completed XIANG SHAH, OTR/L, CHT [address] [place], [address], [facility] 08/15/2023 10:59:16 08/15/20 23 OT Manual Therapy completed XIANG SHAH, OTR/L, CHT [address] [place], [address], [facility] 08/15/2023 11:21:24 08/15/20 23 PT Hot/Cold Pack completed XIANG SHAH, OTR/L, CHT [address] [place], [address], [facility] 08/15/2023 11:21:27 08/15/20 23 PT Ultrasound completed XIANG SHAH, OTR/L, CHT [address] [place], [address], [facility] 08/15/2023 11:22:28 08/05/20 23 OT Evaluation - Moderate complexity completed XIANG SHAH, OTR/L, CHT [address] [place], [address], [facility] 08/14/2023 17:53:44 08/05/20 23 OT Therapeutic Exercise completed XIANG SHAH, OTR/L, CHT [address] [place], [address], [facility] 08/14/2023 17:53:39 07/30/20 23 Op Note completed DAGOBERTO MEDINA MD [address] [place], [address], [facility] 07/30/2023 12:19:15 07/30/20 23 Carpal tunnel surgery completed Shira Carrera [facility] 08/15/2023 10:15:30 05/28/20 23 Op Note completed DAGOBERTO MEDINA MD [address] [place], [address], [facility] 05/28/2023 12:46:46 05/28/20 Carpal tunnel surgery completed Shira Carrera [facility] 06/13/2023 10:18:18 03/18/20 Electromyography (EMG) with Nerve Conduction Study (NCV) completed Chichi Nunes (Nicky) [facility] 03/18/2023 14:23:48 02/07/20 23 Lumbar MBB unilateral 2 level - Chas completed DAGOBERTO DOHERTY MD [address] [place], [address], [facility] 02/06/2023 10:18:49 01/30/20 23 Reclast Infusion completed Radhames Dozier [facility] 01/29/2023 12:29:33 01/25/20 23 Lumbar MBB unilateral 2 level - Chas completed DAGOBERTO DOHERTY MD [address] [place], [address], [facility] 01/24/2023 14:24:34 04/27/20 20 Post Void Residual; Catheter completed Elizabeth Hope [facility] 04/27/2020 16:21:38 hysterectomy completed Joya Lopez [facility] 12/12/2022 11:17:25 Ankle arthroscopy/surgery completed Joya Lopez [facility] 12/12/2022 11:17:34 Cardiac Surgery completed Shira Carrera [facility] 05/16/2023 11:18:53 Imaging Results None recorded. [...] tablet Daily 04/27 completed Duration : 30 days;Usmaa quency: daily;Al t Frequenc y: prn;Medi cation [...] completed Not Available Not Available Not Available [place] 5 mg-325 mg tablet TAKE 1 TAB [...] height Body mass index (BMI) Body weight Body temperature Heart rate Respiratory rate Systolic And Diastolic Provider Name and Address Organization Details Last Updated DateTime 162.56 cm 26 kg/m2 45473.5 5 g 98.1 [degF] 71 /min 14 /min 127/72 mm[Hg] Radhames Dozier [facility] 12:29:13 Date Recorded Body height Provider Name an d Address Organization Details Last Updated DateTime 02/10/2025 162.56 cm Eric Crowell [facility] 02/10/2025 11:30:17 Social History Question Answer Notes LastModified by Organizat ion Details LastModified Time Tobacco Smoking Status [facility] 16:14:21 How Much Tobacco Do You Chew? None Information not available 04/27/2020 Marital Status Informatio n not available 04/27/2020 What Was The Date Of Your Most Recent Tobacco Screening? 02/10/2025 [email or web address] Information not available 02/10/2025 Has Tobacco Cessation Counseling Been Provided? No [email or web address] Information not available 05/16/2023 Sex: Female Functional Status Question Answer Note LastModified by Organizat ion Details LastModified Time Do you use any illicit or recreational drugs? No [email or web address] Information not available 05/16/2023 Do you or have you ever used any other forms of tobacco or nicotine? No [email or web address] Information not available 05/16/2023 What is your [...] Anxiety/Depression Y Other N Thyroid Disease Y Kidney Stones Y Heart Conditions Y Hernia N Migraines N COPD N Glaucoma N Depression Y Pneumonia N Skin Problems N Immune System Disorder N Anesthesia Complications N Heart Attack (AR) Y Mental Illness N Neurological Problems N [...] or 50 mcg/0.25mL dose 1 completed Shira harirs [facility] 05/16/2023 11:12:10 COVID-19, mRNA, LNP-S, PF, 100 mcg/0.5mL dose or 50 mcg/0.25mL dose 1 completed Shira Carrera [facility] 05/16/2023 11:12:10 COVID-19, mRNA, LNP-S, PF, 100 mcg/0.5mL dose or 50 mcg/0.25mL dose 2 completed Shira Pennyon [facility] 05/16/2023 11:12:10 COVID-19, mRNA, LNP-S, PF, 100 mcg/0.5mL dose or 50 mcg/0.25mL dose 1 completed Shira Pennyon [facility] 05/16/2023 11:12:10 COVID-19, mRNA, LNP-S, bivalent, PF, 50 mcg/0.5 mL or 25mcg/0.25 mL dose 2 completed Shira Carrera [facility] 05/16/2023 11:12:10 pneumococcal polysaccharide PPV23 2 completed Shira Carrera [facility] 05/16/2023 11:12:10 Influenza, high-dose, trivalent, PF 9 completed Shira Carrera [facility] 05/16/2023 11:12:10 Hep A, adult 8 completed Shira Deandre [facility] 05/16/2023 11:12:10 Past Encounters Encounter ID Performer Location Encounter Start Date Encounter Closed Date Diagnosis/Indication Diagnosis SNOMED-CT Code Diagnosis ICD10 Code Diagnosis Note [id number] SEBASTIANMIRI RASMUSSEN MD [facility] [address] [place] [address] 02/02/2025 12:51:34 02/03/2025 04:49:57 Senile osteoporosis 94176686 M81.0 History of senile osteoporos is. H/O L1 compressio n fracture. 02/03/24 DEXA Spine -2.5Left femoral neck -1.5Total left -1.4 Encouraged weightbear ing exercises. Schedule for Reclast infusion. Continue with the DEXA study every 2 years. fu with repeat Reclast #3 February 08 2025. Generalize d osteoarthritis 696181265 M15.9 Generalize d osteoarthr itis with mechanical pains, though overall stable.Chr onic neck/back pains, are followed by pain management clinic Dr. Doherty and is doing well. I suggested her to follow his recommenda tion. Bilateral carpal tunnel syndrome 6868024896 6750115 G56.03 Nerve conduction study from February 2023 reviewed.R ight carpal tunnel moderateLe ft carpal tunnel mild. She is s/p bilateral carpal tunnel release, stable.Goo d gripOveral l stable. Polymyalgi a rheumatica 32470143 M35.3 74-year-ol d female with some features [...] today Long-term current use of drug therapy 120115293 Z79.899 On account of intravenou s Reclast, obtain serum calcium levels along with renal function. [id number] SE[place] [address] [place] [address] 02/10/2025 11:22:53 02/10/2025 12:42:56 Postmenopausal osteoporosis 190095498 M81.0 [id number] SE[place]ST[place] [address] [place] [address] 02/10/2025 11:23:49 02/12/2025 20:12:10 Senile osteoporosis 94234802 M81.0 History of senile osteoporos is. H/O L1 compressio n fracture. 02/03/24 DEXA Spine -2.5Left femoral neck -1.5Total left -1.4 Encouraged weightbear ing exercises. Schedule for Reclast infusion. Continue with the DEXA study every 2 years. She will complete the Reclast infusion today Generalize d osteoarthritis 920124763 M15.9 Generalize d osteoarthr itis with mechanical pains, though overall stable.Chr onic neck/back pains, are followed by pain management clinic Dr. Doherty and is doing well.The shoulder pain is mechanical in nature involving the AC joint. No effusions noted.Has a negative empty can test.Negat gopi drop arm test. Overall I am not seeing anything acute to warrant intra-amber cular steroid injection. Maintain local care range of motion exercises Bilateral carpal tunnel syndrome [id number] G56.03 Nerve conduction study from February 2023 reviewed.R ight carpal tunnel moderateLe ft carpal tunnel mild. She is s/p bilateral carpal tunnel release, stable.Goo d gripOveral l stable. Polymyalgi a rheumatica 29559519 M35.3 74-year-ol d female with some features [...] today Long-term current use of drug therapy 713075558 Z79.899 Lab studies 02/02/2025 reviewed and stable. Health Concerns Section Related Observation LastModified by Organization Detai ls LastModified Time None Recorded Concern Status LastModified by Organization Details LastModified Time None Recorded Payers Encounter Date Sequence Insurance Name Policy Number Policy Hernandez Covered Member ID Hernandez Member ID Guarantor Name 02/10/2025 1 [place] Mily Sotelo [id number] Mily Sotelo 02/10/2025 2 [facility] (MEDICARE SUPPLEMENT) Mily Sotelo [id number] Mily Sotelo Notes Date Note Type Note Provider Name and Address Organization Details Recorded Time 02/10/2025 text/html Follow-up on osteoporosis and its management. Doing quite well. Saw her recently on February 02. However needs to be seen on account of pain in her shoulders. She is getting Reclast infusion #3 today.No interval injuries or fall SEBASTIAN VIVIEN RASMUSSEN MD [address] [place], [address], [facility] 02/10/2025 12:19:28 OBGyn Episode No OBEpisode recorded.
--- NOTE | 2025-03-03 12:00 | NM_ITS ---
APPROVED REPORT Exam: Nuclear Stress Test Indication: SOB, Syncope, Dizziness, Fatigue, HTN, Family history, CAD, Hx of MD Patient Location: Outpatient Stress Tech: Radha De La Cruz [place] Tech:RAFI Garcia RT(R)(N) Ht: 5 ft 4 in Wt: 152 lbs Bra Size: DD HR: 56 bpm BP: 144/68 mmHg BSA: 1.74 m2 TID: 1.01 BMI: 26.0 History: SOB, Syncope, Dizziness, Fatigue, HTN, Family history, CAD, Hx of MD Procedure: Patient received 0.4 mg of intravenous Lexiscan, resting heart rate 56 bpm, resting blood pressure 144/68 mmHg, with Lexiscan maximum heart rate achieved was 147 bpm which is % of the maximum predicted heart rate and blood pressure was 144/69 mmHg. With Lexiscan, patient denied any complaint of chest pain. Cardiac Stress and Resting SPECT Images: Cardiac Stress and Resting SPECT images were obtained using technetium 99m Myoview 32.5 mCi stress and 10.73 mCi at rest. Resting and stress imaging in supine and prone positions demonstrate a small sized, moderate, reversible perfusion defect in the distal anterior LV wall. Gated imaging on stress normal global and regional LV systolic function. LVEF is calculated at 64%. Conclusion: Small sized, moderate, reversible perfusion defect in the distal anterior LV wall. Findings are suggestive of reversible ischemia. Gated imaging on stress normal global and regional LV systolic function. LVEF is calculated at 64%. Electronically signed by : Deanna Lundy MD 03/05/2025 01:18:01
[2025-03-03] MEDS: SODIUM CHLORIDE 0.9% 10ML SYR (RAD ONLY) 10 ML IV ×2 (14:20)
[2025-03-03] MEDS: ISOTOPE MYOVIEW (PER STUDY) 1 DOSE IV (14:20)
--- NOTE | 2025-03-03 14:30 | CA_ITS ---
APPROVED REPORT EXAM: Comprehensive 2D, Doppler, and color-flow Echocardiogram Filter Washer: Cathy Smith, RCS, RVS Ht: 5 ft 4 in Wt: 153lbs BSA: 1.75 BP: 133/67 mmHg Indications: CAD-Stents, Ex-smoker, Murmur 2D Dimensions IVSd 1.06 cm F: 0.6-1.0 LVEF (Visual) 8.80 % PWd 0.82 cm F: 0.6 - 1.0 EF AP4 65.70 % LVDd 3.99 cm F: 3.9 - 5.3 GL Strain -20.2 % LVDs 3.84 cm F: 2.2 - 3.5 Left Atrium 3.25 cm F: 2.7 - 3.8 M-Mode Dimensions RVDd 2.46 cm (0.9-2.6) LA Diam 2.83 cm (1.9-4.0) LVDd 4.78 cm (3.5-5.7) LVDs 2.82 cm (3.5-5.7) IVSd 1.11 cm (0.6-1.1) PWd 1.00 cm (0.6-1.1) EF (Teich) 71.70% EPSs 0.43 cm FS 41.00% EDV (Teich) 106.50 mL TAPSE 2.04 (<1.7) ESV (Teich) 30.10 mL LV Diastology E Decel Time 187 (160-240 msec) E/A Ratio 1.06 MED A' 10.90 cm/s LAT A' 6.90 cm/s Aortic Valve KAMRYN Index 0.94 cm2/m2 AoV Peak Dax. 171.0 (50-130 cm/s) AI PHT 332.00 ms AO Peak GR. 11.60 mmHg AO Mean GR. 5.90 (<5 mmHg) AO VTI 38.4 (18-25 cm) KAMRYN (VTI) 1.69 (2.5-4.5 cm2) Mitral Valve MV A Velocity 99.0 (40-130 cm/s) E/A Ratio 1.06 Tricuspid Valve TR P. Velocity 234.00 cm/s RAP Estimate 10.00 mmHg RVSP 31.90 mmHg Left Ventricle The left ventricle is normal size. The left ventricular systolic function is normal. The left ventricular ejection fraction is within the normal range. Proximal septal thickening is present. There is normal LV segmental wall motion. The left ventricular diastolic function is normal. LVEF is 55%. Right Ventricle The right ventricle is normal size. The right ventricular systolic function is normal. Atria The left atrium size is normal. The right atrium size is normal. There is no Doppler evidence of interatrial shunt. Aortic Valve Aortic valve is mildly thickened. There is no aortic valvular stenosis. Trace aortic regurgitation. Mitral Valve The mitral valve is normal in structure. No evidence of mitral valve stenosis. Mild mitral regurgitation. Tricuspid Valve Tricuspid valve is grossly normal in structure and function. Mild tricuspid regurgitation. RVSP is 25-30 mmHg. Pulmonic Valve The pulmonary valve is normal in structure. Trace pulmonic regurgitation. Great Vessels The aortic root is normal in size. IVC is normal in size and collapses >50% with inspiration. Pericardium There is no pericardial effusion. Other Information Study Quality: Fair Conclusion Normal biventricular systolic function. Mild MR, mild TR. Electronically signed by : Deanna Lundy MD 03/10/2025 01:30:29
== END 2025-03-03 23:59 | disposition home or self-care (01) ==
LOC: RAD 11:45
PROVIDERS: PCP Nurse Practitioner Family; Visit Provider Nurse Practitioner
DX: I08.1 Rheumatic disorders of both mitral and tricuspid valves (principal); R94.39 Abnormal result of other cardiovascular function study; R94.31 Abnormal electrocardiogram [ECG] [EKG]; I25.10 Atherosclerotic heart disease of native coronary artery without angina pectoris; I10 Essential (primary) hypertension; I25.2 Old myocardial infarction; R55 Syncope and collapse; R42 Dizziness and giddiness; Z87.891 Personal history of nicotine dependence; Z95.5 Presence of coronary angioplasty implant and graft
CPT/HCPCS: 78452; 93016; 93017; 93018; 93306; A9502; J2785

== ENCOUNTER 2025-03-16 08:50 | Day surgery (SDC) | payer MEDICARE, OTHER, SELFPAY ==
[2025-03-16] VITALS (10 sets, daily range): BP systolic 109–146; BP diastolic 58–85; PULSE 55–67; RESP 16–20; O2SAT 90–96; BMI 26.2
--- NOTE | 2025-03-16 07:09 | IR_ITS ---
APPROVED REPORT Patient Location: Outpatient PROCEDURES Left heart catheterization Left ventriculogram Selective coronary angiogram INDICATION Known coronary artery disease, Abnormal Myoview Informed consent was obtained prior to the procedure. COMPLICATIONS NONE Estimated Blood Loss: LESS THAN 10 ML TECHNIQUE One percent lidocaine used to anesthetize the right anterior aspect of the wrist. The right radial artery was accessed via the Seldinger technique. A 6 Thai sheath was placed in the right radial artery. 2.5 mg of Verapamil, 800 mcg of nitroglycerin, 1mg Lidocaine and 5000 U Heparin were given through the arterial sheath. The JL3 catheter was also used to perform left heart catheterization, left ventriculogram and selective coronary angiogram. At the end of the procedure the sheath was removed good hemostasis was achieved using Traclet band, patient was transferred to the postop holding area in stable condition. ANGIOGRAPHIC RESULTS The left main artery Normal The left anterior descending artery Has a stent in the proximal segment which is widely patent with minimal in-stent restenosis with excellent proximal distal transitioning The circumflex artery Nondominant normal The right coronary artery Dominant mild 20 to 30% concentric mid vessel stenosis The GALAN ventriculogram reveals Normal 60% The left ventricular end-diastolic pressure 15 mmHg IMPRESSION Patent LAD stent as described above Mild disease in the mid dominant right coronary Normal ejection fraction Normal LVEDP PLAN 1. Medical management with ongoing risk factor modification Electronically signed by : Huseyin Aponte MD 03/16/2025 12:53:53
[2025-03-16 09:19] LABS: Hematocrit 35.1 % (37.0-47.0); Hemoglobin 11.7 g/dL (12.2-16.2); Immature Granulocytes % 0.2 %; Mean Corpuscular HGB Conc 33.3 g/dL (31.8-35.4); Mean Corpuscular Hemoglobin 30.2 pg (27.0-31.2); Mean Corpuscular Volume 90.5 fl (81-99); Nucleated Red Blood Cells % 0 %; Platelet Count 267 K/mm3 (142-424); Red Blood Count 3.88 M/mm3 (4.20-5.40); Red Cell Distribution Width-SD 43.4 fL; White Blood Count 6.3 K/mm3 (4.8-10.8)
[2025-03-16 09:31] LABS: Anion Gap 9.6 mEq/L (5-15); Blood Urea Nitrogen 14 mg/dl (7-17); Calcium 9.1 mg/dl (8.4-10.2); Carbon Dioxide 26 mmol/L (22.0-30.0); Chloride 107 mmol/L (98-107); Creatinine Clearance Estimated 54 mL/min (50-200); Creatinine,Serum 0.80 mg/dl (0.52-1.04); Estimated Glomerular Filt Rate 70 ml/min (>60); GFR (African American) 85 ML/MIN (>60); Glucose 89 mg/dl (74-100); Potassium 3.6 mmoL/L (3.5-5.1); Sodium 139 mmol/L (136-145)
[2025-03-16] MEDS: HEPARIN 1,000 UNITS/ML 10ML VIAL (CATH LAB) 5000 UNIT IV (11:24)
[2025-03-16] MEDS: LIDOCAINE 1% 10ML MDV 10 ML IJ (11:24)
[2025-03-16] MEDS: HEPARIN 1,000 UNITS/500ML NS (CATH LAB) 3000 UNIT IV (11:24)
[2025-03-16] MEDS: NITROGLYCERIN 800MCG/8ML SYR (CATH LAB) 800 MCG IA (11:24)
[2025-03-16] MEDS: VERAPAMIL 2.5MG/ML 2ML VIAL 2.5 MG IV (11:25)
[2025-03-16] MEDS: 0.9 % SODIUM CHLORIDE 500 ML 25 ML IV (11:25)
[2025-03-16] MEDS: FENTANYL 100MCG/2ML VIAL 50 MCG IV (11:40)
[2025-03-16] MEDS: MIDAZOLAM HCL 1MG/ML 5ML VIAL 1 MG IV (11:40)
[2025-03-16] MEDS: IOPAMIDOL-370 (76%);100ML BOTTLE 50 ML IV (12:21)
== END 2025-03-16 14:25 | disposition home or self-care (01) ==
LOC: CATHLAB 08:51
PROVIDERS: PCP Nurse Practitioner Family; Visit Provider Internal Medicine
PROC: 4A023N7 Measurement of Cardiac Sampling and Pressure, Left Heart, Percutaneous Approach (ICD-10-PCS; CPT 93452; principal; 2025-03-16 07:30)
DX: I25.118 Atherosclerotic heart disease of native coronary artery with other forms of angina pectoris (principal); R94.39 Abnormal result of other cardiovascular function study; R94.31 Abnormal electrocardiogram [ECG] [EKG]; I10 Essential (primary) hypertension; E78.49 Other hyperlipidemia; E03.9 Hypothyroidism, unspecified; Z86.73 Personal history of transient ischemic attack (TIA), and cerebral infarction without residual deficits; Z95.5 Presence of coronary angioplasty implant and graft; Z87.891 Personal history of nicotine dependence; Z79.02 Long term (current) use of antithrombotics/antiplatelets; Z79.890 Hormone replacement therapy; Z79.899 Other long term (current) drug therapy; Z88.8 Allergy status to other drugs, medicaments and biological substances; Z82.49 Family history of ischemic heart disease and other diseases of the circulatory system
CPT/HCPCS: 80048; 85025; 93458; 99152; C1725; C1769; J1200; J1644; J2003; J3010; J7040; Q9967

== ENCOUNTER 2025-05-13 15:42 | Outpatient (CLI) | payer MEDICARE, OTHER, SELFPAY ==
--- NOTE | 2025-05-13 15:45 | MM_ITS ---
PROCEDURE INFORMATION: Exam: MG Bilateral Screening 3D Mammography Exam date and time: 05/13/2025 3:49 PM Age: 75 years old Clinical indication: Screening examination TECHNIQUE: Imaging protocol: Bilateral Screening tomosynthesis and 2D mammography including computer-aided detection (CAD) when performed. COMPARISON: 1. MG MM DIG SCREENING MAMM BI W/CAD 04/21/2024 10:38 AM 2. MG MM DIG SCREENING MAMM BI W/CAD 03/24/2023 10:54 AM FINDINGS: MAMMOGRAPHY: Breast composition: There are scattered areas of fibroglandular density. Mass: None. Architectural distortion: None. Calcifications: No suspicious calcifications. Asymmetric density: None. Skin thickening: None. Axillary adenopathy: None. IMPRESSION: No mammographic evidence of malignancy. Annual screening is recommended unless otherwise clinically indicated. ASSESSMENT: BI-RADS Category 1: Negative.
--- OUTSIDE RECORDS SUMMARY | 2025-05-13 15:45 | XMS_ITS | Clinical Summary ---
Author Organization [facility] Address [address] [place] [address] Phone Care Team Providers Care Production Superintendent Hydro Name Role Phone Unavailable Unavailable Conditions or Problems No information available. Medications No information available. Medications Administered No information available. Allergies, Adverse Reactions, Alerts No information available. Results No information available. Plan of Care No information available. Procedures No information available. Vital Signs No information available. Immunizations No information available. Advance Directives No information available.
--- OUTSIDE RECORDS SUMMARY | 2025-05-13 15:45 | XMS_ITS | Clinical Summary ---
Author Organization [facility] Address [address] [place] [address] Care Team Providers Care Procedures Nurse Name Role Phone Fredi Helton MD Primary Care Provider [phone] Allergies No known active allergies Medications spironolactone [...] Screening 1950 [facility]-Medicare Annual Wellness (AWV) 1950 [facility]-/Child/Adol SDOH Screenings 1950 [facility]-Obesity Intervention 1956 [facility]- SDOH Screenings 1968 [facility]-Adult SDOH Screenings 1968 [facility]-DTaP,Tdap,and Td Vaccines (1 - Tdap) 1969 CT Colonography 1995 Colonoscopy 1995 FIT-DNA 1995 FIT 1995 FOBT 1995 Sigmoidoscopy 1995 [facility]-Colorectal Cancer Screening 1995 [facility]-Zoster Vaccines (1 of 2) 2000 [facility]-Pneumococcal Vaccine: 50+ Years (2 of 2 - PCV) 04/30/2023 04/30/2022 [facility]-RSV Vaccine: 60+ Years or (1 - 1-dose 75+ series) 2025 [id number] Vaccine ( - season) 2025 05/08/2022, 12/18/2021, 06/19/2021, Additional history exists [facility]-Influenza [...] Adults <6.0% Children and Adolescents <7.5% Source: [place] [employer]. Standards of medical care in diabetes,2017. Diabetes Care.2017:40 (suppl 1):S1-S135. HbA1c assay performed by an ion-exchange chromatography method that is certified traceable to the DCCT. us Alexa Díaz DO LAB BLOOD ORDERABLES Final Res ult Performing Organization Address City/[facility]/ZIP Co de Phone Number [facility] [address] [place] [address] * Hepatitis C Antibody - ED (12/05/2022 2:45 PM EDT) Hepatitis C Antibody Negative Negative 12/05/2022 3:46 PM EDT [facility] Blood Venous blood specimen / Unknown Venipuncture / Unknown 12/05/2022 2:45 PM EDT 12/05/2022 3:05 PM EDT us Dayan Patiño MD LAB BLOOD ORDERABLES Final R esult Performing Organization Address City/[facility]/ZIP Co de Phone Number [facility] [address] [place] [address] from Last 3 Months or Most Recently Relevant to Health Maintenance Insurance [address] [id number] MEDICARE [facility] Advance Directives * Full Code (Latest Code Status on File) Date Activated Date Inactivated Comments 12/05/2022 3:17 PM 12/06/2022 8:47 PM Ok for CRP a nd temporary intubation. Does not wish to be on prolonged intubation or life support with low likelyhood of extubation. Question Answer Comments Patient has decision-making capacity? Yes Care Teams Procedures Nurse Relationship Specialty Start Date End Date Fredi Helton MD [address] [facility] [place] [id number] PCP - General 01/05/21
== END 2025-05-13 23:59 | disposition home or self-care (01) ==
LOC: RAD 15:43
PROVIDERS: PCP Nurse Practitioner Family; Visit Provider Nurse Practitioner Family
DX: Z12.31 Encounter for screening mammogram for malignant neoplasm of breast (principal); R92.323 Mammographic fibroglandular density, bilateral breasts
CPT/HCPCS: 77063; 77067

== ENCOUNTER 2025-05-30 12:39 | Outpatient (CLI) | payer MEDICARE, OTHER, SELFPAY ==
--- NOTE | 2025-05-30 12:42 | XR_ITS ---
FINAL REPORT CLINICAL HISTORY: shortness of breath COMPARISON: 01/30/2023 FINDINGS: 2 views of the chest were obtained . The heart is normal in size. The mediastinum is within normal limits. The lungs are clear. There is no pneumothorax. Osseous structures are unremarkable. IMPRESSION: No acute cardiopulmonary process. Reviewed, Interpreted and Dictated by Evelyn Baker MD Transcribed by Mimi Alfred Authenticated and [facility]
--- OUTSIDE RECORDS SUMMARY | 2025-05-30 12:42 | XMS_ITS | Encounter Summary ---
Author Organization [employer] ([place], [place], [place], [place]) Address [address] [place] [address] Care Team Providers Care Heel Slicker Name Role Phone Unavailable Primary Care Provider Unavailabl e Encounter Details Date Type Department Care Team (Late st Contact Info) Description 03/28/2020 Transcribed Document [facility] [place] Family Medicine [facility] [address] ProviderCj MD [address] [place], [place] [id number] Social History Tobacco Use Types Packs/Day Years [...] including vitamins, herbs, eye drops, creams, and jbpg-utr-mpaqmul medicines. ??? Any problems you or family [...] tells you to take them. ??? Taking qooq-crj-kwzrktk medicines, vitamins, herbs, and supplements. Do not [...] 11/17/2008 Document Revised: 12/29/2018 Document Reviewed: 03/27/2018 [employer] Patient Education ? 2020 [employer] Balloon Kyphoplasty, Care After This sheet [...] these instructions at home: Medicines ??? Take oxdz-jsn-ppjvpjg and prescription medicines only as told by your health care provider. ??? Ask your health care provider if the medicine prescribed to you: ? Requires you to avoid driving or using heavy machinery. ? Can cause constipation. You may need to take steps to prevent or treat constipation, such as: ? Drink enough fluid to keep your urine pale yellow. ? Take dntt-yna-kypghwc or prescription medicines. ? Eat foods that [...] and water are not available, use hand door opener. ? Change your dressing as told by [...] care of your puncture site. ??? Take okyy-ctq-yptuioq and prescription medicines only as told by [...] 05/01/2016 Document Revised: 07/19/2019 Document Reviewed: 07/19/2019 [employer] Patient Education ? 2020 [employer] documented in this encounter Plan of Treatment Not on file documented as of this encounter Visit Diagnoses Not on filedocumented in this encounter
--- OUTSIDE RECORDS SUMMARY | 2025-05-30 12:42 | XMS_ITS | Encounter Summary ---
Author Organization [employer] ([place], [place], [place], [place]) Address [address] [place] [address] Care Team Providers Care Supervisor Production Managing Name Role Phone Unavailable Primary Care Provider Unavailabl e Encounter Details Date Type Department Care Team (Late st Contact Info) Description 03/28/2020 Transcribed Document [facility] [place] [facility] [place] [address] ProviderCj MD [address] [place] [address] Social History Tobacco Use Types [...] Cj ProviderMD - 03/28/2020 4:58 PM CDT [address] [address] NIYAH MILY ROS :1950 Visit Time:03/28/2020 What to do next [...] not have follow-up, contact office make appointment. [phone] Activity: May sit stand walk, drive vehicle when stable, no pain, and functioning properly., Discharge Activity: No heavy lifting over 10 lbs Diet: Discharge Diet: Resume usual diet as tolerated Follow-Up Appointments Follow Up with ARTHUR ESCOTO MD-ORT When Within 1 week Comments Call in the AM Where: [address] [facility] [address] [place] [id number]- Medications Take your medications faithfully. Do NOT [...] including vitamins, herbs, eye drops, creams, and qvsm-ncd-jokqzxe medicines. ??? Any problems you or family [...] tells you to take them. ??? Taking ooem-khf-yzmirhw medicines, vitamins, herbs, and supplements. Do not [...] 11/17/2008 Document Revised: 12/29/2018 Document Reviewed: 03/27/2018 [employer] Patient Education ?? 2020 [employer]. Balloon Kyphoplasty, Care After This sheet [...] these instructions at home: Medicines ??? Take oiaf-ple-lapkwdq and prescription medicines only as told by your health care provider. ??? Ask your health care provider if the medicine prescribed to you: ? Requires you to avoid driving or using heavy machinery. ? Can cause constipation. You may need to take steps to prevent or treat constipation, such as: ? Drink enough fluid to keep your urine pale yellow. ? Take axco-cxq-zgghsot or prescription medicines. ? Eat foods that [...] and water are not available, use hand solution designer. ? Change your dressing as told by [...] care of your puncture site. ??? Take tjhu-fry-cszcgqq and prescription medicines only as told by [...] 05/01/2016 Document Revised: 07/19/2019 Document Reviewed: 07/19/2019 [employer] Patient Education ?? 2020 [employer]. acetaminophen and hydrocodone (a SEET a MIN oh fen and darrion droe KOE done) Hycet, Lorcet, [place], Verdrocet, Vicodin, Xodol, Zamicet What is the [...] may report side effects to FDA at 6-365-QHE-0028. What other drugs will affect acetaminophen and [...] affect acetaminophen and hydrocodone, including prescription and iabh-yva-ftogwsh medicines, vitamins, and herbal products. Not all [...] to ensure that the information provided by [employer]. ('[employer]') is accurate, up-to-date, and complete, but no guarantee is made to that effect. Drug information contained herein may be time sensitive. [employer] information has been compiled for use by healthcare practitioners and consumers in the [place] and therefore [employer] does not warrant that uses outside of the [place] are appropriate, unless specifically indicated otherwise. [employer] drug information does not endorse drugs, diagnose patients or recommend therapy. [employer] drug information is an informational resource designed [...] effective or appropriate for any given patient. [employer] does not assume any responsibility for any aspect of healthcare administered with the aid of information [employer] provides. The information contained herein is not intended to cover all possible uses, directions, precautions, warnings, drug interactions, allergic reactions, or adverse effects. If you have questions about the drugs you are taking, check with your doctor, nurse or pharmacist. Copyright 4318-0568 [employer]. Version: 16.. Revision Date: 09/15/2019. sulfamethoxazole and [...] potassium in your blood; ?? porphyria, or wrktkex-8-xauyfewtw dehydrogenase (G6PD) deficiency; or ?? if you [...] may report side effects to FDA at 2-171-THX-9329. What other drugs will affect sulfamethoxazole and [...] sulfamethoxazole and trimethoprim. This includes prescription and qaxz-foz-lzspopw medicines, vitamins, and herbal products. Not all [...] to ensure that the information provided by [employer]') is accurate, up-to-date, and complete, but no guarantee is made to that effect. Drug information contained herein may be time sensitive. [employer] information has been compiled for use by healthcare practitioners and consumers in the [place] and therefore [employer] does not warrant that uses outside of the [place] are appropriate, unless specifically indicated otherwise. [employer] drug information does not endorse drugs, diagnose patients or recommend therapy. [employer] drug information is an informational resource designed [...] effective or appropriate for any given patient. [employer] does not assume any responsibility for any aspect of healthcare administered with the aid of information [employer] provides. The information contained herein is not intended to cover all possible uses, directions, precautions, warnings, drug interactions, allergic reactions, or adverse effects. If you have questions about the drugs you are taking, check with your doctor, nurse or pharmacist. Copyright 7719-0890 [employer]. Version: 9.01. Revision Date: 10/30/2018. Emergency Awareness [...] Assistance with quitting is available by contacting 9-100-FFKI-NOW. This is a free resource providing counseling, [...] ) Urine Bilirubin Dipstick: Negative Urine Specific [place]: 1.016 -- Normal range between ( 1.005 and 1.030 ) Urine Type.: U CleanCatch Patient Name:MILY SOTELO SRUTHI I have received this information and was given the opportunity to ask questions. Patient/Exchange Consultant Name: Patient/Exchange Consultant Signature: Relationship to Patient: Clinician/Hospital Exchange Consultant Signature: Date: documented in this encounter Plan of Treatment Not on file documented as of this encounter Visit Diagnoses Not on filedocumented in this encounter
--- OUTSIDE RECORDS SUMMARY | 2025-05-30 12:42 | XMS_ITS | Encounter Summary ---
Author Organization [facility] ([place], [place], [place], [place]) Address [address] [place] [address] Care Team Providers Care Financial Rep Name Role Phone Unavailable Primary Care Provider Unavailabl e Encounter Details Date Type Department Care Team (Late st Contact Info) Description 03/28/2020 Transcribed Document [facility] [place] Family Medicine [facility] [place] [address] ProviderCj MD [address] [place] [address] Social History Tobacco Use Types [...] SOTELO D.O.B./Sex: 1950 Female Med Rec #: [id number] Physician: ARTHUR ESCOTO MD-ORT Financial #: [id number] Pt. Type: O Room/Bed: Admit/Disch: 03/28/20 12:41:00 - Institution: [facility] Main OR PostOp Case Times Entry 1 In PACU II 03/28/20 16:35:00 Ready for PACU II 03/28/20 17:20:00 Discharge Discharge from PACU 03/28/20 17:20:00 II Last Modified By: EVERETT MONGE, KASSY 03/28/20 17:28:31 Finalized By: EVERETT MONGE, RN Document Signatures Signed By: EVERETT MONGE, KASSY 03/28/20 17:28 Electronically signed by [facility] Conversion Glove Operator Cerner at 12/13/2022 11:38 AM CDT documented in this encounter Plan of Treatment Not on file documented as of this encounter Visit Diagnoses Not on filedocumented in this encounter
--- OUTSIDE RECORDS SUMMARY | 2025-05-30 12:42 | XMS_ITS | Encounter Summary ---
Author Organization [employer] ([place], [place], [place], [place]) Address [address] [place] [address] Care Team Providers Care Play Leader Name Role Phone Unavailable Primary Care Provider Unavailabl e Encounter Details Date Type Department Care Team (Late st Contact Info) Description 03/28/2020 Transcribed Document [facility] [place] [address] ProviderCj MD [address] [place] [address] Social History Tobacco Use Types [...] Image guidance. Vertebral lumbar level I. CPT 11352 FINDINGS Fracture, soft bone consistent with fracture SURGEON: Arthur Escoto M.D. JD EDWARDS: OR staff ANESTHESIA: LMAC. BLOOD LOSS: Less [...] with one 1 hour of incision Antibiotics ghmuva-Emwch-wxfykcylfclgn Antibiotics continued within 24 hours of surgery Mechanical DVT prophylaxis. Catheter not used COMORBIDITIES Thyroid disorder Stable coronary disease Depression Hypertension Hypothyroid Renal stones Sarah previous GA Chronic UTI, FLUOROSCOPY TIME: 1.1 minutes COMPLICATIONS [...]
--- OUTSIDE RECORDS SUMMARY | 2025-05-30 12:42 | XMS_ITS | Referral Summary ---
Author Organization [employer] ([place], [place], [place], [place]) Address [address] [place] [address] Care Team Providers Care Buyer Liaison Name Role Phone Unavailable Primary Care Provider [...]
--- OUTSIDE RECORDS SUMMARY | 2025-05-30 12:42 | XMS_ITS | Encounter Summary ---
Author Organization [employer] ([place], [place], [place], [place]) Address [address] [place] [address] Care Team Providers Care Replacer Name Role Phone Unavailable Primary Care Provider Unavailabl e Encounter Details Date Type Department Care Team (Late st Contact Info) Description 03/28/2020 Transcribed Document [facility] Family Medicine [facility] [place] [address] ProviderCj MD [address] [place] [address] Social History Tobacco Use Types [...] Cj ProviderMD - 03/28/2020 4:17 PM CDT [facility] Main [place] IntraOp Summary Primary Physician: ARTHUR ESCOTO MD-ORT Finalized Date/Time: 03/28/20 16:33:14 Pt. Name: NIYAHMILY GRACIA /Sex: 1950 Female Med Rec #: [id number] Physician: ARTHUR ESCOTO MD-ORT Financial #: [id number] Pt. Type: O Room/Bed: Admit/Disch: 03/28/20 12:41:00 - Institution: [facility] IntraOp Case Attendance Entry 1 Entry 2 Entry 3 Case Attendee ARTHUR ESCOTO MD-ORT MAR CROSS MOSS, CHRISTY, RN AMMONIA BOX TENDER-ANS Role Performed Surgeon/Proceduralist, AMMONIA BOX TENDER/Nurse Quality Control Projectionist Waiter/Waitress Buffet, First First Time In 03/28/20 16:04:00 03/28/20 16:04:00 03/28/20 16:04:00 Time Out 03/28/20 16:28:00 03/28/20 16:33:00 03/28/20 16:33:00 Procedure Kyphoplasty Kyphoplasty Kyphoplasty Other Attendee Superficial Wound Closed By: Last Modified By: CONTRERAS SERRATO, CONTRERAS KIM, CONTRERAS KIM RN 03/28/20 16:33:08 03/28/20 16:33:08 03/28/20 16:33:08 Entry 4 Entry 5 Entry 6 Case Attendee SHIVAM MURO, LORETA CARMEN OTHER, ATTENDEE #1 Mercerizer Machine Operator Role Performed Scrub, First Credit Interviewer Vendor Time In 03/28/20 16:04:00 03/28/20 16:04:00 03/28/20 16:04:00 Time Out 03/28/20 16:33:00 03/28/20 16:33:00 03/28/20 16:28:00 Procedure Kyphoplasty Kyphoplasty Kyphoplasty Other Attendee CHER DOVER Superficial Wound Closed By: Last Modified By: CONTRERAS SERRATO RN MOSS, CHRISTY, RN MOSS, CHRISTY, RN 03/28/20 16:33:08 03/28/20 16:33:08 03/28/20 16:33:08 [facility] IntraOp Case Attendance Audit 03/28/20 16:33:08 Video Control Operator: CRMOSS Modifier: CRMOSS 1 <*> Procedure Kyphoplasty 2 <+> Time Out 2 <*> Procedure Kyphoplasty 3 <+> Time Out 3 <*> Procedure Kyphoplasty 4 <+> Time Out 4 <*> Procedure Kyphoplasty 5 <+> Time Out 5 <*> Procedure Kyphoplasty 6 <*> Procedure Kyphoplasty 03/28/20 16:28:54 Video Control Operator: CRMOSS Modifier: CRMOSS 1 <+> Time Out 1 <*> Procedure Kyphoplasty 6 <+> Time Out 6 <*> Procedure Kyphoplasty 03/28/20 16:28:30 Video Control Operator: CRMOSS Modifier: CRMOSS 1 <*> Procedure [...] [facility] IntraOp Case Times Audit 03/28/20 16:33:05 Video Control Operator: CRMOSS Modifier: CRMOSS <+> 1 Out Room Time <+> 1 Stop Time 03/28/20 16:28:35 Video Control Operator: CRMOSS Modifier: CRMOSS <+> 1 Stop Time 03/28/20 16:18:16 Video Control Operator: CRMOSS Modifier: CRMOSS <+> 1 Start Time [facility] IntraOp Communication Entry 1 Communication To Family/Significant other Comment START OF PROCEDURE Last Modified By: CONTRERAS SERRATO RN 03/28/20 16:13:32 [facility] IntraOp Counts Verification Entry 1 Procedure Kyphoplasty Count Info Count Type Sponge, Sharps Counts Verification Baseline/pre-procedure Sequence Count Results Correct, surgeon notified Counts Performed By Count Performed By SHIVAM MURO, (Scrub) Mercerizer Machine Operator Count Performed By CONTRERAS SERRATO RN (RN) Last Modified By: CONTRERAS SERRATO RN 03/28/20 16:15:54 [facility] IntraOp Counts Final Entry 1 Procedure Kyphoplasty Final Count Info Count Type Sponge, Sharps Counts Verification Skin Closure/end of Sequence procedure Count Results Correct, surgeon notified Counts Performed By Count Performed By SHIVAM MURO, (Scrub) Mercerizer Machine Operator Count Performed By CONTRERAS SERRATO, RN (RN) [...] Item Occlusive dressing Applied By SHIVAM MURO, Mercerizer Machine Operator Other Comments AQUACEL DRESSING Last Modified By: [...] IntraOp Fire Risk Assessment Audit 03/28/20 16:18:24 Video Control Operator: CRMOSS Modifier: CRMOSS <+> 1 Standard Fire Safety Precautions Followed [facility] IntraOp General Case Associate Professor Of Theology 1 Case Information OR OR 01 [facility] Case Level 1 Room Verified Yes Wound Class I - Clean Specialty SN Neurosurgery Anesthesia Type MAC ASA Class 3 Diagnosis Preop Diagnosis L1 FRACTURE Postop Same As Preop No Postop Diagnosis DICTATED BY MD Last Modified By: CONTRERAS SERRATO RN 03/28/20 16:18:53 [facility] IntraOp Implant Log Entry 1 Type Implant (Synthetic) Implant Log Implant Type Bone Cement Implant CEMENT BONE KYPHX Identification [id number] Description Implant Quantity 1 Implant Site L1 Implant [id number] Identification Lot Number Implant Medtronic:Spine:Sofamor Identification Shi Lehr Attendant Name: Implant [id number] Identification Catalog Number Implant [...] 1% w/ epinephrine 1:100,000 20ml vial - [id number] Route of LOCAL Administration Dose Dose 20 [...] [facility] IntraOp Surgical Procedures Audit 03/28/20 16:28:40 Video Control Operator: CRMOSS Modifier: CRMOSS 1 <*> Procedure [...] Type Fluoroscopy Fluoroscopy Type C-Arm Site OPSITE Territory Sales Executive Name NELLA LORETA Protective Devices Yes Used Last Modified By: CONTRERAS SERRATO RN 03/28/20 16:22:26 Case Comments <None> Finalized By: CONTRERAS SERRATO, RN Document Signatures Signed By: CONTRERAS SERRATO RN 03/28/20 16:33 documented in this encounter Plan of Treatment Not on file documented as of this encounter Visit Diagnoses Not on filedocumented in this encounter
--- OUTSIDE RECORDS SUMMARY | 2025-05-30 12:42 | XMS_ITS | Clinical Summary ---
Author Organization [employer] ([place], [place], [place], [place]) Address [address] [place] [address] Care Team Providers Care Oncology Transplant Network Manager Name Role Phone Unavailable Primary Care Provider [...]
--- OUTSIDE RECORDS SUMMARY | 2025-05-30 12:42 | XMS_ITS | Clinical Summary ---
Author Organization [facility] Address [address] [place] [address] Care Team Providers Care Clinical Trial Head Name Role Phone Fredi Helton MD Primary Care Provider [phone] Allergies No known active allergies Medications spironolactone [...] or (1 - 1-dose 75+ series) 2025 [id number] Vaccine ( - season) 2025 05/08/2022, 12/18/2021, [...] Adults <6.0% Children and Adolescents <7.5% Source: [place] [employer]. Standards of medical care in diabetes,2017. Diabetes Care.2017:40 (suppl 1):S1-S135. HbA1c assay performed by an ion-exchange chromatography method that is certified traceable to the DCCT. us Alexa Díaz DO LAB BLOOD ORDERABLES Final Res ult Performing Organization Address City/[facility]/ZIP Co de Phone Number [facility] [address] [place] [address] * Hepatitis C Antibody - ED (12/05/2022 2:45 PM EDT) Hepatitis C Antibody Negative Negative 12/05/2022 3:46 PM EDT [facility] Blood Venous blood specimen / Unknown Venipuncture / Unknown 12/05/2022 2:45 PM EDT 12/05/2022 3:05 PM EDT us Dayan Patiño MD LAB BLOOD ORDERABLES Final R esult Performing Organization Address City/[facility]/ZIP Co de Phone Number [facility] [address] [place] [address] from Last 3 Months or Most Recently Relevant to Health Maintenance Insurance [address] [id number] MEDICARE [facility] Advance Directives * Full Code (Latest Code Status on File) Date Activated Date Inactivated Comments 12/05/2022 3:17 PM 12/06/2022 8:47 PM Ok for CRP a nd temporary intubation. Does not wish to be on prolonged intubation or life support with low likelyhood of extubation. Question Answer Comments Patient has decision-making capacity? Yes Care Teams Clinical Trial Head Relationship Specialty Start Date End Date Fredi Helton MD [address] [facility] [address] [phone] PCP - General 01/05/21
--- OUTSIDE RECORDS SUMMARY | 2025-05-30 12:42 | XMS_ITS | Encounter Summary ---
Author Organization [employer] ([place], [place], [place], [place]) Address [address] [place] [address] Care Team Providers Care Director Of Officiating Name Role Phone Unavailable Primary Care Provider Unavailabl e Encounter Details Date Type Department Care Team (Late st Contact Info) Description 03/28/2020 Transcribed Document [facility] Family [place] [facility] [place] [address] ProviderCj MD [address] [place] [address] Social History Tobacco Use Types [...] LINDER D.O.B./Sex: 1950 Female Med Rec #: [id number] Physician: ARTHUR ESCOTO MD-ORT Financial #: [id number] Pt. Type: O Room/Bed: Admit/Disch: 03/28/20 12:41:00 - [place] [facility] [place] PreOp Case Times Entry 1 In Preop 03/28/20 12:50:00 Ready for Holding n/a Room Patient Ready for 03/28/20 15:10:00 Surgery Patient Out of Preop 03/28/20 16:00:00 Patient Out of n/a Holding Room Last Modified By: JEFFERSON LOZADA RN 03/28/20 16:35:02 Angela PreOp Case Times Audit 03/28/20 16:35:02 Racker Octave Board: ANGELLA Modifier: [email or web address] <+> 1 Patient Out of Preop Finalized By: JEFFERSON LOZADA RN Document Signatures Signed By: JEFFERSON LOZADA RN 03/28/20 16:35 Electronically signed by [facility] Conversion Golf Cart Repairer Cerner at 12/13/2022 11:29 AM CDT documented in this encounter Plan of Treatment Not on file documented as of this encounter Visit Diagnoses Not on filedocumented in this encounter
--- OUTSIDE RECORDS SUMMARY | 2025-05-30 12:42 | XMS_ITS | Encounter Summary ---
Author Organization [employer] ([place], [place], [place], [place]) Address [address] [place] [address] Care Team Providers Care Boiler Erector Name Role Phone Unavailable Primary Care Provider Unavailabl e Encounter Details Date Type Department Care Team (Late st Contact Info) Description 03/28/2020 Transcribed Document [facility] [place] Family Medicine [place] [address] ProviderCj MD [address] [place], [place] [id number] Social History Tobacco Use Types Packs/Day Years [...]
--- OUTSIDE RECORDS SUMMARY | 2025-05-30 12:42 | XMS_ITS | Clinical Summary ---
Author Organization [facility] Address [address] [place] [address] Phone Care Team Providers Care Adjunct Writing Instructor Name Role Phone Unavailable Unavailable Conditions or Problems No information available. Medications No information available. Medications Administered No information available. Allergies, Adverse Reactions, Alerts No information available. Results No information available. Plan of Care No information available. Procedures No information available. Vital Signs No information available. Immunizations No information available. Advance Directives No information available.
--- OUTSIDE RECORDS SUMMARY | 2025-05-30 12:42 | XMS_ITS | Encounter Summary ---
Author Organization [employer] ([place], [place], [place], [place]) Address [address] [place] [address] Care Team Providers Care Driver Material Handler Name Role Phone Unavailable Primary Care Provider Unavailabl e Encounter Details Date Type Department Care Team (Late st Contact Info) Description 03/28/2020 Transcribed Document [facility] [place] Medicine [facility] [address] ProviderCj MD [address] [place] [address] Social History Tobacco Use Types [...] Source : Stated Height Entry Format : [place] Height, Feet : 5 ft(Converted to: 152 cm, 60 Inch) Height, Inches : 4 Inch(Converted to: 0 ft 4 Inch, 10.16 cm) Clinical Height : 162.56 cm Weight Source : Standing scale Weight Entry Format : [place] Clinical Dosing Weight : 80.45 kg Weight, Pounds : 177 lb Body Surface Area (BSA) : 1.86 m2 Body Mass Index : 30.4 kg/m2 (HI) [place] Body Weight : 54 kg MILY GUEVARA [...] Where was the COVID-19 Testing completed? : [facility] Date of COVID-19 test known? : Yes [...] MILY GUEVARA RN - 03/28/2020 15:03 EDT [place] Suicide Severity Rating Scale (C-SSRS) CSSRS Past [...] Arrival on Unit : Wheelchair Support Person/Patient Coil Wrapper : Yes Want Family/Rep/Phys Notified of Admit : No Emergency Contact #1 : Marky Sotelo Emergency Contact #1 Emergency Contact #1 Relationship : Emergency Contact #2 : . Emergency Contact #2 Phone Number : . Emergency Contact #2 Relationship : . Information Obtained From : Patient Primary Language : Nigerian Preferred Communication Mode : Verbal Communication Barrier : None Fondant Puff Maker Needed : MILY Phan RN - 03/28/2020 [...] Level : 46 or > High Risk [place] Fall Interventions : Adequate lighting, Bed in [...]
[2025-05-30 12:51] LABS: Coronavirus 19, PCR Not Detected (NotDetected); Influenza A, PCR Not Detected (NotDetected); Influenza B, PCR Not Detected (NotDetected)
== END 2025-05-30 23:59 | disposition home or self-care (01) ==
LOC: LAB 12:40
PROVIDERS: PCP Nurse Practitioner Family; Visit Provider Nurse Practitioner Family
DX: R06.02 Shortness of breath (principal); R05.1 Acute cough; M54.9 Dorsalgia, unspecified; R10.A0 Flank pain, unspecified side; R35.0 Frequency of micturition
CPT/HCPCS: 71046; 87086; 87631

== ENCOUNTER 2025-06-06 10:01 | Emergency (ER) | payer MEDICARE, OTHER, SELFPAY ==
[2025-06-06] VITALS (10 sets, daily range): BP systolic 144–183; BP diastolic 70–85; PULSE 56–76; RESP 16–17; TEMP 36.5–36.6; O2SAT 97–100; BMI 27.3
--- NOTE | 2025-06-06 10:11 | ED_ITS ---
<Statement entered by Pranay Juarez MD - 06/06/25 21:16> I independently examined this pt. Resting comfortably. Chronic abd and back pain. Negative duckworth's sign. more epigastric for me. Soft. No peritoneal signs. Likely GERD but given negative RUQ US on my interpretation, proceeded with CTA abd to r/o dissection, abscess, or otherwise. Unremarkable. She said she had a MORE as well. CT unremarkable on my read. Feeling somewhat better after meds. Has good followup. Emergent pathologies excluded. She is tolerating good PO. Has good f/u with PCP. Return precautions. I was consulted by the NARESH, and we discussed the complexity of problems being addressed. I approved the treatment and management plan for this patient's care in the emergency department, thus performing a substantial portion of the medical decision making. Pranay Juarez MD Discharge Plan Disposition Patient Disposition: Home, Self-Care Condition: Good Prescriptions Prescriptions: No Action multivitamin [Daily Multi-Vitamin] Tablet 1 tab PO DAILY polyethylene glycol 3350 [Miralax] 17 gram/dose powder 17 g PO DAILY PRN (Reason: Constipation) furosemide 20 mg tablet 20 mg PO DAILY Qty: 90 1RF levothyroxine 75 mcg tablet 75 mcg PO DAILY atorvastatin 10 mg tablet 10 mg PO DAILY sertraline 25 mg tablet 25 mg PO DAILY azelastine 137 mcg (0.1 %) spray,non-aerosol 1 spray intranasal BID PRN Rx Instructions: administer into each nostril Fiber (dextrin) 3 gram/3.5 gram powder 3 g PO DAILY azithromycin [Zithromax Z-Myron] 250 mg tablet See Rx Instructions PO .COMPLEX Qty: 6 0RF Rx Instructions: For 250 mg dose pack: take 500 mg today (day 1), then 250 mg for 4 days (days 2-5) PO albuterol sulfate [Ventolin HFA] 90 mcg/actuation HFA aerosol inhaler 2 puff inhalation Q4-6H PRN (Reason: shortness of breath or wheezing) Qty: 8.5 0RF mirabegron [Myrbetriq] 25 mg tablet extended release 24 hr 25 mg PO DAILY Qty: 90 3RF methocarbamol 500 mg tablet 500 mg PO HS PRN (Reason: muscle spasm) Qty: 30 0RF methylprednisolone [Medrol (Myron)] 4 mg tablets,dose pack See Rx Instructions PO PER PKG DIR Qty: 21 0RF Rx Instructions: PO PER PKG DIR for 6 days clopidogrel 75 mg tablet 75 mg PO DAILY 90 Days Qty: 90 3RF Referrals Follow up/Referrals: Christen Guido APRN [Primary Care Provider, Medical] - See instructions Activity Restrictions/Add. Instructions Additional Instructions/Restrictions: You were evaluated on an emergency basis. It is very important that you follow- up with your primary care provider and any specialist who we discussed within the next 2 days in order to better assess your health more comprehensively. For example, incidental findings on imaging or laboratory results that were performed today may be discovered, which do not require immediate medical care, but may impact your health in the future. If your symptoms worsen or persist, please return to the emergency department immediately for reassessment. Take all medications as prescribed. In queue for allowing me to participate in your health care, and I hope you feel better soon. Clinical Impressions Clinical Impression: Abdominal pain Instructions Patient Instructions: DI for Abdominal Pain in Adults Print Language Print Language: [place] Discharge ED Provider: Pranay Juarez General Adult HPI <Tri Salter - Last Filed: 06/06/25 14:13> General Chief complaint: PAIN Stated complaint: Pain R side and back Time Seen by Provider: 06/06/25 10:08 History of Present Illness HPI narrative: 75-year-old female presents emergency department with complaints of right upper quadrant pain that radiates between her shoulder blades for the past 8 days. She reports she was seen by her primary care provider last week where chest x- ray was negative. She denies nausea, vomiting, diarrhea but states she has felt fever. Patient states that she has been told she has gallbladder disease in the past but has not had any interventions done for her gallbladder. Related Data Home Medications ?Medication ?Instructions ?Recorded ?Confirmed multivitamin (Daily Multi-Vitamin 1 tab PO DAILY 02/0105/30/25 tablet) polyethylene glycol 3350 17 17 g PO DAILY PRN Constipa tion 02/02/24 05/30/25 gram/dose oral powder (Miralax) atorvastatin 10 mg tablet 10 mg PO DAILY 05/30/25 1002/16 azelastine 137 mcg (0.1 %) nasal 1 spray intranasal BI D PRN 05/30/25 05/30/25 spray dextrin 3 gram/3.5 gram oral 3 g PO DAILY 05/30/2502/16 powder (Fiber (dextrin)) levothyroxine 75 mcg tablet 75 mcg PO DAILY 05/30/25 1 sertraline 25 mg tablet 25 mg PO DAILY 05/30/2502/16 Previous Rx's ?Medication ?Instructions ?Recorded furosemide 20 mg tablet 20 mg PO DAILY fluid pills # 90 tabs 01/04/25 albuterol sulfate 90 mcg/actuation 2 puff inhalation Q 4-6H PRN 05/30/25 aerosol inhaler (Ventolin HFA) shortness of breath or wheezing #8.5 grams azithromycin 250 mg tablet See Rx Instructions PO .COM PLEX #6 05/30/25 (Zithromax Z-Myron) tabs mirabegron 25 mg tablet,extended 25 mg PO DAILY #90 ta bs 05/30/25 release 24 hr (Myrbetriq) methocarbamol 500 mg tablet 500 mg PO HS PRN muscle sp asm #30 06/01/25 tabs methylprednisolone 4 mg tablets in See Rx Instructions PO PER PKG DIR 06/03/25 a dose pack (Medrol (Myron)) #21 tabs clopidogrel 75 mg tablet 75 mg PO DAILY blood thinner 90 06/06/25 days #90 tabs Allergies Allergy/AdvReac Type Severity Reaction Status Date / Time lisinopril AdvReac Mild Cough Verified 05/30/25 10:59 [facility] <Tri Salter - Last Filed: 06/06/25 14:13> [facility] Disclaimer: The information contained in this section may have been updated after the patient was seen, as this information can be updated by other users. Medical History Abnormal EKG Abnormal result of cardiovascular function study Alcohol intoxication Alcoholism Dyspnea Gastroesophageal reflux disease Other fatigue Restless sleeper Surgical History H/O total hysterectomy History of ankle surgery History of appendectomy History of cardiac cath History of colonoscopy x5 History of partial hysterectomy Family History Father Heart attack Coronary artery disease Mother Coronary artery disease COPD (chronic obstructive pulmonary disease) Kidney disease CHF (congestive heart failure) Pacemaker Social History Smoking Status: Never smoker smoking status start date: 18yo smoking status stop date: 1989 second hand exposure: No alcohol intake: former year quit: 2021 substance use type: denies use current occupational status: retired Travel in the last 8 weeks?: None household members: spouse housing: house caffeine: Yes Have you lived/traveled outside US in past 30 days?: No Contact w/someone who lives/traveled outside US past 30 days?: No Exposure to someone with infectious disease in past 14 days?: No Do you have a fever (greater than 100.4 F or 38 C)?: No Have you tested positive for COVID-19?: No Exposed to someone with COVID-19 in past 14 days?: No Do you have a sore throat?: No Do you have a cough?: No Do you have any weakness?: No Do you have any diarrhea?: No Are you experiencing any unusual bleeding?: No Do you have any muscle aches/pain?: No Do you have any abdominal pain?: No Are you experiencing loss of taste or smell?: No Other Medical History Have you received the Flu Vaccine for this season: No Have you received the Pneumonia Vaccine: Yes <Tri Salter - Last Filed: 06/06/25 14:13> ROS Obtained: Yes other Gastrointestinal Gastrointestingal: Reports abdominal pain (Right upper quadrant) Physical Exam <Tri Salter - Last Filed: 06/06/25 14:13> Narrative Physical exam: General: Awake, aware, in no acute distress HEENT: Normocephalic, no evidence of trauma CV: RRR, no murmurs, rubs, or gallops Pulm: CTA bilaterally with no rhonchi, rales, wheezes ABD: Tenderness on palpation of right upper quadrant. With normal active bowel sounds. No CVA tenderness noted. Psych, appropriate mood and affect General General appearance: alert Respiratory Respiratory exam: Present normal lung sounds bilaterally Cardiovascular Cardiovascular exam: Present regular rate Neurological Exam Neurological exam: Present alert Medical Decision Making <Tri Salter - Last Filed: 06/06/25 14:13> Medical Records Screening: Per USPSTF and CDC recommendations, given the prevalence of disease in our region, it is our hospital?s policy to screen for HIV and viral Hepatitis for all patients aged 18 and over and those with ongoing risk factors. Esdras Inquiry Pt receiving controlled substance: No Vital Signs: 06/06/25 10:05 06/06/25 10:05 06/06/25 10:09 Temperature 97.7 F 97.7 F Temperature Source Oral Oral Pulse Rate 70 71 Pulse Rate [Right] 70 Respiratory Rate 16 16 Blood Pressure 181/85 H 181/85 H Blood Pressure [Right Arm] 181/85 H Blood Pressure Mean Blood Pressure Mean [Right Arm] 117 Blood Pressure Source Automatic Cuff Blood Pressure Source [Right Arm] Automatic Cuff Blood Pressure Position Supine Blood Pressure Position [Right Arm] Supine 02 Sat by Pulse Oximetry 100 100 99 Oxygen Delivery Method Room Air Room Air Room Air 06/06/25 10:30 06/06/25 11:08 06/06/25 11:30 Temperature Temperature Source Pulse Rate 71 65 66 Pulse Rate [Right] Respiratory Rate Blood Pressure 183/80 H 164/85 H 171/78 H Blood Pressure [Right Arm] Blood Pressure Mean 109 Blood Pressure Mean [Right Arm] Blood Pressure Source Blood Pressure Source [Right Arm] Blood Pressure Position Blood Pressure Position [Right Arm] 02 Sat by Pulse Oximetry 98 99 98 Oxygen Delivery Method Room Air Room Air 06/06/25 12:31 Temperature Temperature Source Pulse Rate 56 L Pulse Rate [Right] Respiratory Rate Blood Pressure 163/77 H Blood Pressure [Right Arm] Blood Pressure Mean Blood Pressure Mean [Right Arm] Blood Pressure Source Blood Pressure Source [Right Arm] Blood Pressure Position Blood Pressure Position [Right Arm] 02 Sat by Pulse Oximetry 97 Oxygen Delivery Method Lab Data Lab Results 06/06/25 10:07: Urine Color Yellow, Urine Appearance Clear, Urine pH 6.0, Ur Specific [place] 1.020, Urine Protein Negative, Urine Glucose (UA) Negative, Urine Ketones Negative, Urine Blood Negative, Urine Nitrate Negative, Urine Bilirubin Negative, Urine Urobilinogen 0.2, Ur Leukocyte Esterase Negative, Urine RBC None, Urine WBC Occasional, Ur Squamous Epith Cells 5-10, Urine Bacteria Trace 06/06/25 10:15: WBC 6.9, RBC 4.01 L, Hgb 12.5, Hct 36.6 L, MCV 91.3, MCH 31.2, MCHC 34.2, RDW 12.9, Plt Count 281, MPV 9.7, Neut % (Auto) 57.4, Lymph % (Auto) 30.8, Towns % (Auto) 7.2, Eos % (Auto) 3.4, Baso % (Auto) 0.9, Neut # (Auto) 3.9, Lymph # (Auto) 2.1, Towns # (Auto) 0.5, Eos # (Auto) 0.2, Baso # (Auto) 0.1, Sodium 139, Potassium 3.7, Chloride 105, Carbon Dioxide 25, Anion Gap 12.7, BUN 17, Creatinine 0.80, Estimated Creat Clear 55, Estimated GFR 70, Est GFR ( Amer) 85, Glucose 97, Calcium 8.9, Magnesium 1.7, Total Bilirubin 0.9, AST 33, ALT 16, Alkaline Phosphatase 125, Total Protein 6.8, Albumin 4.2, Globulin 2.6, Albumin/Globulin Ratio 1.6, Lipase 47, HCV Ab ESPERANZA w/Rflx PCR Qn Negative, HIV Ag/Ab Combo Qual Negative 06/06/25 10:15 06/06/25 10:15 Orders (Tests/Meds): ED MEDICATIONS Generic Name Dose Route Start Last Admin Trade Name Freq PRN Reason Stop Dose Admin Sodium Chloride 8 ml 06/06/25 11:34 Sodium Chloride 0.9% 10ml Vial IV 07/06/25 11:33 NEEDED PRN dilute pepcid Discontinued Medications Generic Name Dose Route Start Last Admin Trade Name Freq PRN Reason Stop Dose Admin Acetaminophen 1,000 mg 06/06/25 11:34 06/06/25 12:14 Acetaminophen 1,000mg/100ml Vial IV 06/06/25 11:35 1,000 mg ONCE ONE Administration Belladonna Alkaloids 60 ml 06/06/25 11:34 06/06/25 12:14 Belladonna Alkaloids 60 Ml Ml PO 06/06/25 11:35 60 ml ONCE ONE Administration Famotidine 20 mg 06/06/25 11:34 06/06/25 12:17 Famotidine 20mg/2ml Vial IV 06/06/25 11:35 20 mg ONCE ONE Administration Sodium Chloride 1,000 mls @ 999 mls/hr 06/06/25 11:34 06/06/25 13:24 Sod Chlor 0.9% 1000ml Bag IV 06/06/25 12:34 Infused .Q1H1M ONE Infusion Iopamidol 80 ml 06/06/25 12:13 06/06/25 12:14 Iopamidol-370 (76%);100ml Bottle IV 06/06/25 12:14 80 ml ONCE ONE Administration Ketorolac Tromethamine 15 mg 06/06/25 10:19 06/06/25 10:34 Ketorolac 15mg/Ml Vial IV 06/06/25 10:20 15 mg ONCE ONE Administration Sodium Chloride 10 ml 06/06/25 12:13 06/06/25 12:14 Sodium Chloride 0.9% 10ml Syr (Rad Only) IV 06/06/25 12:14 10 ml ONCE ONE Administration Sodium Chloride 50 ml 06/06/25 12:13 06/06/25 12:14 0.9 % Sodium Chloride 50 Ml Vial IV 06/06/25 12:14 50 ml ONCE ONE Administration ORDERS Category Date Time Status CT angio abdomen pelvis Stat Cat Scan 06/06/25 11:[address] head/brain wo con Stat Cat Scan 06/06/25 11:34 Taken US gallbladder Stat Exams 06/06/25 10:19 Completed CBC w/Auto Diff [Complete Blood Count Auto Diff] Stat Lab 06/06/25 10:15 Completed CMP [Comprehensive Metabolic Panel] Stat Lab 06/06/25 10:15 Completed HIV Combo Stat Lab 06/06/25 10:15 Completed Hepatitis C Ab Qual. W/ RFX Stat Lab 06/06/25 10:15 Completed Lipase Stat Lab 06/06/25 10:15 Completed Magnesium Stat Lab 06/06/25 10:15 Completed UA [Urinalysis and Microscopic] Stat Lab 06/06/25 10:07 Completed Medical Decision Narrative: Initial impression of presenting illness: 75-year-old female presents emergency department complaints of right upper quadrant pain for the past 8 days. She denies nausea, vomiting, diarrhea. States she has felt feverish. She was seen by her primary care provider for the same complaint where she had a negative chest x-ray. Patient reports she has been told that she has gallbladder disease but has never had any interventions done for her gallbladder. She has not take any medication for pain prior to arrival. Differential diagnosis includes but is not limited to: Gallbladder disease, pancreatitis, gastritis, pneumonia Patient arrives hemodynamically stable, afebrile, without respiratory distress with vital signs interpreted by myself. Initial physical exam reveals tenderness to palpation of right upper quadrant. Patient with normal active bowel sounds. No CVA tenderness noted. Rest of exam is unremarkable Initial diagnostic plan: Abdominal pain workup including ultrasound of gallbladder, Toradol for pain Results from initial plan were reviewed and interpreted by myself, pertinent positives include: Laboratory studies including urinalysis were nonactionable. Gallbladder ultrasound also unremarkable for acute findings. CT of abdomen and head also unremarkable for acute findings. Interventions in the ED: Patient was given Toradol for pain control. Patient was made aware of the results and the findings, upon reevaluation patient has remained stable throughout stay, symptoms remained stable. Upon reevaluation patient is resting comfortably in bed with no signs of acute distress. Disposition: Reviewed finding today's workup with patient informed no acute abnormalities were noted. Encouraged her to continue taking Tylenol and ibuprofen as needed for pain control. Recommended that she follow-up with her primary care provider if her symptoms or not improving. Instructed her to return to the emergency department with worsening symptoms including worsening abdominal pain, shortness of breath, fever, uncontrolled vomiting or diarrhea. Patient was agreeable to plan of care. Patient made aware of findings and had a detailed discussion with symptomatic care and return precautions, patient voiced understanding. <Pranay Juarez MD - Last Filed: 06/06/25 12:03> Vital Signs: 06/06/25 10:05 06/06/25 10:05 06/06/25 10:09 Temperature 97.7 F 97.7 F Temperature Source Oral Oral Pulse Rate 70 71 Pulse Rate [Right] 70 Respiratory Rate 16 16 Blood Pressure 181/85 H 181/85 H Blood Pressure [Right Arm] 181/85 H Blood Pressure Mean Blood Pressure Mean [Right Arm] 117 Blood Pressure Source Automatic Cuff Blood Pressure Source [Right Arm] Automatic Cuff Blood Pressure Position Supine Blood Pressure Position [Right Arm] Supine 02 Sat by Pulse Oximetry 100 100 99 Oxygen Delivery Method Room Air Room Air Room Air 06/06/25 10:30 06/06/25 11:08 06/06/25 11:30 Temperature Temperature Source Pulse Rate 71 65 66 Pulse Rate [Right] Respiratory Rate Blood Pressure 183/80 H 164/85 H 171/78 H Blood Pressure [Right Arm] Blood Pressure Mean 109 Blood Pressure Mean [Right Arm] Blood Pressure Source Blood Pressure Source [Right Arm] Blood Pressure Position Blood Pressure Position [Right Arm] 02 Sat by Pulse Oximetry 98 99 98 Oxygen Delivery Method Room Air Room Air 06/06/25 12:31 Temperature Temperature Source Pulse Rate 56 L Pulse Rate [Right] Respiratory Rate Blood Pressure 163/77 H Blood Pressure [Right Arm] Blood Pressure Mean Blood Pressure Mean [Right Arm] Blood Pressure Source Blood Pressure Source [Right Arm] Blood Pressure Position Blood Pressure Position [Right Arm] 02 Sat by Pulse Oximetry 97 Oxygen Delivery Method Lab Data Lab Results 06/06/25 10:07: Urine Color Yellow, Urine Appearance Clear, Urine pH 6.0, Ur Specific [place] 1.020, Urine Protein Negative, Urine Glucose (UA) Negative, Urine Ketones Negative, Urine Blood Negative, Urine Nitrate Negative, Urine Bilirubin Negative, Urine Urobilinogen 0.2, Ur Leukocyte Esterase Negative, Urine RBC None, Urine WBC Occasional, Ur Squamous Epith Cells 5-10, Urine Bacteria Trace 06/06/25 10:15: WBC 6.9, RBC 4.01 L, Hgb 12.5, Hct 36.6 L, MCV 91.3, MCH 31.2, MCHC 34.2, RDW 12.9, Plt Count 281, MPV 9.7, Neut % (Auto) 57.4, Lymph % (Auto) 30.8, Towns % (Auto) 7.2, Eos % (Auto) 3.4, Baso % (Auto) 0.9, Neut # (Auto) 3.9, Lymph # (Auto) 2.1, Towns # (Auto) 0.5, Eos # (Auto) 0.2, Baso # (Auto) 0.1, Sodium 139, Potassium 3.7, Chloride 105, Carbon Dioxide 25, Anion Gap 12.7, BUN 17, Creatinine 0.80, Estimated Creat Clear 55, Estimated GFR 70, Est GFR ( Amer) 85, Glucose 97, Calcium 8.9, Magnesium 1.7, Total Bilirubin 0.9, AST 33, ALT 16, Alkaline Phosphatase 125, Total Protein 6.8, Albumin 4.2, Globulin 2.6, Albumin/Globulin Ratio 1.6, Lipase 47, HCV Ab ESPERANZA w/Rflx PCR Qn Negative, HIV Ag/Ab Combo Qual Negative Orders (Tests/Meds): ED MEDICATIONS Generic Name Dose Route Start Last Admin Trade Name Freq PRN Reason Stop Dose Admin Sodium Chloride 8 ml 06/06/25 11:34 Sodium Chloride 0.9% 10ml Vial IV 07/06/25 11:33 NEEDED PRN dilute pepcid Discontinued Medications Generic Name Dose Route Start Last Admin Trade Name Usamaq PRN Reason Stop Dose Admin Acetaminophen 1,000 mg 06/06/25 11:34 06/06/25 12:14 Acetaminophen 1,000mg/100ml Vial IV 06/06/25 11:35 1,000 mg ONCE ONE Administration Belladonna Alkaloids 60 ml 06/06/25 11:34 06/06/25 12:14 Belladonna Alkaloids 60 Ml Ml PO 06/06/25 11:35 60 ml ONCE ONE Administration Famotidine 20 mg 06/06/25 11:34 06/06/25 12:17 Famotidine 20mg/2ml Vial IV 06/06/25 11:35 20 mg ONCE ONE Administration Sodium Chloride 1,000 mls @ 999 mls/hr 06/06/25 11:34 06/06/25 13:24 Sod Chlor 0.9% 1000ml Bag IV 06/06/25 12:34 Infused .Q1H1M ONE Infusion Iopamidol 80 ml 06/06/25 12:13 06/06/25 12:14 Iopamidol-370 (76%);100ml Bottle IV 06/06/25 12:14 80 ml ONCE ONE Administration Ketorolac Tromethamine 15 mg 06/06/25 10:19 06/06/25 10:34 Ketorolac 15mg/Ml Vial IV 06/06/25 10:20 15 mg ONCE ONE Administration Sodium Chloride 10 ml 06/06/25 12:13 06/06/25 12:14 Sodium Chloride 0.9% 10ml Syr (Rad Only) IV 06/06/25 12:14 10 ml ONCE ONE Administration Sodium Chloride 50 ml 06/06/25 12:13 06/06/25 12:14 0.9 % Sodium Chloride 50 Ml Vial IV 06/06/25 12:14 50 ml ONCE ONE Administration ORDERS Category Date Time Status CT angio abdomen pelvis Stat Cat Scan 06/06/25 11:[address] head/brain wo con Stat Cat Scan 06/06/25 11:34 Taken US gallbladder Stat Exams 06/06/25 10:19 Completed CBC w/Auto Diff [Complete Blood Count Auto Diff] Stat Lab 06/06/25 10:15 Completed CMP [Comprehensive Metabolic Panel] Stat Lab 06/06/25 10:15 Completed HIV Combo Stat Lab 06/06/25 10:15 Completed Hepatitis C Ab Qual. W/ RFX Stat Lab 06/06/25 10:15 Completed Lipase Stat Lab 06/06/25 10:15 Completed Magnesium Stat Lab 06/06/25 10:15 Completed UA [Urinalysis and Microscopic] Stat Lab 06/06/25 10:07 Completed ECG Data Tracing #1: Patient's EKG was independently reviewed by me, and interpreted to be significant for NSR with no acute ST-segment changes. Critical Care <Tri Salter - Last Filed: 06/06/25 14:13> Critical Care Time Critical Care Time: No
[2025-06-06 10:13] LABS: Microscopic, Urine URINE MICROSCOPIC (MICROSCOPIC)
--- NOTE | 2025-06-06 10:19 | US_ITS ---
FINAL REPORT TECHNIQUE: Sonographic images of the right upper quadrant were obtained. CLINICAL HISTORY: upper abd pain FINDINGS: PANCREAS: Unremarkable. LIVER: Homogeneous. No focal hepatic lesion. No intrahepatic biliary ductal dilatation. GALLBLADDER: No gallstones. No gallbladder wall thickening or pericholecystic fluid. COMMON DUCT: 4 mm. Normal for age. RIGHT KIDNEY: The right kidney measures 8.2 cm. There is no hydronephrosis, mass, or stone. FREE FLUID: None. IMPRESSION: Unremarkable ultrasound of the right upper quadrant. Reviewed, Interpreted and Dictated by Evelyn Baker MD Transcribed by Mimi Alfred Authenticated and [facility]
--- OUTSIDE RECORDS SUMMARY | 2025-06-06 10:19 | XMS_ITS | Clinical Summary ---
Author Organization [facility] Address [address] [place] [address] Phone Care Team Providers Care Program Aide Group Work Name Role Phone Unavailable Unavailable Conditions or Problems No information available. Medications No information available. Medications Administered No information available. Allergies, Adverse Reactions, Alerts No information available. Results No information available. Plan of Care No information available. Procedures No information available. Vital Signs No information available. Immunizations No information available. Advance Directives No information available.
--- OUTSIDE RECORDS SUMMARY | 2025-06-06 10:20 | XMS_ITS | Encounter Summary ---
Author Organization [email or web address] ([place], [place], [place], [place]) Address [address] [place] [address] Care Team Providers Care Sample Worker Name Role Phone Unavailable Primary Care Provider Unavailabl e Encounter Details Date Type Department Care Team (Late st Contact Info) Description 03/28/2020 Transcribed Document [facility] [place] Family Medicine [facility] [place] [address] ProviderCj MD [address] [place] [address] Social History Tobacco Use Types [...] Source : Stated Height Entry Format : Branch Height, Feet : 5 ft(Converted to: 152 cm, 60 Inch) Height, Inches : 4 Inch(Converted to: 0 ft 4 Inch, 10.16 cm) Clinical Height : 162.56 cm Weight Source : Standing scale Weight Entry Format : Branch Clinical Dosing Weight : 80.45 kg Weight, Pounds : 177 lb Body Surface Area (BSA) : 1.86 m2 Body Mass Index : 30.4 kg/m2 ([place]) [place] Body Weight : 54 kg MILY GUEVARA [...] Where was the COVID-19 Testing completed? : [facility] Date of COVID-19 test known? : Yes [...] MILY GUEVARA RN - 03/28/2020 15:03 EDT [place] Suicide Severity Rating Scale (C-SSRS) CSSRS Past [...] Arrival on Unit : Wheelchair Support Person/Patient Board Of Directors : Yes Want Family/Rep/Phys Notified of Admit : No Emergency Contact #1 : Marky Sotelo Emergency Contact #1 Emergency Contact #1 Relationship : Emergency Contact #2 : . Emergency Contact #2 Phone Number : . Emergency Contact #2 Relationship : . Information Obtained From : Patient Primary Language : Tristanian Preferred Communication Mode : Verbal Communication Barrier : None Billiard Player Needed : MILY Phan RN - 03/28/2020 [...] Level : 46 or > High Risk [place] Fall Interventions : Adequate lighting, Bed in [...]
--- OUTSIDE RECORDS SUMMARY | 2025-06-06 10:20 | XMS_ITS | Clinical Summary ---
Author Organization [employer] ([place], [place], [place], [place]) Address [address] [place] [address] Care Team Providers Care Director Of Assisted Living Name Role Phone Unavailable Primary Care Provider [...]
--- OUTSIDE RECORDS SUMMARY | 2025-06-06 10:20 | XMS_ITS | Encounter Summary ---
Author Organization [employer] ([place], [place], [place], [place]) Address [address] [place] [address] Care Team Providers Care Gas Plant Repairer Name Role Phone Unavailable Primary Care Provider Unavailabl e Encounter Details Date Type Department Care Team (Late st Contact Info) Description 03/28/2020 Transcribed Document [facility] [place] [facility] [place] [address] ProviderCj MD [address] [place] [address] Social History Tobacco Use Types [...] Cj ProviderMD - 03/28/2020 4:58 PM CDT [address] [address] NIYAH MILYDAVID GUILLAUME :1950 Visit Time:03/28/2020 What to do next [...] not have follow-up, contact office make appointment. [phone] Activity: May sit stand walk, drive vehicle when stable, no pain, and functioning properly., Discharge Activity: No heavy lifting over 10 lbs Diet: Discharge Diet: Resume usual diet as tolerated Follow-Up Appointments Follow Up with ARTHUR ESCOTO MD-ORT When Within 1 week Comments Call in the AM Where: [address] [facility] [address] [place] [id number] Medications Take your medications faithfully. Do NOT [...] including vitamins, herbs, eye drops, creams, and tawt-lvq-pkphxxm medicines. ??? Any problems you or family [...] tells you to take them. ??? Taking vbcg-qmv-pkblkje medicines, vitamins, herbs, and supplements. Do not [...] 11/17/2008 Document Revised: 12/29/2018 Document Reviewed: 03/27/2018 [employer] Patient Education ?? 2020 [employer]. Balloon Kyphoplasty, Care After This sheet [...] these instructions at home: Medicines ??? Take ultr-twg-vxyaewa and prescription medicines only as told by your health care provider. ??? Ask your health care provider if the medicine prescribed to you: ? Requires you to avoid driving or using heavy machinery. ? Can cause constipation. You may need to take steps to prevent or treat constipation, such as: ? Drink enough fluid to keep your urine pale yellow. ? Take cvyo-zkj-lmlutss or prescription medicines. ? Eat foods that [...] and water are not available, use hand flue gas analyst. ? Change your dressing as told by [...] care of your puncture site. ??? Take eawc-boj-sncbbjr and prescription medicines only as told by [...] 05/01/2016 Document Revised: 07/19/2019 Document Reviewed: 07/19/2019 [employer] Patient Education ?? 2020 [employer] Inc. acetaminophen and hydrocodone (a SEET a MIN oh fen and darrion droe KOE done) Hycet, Lorcet, Central, Verdrocet, Vicodin, Xodol, Zamicet What is the [...] may report side effects to FDA at 8-236-NFH-6635. What other drugs will affect acetaminophen and [...] affect acetaminophen and hydrocodone, including prescription and wokd-wlm-epydjsa medicines, vitamins, and herbal products. Not all [...] to ensure that the information provided by [employer]. ('[employer]') is accurate, up-to-date, and complete, but no guarantee is made to that effect. Drug information contained herein may be time sensitive. [employer] information has been compiled for use by healthcare practitioners and consumers in the [place] and therefore [employer] does not warrant that uses outside of the [place] are appropriate, unless specifically indicated otherwise. [employer] drug information does not endorse drugs, diagnose patients or recommend therapy. [employer] drug information is an informational resource designed [...] effective or appropriate for any given patient. [employer] does not assume any responsibility for any aspect of healthcare administered with the aid of information [employer] provides. The information contained herein is not intended to cover all possible uses, directions, precautions, warnings, drug interactions, allergic reactions, or adverse effects. If you have questions about the drugs you are taking, check with your doctor, nurse or pharmacist. Copyright 0974-1522 [employer]. Version: 16.. Revision Date: 09/15/2019. sulfamethoxazole and [...] potassium in your blood; ?? porphyria, or ycbpigv-1-vbkqcgwpx dehydrogenase (G6PD) deficiency; or ?? if you [...] may report side effects to FDA at 9-624-AHF-2922. What other drugs will affect sulfamethoxazole and [...] sulfamethoxazole and trimethoprim. This includes prescription and pifg-bwq-otzifte medicines, vitamins, and herbal products. Not all [...] to ensure that the information provided by [employer]. ('[employer]') is accurate, up-to-date, and complete, but no guarantee is made to that effect. Drug information contained herein may be time sensitive. [employer] information has been compiled for use by healthcare practitioners and consumers in the [place] and therefore [employer] does not warrant that uses outside of the [place] are appropriate, unless specifically indicated otherwise. [employer] drug information does not endorse drugs, diagnose patients or recommend therapy. [employer] drug information is an informational resource designed [...] effective or appropriate for any given patient. [employer] does not assume any responsibility for any aspect of healthcare administered with the aid of information [employer] provides. The information contained herein is not intended to cover all possible uses, directions, precautions, warnings, drug interactions, allergic reactions, or adverse effects. If you have questions about the drugs you are taking, check with your doctor, nurse or pharmacist. Copyright 7620-0863 [employer]. Version: 9.01. Revision Date: 10/30/2018. Emergency Awareness [...] Assistance with quitting is available by contacting 5-523-DOOH-NOW. This is a free resource providing counseling, [...] ) Urine Bilirubin Dipstick: Negative Urine Specific [place]: 1.016 -- Normal range between ( 1.005 and 1.030 ) Urine Type.: U CleanCatch Patient Name:MILY SOTELO SRUTHI I have received this information and was given the opportunity to ask questions. Patient/Sandwich Peddler Name: Patient/Sandwich Peddler Signature: Relationship to Patient: Clinician/Hospital Sandwich Peddler Signature: Date: documented in this encounter Plan of Treatment Not on file documented as of this encounter Visit Diagnoses Not on filedocumented in this encounter
--- OUTSIDE RECORDS SUMMARY | 2025-06-06 10:20 | XMS_ITS | Clinical Summary ---
Author Organization [facility] Address [address] [place] [address] Care Team Providers Care Social Work Faculty Member Name Role Phone Fredi Helton MD Primary Care Provider [phone] Allergies No known active allergies Medications spironolactone [...] or (1 - 1-dose 75+ series) 2025 [id number] Vaccine ( - season) 2025 05/08/2022, 12/18/2021, [...] Adults <6.0% Children and Adolescents <7.5% Source: [place] [employer]. Standards of medical care in diabetes,2017. Diabetes Care.2017:40 (suppl 1):S1-S135. HbA1c assay performed by an ion-exchange chromatography method that is certified traceable to the DCCT. us Alexa Díaz DO LAB BLOOD ORDERABLES Final Res ult Performing Organization Address City/[facility]/ZIP Co de Phone Number [facility] [address] [place] [address] * Hepatitis C Antibody - ED (12/05/2022 2:45 PM EDT) Hepatitis C Antibody Negative Negative 12/05/2022 3:46 PM EDT HEALTHCARE LAB Blood Venous blood specimen / Unknown Venipuncture / Unknown 12/05/2022 2:45 PM EDT 12/05/2022 3:05 PM EDT us Dayan Patiño MD LAB BLOOD ORDERABLES Final R esult Performing Organization Address City/[facility]/ZIP Co de Phone Number [facility] [address] [place] [address] from Last 3 Months or Most Recently Relevant to Health Maintenance Insurance [address] [id number] MEDICARE [facility] Advance Directives * Full Code (Latest Code Status on File) Date Activated Date Inactivated Comments 12/05/2022 3:17 PM 12/06/2022 8:47 PM Ok for CRP a nd temporary intubation. Does not wish to be on prolonged intubation or life support with low likelyhood of extubation. Question Answer Comments Patient has decision-making capacity? Yes Care Teams Social Work Faculty Member Relationship Specialty Start Date End Date Fredi Helton MD [address] [facility] [address] [phone] PCP - General 01/05/21
--- OUTSIDE RECORDS SUMMARY | 2025-06-06 10:20 | XMS_ITS | Encounter Summary ---
Author Organization [employer] ([place], [place], [place], [place]) Address [address] [place] [address] Care Team Providers Care Line Director Name Role Phone Unavailable Primary Care Provider Unavailabl e Encounter Details Date Type Department Care Team (Late st Contact Info) Description 03/28/2020 Transcribed Document [facility] [place] [facility] [place] [address] ProviderCj MD [address] [place] [address] Social History Tobacco Use Types [...] LINDER D.O.B./Sex: 1950 Female Med Rec #: [id number] Physician: ARTHUR ESCOTO MD-ORT Financial #: [id number] Pt. Type: O Room/Bed: Admit/Disch: 03/28/20 12:41:00 - Institution: [facility] PreOp Case Times Entry 1 In Preop 03/28/20 12:50:00 Ready for Holding n/a Room Patient Ready for 03/28/20 15:10:00 Surgery Patient Out of Preop 03/28/20 16:00:00 Patient Out of n/a Holding Room Last Modified By: JEFFERSON LOZADA RN 03/28/20 16:35:02 Angela PreOp Case Times Audit 03/28/20 16:35:02 Director Of Vocational Training: ANGELLA Modifier: [email or web address] <+> 1 Patient Out of Preop Finalized By: JEFFERSON LOZADA RN Document Signatures Signed By: JEFFERSON LOZADA RN 03/28/20 16:35 Electronically signed by Shoshana [facility] Conversion Plasma Center Technician Cerner at 12/13/2022 11:29 AM CDT documented in this encounter Plan of Treatment Not on file documented as of this encounter Visit Diagnoses Not on filedocumented in this encounter
--- OUTSIDE RECORDS SUMMARY | 2025-06-06 10:20 | XMS_ITS | Encounter Summary ---
Author Organization [employer] ([place], [place], [place], [place]) Address [address] [place] [address] Care Team Providers Care Wanigan Clerk Name Role Phone Unavailable Primary Care Provider Unavailabl e Encounter Details Date Type Department Care Team (Late st Contact Info) Description 03/28/2020 Transcribed Document [facility] [place] [facility] [address] ProviderCj MD [address] [place] [address] Social History Tobacco Use Types [...] Cj ProviderMD - 03/28/2020 4:17 PM CDT [facility] [place] Main [place] IntraOp Summary Primary Physician: ARTHUR ESCOTO MD-ORT Finalized Date/Time: 03/28/20 16:33:14 Pt. Name: NIYAHMILY GRACIA /Sex: 1950 Female Med Rec #: [id number] Physician: ARTHUR ESCOTO MD-ORT Financial #: [id number] Pt. Type: O Room/Bed: Admit/Disch: 03/28/20 12:41:00 - Institution: [facility] [place] IntraOp Case Attendance Entry 1 Entry 2 Entry 3 Case Attendee ARTHUR ESCOTO MD-ORT MAR CROSS MOSS, CHRISTY, RN GAS STATION SERVICE ATTENDANT-ANS Role Performed Surgeon/Proceduralist, GAS STATION SERVICE ATTENDANT/Nurse Medical Technician Onsite Health Coach, First First Time In 03/28/20 16:04:00 03/28/20 16:04:00 03/28/20 16:04:00 Time Out 03/28/20 16:28:00 03/28/20 16:33:00 03/28/20 16:33:00 Procedure Kyphoplasty Kyphoplasty Kyphoplasty Other Attendee Superficial Wound Closed By: Last Modified By: CONTRERAS SERRATO, CONTRERAS KIM, CONTRERAS KIM RN 03/28/20 16:33:08 03/28/20 16:33:08 03/28/20 16:33:08 Entry 4 Entry 5 Entry 6 Case Attendee SHIVAM MURO, LORETA CARMEN OTHER, ATTENDEE #1 French Professor Role Performed Scrub, First Tank Builder Vendor Time In 03/28/20 16:04:00 03/28/20 16:04:00 03/28/20 16:04:00 Time Out 03/28/20 16:33:00 03/28/20 16:33:00 03/28/20 16:28:00 Procedure Kyphoplasty Kyphoplasty Kyphoplasty Other Attendee CHER DOVER Superficial Wound Closed By: Last Modified By: CONTRERAS SERRATO RN MOSS, CHRISTY, RN MOSS, CHRISTY, RN 03/28/20 16:33:08 03/28/20 16:33:08 03/28/20 16:33:08 [facility] IntraOp Case Attendance Audit 03/28/20 16:33:08 Metal Furniture Assembly Supervisor: CRMOSS Modifier: CRMOSS 1 <*> Procedure Kyphoplasty 2 <+> Time Out 2 <*> Procedure Kyphoplasty 3 <+> Time Out 3 <*> Procedure Kyphoplasty 4 <+> Time Out 4 <*> Procedure Kyphoplasty 5 <+> Time Out 5 <*> Procedure Kyphoplasty 6 <*> Procedure Kyphoplasty 03/28/20 16:28:54 Metal Furniture Assembly Supervisor: CRMOSS Modifier: CRMOSS 1 <+> Time Out 1 <*> Procedure Kyphoplasty 6 <+> Time Out 6 <*> Procedure Kyphoplasty 03/28/20 16:28:30 Metal Furniture Assembly Supervisor: CRMOSS Modifier: CRMOSS 1 <*> Procedure Kyphoplasty [...] [facility] IntraOp Case Times Audit 03/28/20 16:33:05 Metal Furniture Assembly Supervisor: CRMOSS Modifier: CRMOSS <+> 1 Out Room Time <+> 1 Stop Time 03/28/20 16:28:35 Metal Furniture Assembly Supervisor: CRMOSS Modifier: CRMOSS <+> 1 Stop Time 03/28/20 16:18:16 Metal Furniture Assembly Supervisor: CRMOSS Modifier: CRMOSS <+> 1 Start Time [facility] IntraOp Communication Entry 1 Communication To Family/Significant other Comment START OF PROCEDURE Last Modified By: CONTRERAS SERRATO RN 03/28/20 16:13:32 [facility] IntraOp Counts Verification Entry 1 Procedure Kyphoplasty Count Info Count Type Sponge, Sharps Counts Verification Baseline/pre-procedure Sequence Count Results Correct, surgeon notified Counts Performed By Count Performed By SHIVAM MURO, (Scrub) French Professor Count Performed By CONTRERAS SERRATO RN (RN) Last Modified By: CONTRERAS SERRATO RN 03/28/20 16:15:54 [facility] IntraOp Counts Final Entry 1 Procedure Kyphoplasty Final Count Info Count Type Sponge, Sharps Counts Verification Skin Closure/end of Sequence procedure Count Results Correct, surgeon notified Counts Performed By Count Performed By SHIVAM MURO, (Scrub) French Professor Count Performed By CONTRERAS SERRATO, RN (RN) [...] Item Occlusive dressing Applied By SHIVAM MURO, French Professor Other Comments AQUACEL DRESSING Last Modified By: [...] IntraOp Fire Risk Assessment Audit 03/28/20 16:18:24 Metal Furniture Assembly Supervisor: CRMOSS Modifier: CRMOSS <+> 1 Standard Fire Safety Precautions Followed [facility] IntraOp General Case Injection Press Operator 1 Case Information OR OR 01 [facility] [place] Case Level 1 Room [...] Bone Cement Implant CEMENT BONE KYPHX Identification [id number] Description Implant Quantity 1 Implant Site L1 Implant [id number] Identification Lot Number Implant Medtronic:Spine:Sofamor Identification Shi Tax Services Specialist Name: Implant [id number] Identification Catalog Number [...] 1% w/ epinephrine 1:100,000 20ml vial - [id number] Route of LOCAL Administration Dose Dose 20 [...] [facility] IntraOp Surgical Procedures Audit 03/28/20 16:28:40 Metal Furniture Assembly Supervisor: CRMOSS Modifier: CRMOSS 1 <*> Procedure Kyphoplasty [...] Type Fluoroscopy Fluoroscopy Type C-Arm Site OPSITE Refractive Surgeon Name NELLA LORETA Protective Devices Yes Used Last Modified By: OCNTRERAS SERRATO RN 03/28/20 16:22:26 Case Comments <None> Finalized By: CONTRERAS SERRATO, RN Document Signatures Signed By: CONTRERAS SERRATO RN 03/28/20 16:33 documented in this encounter Plan of Treatment Not on file documented as of this encounter Visit Diagnoses Not on filedocumented in this encounter
--- OUTSIDE RECORDS SUMMARY | 2025-06-06 10:20 | XMS_ITS | Encounter Summary ---
Author Organization [employer] ([place], [place], [place], [place]) Address [address] [place] [address] Care Team Providers Care Video Tape Transferrer Name Role Phone Unavailable Primary Care Provider Unavailabl e Encounter Details Date Type Department Care Team (Late st Contact Info) Description 03/28/2020 Transcribed Document [facility] [place] [facility] [place] [address] ProviderCj MD [address] [id number] Social History Tobacco Use Types Packs/Day Years [...]
--- OUTSIDE RECORDS SUMMARY | 2025-06-06 10:20 | XMS_ITS | Referral Summary ---
Author Organization [employer] ([place], [place], [place], [place]) Address [address] [place] [address] Care Team Providers Care Tip Inserter Name Role Phone Unavailable Primary Care Provider [...]
--- OUTSIDE RECORDS SUMMARY | 2025-06-06 10:20 | XMS_ITS | Encounter Summary ---
Author Organization [employer] ([place], [place], [place], [place]) Address [address] [place] [address] Care Team Providers Care Acds Block 1 Operator Name Role Phone Unavailable Primary Care Provider Unavailabl e Encounter Details Date Type Department Care Team (Late st Contact Info) Description 03/28/2020 Transcribed Document [facility] [place] [facility] [place] [address] ProviderCj MD [address] [place] [address] Social History Tobacco Use Types [...] Image guidance. Vertebral lumbar level I. CPT 25807 FINDINGS Fracture, soft bone consistent with fracture SURGEON: Arthur Escoto M.D. RESEARCH SCIENTIST: OR staff ANESTHESIA: LMAC. BLOOD LOSS: Less [...] with one 1 hour of incision Antibiotics wzqutq-Szktn-poficnkbrsoxf Antibiotics continued within 24 hours of surgery Mechanical DVT prophylaxis. Catheter not used COMORBIDITIES Thyroid disorder Stable coronary disease Depression Hypertension Hypothyroid Renal stones Sarah previous [place] Chronic UTI, FLUOROSCOPY TIME: 1.1 minutes COMPLICATIONS [...]
--- OUTSIDE RECORDS SUMMARY | 2025-06-06 10:20 | XMS_ITS | Encounter Summary ---
Author Organization [employer] ([place], [place], [place], [place]) Address [address] [place] [address] Care Team Providers Care Librarian School Name Role Phone Unavailable Primary Care Provider Unavailabl e Encounter Details Date Type Department Care Team (Late st Contact Info) Description 03/28/2020 Transcribed Document [facility] [place] [facility] [place] [address] ProviderCj MD [address] [place] [address] Social History Tobacco Use Types [...] SOTELO D.O.B./Sex: 1950 Female Med Rec #: [id number] Physician: ARTHUR ESCOTO MD-ORT Financial #: [id number] Pt. Type: O Room/Bed: Admit/Disch: 03/28/20 12:41:00 - [place] [facility] [place] PostOp Case Times Entry 1 In PACU II 03/28/20 16:35:00 Ready for PACU II 03/28/20 17:20:00 Discharge Discharge from PACU 03/28/20 17:20:00 II Last Modified By: EVERETT MONGE, KASSY 03/28/20 17:28:31 Finalized By: EVERTET MONGE, RN Document Signatures Signed By: EVERETT MONGE, KASSY 03/28/20 17:28 Electronically signed by Shoshana [facility] Conversion Spraying Machine Operator Cerner at 12/13/2022 11:38 AM CDT documented in this encounter Plan of Treatment Not on file documented as of this encounter Visit Diagnoses Not on filedocumented in this encounter
--- OUTSIDE RECORDS SUMMARY | 2025-06-06 10:20 | XMS_ITS | Encounter Summary ---
Author Organization [employer] ([place], [place], [place], [place]) Address [address] [place] [address] Care Team Providers Care Gauger Chief Delivery Name Role Phone Unavailable Primary Care Provider Unavailabl e Encounter Details Date Type Department Care Team (Late st Contact Info) Description 03/28/2020 Transcribed Document [facility] [place] [facility] [place] [address] ProviderCj MD [address] [id number] Social History Tobacco Use Types Packs/Day Years [...] including vitamins, herbs, eye drops, creams, and fcvz-may-gvfxpdw medicines. ??? Any problems you or family [...] tells you to take them. ??? Taking bmhw-ctl-zkczmyu medicines, vitamins, herbs, and supplements. Do not [...] 11/17/2008 Document Revised: 12/29/2018 Document Reviewed: 03/27/2018 Note Patient Education ? 2020 [employer]. Balloon Kyphoplasty, Care After This sheet [...] these instructions at home: Medicines ??? Take ysum-lfu-idtuoaz and prescription medicines only as told by your health care provider. ??? Ask your health care provider if the medicine prescribed to you: ? Requires you to avoid driving or using heavy machinery. ? Can cause constipation. You may need to take steps to prevent or treat constipation, such as: ? Drink enough fluid to keep your urine pale yellow. ? Take hwjh-edl-waeogzp or prescription medicines. ? Eat foods that [...] and water are not available, use hand wind up worker. ? Change your dressing as told by [...] care of your puncture site. ??? Take nvxa-hfh-nvjghvh and prescription medicines only as told by [...] 05/01/2016 Document Revised: 07/19/2019 Document Reviewed: 07/19/2019 Note Patient Education ? 2020 [employer] documented in this encounter Plan of Treatment Not on file documented as of this encounter Visit Diagnoses Not on filedocumented in this encounter
[2025-06-06 10:25] LABS: Bilirubin,Urine Negative (Negative); Color,Urine YELLOW (Yellow); Glucose,Urine (UA) Negative (Negative); Ketones,Urine Negative (Negative); Leukocyte Esterase,Urine Negative (Negative); PH,Urine 6.0 (5.0-8.5); Protein,Urine Negative (Negative); Specific Gravity, Urine 1.020 (1.005-1.030); Urobilinogen,Urine 0.2 EU/dl (0.2)
[2025-06-06 10:32] LABS: Hematocrit 36.6 % (37.0-47.0); Hemoglobin 12.5 g/dL (12.2-16.2); Immature Granulocytes % 0.3 %; Mean Corpuscular HGB Conc 34.2 g/dL (31.8-35.4); Mean Corpuscular Hemoglobin 31.2 pg (27.0-31.2); Mean Corpuscular Volume 91.3 fl (81-99); Nucleated Red Blood Cells % 0 %; Platelet Count 281 K/mm3 (142-424); Red Blood Count 4.01 M/mm3 (4.20-5.40); Red Cell Distribution Width-SD 42.7 fL; White Blood Count 6.9 K/mm3 (4.8-10.8)
[2025-06-06] MEDS: KETOROLAC 15MG/ML VIAL 15 MG IV (10:34)
--- NOTE | 2025-06-06 10:37 | PC.NURSE ---
pt taken to US via wheelchair.
--- NOTE | 2025-06-06 10:38 | PC.NURSE ---
attempted EKG, patient in ultrasound. will go back when patient is back in room.
[2025-06-06 10:41] LABS: Alanine Aminotransferase 16 U/L (12-78); Albumin Level 4.2 g/dl (3.5-5.0); Albumin/Globulin Ratio 1.6 (1.1-1.8); Alkaline Phosphatase 125 U/L (38-126); Anion Gap 12.7 mEq/L (5-15); Aspartate Amino Transferase 33 U/L (14-36); Bilirubin,Total 0.9 mg/dl (0.2-1.3); Blood Urea Nitrogen 17 mg/dl (7-17); Calcium 8.9 mg/dl (8.4-10.2); Carbon Dioxide 25 mmol/L (22.0-30.0); Chloride 105 mmol/L (98-107); Creatinine Clearance Estimated 55 mL/min (50-200); Creatinine,Serum 0.80 mg/dl (0.52-1.04); Estimated Glomerular Filt Rate 70 ml/min (>60); GFR (African American) 85 ML/MIN (>60); Globulin 2.6 g/dL (1.3-3.2); Glucose 97 mg/dl (74-100); Lipase 47 U/L (23-300); Magnesium 1.7 mg/dl (1.6-2.3); Potassium 3.7 mmoL/L (3.5-5.1); Sodium 139 mmol/L (136-145); Total Protein,Serum 6.8 g/dl (6.3-8.2)
[2025-06-06 10:59] LABS: Bacteria,Urine Trace /lpf; WBC,Urine Occasional #/hpf (0-3)
--- NOTE | 2025-06-06 11:04 | PC.NURSE ---
Pt is back from US
--- NOTE | 2025-06-06 11:08 | ECG_ITS ---
APPROVED REPORT Exam: Resting ECG HR:63 bpm ECG Measurements Heart Rate 63 AXES AR 161 P 68 QRSd 88 QRS 71 QT 415 T 56 QTc 422 Conclusion SINUS RHYTHM LOW QRS VOLTAGE IN PRECORDIAL LEADS [QRS DEFLECTION < 1.0 mV IN CHEST LEADS] BORDERLINE ECG UNCONFIRMED REPORT Electronically signed by : Pranay Juarez, 06/06/2025 15:48:40
--- NOTE | 2025-06-06 11:34 | CT_ITS ---
FINAL REPORT TECHNIQUE: Thin section axial images were obtained through the abdomen after contrast injection per CT angiogram protocol. Multiplanar reconstruction images were obtained from the axial data. This exam was performed with techniques to keep radiation dose as low as reasonably achievable. This includes automated exposure control, adjustment of the MA and KVP, and iterative reconstruction technique. CLINICAL HISTORY: epigastric pain radiating to back COMPARISON: None FINDINGS: CTA: The aorta is normal in caliber. Mild changes of atherosclerosis are noted. The celiac axis, superior mesenteric artery, and inferior mesenteric artery are patent without stenosis. The renal arteries are patent. The common iliac arteries and visualized portions of the internal and external iliac arteries are patent. No significant stenosis. NONVASCULAR: The gallbladder is present. The solid abdominal organs are without acute abnormality. The GI tract is without acute abnormality. No small bowel obstruction is identified. The appendix is not well-seen, however no secondary signs of appendicitis are noted. No lymphadenopathy or free fluid. IMPRESSION: No evidence of abdominal aortic aneurysm or dissection. No significant stenosis. Reviewed, Interpreted and Dictated by Evelyn Baker MD Transcribed by Tawnya Hartman Authenticated and [facility]
--- NOTE | 2025-06-06 11:34 | CT_ITS ---
FINAL REPORT TECHNIQUE: Thin section axial images were obtained from skull base to vertex without contrast. Coronal and sagittal reconstruction images were obtained from the axial data. Exam was performed using dose reduction techniques such as automated exposure control, adjustment of the mA and kV according to patient size, and use of iterative reconstruction technique. CLINICAL HISTORY: MORE COMPARISON: 12/05/2022 FINDINGS: There is atrophy. No mass effect or midline shift. No intracranial hemorrhage. No hydrocephalus. Periventricular low density is likely related to changes of chronic small vessel ischemia, similar to the prior exam of 2022. The basilar cisterns are preserved. The posterior fossa is without acute abnormality. The soft tissues are without acute abnormality. IMPRESSION: No acute intracranial abnormality. Atrophy and changes suggesting chronic small vessel ischemia. Reviewed, Interpreted and Dictated by Evelyn Baker MD Transcribed by Tawnya Hartman Authenticated and [facility]
[2025-06-06 11:48] LABS: Hepatitis C Ab Qual. W/ RFX NEGATIVE (Negative)
[2025-06-06] MEDS: IOPAMIDOL-370 (76%);100ML BOTTLE 80 ML IV (12:14)
[2025-06-06] MEDS: 0.9 % SODIUM CHLORIDE 50 ML VIAL IV (12:14)
[2025-06-06] MEDS: BELLADONNA ALKALOIDS 60 ML ML PO (12:14)
[2025-06-06] MEDS: SODIUM CHLORIDE 0.9% 10ML SYR (RAD ONLY) 10 ML IV (12:14)
[2025-06-06] MEDS: ACETAMINOPHEN 1,000MG/100ML VIAL 1000 MG IV (12:14)
[2025-06-06] MEDS: FAMOTIDINE 20MG/2ML VIAL 20 MG IV (12:17)
[2025-06-06] MEDS: 0.9 % SODIUM CHLORIDE 1000ML 1,000 ML 999 ML IV (12:21)
== END 2025-06-06 14:34 | disposition home or self-care (01) ==
PROVIDERS: Nurse Practitioner Family; Emergency Provider Emergency Medicine; PCP Nurse Practitioner Family
DX: R10.11 Right upper quadrant pain (principal)
CPT/HCPCS: 70450; 74174; 76705; 80053; 81001; 83690; 83735; 85025; 86803; 87389; 93005; 96361; 96374; 96375; 99285; J0131; J1308; J1885; J7030; Q9967